=== PATIENT | female | born 1975 | race Two or more races ===

== ENCOUNTER 2020-01-14 18:10 | Outpatient (REF) | payer MEDICARE, MEDICAID, SELFPAY ==
--- NOTE | 2020-01-14 18:15 | MR_ITS ---
EXAMINATION: MR LUMBAR SPINE WITHOUT CONTRAST CLINICAL INFORMATION: Postlaminectomy syndrome. COMPARISON: Lumbar spine radiographs from 03/22/2017. TECHNIQUE: MRI of the lumbar spine was obtained using routine sequences without contrast. FINDINGS: Instrumented posterior fusion of L5-S1 with bilateral paired interpedicular screws and disc spacer in place. Mild degenerative grade 1 anterolisthesis of L5 on S1. Advanced degenerative disc disease at T12-L1 and L1-L2. Mild degenerative disc disease from L2-L5 with partial disc desiccation. Mixed Modic type discogenic endplate changes including mild Modic type I discogenic edema at L3-L4 and L4-L5. Mild marrow edema within the L4-L5 facets suggestive of degenerative stress reaction. Lipid rich hemangiomas are noted within the T11, L1, and L4 vertebral bodies. No additional suspicious marrow edema. There is a Schmorl's node in the superior endplate of L2. Otherwise, the vertebral body heights are well-maintained. The conus medullaris terminates at the level of L1. The distal spinal cord is normal in appearance. Soft tissue changes of the paraspinal musculature related to L5-S1 posterior fusion and laminectomy. No fluid collection demonstrated. Otherwise, no significant abnormalities of the paraspinal musculature. There is a 2.5 cm T2 hyperintense adnexal cyst. Otherwise, limited evaluation of the intra-abdominal structures without significant abnormalities. The abdominal aorta is of normal contour and caliber. AXIAL SPINAL LEVELS: T12-L1: Small central/left subarticular disc extrusion with superior migration. There is mild bilateral facet joint arthropathy. There is no neural foraminal stenosis. There is no spinal canal stenosis. L1-L2: Mild diffuse disc bulge. There is mild to moderate bilateral facet joint arthropathy. There is no neural foraminal stenosis. There is no spinal canal stenosis. L2-L3: Shallow diffuse disc bulge. There is mild bilateral facet joint arthropathy. There is no neural foraminal stenosis. There is no spinal canal stenosis. L3-L4: Shallow diffuse disc bulge. There is moderate facet joint arthropathy. There is mild neural foraminal stenosis. There is mild narrowing of the right lateral recess with no overt spinal canal stenosis centrally. L4-L5: Shallow diffuse disc bulge. There is moderate bilateral facet joint arthropathy. There is no neural foraminal stenosis. There is mild narrowing of the right lateral recess with no overt spinal canal stenosis centrally. L5-S1: Fused at this level. Posterior decompression.. There is mild hypertrophy of the facet. There is no neural foraminal stenosis. There is no spinal canal stenosis. IMPRESSION: Instrumented posterior fusion of L5-S1 with posterior decompression. Mild to moderate multilevel degenerative spondyloarthropathy of the lumbar spine as described in detail above. There are mild neural foraminal stenosis at L3-L4 and mild narrowings of the right lateral recesses at L3-L4 and L4-L5. Mild marrow edema within the L4-L5 facets suggestive of degenerative stress reaction.
== END 2020-01-14 18:11 | disposition home or self-care (01) ==
LOC: HO.MRI 18:10
PROVIDERS: Visit Provider Anesthesiology
DX: M96.1 Postlaminectomy syndrome, not elsewhere classified (principal)
CPT/HCPCS: 72148

== ENCOUNTER 2020-01-29 16:08 | Emergency (ER) | payer MEDICARE, MEDICAID, SELFPAY | END 2020-01-29 18:56 | disposition left against medical advice (07) | PROVIDERS: Emergency Provider Internal Medicine | DX: R50.9 Fever, unspecified (principal); Z20.828 Contact with and (suspected) exposure to other viral communicable diseases | CPT/HCPCS: 99281 ==

== ENCOUNTER 2020-02-01 12:42 | Emergency (ER) | payer MEDICARE, MEDICAID, SELFPAY ==
--- NOTE | 2020-02-01 13:03 | ED.URI ---
HPI - URI/Sore Throat General Chief Complaint: Upper Respiratory Symptoms Stated Complaint: covid swab Time Seen by Provider: 02/01/20 13:03 Source: patient and triage registered nurse Mode of arrival: ambulatory Limitations: no limitations History of Present Illness MD elicited complaint: cough, rhinorrhea and nasal congestion Pertinent past history: other ( and daughters have confirmed COVID) Onset (ago): day(s) (4) Consistency: constant Severity: mild Description of mucous: clear Able to tolerate fluids by mouth: Yes Relieving factors: nothing Context: sick contacts Associated symptoms: fever, chills, myalgias, rhinorrhea and cough Treatments prior to arrival: none Related Data Allergies Allergy/AdvReac Type Severity Reaction Status Date / Time morphine [MORPHINE] Allergy Unknown ITCHY, Verified 02/01/20 13:24 itching, itching tramadol [TRAMADOL] Allergy Unknown SHORTNESS Verified 02/01/20 13:24 OF BREATH Review of Systems Review of Systems: Constitutional : positive Fever, positive Chills, positive fatigue, positive Malaise ENT/Mouth : positive sore throat, positive runny nose Eyes: No Discharge Cardiovascular : No Chest Pain, No SOB Respiratory : No Cough, No Sputum Gastrointestinal : No Nausea, No Vomiting, No Diarrhea Genitourinary : No Dysuria, No Urinary Frequency Musculoskeletal : positive Myalgia Skin : No rash Neuro : No Headache PMFSH Past Medical History Attestation statement: The following information was validated with the patient. Medical History Arthritis Fibromyalgia Sleep apnea Social History Social History (Updated 02/01/20 @ 13:32 by Nirali Steele DO) Smoking Status: Never smoker Use of substances other than those prescribed or required for medical reasons: No Advance Directives: No Advance Directives Information Provided: Yes Physical Exam Vital Signs: Vital Signs: Last Vital Signs Temp 98.3 F 02/01/20 13:25 Pulse 90 02/01/20 13:25 Resp 16 02/01/20 13:25 BP 111/71 02/01/20 13:25 Pulse Ox 99 02/01/20 13:25 Body Mass Index 25.8 Appearance: Alert. Oriented X3. No acute distress. Eyes: Pupils equal, round and reactive to light. Neck: Normal inspection. Neck supple. CVS: Normal heart rate and rhythm. Pulses normal. Respiratory: No respiratory distress. Breath sounds normal. Abdomen: Soft and nontender. Skin: Skin warm and dry. Normal skin color. Normal skin turgor. Extremities: No lower extremity edema. No calf ttp Neuro: Oriented X 3. No motor deficit. No sensory deficit. MDM - URI/Sore Throat MDM Narrative Medical decision making narrative: 44 yo female not toxic, no hypoxia here with URI - and daughters have COVID, wants a test Discharge Plan Discharge Clinical Impression: Viral infection Patient Disposition: Home, Self-Care Instructions: COVID-19 (Coronavirus Disease 2019) (ED) Additional Instructions: return to ED for any worsening symptoms or concerns you were tested for COVID we will call you with results in 2 to 4 days, wear a mask, socially distance
[2020-02-01 13:25] VITALS: BP 111/71; PULSE 90; RESP 16; TEMP 36.8; O2SAT 99; BMI 25.8
[2020-02-01 13:41] VITALS: O2SAT 98
== END 2020-02-01 14:30 | disposition home or self-care (01) ==
PROVIDERS: Emergency Provider Emergency Medicine; PCP Family Medicine
DX: B34.9 Viral infection, unspecified (principal); R05 Cough; Z20.828 Contact with and (suspected) exposure to other viral communicable diseases
CPT/HCPCS: 99283; 99284; U0003

== ENCOUNTER → 2020-02-04 08:37 | Outpatient (BNVA) | payer MEDICARE, MEDICAID, SELFPAY | PROVIDERS: PCP Family Medicine; Referring Provider Family Medicine; Visit Provider Psychiatry & Neurology Neurology | DX: G47.33 Obstructive sleep apnea (adult) (pediatric) (principal); Z99.89 Dependence on other enabling machines and devices | CPT/HCPCS: 99212 ==

== ENCOUNTER 2020-04-27 13:55 | Outpatient (REF) | payer MEDICARE, MEDICAID, SELFPAY ==
[2020-04-28 08:48] LABS: BV Int Neg Control Negative (Negative); BV Int Pos Control Positive (Positive)
[2020-04-30 17:07] LABS: HPV mRNA E6/E7 rflx Not Detected (Not Detected)
== END 2020-04-27 13:56 | disposition home or self-care (01) ==
LOC: HO.LAB 13:55
PROVIDERS: PCP Family Medicine; Visit Provider Advanced Practice Midwife
DX: Z01.419 Encounter for gynecological examination (general) (routine) without abnormal findings (principal); Z11.51 Encounter for screening for human papillomavirus (HPV)
CPT/HCPCS: 36415; 87480; 87510; 87624; 87660; 88142

== ENCOUNTER → 2020-05-01 10:41 | Outpatient (BNVA) | payer MEDICARE, MEDICAID, SELFPAY | PROVIDERS: PCP Family Medicine; Visit Provider Nurse Practitioner Family | DX: M96.1 Postlaminectomy syndrome, not elsewhere classified (principal); M47.819 Spondylosis without myelopathy or radiculopathy, site unspecified; M54.12 Radiculopathy, cervical region | CPT/HCPCS: 99212 ==

== ENCOUNTER 2020-08-09 12:02 | Emergency (ER) | payer MEDICARE, MEDICAID, SELFPAY ==
--- NOTE | ~2020-08-09 | CT_ITS ---
EXAMINATION: CT ANGIOGRAM OF THE CHEST WITH AND WITHOUT CONTRAST (CT PULMONARY ANGIOGRAM FOR PE) CLINICAL INFORMATION: Reason for Exam Elevated D-dimer. PE? COMPARISON: Chest radiograph done earlier today. TECHNIQUE: Prior to contrast administration, noncontrast localization images were obtained. Subsequently, multidetector volumetric imaging was performed from the thoracic inlet to below the diaphragms following the administration of 61 mL Omnipaque 350 intravenous contrast. No contrast reaction reported Sagittal, coronal, and MIP oblique sagittal reformatted images were obtained on the CT workstation, uploaded to PACS, and reviewed. This CT examination was performed using dose optimization techniques as appropriate, variously including the following: *Automated exposure control *Adjustment of mA and/or kV according to patient size (this includes techniques or standardized protocols for targeted exams where dose is matched to indication/reason for exam; i.e. extremities or head) *Use of iterative reconstruction technique Total exam dose-length product 310 mGy-cm FINDINGS: QUALITY OF STUDY/CONTRAST BOLUS: Suboptimal. PULMONARY ARTERIES: Nonopacified due to missed bolus resulting in opacification of the left-sided cardiac chambers and aorta. THORACIC AORTA: No aneurysm or dissection. LUNG: No focal consolidation, nodules or masses. PLEURA: No pleural effusion or pneumothorax. MEDIASTINUM: Normal heart size. No pericardial effusion. No hilar or mediastinal lymphadenopathy. No evidence of septal bowing or right heart strain. CHEST WALL/AXILLA: No axillary or internal mammary lymphadenopathy. OSSEOUS STRUCTURES: No acute or suspicious osseous abnormality. UPPER ABDOMEN: Unremarkable. No reflux of contrast into the hepatic veins to suggest elevated right heart pressures. CT/CT angio chest PE protocol IMPRESSION: 1. Suboptimal evaluation for pulmonary thromboembolism due to missed timing bolus resulting in opacification of the left-sided cardiac chambers and aorta. Alternative imaging modality including lower extremity DVT study, radionuclide scintigraphy and/or repeat imaging with contrast enhanced CT scan as appropriate may be considered for further clarification. VTE: Indeterminate. This critical result was discussed with CHELI Mejia at 5:10 PM on 08/09/2020 and it was ascertained that the content and urgency of the report was understood at the time of direct communication.
--- NOTE | ~2020-08-09 | CT_ITS ---
EXAMINATION: CTA CHEST PE STUDY CLINICAL INFORMATION: Elevated D-dimer. Chest pain. PE? COMPARISON: No pertinent prior studies are available for comparison. TECHNIQUE: Prior to contrast administration, noncontrast localization images were obtained. After the administration of 70 mL of Omnipaque 350 IV contrast, contiguous thin slice helical images were obtained through the thorax. Reformatted MIP images in the coronal and sagittal planes were obtained at the acquisition workstation. This CT examination was performed using dose optimization techniques as appropriate, variously including the following: *Automated exposure control *Adjustment of mA and/or kV according to patient size (this includes techniques or standardized protocols for targeted exams where dose is matched to indication/reason for exam; i.e. extremities or head) *Use of iterative reconstruction technique DLP: 300 mGy-cm. FINDINGS: The bolus timing on this study was acceptable for visualization of the pulmonary arterial tree. There are no intraluminal pulmonary arterial filling defects present to suggest pulmonary embolism. The lungs are clear. No abnormal pulmonary nodules or masses are appreciated. No significant hilar or mediastinal adenopathy. There is no evidence of pleural effusion or pneumothorax. The heart is normal in size. No evidence of ventricular septal bowing or right heart strain. Great vessels are normal. Otherwise the mediastinum is unremarkable. There is no pericardial effusion or pericardial thickening. Limited evaluation of the upper abdominal viscera is unremarkable. CT/CT angio chest PE protocol IMPRESSION: No evidence for pulmonary emboli. No focal airspace disease VTE: Negative
--- NOTE | ~2020-08-09 | XR_ITS ---
EXAMINATION: XR CHEST CLINICAL INFORMATION: Chest pain COMPARISON: 02/22/2018 TECHNIQUE: Frontal view of the chest was obtained. FINDINGS: No significant abnormality is noted involving the heart, lungs, mediastinum, bony thorax or soft tissues. XR/XR chest 1V IMPRESSION: Unremarkable examination.
[2020-08-09 12:13] VITALS: BP 125/59; PULSE 75; RESP 18; TEMP 36.8; O2SAT 98; BMI 26.4
[2020-08-09 13:41] LABS: Glucose Urine UA NEG (NEG); Leukocyte Esterase Urine NEG (NEG); Nitrite Urine NEG (NEG); PH 7.5 (5.0-8.0); Urine Blood NEG (NEG); Urine Ketones NEG (NEG); Urine Protein NEG (NEG-TRACE)
[2020-08-09 13:42] LABS: Appearance Urine CLEAR; Color Urine YELLOW
--- NOTE | 2020-08-09 13:42 | ED.GENADULT ---
HPI - General Adult General Chief complaint: General Medical <CHELI Mejia Last Filed: 08/09/20 18:16> Stated complaint: chest and back pain <CHELI Mejia Last Filed: 08/09/20 18:16> Time Seen by Provider: 08/09/20 13:32 <CHELI Mejia Last Filed: 08/09/20 18:16> Source: patient <CHELI Mejia Last Filed: 08/09/20 18:16> Mode of arrival: ambulatory <CHELI Mejia Last Filed: 08/09/20 18:16> Limitations: no limitations <CHELI Mejia Last Filed: 08/09/20 18:16> History of Present Illness HPI narrative: Patient presents to ED for left chest pain radiating to the back since Monday. Patient states pain is worse on range of motion and on shortness of breath. Patient states maybe she pulled a muscle but was concerned due to pleuritic chest pain. Patient states on Monday was doing cleaning of windows and with repetitive movement with left upper extremity and 2 days later she started having pain. Patient denies any swelling of lower extremities, calf pain, coughing up blood, fever, or chills. Patient denies any recent control use, recent travel, recent surgery, or recent trauma. <CHELI Mejia Last Filed: 08/09/20 18:16> Related Data Home medications: Home Medications Medication Instructions Recorded Confirmed [id number] 2 tab PO Q4H 04/27/20 50 mg-325 mg-40 mg tablet cyclobenzaprine 10 mg tablet 10 mg PO BEDTIME 04/27/20 gabapentin 300 mg capsule 300 mg PO TID 04/27/20 sertraline 50 mg tablet 50 mg PO DAILY 04/27/20 Previous Rx's Medication Instructions Recorded tizanidine 2 mg tablet 2 mg PO BEDTIME #30 tab 07/24/20 <CHELI Mejia Last Filed: 08/09/20 18:16> Allergies/adverse reactions: Allergies Allergy/AdvReac Type Severity Reaction Status Date / Time morphine [MORPHINE] Allergy Unknown ITCHY, Verified 04/27/20 14:21 itching, itching tramadol [TRAMADOL] Allergy Unknown SHORTNESS Verified 04/27/20 14:21 OF BREATH <CHELI Mejia - Last Filed: 08/09/20 18:16> Review of Systems Review of Systems: Yes all other systems are reviewed and are negative <CHELI Mejia - Last Filed: 08/09/20 18:16> Constitutional: Constitutional: Reports as per HPI and Reports no additional constitutional complaints <CHELI Mejia Last Filed: 08/09/20 18:16> Eyes: Eyes: Reports as per HPI and Reports no additional eye complaints <CHELI Mejia - Last Filed: 08/09/20 18:16> ENT: Reports system reviewed and no additional complaints, except as documented and Reports as per HPI <CHELI Mejia Last Filed: 08/09/20 18:16> Cardiovascular: Cardiovascular: Reports as per HPI, Reports no additional cardiovascular complaints and Reports chest pain (Chest wall) <CHELI Mejia Last Filed: 08/09/20 18:16> Respiratory: Respiratory: Reports as per HPI and Reports no additional respiratory complaints <CHELI Mejia - Last Filed: 08/09/20 18:16> Gastrointestinal: Gastrointestinal: Reports as per HPI and Reports no additional gastrointestinal complaints <CHELI Mejia Last Filed: 08/09/20 18:16> Genitourinary: Genitourinary: Reports no additional female genitourinary complaints and Reports as per HPI <CHELI Mejia - Last Filed: 08/09/20 18:16> Musculoskeletal: Musculoskeletal: Reports no additional musculoskeletal complaints and Reports as per HPI <CHELI Mejia Last Filed: 08/09/20 18:16> Neurologic: Reports system reviewed and no additional complaints, except as documented and Reports as per HPI <CHELI Mejia Last Filed: 08/09/20 18:16> Psychiatric: Psychiatric: Reports no additional psychiatric complaints and Reports as per HPI <CHELI Mejia Last Filed: 08/09/20 18:16> PMFSH Past Medical History Medical History: Medical History (Updated 08/09/20 @ 18:14 by CHELI Meija) Arthritis Cervical cancer screening Fibromyalgia Sleep apnea <CHELI Mejia Last Filed: 08/09/20 18:16> Surgical History: Surgical History (Updated 04/27/20 @ 14:25 by CARLEEN Zimmer) Hx of removal of ovary <CHELI Mejia - Last Filed: 08/09/20 18:16> Social History Social History: Social History (Updated 04/27/20 @ 14:25 by CARLEEN Zimmer) Alcohol intake: never Smoking Status: Never smoker Advance Directives: Yes Advance Directives Information Provided: Yes Advance Directives on File: No Patient : No Gender identity: female <CHELI Mejia - Last Filed: 08/09/20 18:16> Physical Exam Vital Signs: Vital Signs: Last Vital Signs Temp 98.2 F 08/09/20 20:22 Pulse 72 08/09/20 20:22 Resp 12 08/09/20 20:22 BP 115/71 08/09/20 20:22 Pulse Ox 98 08/09/20 20:22 Body Mass Index 26.4 <CHELI Mejia - Last Filed: 08/09/20 18:16> Vital Signs: Last Vital Signs Temp 98.2 F 08/09/20 20:22 Pulse 72 08/09/20 20:22 Resp 08/09/20 20:22 BP 115/71 08/09/20 20:22 Pulse Ox 98 08/09/20 20:22 Body Mass Index 26.4 <Janey Stoddard PA-C - Last Filed: 08/09/20 20:24> Const: General: cooperative, healthy appearing, comfortable, no acute distress, well developed, alert and awake <CHELI Mejia - Last Filed: 08/09/20 18:16> Orientation/consciousness: patient oriented x3 <CHELI Mejia - Last Filed: 08/09/20 18:16> HENMT: Head: Yes normal to inspection, Yes No palpable skull fracture present, Yes normocephalic and Yes atraumatic <CHELI Mejia Last Filed: 08/09/20 18:16> Eyes: General: appearance normal, both eyes and all related structures <CHELI Mejia Last Filed: 08/09/20 18:16> Neck: Neck: Yes normal visual inspection, Yes full ROM, Yes no lymphadenopathy, Yes no meningeal signs, Yes trachea midline, Yes supple and No tender <CHELI Mejia Last Filed: 08/09/20 18:16> Chest: Other: Positive for left chest wall tenderness on palpation <CHELI Mejia Last Filed: 08/09/20 18:16> Chest palpation & inspection: normal inspection of the chest <CHELI Mejia Last Filed: 08/09/20 18:16> Resp: Effort & Inspection: normal respiratory effort and able to speak in complete sentences <CHELI Mejia Last Filed: 08/09/20 18:16> Auscultation: clear to auscultation bilaterally <CHELI Mejia Last Filed: 08/09/20 18:16> Cardio: Jugular venous distension: no JVD <CHELI Mejia Last Filed: 08/09/20 18:16> Heart sounds: S1 normal heart sound present and S2 normal heart sound present <CHELI Mejia Last Filed: 08/09/20 18:16> GI: Inspection: Yes normal to inspection and No abdominal wall ecchymosis <CHELI Mejia Last Filed: 08/09/20 18:16> Palpation (GI): Soft to palpation, not firm, nontender, no guarding and not rigid <CHELI Mejia Last Filed: 08/09/20 18:16> : General: No CVA tenderness and Yes no CVA tenderness <CHELI Mejia Last Filed: 08/09/20 18:16> Back/Spine/Pelvis: Back: no CVA tenderness, No CVA tenderness and No back tenderness <CHELI Mejia Last Filed: 08/09/20 18:16> Skin: General skin exam: no rashes or lesions noted and elasticity normal <CHELI Mejia Last Filed: 08/09/20 18:16> Neuro: General: patient oriented x3, no meningeal signs and CN's II-XI intact bilaterally <CHELI Mejia Last Filed: 08/09/20 18:16> Cranial nerves: Yes CN's II-XII intact bilaterally <CHELI Mejia Last Filed: 08/09/20 18:16> Extrem: General: Yes normal to inspection and Yes full ROM <CHELI Mejia - Last Filed: 08/09/20 18:16> Psych: Appearance: grossly normal, well kempt and not disheveled <CHELI Mejia - Last Filed: 08/09/20 18:16> Course Course Course Narrative: Infection may be pulled chest wall strain be due to AH will do EKG and troponin sent for D-dimer due to pleuritic chest pain. <CHELI Mejia - Last Filed: 08/09/20 18:16> Reevaluation(s) Reevaluation #1: D-dimer elevated. Patient will be sent for chest CT rule out PE. Next EKG negative for STEMI. <CHELI Mejia - Last Filed: 08/09/20 18:16> CTA negative for PE, will discharge patient home. Likely costochondritis from the movements she was doing yesterday. [address] Scan ReportSigned Patient: Kathy Alexis AMR#: [id number]: 1975Acct:[id number]/Sex: 44 / FADM Date: 08/09/20Loc: [address]: Ordering Physician: EDER BEAULIEU Date of Service: 08/09/20 Procedure(s): CT angio chest PE protocol Accession Number(s): [id number] cc: EDER BEAULIEU~ EXAMINATION: CTA CHEST PE STUDY CLINICAL INFORMATION: Elevated D-dimer. Chest pain. PE? COMPARISON: No pertinent prior studies are available for comparison. TECHNIQUE: Prior to contrast administration, noncontrast localization images were obtained. After the administration of 70 mL of Omnipaque 350 IV contrast, contiguous thin slice helical images were obtained through the thorax. Reformatted MIP images in the coronal and sagittal planes were obtained at the acquisition workstation. This CT examination was performed using dose optimization techniques as appropriate, variously including the following: *Automated exposure control *Adjustment of mA and/or kV according to patient size (this includes techniques or standardized protocols for targeted exams where dose is matched to indication/reason for exam; i.e. extremities or head) *Use of iterative reconstruction technique DLP: 300 mGy-cm. FINDINGS: The bolus timing on this study was acceptable for visualization of the pulmonary arterial tree. There are no intraluminal pulmonary arterial filling defects present to suggest pulmonary embolism. The lungs are clear. No abnormal pulmonary nodules or masses are appreciated. No significant hilar or mediastinal adenopathy. There is no evidence of pleural effusion or pneumothorax. The heart is normal in size. No evidence of ventricular septal bowing or right heart strain. Great vessels are normal. Otherwise the mediastinum is unremarkable. There is no pericardial effusion or pericardial thickening. Limited evaluation of the upper abdominal viscera is unremarkable. CT/CT angio chest PE protocol IMPRESSION: No evidence for pulmonary emboli. No focal airspace disease VTE: Negative Dictated By:MANAV PATIÑO MDSigned By:<Electronically signed by MANAV PATIÑO MD in OV>08/09/20 1853 DD/ 1723TD/TT: [employer]ic: [place] <Janey Stoddard PA-C - Last Filed: 08/09/20 20:24> Time: 20:23 <Janey Stoddard PA-C - Last Filed: 08/09/20 20:24> Reevaluation #2: Repeat chest CT ordered as recommended by radiologist due to air of timing of bolus on chest CT that was performed. Patient made aware and is agreeable for repeat chest CT 8. Patient presently stable not in any distress. Case signed out to CHELI Toth to follow second Chest CTA. <CHELI Mejia Last Filed: 08/09/20 18:16> Medical Decision Making MDM Narrative Medical decision making narrative: Left muscular chest wall pain <CHELI Mejia Last Filed: 08/09/20 18:16> Lab Data Result diagrams: : 08/09/20 14:20 08/09/20 14:20 <CHELI Mejia Last Filed: 08/09/20 18:16> Labs: Lab Results 08/09/20 08/09/20 08/09/20 Range/Units 13:24 13:24 14:20 WBC 5.8 (4.8-10.8) X10*3/uL RBC 3.72 L (4.20-5.50) X10*6/uL Hgb 11.1 L (12.0-16.0) g/dl Hct 33.5 L (37-47) % MCV 90.1 (80-98) fL MCH 29.8 (27.0-33.0) pg MCHC 33.1 (31.0-35.0) g/dl RDW 13.3 (11.0-16.0) % Plt Count 175 (160-400) X10*3/uL MPV 12.4 H (9.4-12.3) fL Immature Gran % (Auto) 0.0 (0.0-0.4) % Neut % (Auto) 49.6 (45-73) % Lymph % (Auto) 38.2 (20-40) % [place] % (Auto) 9.5 (2-11) % Eos % (Auto) 2.2 (0-4) % Baso % (Auto) 0.5 (0-2) % Lymph # (Auto) 2.2 (1.2-4.9) X10*3/uL [place] # (Auto) 0.6 (0.1-1.2) X10*3/uL Eos # (Auto) 0.1 (0.0-0.4) X10*3/uL Baso # (Auto) 0.0 (0.0-0.2) X10*3/uL Abs Immat Gran (auto) 0.00 (0.00-0.03) X10*3/uL Absolute Neuts (auto) 2.9 (2.0-8.3) X10*3/uL Absolute Nucleated RBC 0.000 (0.0-0.012) X10*3/uL Nucleated RBC % (auto) 0.0 (0.0-0.2) /100WBC PT (10.8-13.0) SEC INR (0.9-1.1) APTT (24.1-38.0) SEC D-Dimer NG/ML Sodium (135-145) mmol/L Potassium (3.3-5.1) mmol/L Chloride (96-108) mmol/L Carbon Dioxide (22-29) mmol/L Anion Gap (12-20) BUN (9-16) mg/dL Creatinine (0.5-1.4) mg/dL Estim Creat Clear Calc Estimated GFR Random Glucose (60-115) mg/dL Calcium (8.4-10.2) mg/dL Total Bilirubin (0.0-1.0) mg/dL AST (5-31) U/L ALT (0-31) U/L Alkaline Phosphatase (39-117) U/L Troponin I High Sens (<3.5-17.0) ng/L Total Protein (6.5-8.0) g/dL Albumin (3.5-5.0) g/dL Urine Color YELLOW Urine Appearance CLEAR Urine pH 7.5 (5.0-8.0) Ur Specific [place] 1.020 (1.005-1.025) Urine Protein NEG (NEG-TRACE) MG/DL Urine Glucose (UA) NEG (NEG) MG/DL Urine Ketones NEG (NEG) MG/DL Urine Blood NEG (NEG) Urine Nitrite NEG (NEG) Ur Leukocyte Esterase NEG (NEG) Urine RBC 0-2 (0) /HPF Urine WBC 0-2 (0-4) /HPF Ur Squamous Epith Cells TRACE /LPF Urine Bacteria NONE /LPF Urine Test NEGATIVE (NEGATIVE) COVID-19 (HARI) (Negative) COVID-19 Clin Com 08/09/20 08/09/20 08/09/20 Range/Units 14:20 14:20 14:20 WBC (4.8-10.8) X10*3/uL RBC (4.20-5.50) X10*6/uL Hgb (12.0-16.0) g/dl Hct (37-47) % MCV (80-98) fL MCH (27.0-33.0) pg MCHC (31.0-35.0) g/dl RDW (11.0-16.0) % Plt Count (160-400) X10*3/uL MPV (9.4-12.3) fL Immature Gran % (Auto) (0.0-0.4) % Neut % (Auto) (45-73) % Lymph % (Auto) (20-40) % [place] % (Auto) (2-11) % Eos % (Auto) (0-4) % Baso % (Auto) (0-2) % Lymph # (Auto) (1.2-4.9) X10*3/uL [place] # (Auto) (0.1-1.2) X10*3/uL Eos # (Auto) (0.0-0.4) X10*3/uL Baso # (Auto) (0.0-0.2) X10*3/uL Abs Immat Gran (auto) (0.00-0.03) X10*3/uL Absolute Neuts (auto) (2.0-8.3) X10*3/uL Absolute Nucleated RBC (0.0-0.012) X10*3/uL Nucleated RBC % (auto) (0.0-0.2) /100WBC PT 12.8 (10.8-13.0) SEC INR 1.1 (0.9-1.1) APTT 33.9 (24.1-38.0) SEC D-Dimer 288 NG/ML Sodium 139 (135-145) mmol/L Potassium 4.0 (3.3-5.1) mmol/L Chloride 109 H (96-108) mmol/L Carbon Dioxide 23 (22-29) mmol/L Anion Gap 11 L (12-20) BUN 14 (9-16) mg/dL Creatinine 0.64 (0.5-1.4) mg/dL Estim Creat Clear Calc 107.7 Estimated GFR > 60 Random Glucose 91 (60-115) mg/dL Calcium 8.9 (8.4-10.2) mg/dL Total Bilirubin 0.2 (0.0-1.0) mg/dL AST 14 (5-31) U/L ALT 12 (0-31) U/L Alkaline Phosphatase 58 (39-117) U/L Troponin I High Sens < 3.5 (<3.5-17.0) ng/L Total Protein 7.1 (6.5-8.0) g/dL Albumin 4.1 (3.5-5.0) g/dL Urine Color Urine Appearance Urine pH (5.0-8.0) Ur Specific [place] (1.005-1.025) Urine Protein (NEG-TRACE) MG/DL Urine Glucose (UA) (NEG) MG/DL Urine Ketones (NEG) MG/DL Urine Blood (NEG) Urine Nitrite (NEG) Ur Leukocyte Esterase (NEG) Urine RBC (0) /HPF Urine WBC (0-4) /HPF Ur Squamous Epith Cells /LPF Urine Bacteria /LPF Urine Test (NEGATIVE) COVID-19 (HARI) (Negative) COVID-19 Clin Com 08/09/20 Range/Units 14:20 WBC (4.8-10.8) X10*3/uL RBC (4.20-5.50) X10*6/uL Hgb (12.0-16.0) g/dl Hct (37-47) % MCV (80-98) fL MCH (27.0-33.0) pg MCHC (31.0-35.0) g/dl RDW (11.0-16.0) % Plt Count (160-400) X10*3/uL MPV (9.4-12.3) fL Immature Gran % (Auto) (0.0-0.4) % Neut % (Auto) (45-73) % Lymph % (Auto) (20-40) % [place] % (Auto) (2-11) % Eos % (Auto) (0-4) % Baso % (Auto) (0-2) % Lymph # (Auto) (1.2-4.9) X10*3/uL [place] # (Auto) (0.1-1.2) X10*3/uL Eos # (Auto) (0.0-0.4) X10*3/uL Baso # (Auto) (0.0-0.2) X10*3/uL Abs Immat Gran (auto) (0.00-0.03) X10*3/uL Absolute Neuts (auto) (2.0-8.3) X10*3/uL Absolute Nucleated RBC (0.0-0.012) X10*3/uL Nucleated RBC % (auto) (0.0-0.2) /100WBC PT (10.8-13.0) SEC INR (0.9-1.1) APTT (24.1-38.0) SEC D-Dimer NG/ML Sodium (135-145) mmol/L Potassium (3.3-5.1) mmol/L Chloride (96-108) mmol/L Carbon Dioxide (22-29) mmol/L Anion Gap (12-20) BUN (9-16) mg/dL Creatinine (0.5-1.4) mg/dL Estim Creat Clear Calc Estimated GFR Random Glucose (60-115) mg/dL Calcium (8.4-10.2) mg/dL Total Bilirubin (0.0-1.0) mg/dL AST (5-31) U/L ALT (0-31) U/L Alkaline Phosphatase (39-117) U/L Troponin I High Sens (<3.5-17.0) ng/L Total Protein (6.5-8.0) g/dL Albumin (3.5-5.0) g/dL Urine Color Urine Appearance Urine pH (5.0-8.0) Ur Specific [place] (1.005-1.025) Urine Protein (NEG-TRACE) MG/DL Urine Glucose (UA) (NEG) MG/DL Urine Ketones (NEG) MG/DL Urine Blood (NEG) Urine Nitrite (NEG) Ur Leukocyte Esterase (NEG) Urine RBC (0) /HPF Urine WBC (0-4) /HPF Ur Squamous Epith Cells /LPF Urine Bacteria /LPF Urine Test (NEGATIVE) COVID-19 (HARI) Negative (Negative) COVID-19 Clin Com See Note <CHELI Mejia - Last Filed: 08/09/20 18:16> Lab Results 08/09/20 08/09/20 08/09/20 Range/Units 13:24 13:24 14:20 WBC 5.8 (4.8-10.8) X10*3/uL RBC 3.72 L (4.20-5.50) X10*6/uL Hgb 11.1 L (12.0-16.0) g/dl Hct 33.5 L (37-47) % MCV 90.1 (80-98) fL MCH 29.8 (27.0-33.0) pg MCHC 33.1 (31.0-35.0) g/dl RDW 13.3 (11.0-16.0) % Plt Count 175 (160-400) X10*3/uL MPV 12.4 H (9.4-12.3) fL Immature Gran % (Auto) 0.0 (0.0-0.4) % Neut % (Auto) 49.6 (45-73) % Lymph % (Auto) 38.2 (20-40) % [place] % (Auto) 9.5 (2-11) % Eos % (Auto) 2.2 (0-4) % Baso % (Auto) 0.5 (0-2) % Lymph # (Auto) 2.2 (1.2-4.9) X10*3/uL [place] # (Auto) 0.6 (0.1-1.2) X10*3/uL Eos # (Auto) 0.1 (0.0-0.4) X10*3/uL Baso # (Auto) 0.0 (0.0-0.2) X10*3/uL Abs Immat Gran (auto) 0.00 (0.00-0.03) X10*3/uL Absolute Neuts (auto) 2.9 (2.0-8.3) X10*3/uL Absolute Nucleated RBC 0.000 (0.0-0.012) X10*3/uL Nucleated RBC % (auto) 0.0 (0.0-0.2) /100WBC PT (10.8-13.0) SEC INR (0.9-1.1) APTT (24.1-38.0) SEC D-Dimer NG/ML Sodium (135-145) mmol/L Potassium (3.3-5.1) mmol/L Chloride (96-108) mmol/L Carbon Dioxide (22-29) mmol/L Anion Gap (12-20) BUN (9-16) mg/dL Creatinine (0.5-1.4) mg/dL Estim Creat Clear Calc Estimated GFR Random Glucose (60-115) mg/dL Calcium (8.4-10.2) mg/dL Total Bilirubin (0.0-1.0) mg/dL AST (5-31) U/L ALT (0-31) U/L Alkaline Phosphatase (39-117) U/L Troponin I High Sens (<3.5-17.0) ng/L Total Protein (6.5-8.0) g/dL Albumin (3.5-5.0) g/dL Urine Color YELLOW Urine Appearance CLEAR Urine pH 7.5 (5.0-8.0) Ur Specific [place] 1.020 (1.005-1.025) Urine Protein NEG (NEG-TRACE) MG/DL Urine Glucose (UA) NEG (NEG) MG/DL Urine Ketones NEG (NEG) MG/DL Urine Blood NEG (NEG) Urine Nitrite NEG (NEG) Ur Leukocyte Esterase NEG (NEG) Urine RBC 0-2 (0) /HPF Urine WBC 0-2 (0-4) /HPF Ur Squamous Epith Cells TRACE /LPF Urine Bacteria NONE /LPF Urine Test NEGATIVE (NEGATIVE) COVID-19 (HARI) (Negative) COVID-19 Clin Com 08/09/20 08/09/20 08/09/20 Range/Units 14:20 14:20 14:20 WBC (4.8-10.8) X10*3/uL RBC (4.20-5.50) X10*6/uL Hgb (12.0-16.0) g/dl Hct (37-47) % MCV (80-98) fL MCH (27.0-33.0) pg MCHC (31.0-35.0) g/dl RDW (11.0-16.0) % Plt Count (160-400) X10*3/uL MPV (9.4-12.3) fL Immature Gran % (Auto) (0.0-0.4) % Neut % (Auto) (45-73) % Lymph % (Auto) (20-40) % [place] % (Auto) (2-11) % Eos % (Auto) (0-4) % Baso % (Auto) (0-2) % Lymph # (Auto) (1.2-4.9) X10*3/uL [place] # (Auto) (0.1-1.2) X10*3/uL Eos # (Auto) (0.0-0.4) X10*3/uL Baso # (Auto) (0.0-0.2) X10*3/uL Abs Immat Gran (auto) (0.00-0.03) X10*3/uL Absolute Neuts (auto) (2.0-8.3) X10*3/uL Absolute Nucleated RBC (0.0-0.012) X10*3/uL Nucleated RBC % (auto) (0.0-0.2) /100WBC PT 12.8 (10.8-13.0) SEC INR 1.1 (0.9-1.1) APTT 33.9 (24.1-38.0) SEC D-Dimer 288 NG/ML Sodium 139 (135-145) mmol/L Potassium 4.0 (3.3-5.1) mmol/L Chloride 109 H (96-108) mmol/L Carbon Dioxide 23 (22-29) mmol/L Anion Gap 11 L (12-20) BUN 14 (9-16) mg/dL Creatinine 0.64 (0.5-1.4) mg/dL Estim Creat Clear Calc 107.7 Estimated GFR > 60 Random Glucose 91 (60-115) mg/dL Calcium 8.9 (8.4-10.2) mg/dL Total Bilirubin 0.2 (0.0-1.0) mg/dL AST 14 (5-31) U/L ALT 12 (0-31) U/L Alkaline Phosphatase 58 (39-117) U/L Troponin I High Sens < 3.5 (<3.5-17.0) ng/L Total Protein 7.1 (6.5-8.0) g/dL Albumin 4.1 (3.5-5.0) g/dL Urine Color Urine Appearance Urine pH (5.0-8.0) Ur Specific [place] (1.005-1.025) Urine Protein (NEG-TRACE) MG/DL Urine Glucose (UA) (NEG) MG/DL Urine Ketones (NEG) MG/DL Urine Blood (NEG) Urine Nitrite (NEG) Ur Leukocyte Esterase (NEG) Urine RBC (0) /HPF Urine WBC (0-4) /HPF Ur Squamous Epith Cells /LPF Urine Bacteria /LPF Urine Test (NEGATIVE) COVID-19 (HARI) (Negative) COVID-19 Clin Com 08/09/20 Range/Units 14:20 WBC (4.8-10.8) X10*3/uL RBC (4.20-5.50) X10*6/uL Hgb (12.0-16.0) g/dl Hct (37-47) % MCV (80-98) fL MCH (27.0-33.0) pg MCHC (31.0-35.0) g/dl RDW (11.0-16.0) % Plt Count (160-400) X10*3/uL MPV (9.4-12.3) fL Immature Gran % (Auto) (0.0-0.4) % Neut % (Auto) (45-73) % Lymph % (Auto) (20-40) % [place] % (Auto) (2-11) % Eos % (Auto) (0-4) % Baso % (Auto) (0-2) % Lymph # (Auto) (1.2-4.9) X10*3/uL [place] # (Auto) (0.1-1.2) X10*3/uL Eos # (Auto) (0.0-0.4) X10*3/uL Baso # (Auto) (0.0-0.2) X10*3/uL Abs Immat Gran (auto) (0.00-0.03) X10*3/uL Absolute Neuts (auto) (2.0-8.3) X10*3/uL Absolute Nucleated RBC (0.0-0.012) X10*3/uL Nucleated RBC % (auto) (0.0-0.2) /100WBC PT (10.8-13.0) SEC INR (0.9-1.1) APTT (24.1-38.0) SEC D-Dimer NG/ML Sodium (135-145) mmol/L Potassium (3.3-5.1) mmol/L Chloride (96-108) mmol/L Carbon Dioxide (22-29) mmol/L Anion Gap (12-20) BUN (9-16) mg/dL Creatinine (0.5-1.4) mg/dL Estim Creat Clear Calc Estimated GFR Random Glucose (60-115) mg/dL Calcium (8.4-10.2) mg/dL Total Bilirubin (0.0-1.0) mg/dL AST (5-31) U/L ALT (0-31) U/L Alkaline Phosphatase (39-117) U/L Troponin I High Sens (<3.5-17.0) ng/L Total Protein (6.5-8.0) g/dL Albumin (3.5-5.0) g/dL Urine Color Urine Appearance Urine pH (5.0-8.0) Ur Specific [place] (1.005-1.025) Urine Protein (NEG-TRACE) MG/DL Urine Glucose (UA) (NEG) MG/DL Urine Ketones (NEG) MG/DL Urine Blood (NEG) Urine Nitrite (NEG) Ur Leukocyte Esterase (NEG) Urine RBC (0) /HPF Urine WBC (0-4) /HPF Ur Squamous Epith Cells /LPF Urine Bacteria /LPF Urine Test (NEGATIVE) COVID-19 (HARI) Negative (Negative) COVID-19 Clin Com See Note <Janey Stoddard PA-C - Last Filed: 08/09/20 20:24> ECG Data Interpretation: Normal sinus rhythm. Normal EKG. Ventricular rate 72. NH interval 150. QRS 80. QTC 431. <CHELI Mejia Last Filed: 08/09/20 18:16> Discharge Plan Discharge Clinical Impression: Chest wall muscle strain <CHELI Mejia Last Filed: 08/09/20 18:16> Patient Disposition: Home, Self-Care <CHELI Mejia Last Filed: 08/09/20 18:16> Instructions: Chest Pain (ED), Chest Wall Pain (ED) <CHELI Mejia Last Filed: 08/09/20 18:16> Additional Instructions: Regrese al servicio de urgencias de inmediato si tiene dolor en el pecho, dificultad para respirar, hinchaz?n de las extremidades inferiores, tos con cass, fiebre, escalofr?os, dolor en el costado, dolor de brenda, mareos, desmayo o cualquier otro s?ntoma preocupante. <CHELI Mejia Last Filed: 08/09/20 18:16> Prescriptions: No Action tizanidine 2 mg tablet 2 mg PO BEDTIME Qty: 30 RF: 2 cyclobenzaprine 10 mg tablet 10 mg PO BEDTIME RF: 0 gabapentin 300 mg capsule 300 mg PO TID RF: 0 sertraline 50 mg tablet 50 mg PO DAILY RF: 0 aazjekoqwt-acfwmurffwiue-osag 50-325-40 mg tablet 2 tab PO Q4H RF: 0 <CHELI Mejia Last Filed: 08/09/20 18:16> Referrals: Nelli Packer MD [Primary Care Provider] - 2 days (Chest pain) <CHELI Mejia - Last Filed: 08/09/20 18:16> Print Language: Divehi <CHELI Mejia - Last Filed: 08/09/20 18:16>
[2020-08-09 13:55] LABS: RBC Urine 0-2 /HPF (0); Squamous Epithelial Cell Urine TRACE /LPF; WBC Urine 0-2 /HPF (0-4)
[2020-08-09 14:25] LABS: MANUAL DIFF FLAG NO
[2020-08-09 14:28] LABS: Basophils Percent Auto 0.5 % (0-2); Eosinophils Absolute Auto 0.1 X10*3/uL (0.0-0.4); Eosinophils Percent Auto 2.2 % (0-4); Hematocrit 33.5 % (37-47); Hemoglobin 11.1 g/dl (12.0-16.0); Lymphocytes Absolute Auto 2.2 X10*3/uL (1.2-4.9); Lymphocytes Percent Auto 38.2 % (20-40); Mean Corpuscular HGB Conc 33.1 g/dl (31.0-35.0); Mean Corpuscular Hemoglobin 29.8 pg (27.0-33.0); Mean Corpuscular Volume 90.1 fL (80-98); Mean Platelet Volume 12.4 fL (9.4-12.3); Monocytes Absolute Auto 0.6 X10*3/uL (0.1-1.2); Monocytes Percent Auto 9.5 % (2-11); Neutrophils Absolute Auto 2.9 X10*3/uL (2.0-8.3); Neutrophils Percent Auto 49.6 % (45-73); Platelet Count 175 X10*3/uL (160-400); Red Blood Count 3.72 X10*6/uL (4.20-5.50); Red Cell Distribution Width 13.3 % (11.0-16.0); White Blood Count 5.8 X10*3/uL (4.8-10.8)
[2020-08-09 14:35] LABS: INTERNATIONAL NORM RATIO 1.1 (0.9-1.1); Prothrombin Time 12.8 SEC (10.8-13.0)
[2020-08-09 14:38] LABS: Partial Thromboplastin Time 33.9 SEC (24.1-38.0)
[2020-08-09 14:59] LABS: COVID-19 Test Negative (Negative); IDNOW Serial# 9DD0AD1C
[2020-08-09 15:05] LABS: Alanine Aminotransferase 12 U/L (0-31); Albumin Level 4.1 g/dL (3.5-5.0); Alkaline Phosphatase 58 U/L (39-117); Anion Gap 11 (12-20); Aspartate Amino Transferase 14 U/L (5-31); Bilirubin Total 0.2 mg/dL (0.0-1.0); Blood Urea Nitrogen 14 mg/dL (9-16); Calcium 8.9 mg/dL (8.4-10.2); Carbon Dioxide 23 mmol/L (22-29); Chloride 109 mmol/L (96-108); Creatinine Clr Calc Pharmacy 107.7; Estimated Glomerular Filt Rate > 60; Glucose Random 91 mg/dL (60-115); Sodium 139 mmol/L (135-145); Total Protein 7.1 g/dL (6.5-8.0)
[2020-08-09 15:09] LABS: Troponin-I High Sensitivity < 3.5 ng/L (<3.5-17.0)
[2020-08-09 15:20] LABS: D Dimer 288 NG/ML
[2020-08-09 16:00] VITALS: RESP 16
[2020-08-09 16:41] VITALS: BP 115/60; PULSE 74; RESP 18; O2SAT 99
--- NOTE | 2020-08-09 16:46 | ECG_ITS ---
Test Reason : CHEST PAIN Blood Pressure : / mmHG Vent. Rate : 072 BPM Atrial Rate : 072 BPM P-R Int : 150 ms QRS Dur : 080 ms QT Int : 394 ms P-R-T Axes : 043 025 042 degrees QTc Int : 431 ms Normal sinus rhythm Normal ECG When compared to the previous EKG of No significant changes seen Referred By: Spenser Duke Electronically Signed By:Juan Pablo Howard
[2020-08-09 16:49] LABS: UPreg QC Valid YES; Urine Pregnancy NEGATIVE (NEGATIVE)
[2020-08-09] MEDS: iohexoL 350 MG/ML 100 ML INFUS..BTL IV ×2 (16:56→18:33)
--- NOTE | 2020-08-09 19:26 | PC.NURSE ---
Report taken from clark Partida RN resuming care. Pt resting in bed, awaiting results of repeat CTA. VSS at this time. Pt reporting 7/10 pain to left flank. Pt also requesting food/drink. Awaiting results, continue to monitor.
[2020-08-09 19:27] VITALS: BP 105/71; PULSE 71; RESP 18; O2SAT 98
--- NOTE | 2020-08-09 19:43 | PC.NURSE ---
Pt ambulating to the bathroom with a steady gait.
[2020-08-09 20:22] VITALS: BP 115/71; PULSE 72; RESP 12; TEMP 36.8; O2SAT 98
[2020-08-09] MEDS: Ketorolac Tromethamine 30 MG/ML VIAL IVPUSH (20:37)
== END 2020-08-09 20:55 | disposition home or self-care (01) ==
PROVIDERS: Physician Assistant; Emergency Provider Emergency Medicine; PCP Family Medicine
DX: R07.9 Chest pain, unspecified (principal); M54.5 Low back pain; Z20.822 Contact with and (suspected) exposure to COVID-19; Z79.899 Other long term (current) drug therapy
CPT/HCPCS: 36415; 71045; 71275; 80053; 81001; 81025; 84484; 85025; 85379; 85610; 85730; 87635; 93005; 96365; 96375; 99284; J1885; Q9967

== ENCOUNTER → 2020-08-18 10:36 | Outpatient (BNVA) | payer MEDICARE, MEDICAID, SELFPAY | PROVIDERS: PCP Family Medicine; Visit Provider Psychiatry & Neurology Neurology | CPT/HCPCS: Q3014 ==

== ENCOUNTER → 2020-10-27 11:40 | Outpatient (BNVA) | payer MEDICARE, MEDICAID, SELFPAY | PROVIDERS: PCP Family Medicine; Visit Provider Psychiatry & Neurology Neurology | DX: G47.33 Obstructive sleep apnea (adult) (pediatric) (principal) | CPT/HCPCS: 99212 ==

== ENCOUNTER → 2020-12-02 13:18 | Outpatient (BNVA) | payer MEDICARE, MEDICAID, SELFPAY | PROVIDERS: PCP Internal Medicine; Visit Provider Dietitian, Registered | DX: E66.3 Overweight (principal); Z68.28 Body mass index [BMI] 28.0-28.9, adult | CPT/HCPCS: 97802 ==

== ENCOUNTER 2020-12-18 07:37 | Outpatient (REF) | payer MEDICARE, MEDICAID, SELFPAY ==
--- NOTE | 2020-12-18 07:46 | ECG_ITS ---
Test Reason : cp Blood Pressure : / mmHG Vent. Rate : 070 BPM Atrial Rate : 070 BPM P-R Int : 154 ms QRS Dur : 078 ms QT Int : 406 ms P-R-T Axes : 181 140 134 degrees QTc Int : 438 ms Suspect limb lead reversal, interpretation assumes no reversal Unusual P axis, possible ectopic atrial rhythm Lateral infarct , age undetermined Abnormal ECG When compared with ECG of 09-AUG-2020 17:14, Ectopic atrial rhythm has replaced Sinus rhythm Lateral infarct is now Present Referred By: Lilia Walsh Electronically Signed By:DESTIN BACH
[2020-12-18 08:53] LABS: MANUAL DIFF FLAG NO
[2020-12-18 08:56] LABS: Basophils Percent Auto 0.5 % (0-2); Eosinophils Absolute Auto 0.2 X10*3/uL (0.0-0.4); Eosinophils Percent Auto 3.4 % (0-4); Hematocrit 36.4 % (37-47); Hemoglobin 11.9 g/dl (12.0-16.0); Lymphocytes Absolute Auto 2.2 X10*3/uL (1.2-4.9); Mean Corpuscular HGB Conc 32.7 g/dl (31.0-35.0); Mean Corpuscular Hemoglobin 29.7 pg (27.0-33.0); Mean Corpuscular Volume 90.8 fL (80-98); Mean Platelet Volume 12.7 fL (9.4-12.3); Monocytes Absolute Auto 0.4 X10*3/uL (0.1-1.2); Monocytes Percent Auto 6.5 % (2-11); Neutrophils Absolute Auto 3.1 X10*3/uL (2.0-8.3); Neutrophils Percent Auto 52.6 % (45-73); Platelet Count 215 X10*3/uL (160-400); Red Blood Count 4.01 X10*6/uL (4.20-5.50); Red Cell Distribution Width 13.1 % (11.0-16.0)
[2020-12-18 09:22] LABS: Alanine Aminotransferase 16 U/L (0-31); Albumin Level 4.3 g/dL (3.5-5.0); Alkaline Phosphatase 57 U/L (39-117); Anion Gap 12 (12-20); Aspartate Amino Transferase 18 U/L (5-31); Bilirubin Total 0.4 mg/dL (0.0-1.0); Blood Urea Nitrogen 9 mg/dL (9-16); Calcium 9.5 mg/dL (8.4-10.2); Carbon Dioxide 28 mmol/L (22-29); Chloride 106 mmol/L (96-108); Cholesterol 223 mg/dL; Estimated Glomerular Filt Rate > 60; Glucose Fasting 94 mg/dL (60-99); HDL Cholesterol 59 mg/dL; Iron 105 mcg/dL (30-160); LDL Cholesterol Calculated 145 mg/dl; Percent Iron Saturation 26 % (15-50); Sodium 142 mmol/L (135-145); Total Iron Binding Capacity 400 mcg/dL (228-428); Total Protein 7.3 g/dL (6.5-8.0); Triglycerides 97 mg/dL; Unsaturated Iron Binding 295 ug/dL
[2020-12-18 09:45] LABS: Thyroid Stimulating Hormone 1.51 uIU/mL (0.32-4.0)
[2020-12-18 10:02] LABS: Folate 18.7 ng/mL (> or = 4.0); Vitamin B12 566 pg/mL (200-900)
[2020-12-24 16:50] LABS: Vitamin D 25-OH, D2 <4 ng/mL; Vitamin D 25-OH, D3 21 ng/mL; Vitamin D 25-OH, Total 21 ng/mL (30-100)
== END 2020-12-18 07:38 | disposition home or self-care (01) ==
LOC: HO.LAB 07:37
PROVIDERS: PCP Internal Medicine; Visit Provider Internal Medicine
DX: R07.9 Chest pain, unspecified (principal); E55.9 Vitamin D deficiency, unspecified; E66.3 Overweight; M79.7 Fibromyalgia; D64.9 Anemia, unspecified
CPT/HCPCS: 36415; 80053; 80061; 82306; 82607; 82746; 83540; 84443; 85025; 93005

== ENCOUNTER → 2021-01-19 10:41 | Outpatient (BNVA) | payer MEDICARE, MEDICAID, SELFPAY | PROVIDERS: PCP Internal Medicine; Visit Provider Nurse Practitioner Family | DX: M96.1 Postlaminectomy syndrome, not elsewhere classified (principal); M47.819 Spondylosis without myelopathy or radiculopathy, site unspecified; M54.12 Radiculopathy, cervical region; M79.7 Fibromyalgia; G43.909 Migraine, unspecified, not intractable, without status migrainosus; F33.1 Major depressive disorder, recurrent, moderate; Z88.6 Allergy status to analgesic agent; Z88.5 Allergy status to narcotic agent | CPT/HCPCS: 99212 ==

== ENCOUNTER → 2021-01-25 12:37 | Outpatient (BNVA) | payer MEDICARE, MEDICAID, SELFPAY | PROVIDERS: PCP Internal Medicine; Visit Provider Dietitian, Registered | DX: E66.3 Overweight (principal); Z68.28 Body mass index [BMI] 28.0-28.9, adult; Z87.891 Personal history of nicotine dependence; Z88.6 Allergy status to analgesic agent; Z71.3 Dietary counseling and surveillance | CPT/HCPCS: 97803 ==

== ENCOUNTER 2021-02-04 09:46 | Outpatient (REF) | payer MEDICARE, MEDICAID, SELFPAY ==
--- NOTE | ~2021-02-04 | MR_ITS ---
EXAMINATION: MR BRAIN WITHOUT CONTRAST CLINICAL INFORMATION: Headaches. COMPARISON: Head CT dated 09/14/2016. TECHNIQUE: Multiplanar, multisequence imaging of the brain was performed without contrast. FINDINGS: No diffusion abnormalities are identified to suggest an acute or subacute infarct. The ventricles are normal in size. No mass effect or midline shift is seen. No brain parenchymal signal abnormality is noted. No extra-axial fluid collections are seen. The brainstem and cerebellum are normal. The gradient refocused acquisition is normal. The craniovertebral junction, marrow signal, and midline structures are normal. The major intracranial flow voids at the level of the [place] are preserved. The dural venous sinus flow voids are maintained. The mastoid air cells and paranasal sinuses are well aerated. MR/MR head/brain wo con IMPRESSION: No acute process. Normal MRI of the brain.
== END 2021-02-04 09:47 | disposition home or self-care (01) ==
LOC: HO.MRI 09:46
PROVIDERS: Visit Provider Internal Medicine
DX: R51.9 Headache, unspecified (principal)
CPT/HCPCS: 70551

== ENCOUNTER 2021-03-03 09:43 | Outpatient (REF) | payer MEDICARE, MEDICAID, SELFPAY ==
--- NOTE | ~2021-03-03 | US_ITS ---
EXAMINATION: US ABDOMEN COMPLETE CLINICAL INFORMATION: Right upper quadrant pain. COMPARISON: X-ray abdomen KUB same date. Limited abdominal ultrasound 12/30/2016. CT abdomen and pelvis 11/08/2016. Ultrasound abdomen 09/06/2016. TECHNIQUE: Real-time imaging of the abdominal viscera. FINDINGS: PANCREAS: Visualized portions unremarkable. A reniform lymph node in the region of the paris hepatis is seen near the pancreatic head measuring 1.0 cm in long axis. ABDOMINAL AORTA: Visualized portions unremarkable. INFERIOR VENA CAVA: Visualized portions unremarkable. LIVER: Mild diffuse increased echotexture without focal abnormality. GALLBLADDER: Unremarkable. COMMON BILE DUCT: Normal in caliber measuring 0.3 cm in diameter. RIGHT KIDNEY: 11.5 cm. Unremarkable. LEFT KIDNEY: 11.9 cm. Unremarkable. SPLEEN: 8.7 cm. Unremarkable. FREE FLUID: None. US/US abdomen complete IMPRESSION: Mild hepatic steatosis without other significant abnormality.
--- NOTE | ~2021-03-03 | XR_ITS ---
EXAMINATION: XR ABDOMEN KUB CLINICAL INDICATION: Abdominal pain COMPARISON: None TECHNIQUE: AP supine view of the abdomen and pelvis. FINDINGS: There is a stool the colon. There is a nonspecific bowel gas pattern with dilated loop of bowel in the left upper quadrant and left mid abdomen. There is no evidence of free air. No calcifications are seen projecting over the kidneys. There is a left pelvic calcification probably representing a calcified phlebolith. There are postoperative changes at L5-S1. XR/XR KUB IMPRESSION: Stool throughout the colon. Nonspecific bowel gas pattern with distended loop of bowel in the left upper quadrant and mid abdomen.
== END 2021-03-03 09:44 | disposition home or self-care (01) ==
LOC: HO.HMGCX 09:43
PROVIDERS: PCP Internal Medicine; Visit Provider Internal Medicine
DX: R10.11 Right upper quadrant pain (principal)
CPT/HCPCS: 74018; 76700

== ENCOUNTER → 2021-03-30 13:05 | Outpatient (BNVA) | payer MEDICARE, MEDICAID, SELFPAY | PROVIDERS: PCP Internal Medicine; Visit Provider Dietitian, Registered | DX: E66.3 Overweight (principal); Z68.28 Body mass index [BMI] 28.0-28.9, adult | CPT/HCPCS: 97803 ==

== ENCOUNTER 2021-04-02 10:26 | Outpatient (REF) | payer MEDICARE, MEDICAID, SELFPAY ==
--- NOTE | ~2021-04-02 | MM_ITS ---
EXAMINATION: MM SCREENING DIGITAL BREAST TOMOSYNTHESIS, BILATERAL CLINICAL INFORMATION: Screening. Asymptomatic. The lifetime risk of breast cancer based on the Tyrer-Cuzick Model is 9%. COMPARISON: Mammography: 12/20/2019, 12/11/2019, 09/21/2018, 02/22/2018 TECHNIQUE: Digital breast tomosynthesis is performed in both the craniocaudal and mediolateral oblique views along with computer-aided detection (CAD). Synthesized 2D images are generated from the tomosynthesis. FINDINGS: There are scattered areas of fibroglandular density (ACR BI-RADS breast composition Category b). There are no significant masses, abnormal calcifications, or other abnormalities. Parenchymal pattern is similar to prior studies. There is no developing density or architectural abnormality. The axilla and skin contours are unremarkable. No significant changes. MM/MM tomosynthesis screening BI IMPRESSION: No mammographic evidence of malignancy. ASSESSMENT: BI-RADS 1: Negative RECOMMENDATION: Routine annual mammography screening. This patient's information was entered into a reminder system with a target due date for their next mammogram.
== END 2021-04-02 10:27 | disposition home or self-care (01) ==
LOC: HO.MAMMO 10:26
PROVIDERS: PCP Internal Medicine; Visit Provider Internal Medicine
DX: Z12.31 Encounter for screening mammogram for malignant neoplasm of breast (principal)
CPT/HCPCS: 77063; 77067

== ENCOUNTER 2021-04-29 14:23 | Outpatient (REF) | payer MEDICARE, MEDICAID, SELFPAY | END 2021-04-29 14:24 | disposition home or self-care (01) | LOC: HO.LAB 14:23 | PROVIDERS: PCP Internal Medicine; Visit Provider Advanced Practice Midwife | DX: Z13.89 Encounter for screening for other disorder (principal) ==

== ENCOUNTER 2021-05-04 13:26 | Outpatient (REF) | payer MEDICARE, MEDICAID, SELFPAY | END 2021-05-04 13:27 | disposition home or self-care (01) | LOC: HO.LNP 13:26 | PROVIDERS: Visit Provider Advanced Practice Midwife | DX: Z13.89 Encounter for screening for other disorder (principal) | CPT/HCPCS: 87480; 87510; 87660 ==

== ENCOUNTER → 2021-06-01 10:39 | Outpatient (BNVA) | payer MEDICARE, MEDICAID, SELFPAY | PROVIDERS: PCP Internal Medicine; Referring Provider Internal Medicine; Visit Provider Psychiatry & Neurology Neurology | DX: E66.3 Overweight (principal); M54.2 Cervicalgia; E78.5 Hyperlipidemia, unspecified; E55.9 Vitamin D deficiency, unspecified; G47.33 Obstructive sleep apnea (adult) (pediatric); F41.9 Anxiety disorder, unspecified; F33.1 Major depressive disorder, recurrent, moderate; Z87.891 Personal history of nicotine dependence; Z68.27 Body mass index [BMI] 27.0-27.9, adult; Z88.6 Allergy status to analgesic agent; Z99.89 Dependence on other enabling machines and devices; Z79.899 Other long term (current) drug therapy | CPT/HCPCS: 97803; 99212 ==

== ENCOUNTER 2021-06-07 12:50 | Outpatient (REF) | payer MEDICARE, MEDICAID, SELFPAY ==
[2021-06-07 14:38] LABS: MANUAL DIFF FLAG NO
[2021-06-07 14:51] LABS: Basophils Percent Auto 0.5 % (0-2); Eosinophils Absolute Auto 0.1 X10*3/uL (0.0-0.4); Eosinophils Percent Auto 1.1 % (0-4); Hematocrit 39.1 % (37.0-47.0); Hemoglobin 12.7 g/dl (12.0-16.0); Imm Gran Abs Auto 0.01 X10*3/uL (0.00-0.03); Imm Gran Pct Auto 0.2 % (0.0-0.4); Lymphocytes Absolute Auto 2.4 X10*3/uL (1.2-4.9); Lymphocytes Percent Auto 37.6 % (20-40); Mean Corpuscular HGB Conc 32.5 g/dl (31.0-35.0); Mean Corpuscular Volume 92.2 fL (80.0-98.0); Mean Platelet Volume 12.5 fL (9.4-12.3); Monocytes Absolute Auto 0.3 X10*3/uL (0.1-1.2); Monocytes Percent Auto 4.8 % (2-11); Neutrophils Absolute Auto 3.6 x10*3/uL (2.0-8.3); Neutrophils Percent Auto 55.8 % (45-73); Platelet Count 228 X10*3/uL (160-400); Red Blood Count 4.24 X10*6/uL (4.20-5.50); Red Cell Distribution Width 13.2 % (11.0-16.0); White Blood Count 6.4 X10*3/uL (4.8-10.8)
[2021-06-07 15:19] LABS: Alanine Aminotransferase 14 U/L (0-31); Albumin Level 4.3 g/dL (3.5-5.0); Alkaline Phosphatase 60 U/L (39-117); Anion Gap 12 (12-20); Aspartate Amino Transferase 18 U/L (5-31); Bilirubin Total 0.2 mg/dL (0.0-1.0); Blood Urea Nitrogen 12 mg/dL (9-16); Calcium 9.6 mg/dL (8.4-10.2); Carbon Dioxide 26 mmol/L (22-29); Chloride 104 mmol/L (96-108); Estimated Glomerular Filt Rate > 60; Glucose Random 120 mg/dL (60-115); Potassium 4.3 mmol/L (3.3-5.1); Sodium 138 mmol/L (135-145); Total Protein 7.9 g/dL (6.5-8.0)
== END 2021-06-07 12:51 | disposition home or self-care (01) ==
LOC: HO.LAB 12:50
PROVIDERS: PCP Internal Medicine; Referring Provider Internal Medicine; Visit Provider Nurse Practitioner
DX: K92.1 Melena (principal); R10.9 Unspecified abdominal pain; K64.9 Unspecified hemorrhoids; Z12.11 Encounter for screening for malignant neoplasm of colon; Z87.891 Personal history of nicotine dependence
CPT/HCPCS: 36415; 80053; 85025; 99202

== ENCOUNTER → 2021-06-29 08:56 | Outpatient (BNVA) | payer MEDICARE, MEDICAID, SELFPAY | PROVIDERS: PCP Internal Medicine; Visit Provider Advanced Practice Midwife | DX: N92.0 Excessive and frequent menstruation with regular cycle (principal); Z87.42 Personal history of other diseases of the female genital tract | CPT/HCPCS: 99212 ==

== ENCOUNTER 2021-07-07 12:41 | Outpatient (REF) | payer MEDICARE, MEDICAID, SELFPAY ==
--- NOTE | ~2021-07-07 | US_ITS ---
EXAMINATION: US PELVIS CLINICAL INFORMATION: Abnormal menses COMPARISON: Previous pelvic ultrasound most recent November 2018 TECHNIQUE: Ultrasound of the pelvis is performed using both transabdominal and transvaginal transducers along with Doppler. Transvaginal imaging is performed due to inadequate visualization transabdominally. FINDINGS: The uterus is anteverted and measures 8.5 x 4.8 x 5.8 cm. No focal uterine lesion is seen. Endometrial thickness is normal measuring 1.4 cm. There are nabothian cysts in the cervix. The ovaries are not identified. There is a small amount of fluid in the pelvis. US/US pelvic and transvaginal IMPRESSION: Normal-appearing uterus. Ovaries not seen.
== END 2021-07-07 12:42 | disposition home or self-care (01) ==
LOC: HO.US 12:41
PROVIDERS: Visit Provider Advanced Practice Midwife
DX: N92.0 Excessive and frequent menstruation with regular cycle (principal); Z87.42 Personal history of other diseases of the female genital tract
CPT/HCPCS: 76830; 76856

== ENCOUNTER → 2021-07-27 11:45 | Outpatient (BNVA) | payer MEDICARE, MEDICAID, SELFPAY | PROVIDERS: PCP Internal Medicine; Visit Provider Psychiatry & Neurology Neurology | DX: G47.33 Obstructive sleep apnea (adult) (pediatric) (principal); G24.3 Spasmodic torticollis | CPT/HCPCS: 99212 ==

== ENCOUNTER 2021-08-09 09:01 | Outpatient (REF) | payer MEDICARE, MEDICAID, SELFPAY ==
[2021-08-09 09:16] LABS: MANUAL DIFF FLAG NO
[2021-08-09 10:14] LABS: Basophils Percent Auto 0.4 % (0-2); Eosinophils Absolute Auto 0.2 X10*3/uL (0.0-0.4); Eosinophils Percent Auto 3.6 % (0-4); Hematocrit 34.9 % (37.0-47.0); Hemoglobin 11.4 g/dl (12.0-16.0); Imm Gran Abs Auto 0.01 X10*3/uL (0.00-0.03); Imm Gran Pct Auto 0.2 % (0.0-0.4); Lymphocytes Absolute Auto 1.9 X10*3/uL (1.2-4.9); Lymphocytes Percent Auto 39.7 % (20-40); Mean Corpuscular HGB Conc 32.7 g/dl (31.0-35.0); Mean Corpuscular Hemoglobin 30.1 pg (27.0-33.0); Mean Corpuscular Volume 92.1 fL (80.0-98.0); Mean Platelet Volume 12.7 fL (9.4-12.3); Monocytes Absolute Auto 0.3 X10*3/uL (0.1-1.2); Monocytes Percent Auto 5.7 % (2-11); Neutrophils Absolute Auto 2.4 x10*3/uL (2.0-8.3); Neutrophils Percent Auto 50.4 % (45-73); Platelet Count 212 X10*3/uL (160-400); Red Blood Count 3.79 X10*6/uL (4.20-5.50); Red Cell Distribution Width 12.7 % (11.0-16.0); White Blood Count 4.7 X10*3/uL (4.8-10.8)
[2021-08-09 10:56] LABS: Alanine Aminotransferase 15 U/L (0-31); Alkaline Phosphatase 62 U/L (39-117); Anion Gap 10 (12-20); Aspartate Amino Transferase 16 U/L (5-31); Bilirubin Total 0.2 mg/dL (0.0-1.0); Blood Urea Nitrogen 11 mg/dL (9-16); Calcium 9.1 mg/dL (8.4-10.2); Carbon Dioxide 25 mmol/L (22-29); Chloride 108 mmol/L (96-108); Cholesterol 206 mg/dL; Estimated Glomerular Filt Rate > 60; Glucose Fasting 93 mg/dL (60-99); HDL Cholesterol 56 mg/dL; LDL Cholesterol Calculated 135 mg/dl; Potassium 4.3 mmol/L (3.3-5.1); Sodium 139 mmol/L (135-145); Total Protein 7.4 g/dL (6.5-8.0); Triglycerides 78 mg/dL
[2021-08-09 10:59] LABS: Vitamin D 25-OH Total 27.6 ng/mL (>30)
== END 2021-08-09 09:02 | disposition home or self-care (01) ==
LOC: HO.LAB 09:01
PROVIDERS: PCP Internal Medicine; Visit Provider Internal Medicine
DX: G43.009 Migraine without aura, not intractable, without status migrainosus (principal); E78.5 Hyperlipidemia, unspecified; E55.9 Vitamin D deficiency, unspecified
CPT/HCPCS: 36415; 80053; 80061; 82306; 85025

== ENCOUNTER → 2021-08-10 12:05 | Outpatient (BNVA) | payer MEDICARE, MEDICAID, SELFPAY | PROVIDERS: Visit Provider Advanced Practice Midwife | DX: N92.0 Excessive and frequent menstruation with regular cycle (principal) ==

== ENCOUNTER 2021-09-29 13:09 | Outpatient (REF) | payer MEDICARE, MEDICAID, SELFPAY ==
[2021-09-29 14:55] LABS: Hematocrit 34.9 % (37.0-47.0); Hemoglobin 11.8 g/dl (12.0-16.0); Mean Corpuscular HGB Conc 33.8 g/dl (31.0-35.0); Mean Corpuscular Hemoglobin 30.1 pg (27.0-33.0); Mean Platelet Volume 12.8 fL (9.4-12.3); Platelet Count 205 X10*3/uL (160-400); Red Blood Count 3.92 X10*6/uL (4.20-5.50); Red Cell Distribution Width 13.3 % (11.0-16.0); White Blood Count 5.8 X10*3/uL (4.8-10.8)
[2021-09-29 17:48] LABS: Vitamin D 25-OH Total 29.9 ng/mL (>30)
[2021-09-29 17:50] LABS: HCG Quantitative < 2 mIU/mL; TSH reflex Free T4 2.83 uIU/mL (0.32-4.0)
[2021-09-30 06:49] LABS: CT PCR NOT DETECTED (Not Detect.); NG PCR NOT DETECTED (Not Detect.)
[2021-09-30 18:31] LABS: Follicle Stimulating Hormone 9.1 mIU/mL; Lutenizing Hormone 5.4 mIU/mL
== END 2021-09-29 13:10 | disposition home or self-care (01) ==
LOC: HO.LAB 13:09
PROVIDERS: Nurse Practitioner Family; PCP Internal Medicine; Visit Provider Obstetrics & Gynecology
DX: N93.9 Abnormal uterine and vaginal bleeding, unspecified (principal); R79.89 Other specified abnormal findings of blood chemistry
CPT/HCPCS: 36415; 82306; 83001; 83002; 84443; 84702; 85027; 87491; 87591; 99212

== ENCOUNTER → 2021-10-08 11:03 | Outpatient (BNVA) | payer MEDICARE, MEDICAID, SELFPAY | PROVIDERS: Visit Provider Dietitian, Registered | DX: E66.3 Overweight (principal); Z68.27 Body mass index [BMI] 27.0-27.9, adult | CPT/HCPCS: 97803 ==

== ENCOUNTER → 2021-10-13 14:46 | Outpatient (BNVA) | payer MEDICARE, MEDICAID, SELFPAY | PROVIDERS: PCP Internal Medicine; Visit Provider Nurse Practitioner Family | DX: M47.22 Other spondylosis with radiculopathy, cervical region (principal); M62.838 Other muscle spasm | CPT/HCPCS: 99212 ==

== ENCOUNTER 2021-10-14 09:39 | Outpatient (REF) | payer MEDICARE, MEDICAID, SELFPAY | END 2021-10-14 09:40 | disposition home or self-care (01) | LOC: HO.LAB 09:39 | PROVIDERS: PCP Internal Medicine; Visit Provider Obstetrics & Gynecology | DX: N93.9 Abnormal uterine and vaginal bleeding, unspecified (principal) | CPT/HCPCS: 58100; 88305 ==

== ENCOUNTER 2021-10-26 16:39 | Outpatient (REF) | payer MEDICARE, MEDICAID, SELFPAY ==
--- NOTE | ~2021-10-26 | MR_ITS ---
EXAMINATION: MR CERVICAL SPINE WITHOUT CONTRAST CLINICAL INFORMATION: Neck pain. COMPARISON: MRI cervical spine 09/05/2018. TECHNIQUE: MRI of the cervical spine was obtained using routine sequences without contrast. FINDINGS: There is slight anterolisthesis of C4 on C5 that appears to be related to asymmetric degenerative arthrosis of the left facet joint. Alignment is otherwise normal. Vertebral heights are preserved. There is a well marginated intraosseous hemangioma of the T2 vertebral body. There is mild bone marrow edema involving the articular pillars of the left C4-C5 facet joint. Otherwise no acute bone marrow signal changes. The slight loss of intervertebral disc height and T2 signal intensity at multiple levels related to disc degeneration. There is no canal compromise or cord compression. No abnormal intramedullary signal changes. The cervicomedullary junction is normal. Limited visualization of the posterior fossa reveals no abnormal finding. The occipital condyles and lateral C1 masses are intact. There is degenerative arthrosis of the atlantodental joint. C1-C2 articular facets are unremarkable. At C2-C3 the annular contour is normal. No canal or neuroforaminal compromise. At C3-C4 there is a slightly bulging disc. No canal stenosis. Minimal uncovertebral joint spurring. No substantial neuroforaminal encroachment. At C4-C5 there is a slightly bulging disc. No canal stenosis. Asymmetric uncovertebral joint spurring and facet degenerative change causes mild left neuroforaminal encroachment. At C5-C6 there is a slightly bulging disc. No canal stenosis. Asymmetric uncovertebral joint spurring and facet degenerative change causes mild right neuroforaminal encroachment. At C6-C7 there is a diffusely bulging disc. Mild canal stenosis. Uncovertebral joint spurring and facet degenerative change causes mild bilateral neuroforaminal encroachment. At C7-T1 the annular contour is normal. No canal or neuroforaminal compromise. Visualized soft tissues of the neck are normal. Vascular flow voids are grossly maintained. MR/MR cervical spine wo con IMPRESSION: There is multilevel degenerative spondylosis of the cervical spine with slight anterolisthesis of C4 on C5 related to facet degenerative changes at this level. There is mild canal stenosis at C6-C7. Otherwise no canal compromise. No cord compression or abnormal intramedullary signal changes. There is no more than mild neuroforaminal encroachment at multiple levels within the cervical spine as described above.
== END 2021-10-26 23:59 | disposition home or self-care (01) ==
LOC: HO.MRI 16:39
PROVIDERS: Visit Provider Nurse Practitioner Family
DX: M54.2 Cervicalgia (principal); M54.12 Radiculopathy, cervical region
CPT/HCPCS: 72141

== ENCOUNTER → 2021-11-02 08:50 | Outpatient (BNVA) | payer MEDICARE, MEDICAID, SELFPAY | PROVIDERS: PCP Internal Medicine; Visit Provider Obstetrics & Gynecology | DX: N93.9 Abnormal uterine and vaginal bleeding, unspecified (principal) | CPT/HCPCS: 99212 ==

== ENCOUNTER 2021-12-07 07:50 | Outpatient (REF) | payer MEDICARE, MEDICAID, SELFPAY ==
[2021-12-07 09:05] LABS: Vitamin D 25-OH Total 29.8 ng/mL (>30)
== END 2021-12-07 07:51 | disposition home or self-care (01) ==
LOC: HO.LAB 07:50
PROVIDERS: Nurse Practitioner Family; PCP Internal Medicine; Visit Provider Internal Medicine
DX: R79.89 Other specified abnormal findings of blood chemistry (principal)
CPT/HCPCS: 36415; 82306

== ENCOUNTER 2022-02-07 09:50 | Outpatient (REF) | payer MEDICARE, MEDICAID, SELFPAY ==
[2022-02-07 11:46] LABS: Hematocrit 36.8 % (37.0-47.0); Hemoglobin 12.1 g/dl (12.0-16.0); Mean Corpuscular HGB Conc 32.9 g/dl (31.0-35.0); Mean Corpuscular Hemoglobin 29.7 pg (27.0-33.0); Mean Corpuscular Volume 90.4 fL (80.0-98.0); Mean Platelet Volume 12.5 fL (9.4-12.3); Platelet Count 208 X10*3/uL (160-400); Red Blood Count 4.07 X10*6/uL (4.20-5.50); Red Cell Distribution Width 13.1 % (11.0-16.0)
== END 2022-02-07 09:51 | disposition home or self-care (01) ==
LOC: HO.LAB 09:50
PROVIDERS: PCP Internal Medicine; Visit Provider Obstetrics & Gynecology
DX: N93.9 Abnormal uterine and vaginal bleeding, unspecified (principal)
CPT/HCPCS: 36415; 85027; 99212

== ENCOUNTER → 2022-02-23 15:30 | Outpatient (BNVA) | payer MEDICARE, MEDICAID, SELFPAY | PROVIDERS: PCP Internal Medicine; Visit Provider Anesthesiology | DX: M54.12 Radiculopathy, cervical region (principal); M47.812 Spondylosis without myelopathy or radiculopathy, cervical region; M47.819 Spondylosis without myelopathy or radiculopathy, site unspecified; M62.838 Other muscle spasm; M76.30 Iliotibial band syndrome, unspecified leg; G56.00 Carpal tunnel syndrome, unspecified upper limb; G89.4 Chronic pain syndrome | CPT/HCPCS: 99212 ==

== ENCOUNTER 2022-04-04 11:19 | Outpatient (REF) | payer MEDICARE, MEDICAID, SELFPAY ==
--- NOTE | ~2022-04-04 | MM_ITS ---
EXAMINATION: MM SCREENING DIGITAL BREAST TOMOSYNTHESIS, BILATERAL CLINICAL INFORMATION: Screening. Asymptomatic. The lifetime risk of breast cancer based on the Tyrer-Cuzick Model is 11.9%. COMPARISON: Mammography: April 02, 2021 and studies dating back to December 08, 2015 TECHNIQUE: Digital breast tomosynthesis is performed in both the craniocaudal and mediolateral oblique views along with computer-aided detection (CAD). Synthesized 2D images are generated from the tomosynthesis. FINDINGS: The breasts are heterogeneously dense, which may obscure small masses (ACR BI-RADS breast composition Category c). There are no significant masses, abnormal calcifications, or other abnormalities. MM/MM tomosynthesis screening BI IMPRESSION: No significant changes from prior exam. ASSESSMENT: BI-RADS 1: Negative RECOMMENDATION: Routine annual mammography screening. This patient's information was entered into a reminder system with a target due date for their next mammogram.
== END 2022-04-04 11:20 | disposition home or self-care (01) ==
LOC: HO.MAMMO 11:19
PROVIDERS: PCP Internal Medicine; Visit Provider Internal Medicine
DX: Z12.31 Encounter for screening mammogram for malignant neoplasm of breast (principal)
CPT/HCPCS: 77063; 77067

== ENCOUNTER 2022-04-21 08:48 | Outpatient (REF) | payer MEDICARE, MEDICAID, SELFPAY ==
[2022-04-21 08:56] LABS: MANUAL DIFF FLAG NO
[2022-04-21 09:30] LABS: Basophils Percent Auto 0.5 % (0-2); Eosinophils Absolute Auto 0.1 X10*3/uL (0.0-0.4); Eosinophils Percent Auto 2.3 % (0-4); Hematocrit 36.1 % (37.0-47.0); Hemoglobin 11.9 g/dl (12.0-16.0); Imm Gran Abs Auto 0.01 X10*3/uL (0.00-0.03); Imm Gran Pct Auto 0.2 % (0.0-0.4); Lymphocytes Absolute Auto 1.9 X10*3/uL (1.2-4.9); Lymphocytes Percent Auto 34.8 % (20-40); Mean Corpuscular Hemoglobin 29.8 pg (27.0-33.0); Mean Corpuscular Volume 90.3 fL (80.0-98.0); Mean Platelet Volume 12.3 fL (9.4-12.3); Monocytes Absolute Auto 0.3 X10*3/uL (0.1-1.2); Monocytes Percent Auto 5.8 % (2-11); Neutrophils Absolute Auto 3.1 x10*3/uL (2.0-8.3); Neutrophils Percent Auto 56.4 % (45-73); Platelet Count 215 X10*3/uL (160-400); Red Cell Distribution Width 12.3 % (11.0-16.0); White Blood Count 5.6 X10*3/uL (4.8-10.8)
[2022-04-21 10:19] LABS: Alanine Aminotransferase 13 U/L (0-31); Albumin Level 4.2 g/dL (3.5-5.0); Alkaline Phosphatase 61 U/L (39-117); Anion Gap 12 (12-20); Aspartate Amino Transferase 17 U/L (5-31); Bilirubin Total 0.4 mg/dL (0.0-1.0); Blood Urea Nitrogen 12 mg/dL (9-16); Calcium 9.4 mg/dL (8.4-10.2); Carbon Dioxide 28 mmol/L (22-29); Chloride 105 mmol/L (96-108); Cholesterol 219 mg/dL; Estimated Glomerular Filt Rate > 60; Glucose Fasting 94 mg/dL (60-99); HDL Cholesterol 51 mg/dL; LDL Cholesterol Calculated 151 mg/dl; Sodium 141 mmol/L (135-145); Total Protein 7.3 g/dL (6.5-8.0); Triglycerides 87 mg/dL
== END 2022-04-21 08:49 | disposition home or self-care (01) ==
LOC: HO.LAB 08:48
PROVIDERS: Nurse Practitioner Family; PCP Internal Medicine; Visit Provider Internal Medicine
DX: Z13.89 Encounter for screening for other disorder (principal)
CPT/HCPCS: 36415; 80053; 80061; 82306; 85025

== ENCOUNTER 2022-04-21 14:18 | Outpatient (REF) | payer MEDICARE, MEDICAID, SELFPAY ==
--- NOTE | 2022-04-21 09:45 | EMG_ITS ---
Bilateral median and ulnar motor and sensory studies were performed. Bilateral radial sensory studies were performed and paraspinal muscles were tested with a needle. IMPRESSION: 1. Mild to moderate right and mild left median neuropathy across carpal tunnel. 2. Mild bilateral ulnar neuropathy across cubital tunnel. MD CONNIE Rizvi/DAVEYL / [id number]
== END 2022-04-21 14:19 | disposition home or self-care (01) ==
LOC: HO.NEURO 14:18
PROVIDERS: PCP Internal Medicine; Visit Provider Anesthesiology
DX: G89.4 Chronic pain syndrome (principal); M54.12 Radiculopathy, cervical region; D64.9 Anemia, unspecified; E78.5 Hyperlipidemia, unspecified; E55.9 Vitamin D deficiency, unspecified
CPT/HCPCS: 36415; 80053; 80061; 82306; 85025; 95886; 95911

== ENCOUNTER 2022-04-28 16:07 | Outpatient (REF) | payer MEDICARE, MEDICAID, SELFPAY ==
--- NOTE | ~2022-04-28 | US_ITS ---
EXAMINATION: US VENOUS ULTRASOUND WITH DOPPLER LOWER EXTREMITY, LEFT CLINICAL INFORMATION: Left leg pain COMPARISON: None TECHNIQUE: Ultrasound of the deep veins is performed from the hip to the calf with compression sonography and color and pulse Doppler assessment. Spectral analysis with color-flow imaging is performed. FINDINGS: There is normal venous compression and respiratory variation and augmented flow. The visualized common femoral vein, superficial femoral vein, profunda femoral vein, popliteal vein, and the trifurcation region shows no evidence of deep venous thrombosis. There is no significant popliteal fossa cyst. If the patient's symptoms persist, followup ultrasound in 5 days 7 days might be of value to exclude proximal propagation from a non-visualized calf vein. US/US venous duplex LE LT IMPRESSION: No DVT demonstrated in the left lower extremity.
== END 2022-04-28 16:08 | disposition home or self-care (01) ==
LOC: HO.US 16:07
PROVIDERS: PCP Internal Medicine; Visit Provider Emergency Medicine
DX: M79.605 Pain in left leg (principal)
CPT/HCPCS: 93971

== ENCOUNTER 2022-05-18 12:57 | Outpatient (REF) | payer MEDICARE, MEDICAID, SELFPAY ==
--- NOTE | ~2022-05-18 | XR_ITS ---
EXAMINATION: XR SINUSES CLINICAL INFORMATION: R51.9 - Headache, unspecified 05/17/2022 COMPARISON: None TECHNIQUE: 4 views of the sinuses were obtained. FINDINGS: CT sinuses appear well-aerated and clear. There is no mucosal thickening or polypoid mass or air-fluid level. No sinus wall thickening or sclerosis or visible destructive process. The nasopharynx is unremarkable on the lateral view. XR/XR sinus min 3V IMPRESSION: Unremarkable examination.
== END 2022-05-18 12:58 | disposition home or self-care (01) ==
LOC: HO.HMGCX 12:57
PROVIDERS: PCP Internal Medicine; Visit Provider Nurse Practitioner Family
DX: J34.89 Other specified disorders of nose and nasal sinuses (principal); R51.9 Headache, unspecified
CPT/HCPCS: 70220

== ENCOUNTER 2022-06-02 09:52 | Day surgery (SDC) | payer MEDICARE, MEDICAID, SELFPAY ==
[2021-12-07 10:11] VITALS: BMI 27.3
[2022-05-30 16:43] VITALS: BMI 28.3
--- NOTE | 2022-06-01 12:44 | P.CONAN_ITS ---
Documented by User: Malia Martin NP 06/01/22 12:51 HPI - Anesthesia Eval Consult details Narrative: 46yo F for Colonoscopy Cardiac optimized Pt also scheduled for pain procedure on 06/03/22 [facility] Active Problems Active Problems: All Active Problems (Updated 05/18/22 @ 12:46 by Livier Mart, [facility]) Sinus pressure (Acute) Headache (Acute) Blurry vision (Acute) Chronic pain syndrome (Acute) Carpal tunnel syndrome (Acute) Spondylosis of cervical region without myelopathy or radiculopathy (Acute) Facet joint disease of cervical region (Acute) Iliotibial band syndrome (Acute) Anxiety (Acute) Muscle spasms of neck (Acute) Abnormal uterine bleeding (AUB) (Acute) Abdominal bloating (Acute) Constipation (Acute) Low vitamin D level (Acute) Spasmodic torticollis (Acute) Menorrhagia (Acute) Hx of removal of ovary (Acute) Hx of ovarian cyst (Acute) Colon cancer screening (Acute) Neck pain (Acute) Vaginal itching (Acute) Obstructive sleep apnea (Acute) Well woman exam with routine gynecological exam (Acute) Facet arthropathy, multilevel (Acute) Postlaminectomy syndrome, lumbar (Acute) Cervical radiculopathy (Acute) Bloody stools (Acute) Physical exam (Acute) Dyslipidemia (Acute) Hypovitaminosis D (Acute) Right flank pain (Acute) RUQ abdominal pain (Acute) Occipital headache (Acute) Tonsil stone (Acute) Overweight (BMI 25.0-29.9) (Acute) Migraines (Acute) Moderate major depression (Acute) Fibromyalgia (Acute) Normocytic anemia (Acute) GERD (gastroesophageal reflux disease) (Acute) Past Medical History Medical History Anxiety Arthritis Bloody stools Cervical cancer screening Chest pain Dyslipidemia Fibromyalgia GERD (gastroesophageal reflux disease) Hypovitaminosis D Migraines Moderate major depression Neck pain Normocytic anemia Occipital headache Overweight (BMI 25.0-29.9) Physical exam Right flank pain RUQ abdominal pain Sleep apnea Tonsil stone Family History Family History Mother Thyroid disease Surgical History Surgical History History of endoscopy Hx of removal of ovary S/P lumbar fusion Social History Social History Housing: House Alcohol intake: current Alcohol intake frequency: holidays/special occasions only Alcohol type: wine Patient Tobacco Use Status: Former Tobacco user Quit Date: 2002 Tobacco use type: Cigarette e-Cigarette/Vaping Use: Never Used Second Hand Smoke Exposure: No Use of substances other than those prescribed or required for medical reasons: No Are you DNR?: No Advance Directives: No Advance Directives Information Provided: Yes Advance Directives on File: No Patient : No FDLMP: 05/10/2022 : No Poor oral hygiene: No service: No Current occupational status: disabled Gender identity: Female Cognitive needs: No Hearing needs: No Vision needs: No Meds Allergies Allergy/AdvReac Type Severity Reaction Status Date / Time morphine [MORPHINE] Allergy Intermediate Itching Verified 05/31/22 11:20 tramadol [TRAMADOL] Allergy Intermediate SHORTNESS Verified 05/31/22 11:20 OF BREATH Home Medications Medication Instructions Recorded Confirmed Last Taken Type omeprazole 40 mg capsule,delayed 40 mg PO DAILY 10/27/20 06/02/22 06/02/22 History release ibuprofen 600 mg tablet 600 mg PO TID 07/27/21 06/02/22 Unknown History cyclobenzaprine 10 mg tablet 10 mg PO BEDTIME 12/08/21 06/02/22 Unknown History bupropion HCl 300 mg 24 hr tablet, 1 tab PO DAILY 05/30/22 06/02/22 06/02/22 History extended release gabapentin 300 mg capsule 300 mg PO DAILY 05/30/22 06/02/22 06/02/22 History gabapentin 600 mg tablet 600 mg PO BEDTIME 05/30/22 06/02/22 Unknown History Exam Exam Date and Time: June 01, 2022 1244 Height,Weight and Vital Signs: Height 5 ft 3 in Weight 72.575 kg Pertinent Lab Results Pertinent Lab Results: Laboratory Tests 04/21/22 04/21/22 08:56 08:56 WBC 5.6 Hgb 11.9 L Hct 36.1 L Plt Count 215 Sodium 141 Potassium 4.0 Chloride 105 Carbon Dioxide 28 BUN 12 Creatinine 0.75 Narrative Narrative: Stress ECHO 01/2022 Negative. All WNL Assessment and Plan Assessment Anesthesia Assessment: Chart Reviewed Documented by User: Astrid Blount MD 06/02/22 12:30 PMFSH Past Medical History Medical History Anxiety Arthritis Bloody stools Cervical cancer screening Chest pain Dyslipidemia Fibromyalgia GERD (gastroesophageal reflux disease) Hypovitaminosis D Migraines Moderate major depression Neck pain Normocytic anemia Occipital headache Overweight (BMI 25.0-29.9) Physical exam Right flank pain RUQ abdominal pain Sleep apnea Tonsil stone Family History Family History Mother Thyroid disease Surgical History Surgical History History of endoscopy Hx of removal of ovary S/P lumbar fusion History of Problems with Anesthesia: No Social History Social History Housing: House Alcohol intake: current Alcohol intake frequency: holidays/special occasions only Alcohol type: wine Patient Tobacco Use Status: Former Tobacco user Quit Date: 2002 Tobacco use type: Cigarette e-Cigarette/Vaping Use: Never Used Second Hand Smoke Exposure: No Use of substances other than those prescribed or required for medical reasons: No Are you DNR?: No Advance Directives: No Advance Directives Information Provided: Yes Advance Directives on File: No Patient : No FDLMP: 05/10/2022 : No Poor oral hygiene: No service: No Current occupational status: disabled Gender identity: Female Cognitive needs: No Hearing needs: No Vision needs: No Meds Allergies Allergy/AdvReac Type Severity Reaction Status Date / Time morphine [MORPHINE] Allergy Intermediate Itching Verified 05/31/22 11:20 tramadol [TRAMADOL] Allergy Intermediate SHORTNESS Verified 05/31/22 11:20 OF BREATH Home Medications Medication Instructions Recorded Confirmed Last Taken Type omeprazole 40 mg capsule,delayed 40 mg PO DAILY 10/27/20 06/02/22 06/02/22 History release ibuprofen 600 mg tablet 600 mg PO TID 07/27/21 06/02/22 Unknown History cyclobenzaprine 10 mg tablet 10 mg PO BEDTIME 12/08/21 06/02/22 Unknown History bupropion HCl 300 mg 24 hr tablet, 1 tab PO DAILY 05/30/22 06/02/22 06/02/22 History extended release gabapentin 300 mg capsule 300 mg PO DAILY 05/30/22 06/02/22 06/02/22 History gabapentin 600 mg tablet 600 mg PO BEDTIME 05/30/22 06/02/22 Unknown History Exam Airway Mallampati Class: II TM Dist: >3cm Neck ROM: Full Loose/Missing/Broken Teeth: No Heart: RRR Lungs: CTA Assessment and Plan Assessment Anesthesia Assessment: Anesthesia Plan Discussed Final Anesthetic Review History of Problems with Anesthesia: No NPO: Yes ASA Class: II Final Preanesthetic Review: Meds/Allgs Chart Reviewed, Consent Obtained/Reviewed and Anes Risks/Benef Reviewed Patient Risk: Low Procedure Risk: Low Anesthetic Plan Anesthetic Plan: MAC: Disposition: Standard PACU
[2022-06-02 11:19] VITALS: BP 140/84; PULSE 88; RESP 18; TEMP 36.8; O2SAT 97
--- NOTE | 2022-06-02 11:19 | MHC.SHP ---
Pre-Procedural Eval Section A Date of Service: 06/02/22 The patient is an INPATIENT: No The History & Physical has been completed within 30 days and I have reviewed it.: No Section B Chief Complaint: screening Details of Present Illness: Colon cancer screening Relevant Family History (Specify if Yes): No Relevant Social History: Tobacco Use (Former smoker) Present Medications: see Short Stay Collaborative assessment Medical History: Significant History (ELLE High cholesterol Occipital headaches/migraines Multilevel facet arthropathy with post-laminectomy syndrome lumbar and cervical radiculopathy History of tonsil stone Fibromyalgia syndrome GERD Depression/anxiety) History of Previous Operations: Relevant previous surgery/procedure and date(s) (History of endoscopy Hx of removal of ovary S/P lumbar fusion) Allergies: Allergies Allergy/AdvReac Type Severity Reaction Status Date / Time morphine [MORPHINE] Allergy Intermediate Itching Verified 05/31/22 11:20 tramadol [TRAMADOL] Allergy Intermediate SHORTNESS Verified 05/31/22 11:20 OF BREATH Review of Systems Sugical H&P ROS: Negative: Constitution, Cardiovascular, Respiratory and Gastrointestinal Exam Surgical H&P Exam: Normal: Heart, Normal: Lungs, Normal: Extremities and Normal: Abdomen Plan Diagnosis/Plan: Unchanged I have reviewed the history and physical and performed a pertinent physical examination on my patient. No changes have occurred unless specified. Time Spent With Patient Time: Total time managing care of this patient today ____ minutes.
[2022-06-02 11:24] VITALS: BMI 28.1
[2022-06-02 11:34] LABS: UPreg QC Valid YES; Urine Pregnancy NEGATIVE (NEGATIVE)
[2022-06-02] MEDS: Lactated Ringers 1,000 ML 100 ML IVCONT (12:00)
--- NOTE | 2022-06-02 12:31 | PM.OP ---
Brief Operative Note Date of Service: 06/02/22 Pre-op diagnosis: Colon cancer screening Post-op diagnosis: other (Colon polyp, diverticulosis, hemorrhoids) Procedure: COLONOSCOPY TILL CECUM WITH BIOPSIES Surgeon: Fannie York MD Anesthesia: MAC Was an Coin Rolling Machine Operator used for this Procedure?: Yes Coin Rolling Machine Operator: Bianca Jordan Estimated blood loss (mL): 0 Pathology: other (A: ascending colon biopsy) Condition: stable Disposition: PACU
--- NOTE | 2022-06-02 12:31 | W.PM.OPN ---
Operative Note Operative Note Date of Service: 06/02/22 Narrative: COLONOSCOPY TILL CECUM WITH BIOPSIES Indication:? Colon cancer screening Endoscopist:? Fannie York MD Anesthesia Provider:?Dr Blount Anesthesia type:?MAC Consent: Indications for the procedure and potential complications of bleeding, perforation, reaction to medications and missed diagnosis were discussed with the patient and informed consent was obtained. Instrument: Olympus PCF H 190 L variable stiffness pediatric colonoscope Monitoring: Vital signs and clinical assessment, intermittent blood pressure monitoring, continuous EKG monitoring, Pulse oximetry and Carbon Dioxide monitoring were done throughout the procedure. Please see anesthesia flowsheet. Colon withdrawl time was 16 minutes. Procedure: The patient was placed in the left lateral decubitis position and pre-procedure medications were administered. After a digital rectal examination of the ano-rectum, the video colonoscope was inserted into the rectum and advanced through the colon to the cecum. The colonoscope was slowly withdrawn in a retrograde panoramic fashion and the colon mucosa was carefully examined including a retroflexed view of the rectum. Findings and interventions are described below. Procedure Difficulty: Colon was long and tortuous and there was some loop formation. No maneuvers were required Findings: Terminal Ileum: Not evaluated Cecum: Normal Ascending Colon: A 2-3 mm diminutive appearing polyp - removed with a cold bx Transverse Colon: Normal Descending Colon: Normal Sigmoid Colon: Moderate diverticulosis Rectum: Normal Ano-rectum: Small internal hemorrhoids Colon preparation: Excellent Impression and Post Procedure Diagnosis: Colonoscopy Findings: One tiny diminutive appearing polyp removed Moderate diverticulosis seen in the sigmoid colon Small hemorrhoids on retroflexed exam. Plan: Await pathology results Patient has an appointment on 06/16/22 in the GI [facility] with Katerina Guerrero NP. Repeat Colonoscopy interval based on path results - in 5 years if polyps are adenomatous and 10 years if polyps are hyperplastic. Above findings were reviewed with the patient and colon polyps and diverticulosis handouts were given in the discharge area
[2022-06-02 13:05] VITALS: BP 85/35; PULSE 94; RESP 20; TEMP 36.8; O2SAT 94
[2022-06-02 13:20] VITALS: BP 111/59; PULSE 87; RESP 18; TEMP 36.9; O2SAT 98
== END 2022-06-02 14:43 | disposition home or self-care (01) ==
PROVIDERS: Nurse Practitioner; PCP Internal Medicine; Visit Provider Internal Medicine Gastroenterology
PROC: 0DJD8ZZ Inspection of Lower Intestinal Tract, Via Natural or Artificial Opening Endoscopic (ICD-10-PCS; CPT 45378; principal; 2022-06-02 12:50)
DX: Z12.11 Encounter for screening for malignant neoplasm of colon (principal); K63.5 Polyp of colon; K92.1 Melena; K57.30 Diverticulosis of large intestine without perforation or abscess without bleeding; K64.8 Other hemorrhoids; K21.9 Gastro-esophageal reflux disease without esophagitis; G47.33 Obstructive sleep apnea (adult) (pediatric); M79.7 Fibromyalgia; G89.4 Chronic pain syndrome; M96.1 Postlaminectomy syndrome, not elsewhere classified; G43.909 Migraine, unspecified, not intractable, without status migrainosus; F41.8 Other specified anxiety disorders; E78.00 Pure hypercholesterolemia, unspecified; Z79.1 Long term (current) use of non-steroidal anti-inflammatories (NSAID); Z79.899 Other long term (current) drug therapy; Z88.8 Allergy status to other drugs, medicaments and biological substances; Z98.1 Arthrodesis status; Z87.891 Personal history of nicotine dependence
CPT/HCPCS: 45380; 81025; 88305

== ENCOUNTER 2022-06-03 07:45 | Day surgery (SDC) | payer MEDICARE, MEDICAID, SELFPAY ==
--- NOTE | 2022-06-02 12:26 | HO.ANESPROP2 ---
Documented by User: Malia Martin NP 06/02/22 12:28 HPI - Anesthesia Eval Consult details Narrative: 46yo F for Bilateral C4-C5-C6-C7 therapeutic medial branch block Colonoscopy 06/02/22 Cardiac optimized PMF Active Problems Active Problems: All Active Problems (Updated 05/18/22 @ 12:46 by Livier Mart, [facility]) Sinus pressure (Acute) Headache (Acute) Blurry vision (Acute) Chronic pain syndrome (Acute) Carpal tunnel syndrome (Acute) Spondylosis of cervical region without myelopathy or radiculopathy (Acute) Facet joint disease of cervical region (Acute) Iliotibial band syndrome (Acute) Anxiety (Acute) Muscle spasms of neck (Acute) Abnormal uterine bleeding (AUB) (Acute) Abdominal bloating (Acute) Constipation (Acute) Low vitamin D level (Acute) Spasmodic torticollis (Acute) Menorrhagia (Acute) Hx of removal of ovary (Acute) Hx of ovarian cyst (Acute) Colon cancer screening (Acute) Neck pain (Acute) Vaginal itching (Acute) Obstructive sleep apnea (Acute) Well woman exam with routine gynecological exam (Acute) Facet arthropathy, multilevel (Acute) Postlaminectomy syndrome, lumbar (Acute) Cervical radiculopathy (Acute) Bloody stools (Acute) Physical exam (Acute) Dyslipidemia (Acute) Hypovitaminosis D (Acute) Right flank pain (Acute) RUQ abdominal pain (Acute) Occipital headache (Acute) Tonsil stone (Acute) Overweight (BMI 25.0-29.9) (Acute) Migraines (Acute) Moderate major depression (Acute) Fibromyalgia (Acute) Normocytic anemia (Acute) GERD (gastroesophageal reflux disease) (Acute) Past Medical History Medical History Anxiety Arthritis Bloody stools Cervical cancer screening Chest pain Dyslipidemia Fibromyalgia GERD (gastroesophageal reflux disease) Hypovitaminosis D Migraines Moderate major depression Neck pain Normocytic anemia Occipital headache Overweight (BMI 25.0-29.9) Physical exam Right flank pain RUQ abdominal pain Sleep apnea Tonsil stone Family History Family History Mother Thyroid disease Surgical History Surgical History History of endoscopy Hx of removal of ovary S/P lumbar fusion Social History Social History Housing: House Alcohol intake: current Alcohol intake frequency: holidays/special occasions only Alcohol type: wine Patient Tobacco Use Status: Former Tobacco user Quit Date: 2002 Tobacco use type: Cigarette e-Cigarette/Vaping Use: Never Used Second Hand Smoke Exposure: No Use of substances other than those prescribed or required for medical reasons: No Are you DNR?: No Advance Directives: No Advance Directives Information Provided: Yes Recently lost weight without trying: No Nutrition Risks: No Nutritional Risk Patient : No service: No Current occupational status: disabled Gender identity: Female Cognitive needs: No Hearing needs: No Vision needs: No Meds Allergies Allergy/AdvReac Type Severity Reaction Status Date / Time morphine [MORPHINE] Allergy Intermediate Itching Verified 05/31/22 11:20 tramadol [TRAMADOL] Allergy Intermediate SHORTNESS Verified 05/31/22 11:20 OF BREATH Home Medications Medication Instructions Recorded Confirmed Last Taken Type omeprazole 40 mg capsule,delayed 40 mg PO DAILY 10/27/20 06/02/22 06/03/22 History release ibuprofen 600 mg tablet 600 mg PO TID 07/27/21 06/02/22 Unknown History cyclobenzaprine 10 mg tablet 10 mg PO BEDTIME 12/08/21 06/02/22 Unknown History bupropion HCl 300 mg 24 hr tablet, 1 tab PO DAILY 05/30/22 06/02/22 06/02/22 History extended release gabapentin 300 mg capsule 300 mg PO DAILY 05/30/22 06/02/22 06/02/22 History gabapentin 600 mg tablet 600 mg PO BEDTIME 05/30/22 06/02/22 Unknown History Exam Exam Date and Time: June 02, 2022 1226 Narrative Narrative: Stress ECHO 01/2022 Negative. All WNL Assessment and Plan Assessment Anesthesia Assessment: Chart Reviewed Documented by User: Abigail Esqueda MD 06/03/22 08:53 COUNT INCLUDES THE [facility] Past Medical History Medical History Anxiety Arthritis Bloody stools Cervical cancer screening Chest pain Dyslipidemia Fibromyalgia GERD (gastroesophageal reflux disease) Hypovitaminosis D Migraines Moderate major depression Neck pain Normocytic anemia Occipital headache Overweight (BMI 25.0-29.9) Physical exam Right flank pain RUQ abdominal pain Sleep apnea Tonsil stone Functional capacity: independent ambulation Patient : No Family History Family History Mother Thyroid disease Surgical History Surgical History History of endoscopy Hx of removal of ovary S/P lumbar fusion History of Problems with Anesthesia: No Social History Social History Housing: House Alcohol intake: current Alcohol intake frequency: holidays/special occasions only Alcohol type: wine Patient Tobacco Use Status: Former Tobacco user Quit Date: 2002 Tobacco use type: Cigarette e-Cigarette/Vaping Use: Never Used Second Hand Smoke Exposure: No Use of substances other than those prescribed or required for medical reasons: No Are you DNR?: No Advance Directives: No Advance Directives Information Provided: Yes Recently lost weight without trying: No Nutrition Risks: No Nutritional Risk Patient : No service: No Current occupational status: disabled Gender identity: Female Cognitive needs: No Hearing needs: No Vision needs: No Meds Allergies Allergy/AdvReac Type Severity Reaction Status Date / Time morphine [MORPHINE] Allergy Intermediate Itching Verified 05/31/22 11:20 tramadol [TRAMADOL] Allergy Intermediate SHORTNESS Verified 05/31/22 11:20 OF BREATH Home Medications Medication Instructions Recorded Confirmed Last Taken Type omeprazole 40 mg capsule,delayed 40 mg PO DAILY 10/27/20 06/02/22 06/03/22 History release ibuprofen 600 mg tablet 600 mg PO TID 07/27/21 06/02/22 Unknown History cyclobenzaprine 10 mg tablet 10 mg PO BEDTIME 12/08/21 06/02/22 Unknown History bupropion HCl 300 mg 24 hr tablet, 1 tab PO DAILY 05/30/22 06/02/22 06/02/22 History extended release gabapentin 300 mg capsule 300 mg PO DAILY 05/30/22 06/02/22 06/02/22 History gabapentin 600 mg tablet 600 mg PO BEDTIME 05/30/22 06/02/22 Unknown History Exam Airway Mallampati Class: III TM Dist: >3cm Neck ROM: Full Heart: RRR Lungs: CTA Assessment and Plan Final Anesthetic Review History of Problems with Anesthesia: No ASA Class: II Final Preanesthetic Review: No Changes in Pt Med Stat, Meds/Allgs Chart Reviewed, Consent Obtained/Reviewed and Anes Risks/Benef Reviewed Patient Risk: Low (I) Procedure Risk: Low Anesthetic Plan Anesthetic Plan: MAC: Disposition: Standard PACU
--- NOTE | ~2022-06-03 | FL_ITS ---
EXAMINATION: XR FLUOROSCOPY WITH IMAGES CLINICAL INFORMATION: Neck pain, pain management cervical MBB. COMPARISON: MR cervical spine 10/26/2021 TECHNIQUE: Fluoroscopy Supervised By: Dr. Vince Sim. Fluoroscopy Time: 1.0 minutes. Cumulative Dose: 5.56 mGy. DAP: 1.50 Gycm2. Images: 2. FINDINGS: There are spinal needles overlying the bilateral lateral masses of the cervical spine approximately level C4. There is contrast in the paraspinal soft tissues and nerve sheaths. No visible vascular communication. FL/FL guidance in OR IMPRESSION: Fluoroscopy for pain management procedure.
[2022-06-03 08:26] VITALS: BMI 27.8
[2022-06-03 08:46] VITALS: BP 118/59; PULSE 83; RESP 16; TEMP 36.8; O2SAT 98
[2022-06-03 08:51] LABS: UPreg QC Valid YES; Urine Pregnancy NEGATIVE (NEGATIVE)
[2022-06-03] MEDS: Lactated Ringers 1,000 ML 100 ML IVCONT (08:52)
--- NOTE | 2022-06-03 09:00 | P.HPSUR_ITS ---
Pre-Procedural Eval Section A Date of Service: 06/03/22 The patient is an INPATIENT: No Changes since office visit: Yes Patient answered all questions The History & Physical has been completed within 30 days and I have reviewed it.: No Section B Chief Complaint: Radiculopathy, cervical region Details of Present Illness: spondylosis cervical spine without radiculopathy or myelopathy Relevant Family History (Specify if Yes): No Relevant Social History: Other (specify) Present Medications: see Short Stay Collaborative assessment Medical History: No relevant PMH History of Previous Operations: No relevant previous surgery Allergies: Allergies Allergy/AdvReac Type Severity Reaction Status Date / Time morphine [MORPHINE] Allergy Intermediate Itching Verified 05/31/22 11:20 tramadol [TRAMADOL] Allergy Intermediate SHORTNESS Verified 05/31/22 11:20 OF BREATH Review of Systems Sugical H&P ROS: Negative: Constitution, Cardiovascular, Respiratory, Neurol ogical, Psychiatric, Hem-Onc, Allergic/Immunologic, Gastrointestinal, Genitourinary, Musculoskeletal, Integumentary, Endocrine and Eyes/Ears/Nose/Throat Exam Surgical H&P Exam: Normal: HEENT, Normal: Heart, Normal: Lungs, Normal: Extremities, Normal: Abdomen, Normal: Skin and Normal: Neurological Plan Diagnosis/Plan: Unchanged I have reviewed the history and physical and performed a pertinent physical examination on my patient. No changes have occurred unless specified. Time Spent With Patient Time: Total time managing care of this patient today ____ minutes.
--- NOTE | 2022-06-03 09:06 | PM.OP ---
Brief Operative Note Date of Service: 06/03/22 Pre-op diagnosis: spondylosis cervical spine without myelopathy or radicolopathy Post-op diagnosis: same Procedure: therapeutic medial branch block C4- C5-C6-C7 bilateral Surgeon: Vince Sim MD Anesthesia: MAC Was an Medical Review Specialist used for this Procedure?: No Estimated blood loss (mL): 0 Condition: stable Disposition: PACU
--- NOTE | 2022-06-03 09:18 | P.OP_ITS ---
Operative Note Operative Note Date of Service: 06/03/22 Narrative: Therapeutic Medial branch block C4- C5- C6- C7 bilateral Informed consent was explained to the patient. All questions were explained and? answered.? The patient was taken inside the operating room where the patient was positioned prone on the operating table.. Time-out was performed delineating correct site, side, the nature of the procedure, patient's allergy, preoperative antibiotic if needed.? All operating room staff was participating in OR time-out procedure. ASA M-rs were applied and the patient was minimally to moderately sedated, The posterior neck was prepped with ChloraPrep and draped with sterile towels .?C-arm was brought over the operating field and square picture of C4- C5-C6 and C7? vertebrae? were delineated on the screen.? Point of interest were delineated as lateral? masses of the above mentioned vertebrae bilaterally. The waste line of the lateral masses was chosen as the final needle target.The projection of the point of interest to the skin were injected with the small amount of local a nesthetic lidocaine 2% 1-1.5 cc.? After that 22 gauge QP 10 cm spinal needles were driven to the point of interest in tunnel vision fashion. After needles gently contacted the bone at the point of interests the lateral view was obtained for each needle and needle? was adjusted to be in the centroid of the lateral mass paralelloid projection. Contrtast was injected into each needle position. No intrathecal spread of the contrast was demonstrated, at C4 position bilaterally intravascular contrast spread was noted and the needle was repositioned, repeat injection of the contrast demonstrated no intravascular uptake. After negative contrast image without intrathecal or intravascular spread the needles were injected with ropivacaine 0.5%-1cc mixed with Kenalog.? Total dose of Kenalog was 80 mg. ? Upon completion of the injections? needles were removed and sterile dressings were applied, patient was- taken outside of the operating room to recovery room where she recovered uneventfully.?
[2022-06-03 10:15] VITALS: BP 122/75; PULSE 77; RESP 16; TEMP 36.1; O2SAT 99
--- NOTE | 2022-06-03 10:25 | P.CONAN_ITS ---
[facility] Active Problems Active Problems: All Active Problems (Updated 05/18/22 @ 12:46 by Livier Mart, [facility]) Sinus pressure (Acute) Headache (Acute) Blurry vision (Acute) Chronic pain syndrome (Acute) Carpal tunnel syndrome (Acute) Spondylosis of cervical region without myelopathy or radiculopathy (Acute) Facet joint disease of cervical region (Acute) Iliotibial band syndrome (Acute) Anxiety (Acute) Muscle spasms of neck (Acute) Abnormal uterine bleeding (AUB) (Acute) Abdominal bloating (Acute) Constipation (Acute) Low vitamin D level (Acute) Spasmodic torticollis (Acute) Menorrhagia (Acute) Hx of removal of ovary (Acute) Hx of ovarian cyst (Acute) Colon cancer screening (Acute) Neck pain (Acute) Vaginal itching (Acute) Obstructive sleep apnea (Acute) Well woman exam with routine gynecological exam (Acute) Facet arthropathy, multilevel (Acute) Postlaminectomy syndrome, lumbar (Acute) Cervical radiculopathy (Acute) Bloody stools (Acute) Physical exam (Acute) Dyslipidemia (Acute) Hypovitaminosis D (Acute) Right flank pain (Acute) RUQ abdominal pain (Acute) Occipital headache (Acute) Tonsil stone (Acute) Overweight (BMI 25.0-29.9) (Acute) Migraines (Acute) Moderate major depression (Acute) Fibromyalgia (Acute) Normocytic anemia (Acute) GERD (gastroesophageal reflux disease) (Acute) Past Medical History Medical History Anxiety Arthritis Bloody stools Cervical cancer screening Chest pain Dyslipidemia Fibromyalgia GERD (gastroesophageal reflux disease) Hypovitaminosis D Migraines Moderate major depression Neck pain Normocytic anemia Occipital headache Overweight (BMI 25.0-29.9) Physical exam Right flank pain RUQ abdominal pain Sleep apnea Tonsil stone Functional capacity: independent ambulation Family History Family History Mother Thyroid disease Family history of problems with anesthesia: No Surgical History Surgical History History of endoscopy Hx of removal of ovary S/P lumbar fusion History of Problems with Anesthesia: No Social History Social History Housing: House Alcohol intake: current Alcohol intake frequency: holidays/special occasions only Alcohol type: wine Patient Tobacco Use Status: Former Tobacco user Quit Date: 2002 Tobacco use type: Cigarette e-Cigarette/Vaping Use: Never Used Second Hand Smoke Exposure: No Use of substances other than those prescribed or required for medical reasons: No Are you DNR?: No Advance Directives: No Advance Directives Information Provided: Yes Recently lost weight without trying: No Nutrition Risks: No Nutritional Risk Patient : No service: No Current occupational status: disabled Gender identity: Female Cognitive needs: No Hearing needs: No Vision needs: No Meds Allergies Allergy/AdvReac Type Severity Reaction Status Date / Time morphine [MORPHINE] Allergy Intermediate Itching Verified 05/31/22 11:20 tramadol [TRAMADOL] Allergy Intermediate SHORTNESS Verified 05/31/22 11:20 OF BREATH Active Medications: Current Medications Lactated Ringer's (Lr) 1,000 mls @ 100 mls/hr IVCONT .Q10H ROMELIA Last Admin: 06/03/22 08:52 Dose: 100 mls/hr Home Medications Medication Instructions Recorded Confirmed Last Taken Type omeprazole 40 mg capsule,delayed 40 mg PO DAILY 10/27/20 06/02/22 06/03/22 History release ibuprofen 600 mg tablet 600 mg PO TID 07/27/21 06/02/22 Unknown History cyclobenzaprine 10 mg tablet 10 mg PO BEDTIME 12/08/21 06/02/22 Unknown History bupropion HCl 300 mg 24 hr tablet, 1 tab PO DAILY 05/30/22 06/02/22 06/02/22 History extended release gabapentin 300 mg capsule 300 mg PO DAILY 05/30/22 06/02/22 06/02/22 History gabapentin 600 mg tablet 600 mg PO BEDTIME 05/30/22 06/02/22 Unknown History Exam Exam Date and Time: June 03, 2022 1025 Height,Weight and Vital Signs: Height 5 ft 3 in Weight 71.214 kg Last Vital Signs Temp 98.2 F 06/03/22 08:46 Pulse 83 06/03/22 08:46 Resp 16 06/03/22 08:46 BP 118/59 L 06/03/22 08:46 Pulse Ox 98 06/03/22 08:46 O2 Del Method 06/03/22 08:46 Pertinent Lab Results Pertinent Lab Results: Laboratory Tests 06/03/22 08:34 Urine Test NEGATIVE Airway Mallampati Class: III TM Dist: >3cm Denture: Upper Heart: RRR Lungs: CTA Assessment and Plan Final Anesthetic Review Family History of Problems with Anesthesia: No History of Problems with Anesthesia: No NPO: Yes ASA Class: III Final Preanesthetic Review: No Changes in Pt Med Stat, Meds/Allgs Chart Reviewed, Consent Obtained/Reviewed and Anes Risks/Benef Reviewed Patient Risk: Low Procedure Risk: Low Anesthetic Plan Anesthetic Plan: MAC: Disposition: Standard PACU
[2022-06-03 10:30] VITALS: BP 117/75; PULSE 84; RESP 16; O2SAT 100
--- NOTE | 2022-06-03 13:10 | HO.POSTANES ---
Post Anesthesia Evaluation Post Anesthesia Evaluation Vital Signs: Vital Signs Temp Pulse Resp BP Pulse Ox O2 Del Method O2 Flow Rate 06/03/22 10:30 84 16 117/75 100 Room Air 06/03/22 10:15 97.0 F 77 16 122/75 99 Simple Mask 4 06/03/22 08:46 98.2 F 83 16 118/59 L 98 Room Air Anesthesia: Monitored Mental Status: Awake Pain Control: Satisfactory Nausea/Vomiting: None Hydration: Adequate Anesthesia-Related Issues: No Anes. Related Issues
== END 2022-06-03 11:35 | disposition home or self-care (01) ==
PROVIDERS: Anesthesiology; PCP Internal Medicine; Visit Provider Anesthesiology
PROC: (CPT 64490; principal; 2022-06-03 09:30)
DX: M54.12 Radiculopathy, cervical region (principal); M62.838 Other muscle spasm; G89.4 Chronic pain syndrome; M47.812 Spondylosis without myelopathy or radiculopathy, cervical region; M47.819 Spondylosis without myelopathy or radiculopathy, site unspecified; M76.30 Iliotibial band syndrome, unspecified leg; M79.7 Fibromyalgia; D64.9 Anemia, unspecified; E55.9 Vitamin D deficiency, unspecified; G47.33 Obstructive sleep apnea (adult) (pediatric); F33.1 Major depressive disorder, recurrent, moderate; Z79.1 Long term (current) use of non-steroidal anti-inflammatories (NSAID); Z79.899 Other long term (current) drug therapy; Z88.8 Allergy status to other drugs, medicaments and biological substances; Z87.891 Personal history of nicotine dependence
CPT/HCPCS: 64490; 64491; 81025; J1100; J2250; J3010; J3301

== ENCOUNTER → 2022-06-16 09:31 | Outpatient (BNVA) | payer MEDICARE, MEDICAID, SELFPAY | PROVIDERS: PCP Internal Medicine; Visit Provider Nurse Practitioner | DX: R13.10 Dysphagia, unspecified (principal); K21.9 Gastro-esophageal reflux disease without esophagitis | CPT/HCPCS: 99212 ==

== ENCOUNTER → 2022-06-22 11:16 | Outpatient (BNVA) | payer MEDICARE, MEDICAID, SELFPAY | PROVIDERS: PCP Internal Medicine; Visit Provider Anesthesiology | DX: M54.12 Radiculopathy, cervical region (principal); M62.838 Other muscle spasm; M47.819 Spondylosis without myelopathy or radiculopathy, site unspecified; M76.30 Iliotibial band syndrome, unspecified leg; M47.812 Spondylosis without myelopathy or radiculopathy, cervical region; G56.00 Carpal tunnel syndrome, unspecified upper limb; G89.4 Chronic pain syndrome | CPT/HCPCS: 99212 ==

== ENCOUNTER → 2022-07-21 11:19 | Outpatient (BNVA) | payer MEDICARE, MEDICAID, SELFPAY | PROVIDERS: PCP Internal Medicine; Visit Provider Obstetrics & Gynecology ==

== ENCOUNTER 2022-08-08 09:13 | Outpatient (REF) | payer MEDICARE, MEDICAID, SELFPAY ==
--- NOTE | ~2022-08-08 | FL_ITS ---
PROCEDURE: FL BARIUM SWALLOW CLINICAL INFORMATION: Dysphagia. COMPARISON: None available. TECHNIQUE: Barium swallow examination is performed using fluoroscopic evaluation in addition to multiple fluoroscopic spot views. The patient is imaged both upright and prone and using both thick and thin sulfate along with effervescent granules. Fluoroscopy time: 1.8 minutes DAP: 7.895 Gy-cm2 Images: 52 FINDINGS: Following oral administration of thick barium and barium-coated turkey there is normal propagation of bolus from the oral cavity through the pharynx, esophagus into stomach without any evidence of obstruction, narrowing or stricture. The mucosal pattern of the esophagus is normal. On placing patient prone lying and oral administration of thin barium there is good distention of the esophagus. There is no hiatal hernia or gastroesophageal reflux. FL/FL barium swallow IMPRESSION: Unremarkable barium swallow exam in upright and lying position.
== END 2022-08-08 09:14 | disposition home or self-care (01) ==
LOC: HO.XRAY 09:13
PROVIDERS: PCP Internal Medicine; Visit Provider Nurse Practitioner
DX: R13.10 Dysphagia, unspecified (principal); K21.9 Gastro-esophageal reflux disease without esophagitis
CPT/HCPCS: 74220

== ENCOUNTER 2022-08-16 11:52 | Outpatient (REF) | payer MEDICARE, MEDICAID, SELFPAY ==
--- NOTE | ~2022-08-16 | XR_ITS ---
EXAMINATION: XR THORACOLUMBAR SPINE CLINICAL INFORMATION: Pain COMPARISON: None available. TECHNIQUE: 3 views of the thoracic spine including a new FINDINGS: Bone alignment is normal. No fracture or dislocation. Mild degenerative spondylosis of the midthoracic spine. Normal disc spaces. Normal prevertebral soft tissues. Degenerative spondylosis and disc space narrowing at C5-C6 and C6-C7. XR/XR thoracic spine 2V IMPRESSION: Mild degenerative changes.
== END 2022-08-16 11:53 | disposition home or self-care (01) ==
LOC: HO.XRAY 11:52
PROVIDERS: PCP Internal Medicine; Visit Provider Nurse Practitioner
DX: M54.6 Pain in thoracic spine (principal); R13.10 Dysphagia, unspecified; K21.9 Gastro-esophageal reflux disease without esophagitis
CPT/HCPCS: 72070; 99212

== ENCOUNTER → 2022-09-28 11:20 | Outpatient (BNVA) | payer MEDICARE, MEDICAID, SELFPAY | PROVIDERS: PCP Internal Medicine; Visit Provider Anesthesiology | DX: K59.00 Constipation, unspecified (principal); K21.9 Gastro-esophageal reflux disease without esophagitis; R13.10 Dysphagia, unspecified; R10.13 Epigastric pain; R14.0 Abdominal distension (gaseous); M54.6 Pain in thoracic spine; G89.4 Chronic pain syndrome | CPT/HCPCS: 99212 ==

== ENCOUNTER 2022-10-05 13:53 | Outpatient (AMB) | payer MEDICARE, MEDICAID, SELFPAY ==
--- NOTE | 2022-10-05 15:00 | A.OFFVIS_ITS ---
Intake Vital Signs 10/05/22 15:13 Height 5 ft 3 in Weight 154 lb BMI 27.3 BP 126/80 Blood Pressure Location Rt brachial Position Sitting Respiration 16 Pulse 97 Pulse Source Pulse Oximeter Pulse Oximetry (%) 97 Oxygen Delivery Method Room Air Intake Visit Reasons: Neck Pain s/p Cervical MMBs on 06/03/22 Intake Note: patient comes in for neck pain. Allergies morphine [MORPHINE] Allergy (Intermediate, Verified 10/05/22 15:12) Itching tramadol [TRAMADOL] Allergy (Intermediate, Verified 10/05/22 15:12) SHORTNESS OF BREATH HPI HPI Comments History of Present Illness Details Kathy is Dominican-speaking 47 years old who is back in my office complaining on severe unbearable pain in the neck. She reports pain in the neck in the range of 8/10. She reported that most of the pain in the back of the head. She reported pain is intermittent but when it comes to her it is unbearable. She reports mild lower neck pain. bilateral cervical medial branch block on 05/26/2022.? She visited me 45 days after the procedure and reported at that time excellent pain relief. She claims that her occipital pain and upper neck pain started 46 days after the procedure. It seem to be that she is suffering mostly from occipital neuralgia. In any way the- bilateral C4-C5- C6 therapeutic medial branch block is not designed to treat occipital neuralgia. I offered this patient to perform occipital nerve block. I will schedule her for lesser and greater occipital nerve block without sedation. If she will have good pain relief from occipital nerve block I will offer her PNS stim wave to treat her pain. The requirements for PNS discussed with the patient. The shaving of the back of her head discussed with the patient. The psychological evaluation is discussed with the patient. The patient is interested and agrees with the plan. Prior: complains on cervicalgia as well as pain in the right hip as well as painful sensation as tingling pins and needles in bilateral hands move the right and less on the left.?.? As of her pain in the right hip it looks like that she is suffering from iliotibial band syndrome she reports pain on the right side of the hip in the lateral area starting from trochanter and the radiating down to the lateral surface of the right knee.? The injections could be performed for this condition in the future however now it is too early after the procedure to do yet another steroid injections PFSH Medical History Anxiety Arthritis Bloody stools Cervical cancer screening Chest pain Dyslipidemia Fibromyalgia GERD (gastroesophageal reflux disease) Hypovitaminosis D Migraines Moderate major depression Neck pain Normocytic anemia Occipital headache Overweight (BMI 25.0-29.9) Physical exam Right flank pain RUQ abdominal pain Sleep apnea Tonsil stone Surgical History History of endoscopy Hx of colonoscopy Hx of removal of ovary S/P lumbar fusion Family History Mother Thyroid disease Maternal Aunt No problems noted. Social History Housing: House Alcohol intake: current Alcohol intake frequency: holidays/special occasions only Alcohol type: wine Patient Tobacco Use Status: Former Tobacco user Quit Date: 2002 Tobacco use type: Cigarette e-Cigarette/Vaping Use: Never Used Second Hand Smoke Exposure: No service: No Current occupational status: disabled Gender identity: Female Cognitive needs: No Hearing needs: No Vision needs: Yes Female Reproductive History Menstrual Age of Menarche: 11 Review of Systems Const All systems reviewed & are unremarkable except as noted in HPI and below ENT Reports Normal hearing present Neuro Reports Normal hearing present, Denies Abnormal speech present and Denies confusion Psych Denies confusion Physical Exam Vital Signs: Last Vital Signs Pulse 97 10/05/22 15:13 Resp 16 10/05/22 15:13 BP 126/80 10/05/22 15:13 Pulse Ox 97 10/05/22 15:13 Oxygen Delivery Method Room Air 10/05/22 15:13 BMI result Body Mass Index 27.3 Const General: No confusion Orientation/consciousness: No confusion HEENT Head: Yes normocephalic and Yes atraumatic Ears: hearing grossly normal bilaterally Eyes General: appearance normal, both eyes and all related structures Eyelids: Yes eyelids normal Pupils: Equal, round and reactive pupils present EOM: EOMs intact bilaterally Neck Neck: Yes normal visual inspection and Yes no JVD Resp Effort & Inspection: normal respiratory effort, able to speak in complete sentences and no audible wheezes Cardio Jugular venous distension: no JVD Back/Spine/Pelvis Other: slight decreased ROM of cervical spine with lateral rotation. significant TTP throughout cervical muscles. 5/5 motor strength of BUE. DTR intact and symmetrical. 2+ radial pulses. Reverse phalens and hand grasps elicits numbness throughout digits on the R>L. Neuro General: No confusion Cranial nerves: Yes Equal, round and reactive pupils present and Yes Normal hearing present Cognition (Neuro): normal cognition Speech: No Abnormal speech present Results Reviewed Results Reviewed: MRI of the cervical spine 10/26/2021. Findings: There is a slight retrolisthesis of C4 on C5 that appears to be related to a symmetric degenerative arthrosis of the left facet joint. Alignment is otherwise normal. Vertebral body heights is preserved. Well marginated intraosseous hemangioma at T2 vertebral body. There is mild bone marrow edema involving articular pillars of the left C4-C5 facet joints. Otherwise no acute job bone marrow signal changes. The slight loss of intervertebral disc height and T2 signal intensity at multiple levels related to disc generator d egeneration. There is no canal compromise or cord compression. No abnormal intramedullary signal changes. The cervical 0 medullary junction is normal. Limited visualization of posterior fossa reveals no abnormal finding. The occipital condyles and lateral C1 masses are intact. There is degenerative arthrosis of the implanted dental joint. C1-C2 articular facets are unremarkable. C2-C3 annular contour is normal no canal or neural foraminal compromise. C3-C4 slight bulging disc no canal stenosis minimal uncovertebral joint spurring no substantial neuroforaminal encroachment. C4-C5 there is a slight bulging disc no canal stenosis is symmetrical intervertebral joint spurring and facet degenerative change causes mild left neural foraminal encroachment. C5-C6 slight bulging disc no canal stenosis a symmetric uncovertebral joint spurring and facet degenerative change causes mild right neural foraminal encroachment. At C6-C7 diffusely bulging disc. Mild canal stenosis uncovertebral joint spurring and facet degenerative change causes mild bilateral neural foraminal encroachment. C7-T1 the annual- contour is normal no canal or neural foraminal compromise. Assessment & Plan Assessment & Plan (1) Cervical radiculopathy: Code(s): M54.12 - Radiculopathy, cervical region (2) Muscle spasms of neck: Code(s): M62.838 - Other muscle spasm (3) Facet arthropathy, multilevel: Code(s): M47.819 - Spondylosis without myelopathy or radiculopathy, site unspecified (4) Iliotibial band syndrome: Code(s): M76.30 - Iliotibial band syndrome, unspecified leg (5) Facet joint disease of cervical region: Code(s): M47.812 - Spondylosis without myelopathy or radiculopathy, cervical region (6) Spondylosis of cervical region without myelopathy or radiculopathy: Code(s): M47.812 - Spondylosis without myelopathy or radiculopathy, cervical region (7) Carpal tunnel syndrome: Code(s): G56.00 - Carpal tunnel syndrome, unspecified upper limb (8) Chronic pain syndrome: Code(s): G89.4 - Chronic pain syndrome (9) Occipital neuralgia of left side: Code(s): M54.81 - Occipital neuralgia (10) Occipital neuralgia of right side: Code(s): M54.81 - Occipital neuralgia Plan MRI is dictated as above and evident of widespread cervical facet joint arthritis and uncovertebral arthritis. Initially- Very good results of the medial branch block C4-C5 C6 at 45 days after the procedure. She claims that on 46 days she started to feel pain in the back of her head. She claims that pain is intermittent however when it comes it is very severe 8 to 910. I offered her occipital nerve block with the plans to perform PNS stim wave. Need to psychological evaluation explained to the patient. Need to shave the back of her head is explained to the patient.. I offered the patient occipital nerve block to diagnose and treat her pain. The injection will be purely diagnostic. With good results we will plan stim wave PNS. However if results are not conclusive or not effective C2-C3 C4 medial branch block bilateral could be considered to help the patient's pain. She did not report any significant complaints on her hip today. Previously iliotibial band syndrome was suspected with the patient. Coding Level of Care Code Est Pt Level 4 (72515) Diagnoses Cervical radiculopathy M54.12 Muscle spasms of neck M62.838 Facet arthropathy, multilevel M47.819 Iliotibial band syndrome M76.30 Facet joint disease of cervical region M47.812 Spondylosis of cervical region without myelopathy or radiculopathy M47.812 Carpal tunnel syndrome G56.00 Chronic pain syndrome G89.4 Occipital neuralgia of left side M54.81 Occipital neuralgia of right side M54.81
[2022-10-05 15:13] VITALS: BP 126/80; PULSE 97; RESP 16; O2SAT 97; BMI 27.3
== END 2022-10-05 15:37 | disposition home or self-care (01) ==
PROVIDERS: PCP Internal Medicine; Visit Provider Anesthesiology
DX: M54.12 Radiculopathy, cervical region (principal); M62.838 Other muscle spasm; M47.819 Spondylosis without myelopathy or radiculopathy, site unspecified; M76.30 Iliotibial band syndrome, unspecified leg; M47.812 Spondylosis without myelopathy or radiculopathy, cervical region; G56.00 Carpal tunnel syndrome, unspecified upper limb; G89.4 Chronic pain syndrome; M54.81 Occipital neuralgia
CPT/HCPCS: 99214

== ENCOUNTER → 2022-10-05 13:53 | Outpatient (BNVA) | payer MEDICARE, MEDICAID, SELFPAY | PROVIDERS: PCP Internal Medicine; Visit Provider Anesthesiology | DX: M54.12 Radiculopathy, cervical region (principal); M62.838 Other muscle spasm; M47.819 Spondylosis without myelopathy or radiculopathy, site unspecified; M76.30 Iliotibial band syndrome, unspecified leg; M47.812 Spondylosis without myelopathy or radiculopathy, cervical region; M54.81 Occipital neuralgia; G56.00 Carpal tunnel syndrome, unspecified upper limb; G89.4 Chronic pain syndrome | CPT/HCPCS: 99212 ==

== ENCOUNTER 2022-10-12 16:13 | Outpatient (AMB) | payer MEDICARE, MEDICAID, SELFPAY ==
--- NOTE | 2022-10-12 16:19 | MHC.PC.OV ---
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 Accompanied by: Daughter Allergies morphine [MORPHINE] Allergy (Intermediate, Verified 10/12/22 16:29) Itching tramadol [TRAMADOL] Allergy (Intermediate, Verified 10/12/22 16:29) SHORTNESS OF BREATH Medication List - Last Reconciled 10/12/22 by Lilia Walsh MD bupropion HCl 1 tab PO DAILY rbibqvisip-uqjminaxhikpj-ynvn 50-325-40 mg 2 tabs PO Q4H PRN 30 days cholecalciferol (vitamin D3) 25 mcg PO DAILY 90 days cyclobenzaprine 5 mg PO TID PRN 30 days esomeprazole magnesium 40 mg PO DAILY famotidine (Pepcid) 40 mg PO BEDTIME gabapentin 600 mg PO BEDTIME gabapentin 300 mg PO DAILY hydroxyzine pamoate (Vistaril) 25 mg PO BEDTIME medroxyprogesterone (Provera) 10 mg PO DAILY 10 days polyethylene glycol 3350 (Miralax) 17 grams PO DAILY 30 days propylene glycol 0.6% (Systane Balance) 1 drp ophthalmic (eye) DAILY PRN 30 days sucralfate 10 mL PO BID Tobacco use date assessed: 06/22/22 Dental Screening Dental Screen Date: 10/12/22 Did you have a dental visit in the last 12 months?: Yes Did you have a dental problem in the last 6 months where you did not have access to dental care?: No Was dental information given to patient?: Patient has dentist HPI HPI Comments History of Present Illness Details This is a 47-year-old female that complains of neck pain and left shoulder pain and left scapular pain that started few weeks ago. Has try xibj-qji-xuwaurl medications with no significant relieved. Has limited left shoulder elevation and abduction. No previous trauma. FOR[facility]LY [facility], [facility] Medical History Anxiety Arthritis Bloody stools Cervical cancer screening Chest pain Dyslipidemia Fibromyalgia GERD (gastroesophageal reflux disease) Hypovitaminosis D Migraines Moderate major depression Neck pain Normocytic anemia Occipital headache Overweight (BMI 25.0-29.9) Physical exam Right flank pain RUQ abdominal pain Sleep apnea Tonsil stone Surgical History History of endoscopy Hx of colonoscopy Hx of removal of ovary S/P lumbar fusion Family History Mother Thyroid disease Maternal Aunt No problems noted. Social History Housing: House Alcohol intake: current Alcohol intake frequency: holidays/special occasions only Alcohol type: wine Patient Tobacco Use Status: Former Tobacco user Quit Date: 2002 Tobacco use type: Cigarette e-Cigarette/Vaping Use: Never Used Second Hand Smoke Exposure: No service: No Current occupational status: disabled Gender identity: Female Cognitive needs: No Hearing needs: No Vision needs: Yes Female Reproductive History Menstrual Age of Menarche: 11 Questionnaire Thrive Questionnaire Date Thrive assessed: 06/22/22 SHERIDAN-7 AMB Questionnaire SHERIDAN-7 Date SHERIDAN - 7 assessed: 06/22/22 Source: Developed by Drs. Alejandro Linton, Omayra King, Deejay Rivas and colleagues, with an educational rene from [employer]. Review of Systems Const All systems reviewed & are unremarkable except as noted in HPI and below Eyes Reports no additional complaints, Denies change in vision and Denies other visual disturbances Card Denies chest pain at rest, Denies chest pain with activity, Denies edema, Denies irregular heart rhythm, Denies claudication, Denies dyspnea, Denies dyspnea on exertion, Denies orthopnea, Denies paroxysmal nocturnal dyspnea and Denies slow heart rate Resp Denies cough, Denies dyspnea and Denies dyspnea on exertion GI Denies abdominal pain, Denies change in bowel habits, Denies excessive flatus, Denies nausea and Denies vomiting Denies urinary incontinence, Denies urinary hesitancy and Denies urinary urgency Musc Denies abnormal gait, Denies atrophy, Denies deformity and Denies limited range of motion Skin/Breast Denies bleeding lesions, Denies changing lesions and Denies rash Neuro Denies abnormal gait and Denies lack of coordination Physical exam (Primary Care) Vital Signs: Last Vital Signs BP 120/76 10/12/22 16:20 BMI result Body Mass Index 27.3 Tobacco/Smoking Status: Tobacco use Status Tobacco use date assessed 06/22/22 10/12/22 16:26 Patient Tobacco Use Status Former Tobacco user 10/12/22 16:26 Tobacco use type Cigarette 10/12/22 16:26 e-Cigarette/Vaping Use Never Used 10/12/22 16:26 Thrive Assessment: Date of Thrive Assessment Date Thrive assessed 06/22/22 10/12/22 16:26 Eyes General: appearance normal, both eyes and all related structures Eyelids: Yes eyelids normal Conjunctivae: conjunctivae normal Neck Neck: Yes normal visual inspection and Yes supple Resp Effort & Inspection: normal respiratory effort Auscultation: clear to auscultation bilaterally Cardio Jugular venous distension: no JVD Rate: regular rate Rhythm: regular rhythm Heart sounds: S1 normal heart sound present and S2 normal heart sound present Extrem General: Yes full ROM Assessment and Plan Assessment & Plan (1) Neck pain: Code(s): M54.2 - Cervicalgia Plan: X-ray ordered. Start physical therapy (2) Left shoulder pain: Code(s): M25.512 - Pain in left shoulder Plan: X-RAY ORDERED. START PHYSICAL THERAPY. (3) Pain of left scapula: Code(s): M89.8X1 - Other specified disorders of bone, shoulder Plan: X-ray ordered. Start physical therapy Orders: Orders XR shoulder LT min 2V Today M25.512 - Pain in left shoulder XR cervical spine 2V Today M54.2 - Cervicalgia XR scapula LT Today M89.8X1 - Other specified disorders of bone, shoulder PT Evaluation and Treatment Today M25.512 - Pain in left shoulder, M89.8X1 - Other specified disorders of bone, shoulder PT Evaluation and Treatment Today M54.2 - Cervicalgia Medications: New sucralfate 1 g PO BID 60 tabs 1RF 30 days diclofenac potassium 50 mg PO TID PRN 21 tabs 0RF pain 7 days Coding Level of Care Code Est Pt Level 3 (88646) Diagnoses Neck pain M54.2 Left shoulder pain M25.512 Pain of left scapula M89.8X1 Time Spent (min) 18
[2022-10-12 16:20] VITALS: BP 120/76; BMI 27.3
== END 2022-10-12 16:40 | disposition home or self-care (01) ==
PROVIDERS: PCP Internal Medicine; Visit Provider Internal Medicine
DX: M54.2 Cervicalgia (principal); M25.512 Pain in left shoulder; M89.8X1 Other specified disorders of bone, shoulder
CPT/HCPCS: 99213

== ENCOUNTER 2022-10-12 16:45 | Outpatient (REF) | payer MEDICARE, MEDICAID, SELFPAY ==
--- NOTE | ~2022-10-12 | XR_ITS ---
EXAMINATION: XR CERVICAL SPINE XR SHOULDER, LEFT XR SCAPULA, LEFT CLINICAL INFORMATION: Pain. COMPARISON: MR cervical spine 10/26/2021, left shoulder 01/30/2018. TECHNIQUE: 4 views of the left shoulder, single view of the left scapula and 4 views of the cervical spine, lateral, AP and 2 odontoid views. FINDINGS: Cervical Spine: Straightening of the normal cervical lordosis. Mild anterolisthesis of C4 on C5. Moderate degenerative changes with loss of disc space height and hypertrophic change at C5-C6 and C6-C7. Left Shoulder/Scapula: Mild osteoarthritic changes acromioclavicular and glenohumeral joints. Multiple abundant amorphous soft tissue calcifications superolateral aspect of the humeral head are characteristic of rotator cuff pathology. No gross displaced fracture of the scapula is identified, although visualization is limited due to overlying structures. Degenerative changes in the imaged upper thoracic spine. XR/XR shoulder LT min 2V IMPRESSION: Mild anterolisthesis of C4 on C5. Moderate degenerative changes at C5-C6 and C6-C7. Mild osteoarthritic changes acromioclavicular and glenohumeral joints. Multiple abundant amorphous soft tissue calcifications superolateral aspect of the humeral head are characteristic of rotator cuff pathology. Additional imaging with CT scan or MRI should be considered for better visualization as these modalities are much more sensitive for detection of fracture or other underlying pathology.
--- NOTE | ~2022-10-12 | XR_ITS ---
EXAMINATION: XR CERVICAL SPINE XR SHOULDER, LEFT XR SCAPULA, LEFT CLINICAL INFORMATION: Pain. COMPARISON: MR cervical spine 10/26/2021, left shoulder 01/30/2018. TECHNIQUE: 4 views of the left shoulder, single view of the left scapula and 4 views of the cervical spine, lateral, AP and 2 odontoid views. FINDINGS: Cervical Spine: Straightening of the normal cervical lordosis. Mild anterolisthesis of C4 on C5. Moderate degenerative changes with loss of disc space height and hypertrophic change at C5-C6 and C6-C7. Left Shoulder/Scapula: Mild osteoarthritic changes acromioclavicular and glenohumeral joints. Multiple abundant amorphous soft tissue calcifications superolateral aspect of the humeral head are characteristic of rotator cuff pathology. No gross displaced fracture of the scapula is identified, although visualization is limited due to overlying structures. Degenerative changes in the imaged upper thoracic spine. XR/XR scapula LT IMPRESSION: Mild anterolisthesis of C4 on C5. Moderate degenerative changes at C5-C6 and C6-C7. Mild osteoarthritic changes acromioclavicular and glenohumeral joints. Multiple abundant amorphous soft tissue calcifications superolateral aspect of the humeral head are characteristic of rotator cuff pathology. Additional imaging with CT scan or MRI should be considered for better visualization as these modalities are much more sensitive for detection of fracture or other underlying pathology.
--- NOTE | ~2022-10-12 | XR_ITS ---
EXAMINATION: XR CERVICAL SPINE XR SHOULDER, LEFT XR SCAPULA, LEFT CLINICAL INFORMATION: Pain. COMPARISON: MR cervical spine 10/26/2021, left shoulder 01/30/2018. TECHNIQUE: 4 views of the left shoulder, single view of the left scapula and 4 views of the cervical spine, lateral, AP and 2 odontoid views. FINDINGS: Cervical Spine: Straightening of the normal cervical lordosis. Mild anterolisthesis of C4 on C5. Moderate degenerative changes with loss of disc space height and hypertrophic change at C5-C6 and C6-C7. Left Shoulder/Scapula: Mild osteoarthritic changes acromioclavicular and glenohumeral joints. Multiple abundant amorphous soft tissue calcifications superolateral aspect of the humeral head are characteristic of rotator cuff pathology. No gross displaced fracture of the scapula is identified, although visualization is limited due to overlying structures. Degenerative changes in the imaged upper thoracic spine. XR/XR cervical spine 2V IMPRESSION: Mild anterolisthesis of C4 on C5. Moderate degenerative changes at C5-C6 and C6-C7. Mild osteoarthritic changes acromioclavicular and glenohumeral joints. Multiple abundant amorphous soft tissue calcifications superolateral aspect of the humeral head are characteristic of rotator cuff pathology. Additional imaging with CT scan or MRI should be considered for better visualization as these modalities are much more sensitive for detection of fracture or other underlying pathology.
== END 2022-10-12 16:46 | disposition home or self-care (01) ==
LOC: HO.XRAY 16:45
PROVIDERS: PCP Internal Medicine; Visit Provider Internal Medicine
DX: M89.8X1 Other specified disorders of bone, shoulder (principal); M25.512 Pain in left shoulder; M54.2 Cervicalgia
CPT/HCPCS: 72040; 73010; 73030

== ENCOUNTER 2022-10-25 08:09 | Day surgery (SDC) | payer MEDICARE, MEDICAID, SELFPAY ==
[2022-10-21 07:24] VITALS: BMI 27.3
[2022-10-25 09:15] VITALS: BMI 27.5
[2022-10-25 09:18] VITALS: BP 112/55; PULSE 80; RESP 18; TEMP 36.3; O2SAT 97
[2022-10-25 09:30] LABS: UPreg QC Valid YES; Urine Pregnancy NEGATIVE (NEGATIVE)
[2022-10-25] MEDS: Lactated Ringers 1,000 ML 100 ML IVCONT (09:36)
--- NOTE | 2022-10-25 09:48 | MHC.SHP ---
Pre-Procedural Eval Section A Date of Service: 10/25/22 The patient is an INPATIENT: No Changes since office visit: Yes Patient answered all questions; No Cold of Flu in the past 2 weeks, No New Medical Problems and No Changes in Medication The History & Physical has been completed within 30 days and I have reviewed it.: Yes Section B Chief Complaint: Dysphagia, unspecified,Epigastric pain Allergies: Allergies Allergy/AdvReac Type Severity Reaction Status Date / Time morphine [MORPHINE] Allergy Intermediate Itching Verified 10/12/22 16:29 tramadol [TRAMADOL] Allergy Intermediate SHORTNESS Verified 10/12/22 16:29 OF BREATH Plan I have reviewed the history and physical and performed a pertinent physical examination on my patient. No changes have occurred unless specified. Time Spent With Patient Time: Total time managing care of this patient today ____ minutes.
--- NOTE | 2022-10-25 10:34 | HO.ANESPROP2 ---
[facility] Active Problems Active Problems: All Active Problems (Updated 10/12/22 @ 16:35 by Lilia Walsh MD) Left shoulder pain (Acute) Pain of left scapula (Acute) Occipital neuralgia of right side (Acute) Occipital neuralgia of left side (Acute) Dry eyes (Acute) Thoracic back pain (Acute) Well woman exam (Acute) Dyspepsia (Acute) Odynophagia (Acute) Sinus pressure (Acute) Headache (Acute) Blurry vision (Acute) Chronic pain syndrome (Acute) Carpal tunnel syndrome (Acute) Spondylosis of cervical region without myelopathy or radiculopathy (Acute) Facet joint disease of cervical region (Acute) Iliotibial band syndrome (Acute) Anxiety (Acute) Muscle spasms of neck (Acute) Abnormal uterine bleeding (AUB) (Acute) Abdominal bloating (Acute) Constipation (Acute) Low vitamin D level (Acute) Spasmodic torticollis (Acute) Menorrhagia (Acute) Hx of removal of ovary (Acute) Hx of ovarian cyst (Acute) Colon cancer screening (Acute) Neck pain (Acute) Vaginal itching (Acute) Obstructive sleep apnea (Acute) Well woman exam with routine gynecological exam (Acute) Facet arthropathy, multilevel (Acute) Postlaminectomy syndrome, lumbar (Acute) Cervical radiculopathy (Acute) Bloody stools (Acute) Physical exam (Acute) Dyslipidemia (Acute) Hypovitaminosis D (Acute) Right flank pain (Acute) RUQ abdominal pain (Acute) Occipital headache (Acute) Tonsil stone (Acute) Overweight (BMI 25.0-29.9) (Acute) Migraines (Acute) Moderate major depression (Acute) Fibromyalgia (Acute) Normocytic anemia (Acute) GERD (gastroesophageal reflux disease) (Acute) Past Medical History Medical History Anxiety Arthritis Bloody stools Cervical cancer screening Chest pain Dyslipidemia Fibromyalgia GERD (gastroesophageal reflux disease) Hypovitaminosis D Migraines Moderate major depression Neck pain Normocytic anemia Occipital headache Overweight (BMI 25.0-29.9) Physical exam Right flank pain RUQ abdominal pain Sleep apnea Tonsil stone Family History Family History Mother Thyroid disease Maternal Aunt No problems noted. Family history of problems with anesthesia: No Surgical History Surgical History History of endoscopy Hx of colonoscopy Hx of removal of ovary S/P lumbar fusion History of Problems with Anesthesia: No Social History Social History Housing: House Alcohol intake: current Alcohol intake frequency: holidays/special occasions only Alcohol type: wine Patient Tobacco Use Status: Former Tobacco user Quit Date: 2002 Tobacco use type: Cigarette e-Cigarette/Vaping Use: Never Used Second Hand Smoke Exposure: No Use of substances other than those prescribed or required for medical reasons: No Are you DNR?: No Advance Directives: No Advance Directives Information Provided: Yes service: No Current occupational status: disabled Gender identity: Female Cognitive needs: No Hearing needs: No Vision needs: Yes Meds Allergies Allergy/AdvReac Type Severity Reaction Status Date / Time morphine [MORPHINE] Allergy Intermediate Itching Verified 10/12/22 16:29 tramadol [TRAMADOL] Allergy Intermediate SHORTNESS Verified 10/12/22 16:29 OF BREATH Active Medications: Current Medications Lactated Ringer's (Lr) 1,000 mls @ 100 mls/hr IVCONT .Q10H ROMELIA Last Admin: 10/25/22 09:36 Dose: 100 mls/hr Ondansetron HCl (Ondansetron Hcl 4 Mg/2 Ml Vial) 4 mg IVPUSH ONCE PRN PRN Reason: Nausea and Vomiting Home Medications Medication Instructions Recorded Confirmed Last Taken Type bupropion HCl 300 mg 24 hr tablet, 1 tab PO DAILY 05/30/22 10/21/22 06/02/22 History extended release gabapentin 300 mg capsule 300 mg PO DAILY 05/30/22 10/21/22 06/02/22 History gabapentin 600 mg tablet 600 mg PO BEDTIME 05/30/22 10/21/22 Unknown History esomeprazole magnesium 40 mg 40 mg PO DAILY 08/17/22 10/21/22 Unknown History capsule,delayed release hydroxyzine pamoate 25 mg capsule 25 mg PO BEDTIME 08/17/22 10/21/22 Unknown History (Vistaril) Exam Exam Date and Time: October 25, 2022 1034 Height,Weight and Vital Signs: Height 5 ft 3 in Weight 70.307 kg Last Vital Signs Temp 97.3 F 10/25/22 09:18 Pulse 80 10/25/22 09:18 Resp 18 10/25/22 09:18 BP 112/55 L 10/25/22 09:18 Pulse Ox 97 10/25/22 09:18 O2 Del Method Room Air 10/25/22 09:18 Pertinent Lab Results Pertinent Lab Results: Laboratory Tests 10/25/22 08:52 Urine Test NEGATIVE Airway Mallampati Class: II TM Dist: >3cm Neck ROM: Full Loose/Missing/Broken Teeth: No Heart: rrr Lungs: clear Assessment and Plan Final Anesthetic Review Family History of Problems with Anesthesia: No History of Problems with Anesthesia: No NPO: Yes ASA Class: II Final Preanesthetic Review: No Changes in Pt Med Stat, Meds/Allgs Chart Reviewed, Consent Obtained/Reviewed and Anes Risks/Benef Reviewed Patient Risk: Low Procedure Risk: Low Anesthetic Plan Anesthetic Plan: MAC: Disposition: Standard PACU
--- NOTE | 2022-10-25 10:37 | W.PM.OPN ---
Operative Note Operative Note Date of Service: 10/25/22 Narrative: FLEXIBLE TRANSORAL UPPER GASTROINTESTINAL ENDOSCOPY WITH BIOPSIES Pre-op diagnosis: GERD, atypical chest pain (pt feels as if there is a fist in her chest) Denies dysphagia, normal barium swallow Post-op diagnosis: GERD, Gastritis Endoscopist:? Fannie York MD Anesthesia:?MAC Consent: Indications for the procedure and potential complications of bleeding, perforation, reaction to medications and missed diagnosis were discussed with the patient and informed consent was obtained. Instrument: Olympus GIF H 190 mid size upper endoscope Monitoring: Vital signs and clinical assessment, continuous EKG monitoring, Pulse oximetry, Carbon Dioxide monitoring and blood pressure monitoring were done throughout the procedure. Procedure: The patient was placed in the left lateral decubitis position and pre-procedure medications were administered and a bite block was placed. The endoscope was inserted into the mouth and advanced under direct vision to the third part of duodenum. A careful inspection was made as the upper endoscope was withdrawn including a retroflexed examination of the proximal stomach; Findings and interventions are described below. Findings: Larynx: Normal Esophagus: GE junction at 36 cms. No esophagitis or Crooks's. Biopsies were obtained from proximal esophagus (to rule out EOE) and from distal esophagus (to rule out esophagitis) Stomach: Mild gastric erythema. Biopsies were obtained. Grade 2 flap valve on retroflexed examination of the cardia. Duodenum: Normal bulb and descending duodenum Intervention: Biopsies as noted above Impression and Post Procedure Diagnosis: Endoscopy Findings: ESOPHAGUS: GE junction at 36 cms. No esophagitis or Crooks's. Biopsies were obtained from proximal esophagus (to rule out EOE) and from distal esophagus (to rule out esophagitis) STOMACH: Mild gastric erythema. Biopsies were obtained. Grade 2 flap valve on retroflexed examination of the cardia. Chest pain is likely from esophageal spasm Plan: Await pathology results Patient has an appointment on 11/09/22 in the GI Clinic with Katerina Guerrero NP. Pt reported feeling better. If she continues to have symptoms, consider trail of dicyclomine and further evaluation with esophageal manometry if biopsies are normal. GERD and Esophageal Spasm handouts were given in the discharge area
[2022-10-25 11:15] VITALS: BP 111/61; PULSE 86; RESP 16; TEMP 36.3; O2SAT 98
[2022-10-25 11:38] VITALS: BP 119/73; PULSE 83; RESP 18; TEMP 36.1; O2SAT 100
== END 2022-10-25 12:25 | disposition home or self-care (01) ==
PROVIDERS: Anesthesiology; PCP Internal Medicine; Visit Provider Internal Medicine Gastroenterology
PROC: 0DJ08ZZ Inspection of Upper Intestinal Tract, Via Natural or Artificial Opening Endoscopic (ICD-10-PCS; CPT 43235; principal; 2022-10-25 10:20)
DX: K21.9 Gastro-esophageal reflux disease without esophagitis (principal); R13.10 Dysphagia, unspecified; K29.70 Gastritis, unspecified, without bleeding; K22.4 Dyskinesia of esophagus; K59.00 Constipation, unspecified; G47.33 Obstructive sleep apnea (adult) (pediatric); Z79.899 Other long term (current) drug therapy; Z88.8 Allergy status to other drugs, medicaments and biological substances; Z87.891 Personal history of nicotine dependence
CPT/HCPCS: 43239; 81025; 88305; 88342

== ENCOUNTER → 2022-10-25 08:09 | Outpatient (BNV) | payer MEDICARE, MEDICAID, SELFPAY | PROVIDERS: PCP Internal Medicine; Visit Provider Internal Medicine Gastroenterology | DX: K21.9 Gastro-esophageal reflux disease without esophagitis (principal); K29.70 Gastritis, unspecified, without bleeding | CPT/HCPCS: 43239 ==

== ENCOUNTER 2022-11-10 09:32 | Outpatient (AMB) | payer MEDICARE, MEDICAID, SELFPAY ==
--- NOTE | 2022-11-10 09:41 | MHC.OFFVIS ---
Intake Vital Signs 11/10/22 09:44 Height 5 ft 3 in Weight 155 lb BMI 27.5 Intake Visit Reasons: New Pt- LT Shoulder Pain Intake Note: Kathy is a 47 year old riught hand dominant female who presents today as a new patient appointment with complaints of left shoulder pain. Patient reports that she has had ongoing pain for about 2 years now. Pain radiates up to the neck as well as down the arm, worse at night. She has tried physical therapy which did not help Allergies morphine [MORPHINE] Allergy (Intermediate, Verified 11/10/22 09:51) Itching tramadol [TRAMADOL] Allergy (Intermediate, Verified 11/10/22 09:51) SHORTNESS OF BREATH HPI New Pt- LT Shoulder Pain HPI Details Kathy Quintero is a 47-year-old [place] speaking female who presents today to the office for a new patient evaluation of left shoulder pain. The patient had C6-C7 epidural steroid injection from Rossi Cunningham. He has a history of lumbar fusion surgery involving rods and pedicular screws in the past. She received therapeutic bilateral C4-C5-C6-C7 medial branch block by Dr. Sim on 06/03/22. These were all helpful but did not help with her shoulder pain. She describes pain at night and radiating down her subdeltoid distribution. She has not done formal therapy for her shoulder nor has she had shoulder injections. Her primary complaint is pain at night and pain with overhead reaching. She also complains of right shoulder pain. The left is worse than the right. We reviewed the x-ray of the left shoulder that revealed calcification of the soft muscles of humeral head. [facility] Medical History Anxiety Arthritis Bloody stools Cervical cancer screening Chest pain Dyslipidemia Fibromyalgia GERD (gastroesophageal reflux disease) Hypovitaminosis D Migraines Moderate major depression Neck pain Normocytic anemia Occipital headache Overweight (BMI 25.0-29.9) Physical exam Right flank pain RUQ abdominal pain Sleep apnea Tonsil stone Surgical History History of endoscopy Hx of colonoscopy Hx of removal of ovary S/P lumbar fusion Family History Mother Thyroid disease Maternal Aunt No problems noted. Social History Housing: House Alcohol intake: current Alcohol intake frequency: holidays/special occasions only Alcohol type: wine Patient Tobacco Use Status: Former Tobacco user Quit Date: 2002 Tobacco use type: Cigarette e-Cigarette/Vaping Use: Never Used Second Hand Smoke Exposure: No service: No Current occupational status: disabled Gender identity: Female Cognitive needs: No Hearing needs: No Vision needs: Yes Female Reproductive History Menstrual Age of Menarche: 11 Physical Exam Vital Signs: BMI result Body Mass Index 27.5 Const General: no acute distress, alert and awake Orientation/consciousness: patient oriented x3 HEENT Head: Yes normocephalic and Yes atraumatic Eyes EOM: EOMs intact bilaterally Resp Effort & Inspection: normal respiratory effort and able to speak in complete sentences Cardio Jugular venous distension: no JVD Skin General skin exam: turgor normal Rashes: no rashes Neuro General: patient oriented x3 Extrem Other: 90/130/40/L5 +H/N - EC Psych Appearance: grossly normal Affect: normal affect Attitude: cooperative Office Procedures Joint Injection/Drain Joint Injection/Drain Details: Injected 1 mL of Decadron and 3 mL 1% lidocaine and 3 mL of 0.25% Marcaine. Site was prepped using aseptic technique. Patient tolerated the procedure well. Primary Site: right shoulder Secondary Site: left shoulder Approach Used: posterolateral Coding - Large joint - Glenohumeral/Tronchanteric Bursa/Intraarticular Procedure code (CPT) selection complete Results Reviewed Results Reviewed: 11/10/22 10:08 BUPivacaine MPF 0.25 % [Sensorcaine-MPF 0.25% 10 ML] 10 ml .ROUTE .STK-MED ONE Lidocaine HCl 2 % MPF [Xylocaine 2 % MPF] 5 ml .ROUTE .STK-MED ONE dexAMETHasone sod phosphate [Decadron] 4 mg .ROUTE .STK-MED ONE 11/10/22 10:09 Lidocaine HCl 1 % [Xylocaine 1 %] 2 ml .ROUTE .STK-MED ONE dexAMETHasone sod phosphate [Decadron] 4 mg .ROUTE .STK-MED ONE I personally reviewed relevant radiographs. 10/12/22: XR CERVICAL SPINE. XR SHOULDER, LEFT. XR SCAPULA, LEFT ? FINDINGS: Cervical Spine: Straightening of the normal cervical lordosis. Mild anterolisthesis of C4 on C5. Moderate degenerative changes with loss of disc space height and hypertrophic change at C5-C6 and C6-C7. Left Shoulder/Scapula: Mild osteoarthritic changes acromioclavicular and glenohumeral joints. Multiple abundant amorphous soft tissue calcifications superolateral aspect of the humeral head are characteristic of rotator cuff pathology. No gross displaced fracture of the scapula is identified, although visualization is limited due to overlying structures. Degenerative changes in the imaged upper thoracic spine. IMPRESSION: Mild anterolisthesis of C4 on C5. Moderate degenerative changes at C5-C6 and C6-C7. Mild osteoarthritic changes acromioclavicular and glenohumeral joints. Multiple abundant amorphous soft tissue calcifications superolateral aspect of the humeral head are characteristic of rotator cuff pathology. Assessment & Plan Assessment & Plan (1) Calcific tendonitis of left shoulder: Code(s): M75.32 - Calcific tendinitis of left shoulder Plan: This is a 47-year-old with symptoms of subacromial impingement syndrome/calcific tendinitis. I injected her left shoulder and recommend NSAIDs. She has done extensive physical therapy but not specifically for her shoulder. At this time work and I will see how the injections work and if they help with her symptoms so we can differentiate her cervical pathology from her shoulder pathology. She will see me back and 4-6 weeks. Plan Scribed for Dr. Ernie Diana by Huber Bates, medical secretary receptionist, on 11/10/2022. I, Dr. Ernie Diana, have personally reviewed and agree with the information entered by the scribe. Coding Level of Care Code New Pt Level 4 (86334) Diagnoses Calcific tendonitis of left shoulder M75.32 CPT Codes Coding - 37911 Large joint: 33814 - Large joint ([id number]) Coding - Joint 7: 66823 - Glenohumeral/Tronchanteric Bursa/Intraarticular ([id number])
[2022-11-10 09:44] VITALS: BMI 27.5
== END 2022-11-10 10:59 | disposition home or self-care (01) ==
PROVIDERS: PCP Internal Medicine; Visit Provider Orthopaedic Surgery
DX: M75.32 Calcific tendinitis of left shoulder (principal)
CPT/HCPCS: 20610; 99204

== ENCOUNTER → 2022-11-10 09:32 | Outpatient (BNVA) | payer MEDICARE, MEDICAID, SELFPAY | PROVIDERS: PCP Internal Medicine; Visit Provider Orthopaedic Surgery | DX: M75.32 Calcific tendinitis of left shoulder (principal) | CPT/HCPCS: 20610; 99202; J1100 ==

== ENCOUNTER 2022-11-15 06:04 | Outpatient (REF) | payer MEDICARE, MEDICAID, SELFPAY | END 2022-11-15 06:05 | disposition home or self-care (01) | LOC: CF 06:04 | PROVIDERS: Visit Provider Anesthesiology | DX: M47.891 Other spondylosis, occipito-atlanto-axial region (principal); M47.812 Spondylosis without myelopathy or radiculopathy, cervical region; M54.81 Occipital neuralgia; K22.4 Dyskinesia of esophagus; K21.9 Gastro-esophageal reflux disease without esophagitis; R14.0 Abdominal distension (gaseous); R13.10 Dysphagia, unspecified | CPT/HCPCS: 99212 ==

== ENCOUNTER 2022-11-15 09:59 | Outpatient (AMB) | payer MEDICARE, MEDICAID, SELFPAY ==
--- NOTE | 2022-11-15 10:09 | A.OFFVIS_ITS ---
Intake Vital Signs 11/15/22 10:13 Height 5 ft 3 in Weight 154 lb 5.177 oz BMI 27.3 BP 111/69 Blood Pressure Location Lt brachial Position Sitting Pulse 88 Intake Visit Reasons: S/p egd- Jaylen Intake Note: Kathy presents in office as a est.patient in EGD follow up. PT CC: Patient c/o occasional constipation, bloating, and hearburn. Denies any other GI Issues. Artists' Booking Representative Required: Yes Artists' Booking Representative Language: Manager Electrical Name: Zahra [id number] Accompanied by: Self / Same As Patient Allergies morphine [MORPHINE] Allergy (Intermediate, Verified 11/15/22 11:01) Itching tramadol [TRAMADOL] Allergy (Intermediate, Verified 11/15/22 11:01) SHORTNESS OF BREATH HPI S/p egd- Jaylen HPI Details Assessment & Plan (1) Odynophagia: ?Code(s): R13.10 - Dysphagia, unspecified ?Plan: [place] #Comfort, live We review the tests, no grave problem seen on barium swallow, no real indication of radicular pain from the thoracic spine. She continues to have a feeling like a fist in her mid sternal area, negative cardiac workup. So, I think we should progress to the EGD. . She says that the colonoscopy was horrible, apparently she was given wrong instructions and started fasting on fabien liquid diet a WEEK BEFORE THE PROCEDURE.!! We correct her understanding for the next time so that she will not dread the next colonoscopy screening. She continues on esomeprazole and famotidine and and Miralax. HOWEVER SHE NEVER RECEIVED THE SUCRALFATE, so I will resend it. She is educated it may constipate her. She has had some help with OTC Mylanta tablets. There are no prior problems with anesthesia or sedation. She denies any cardiac or respiratory problems. No ID problems. Her maternal grandmother had stomach and esophageal cancer. Did return office visit in 6 weeks. (2) Dyspepsia: ?Code(s): R10.13 - Epigastric pain (3) Thoracic back pain: ?Code(s): M54.6 - Pain in thoracic spine (4) Constipation: ?Code(s): K59.00 - Constipation, unspecified (5) Abdominal bloating: ?Code(s): R14.0 - Abdominal distension (gaseous) (6) GERD (gastroesophageal reflux disease): ?Code(s): K21.9 - Gastro-esophageal reflux disease without esophagitis ?Qualifiers: ?Esophagitis presence:?esophagitis presence not specified? Qualified Code(s):?K21.9 - Gastro-esophageal reflux disease without esophagitis (7) Chronic pain syndrome: ?Code(s): G89.4 - Chronic pain syndrome ? ? ? Medications: Refilled sucralfateE 10 mL? PO BID 1,00 0 mL 2RF R13.10 - Dysphagia , unspecified ? COLONOSCOPY 10/25/22 Findings: Larynx:? Normal Esophagus: GE junction at 36 cms. No esophagitis or Crooks's. Biopsies were obtained from proximal esophagus (to rule out EOE) and from distal esophagus (to rule out esophagitis) Stomach: Mild gastric erythema. Biopsies were obtained. Grade 2 flap valve on retroflexed examination of the cardia. Duodenum: Normal bulb and descending duodenum Intervention: Biopsies as noted above Impression and Post Procedure Diagnosis: Endoscopy Findings: ESOPHAGUS: GE junction at 36 cms. No esophagitis or Crooks's. Biopsies were obtained from proximal esophagus (to rule out EOE) and from distal esophagus (to rule out esophagitis) STOMACH: Mild gastric erythema. Biopsies were obtained. Grade 2 flap valve on retroflexed examination of the cardia. Chest pain is likely from esophageal spasm Plan: Await pathology results Patient has an appointment on 11/09/22 in the GI Clinic with Katerina Guerrero NP. Pt reported feeling better. If she continues to have symptoms, consider trail of dicyclomine and further evaluation with esophageal manometry if biopsies are normal. BIOPSY Received: 10/25/22 Diagnosis A.? Stomach, antrum, biopsy:? Antral-type mucosa within normal limits; no Helicobacter organisms seen. B.? Esophagus, distal, biopsy:? Squamous epithelium within normal limits; no inflammation seen; negative for eosinophilic esophagitis. C.? Esophagus, proximal, biopsy:? Squamous epithelium within normal limits; no inflammation seen; negative for eosinophilic esophagitis. TODAY'S VISIT Montenegrin #[id number] She is here today with her who is supportive. She tolerated the procedure well. Her feeling of a fist in my chest is getting better, despite that fact that she just received the sucralfate and has not yet taken it. I don't see any convincing reason this would help, so we will switch to bentyl as it appears that esophageal spasm is at play. I say this because of the negative biopsies and minimal signs of reflux on the endoscopy along with the relatively normal barium swallow. She continues on generic Nexium along with famotidine and MiraLax. She is agreeable to this and a 4 weeks follow up. [facility] Medical History Anxiety Arthritis Bloody stools Cervical cancer screening Chest pain Dyslipidemia Fibromyalgia GERD (gastroesophageal reflux disease) Hypovitaminosis D Migraines Moderate major depression Neck pain Normocytic anemia Occipital headache Overweight (BMI 25.0-29.9) Physical exam Right flank pain RUQ abdominal pain Sleep apnea Tonsil stone Surgical History History of endoscopy Hx of colonoscopy Hx of removal of ovary S/P lumbar fusion Family History Mother Thyroid disease Maternal Aunt No problems noted. Social History Housing: House Alcohol intake: current Alcohol intake frequency: holidays/special occasions only Alcohol type: wine Patient Tobacco Use Status: Former Tobacco user Quit Date: 2002 Tobacco use type: Cigarette e-Cigarette/Vaping Use: Never Used Second Hand Smoke Exposure: No service: No Current occupational status: disabled Gender identity: Female Cognitive needs: No Hearing needs: No Vision needs: Yes Female Reproductive History Menstrual Age of Menarche: 11 Review of Systems Const Denies fatigue, Denies fever(s), Denies night sweats, Denies poor appetite and Denies weight loss ENT Reports Normal hearing present, Denies dental pain, Denies dysphagia, Denies hearing loss, Denies mouth pain, Reports odynophagia, Denies throat swelling, Denies tongue swelling and Reports other (Dentition adequate) Card Reports no additional complaints Resp Reports no additional complaints GI Denies abdominal pain, Denies melena, Denies bloating, Denies hematochezia, Reports constipation, Denies GI cramping, Denies dysphagia, Denies excessive flatus, Denies early satiety, Reports heartburn, Denies diarrhea, Denies nausea, Reports odynophagia, Denies vomiting, Denies hematemesis and Reports other (Globus sensation) Skin/Breast Denies pruritus, Denies lesions, Denies rash and Denies jaundice Neuro Reports Normal hearing present and Denies Abnormal speech present Endo Denies fatigue Aller/Immun Denies throat swelling and Denies tongue swelling Physical Exam Vital Signs: Last Vital Signs Pulse 88 11/15/22 10:13 BP 111/69 11/15/22 10:13 BMI result Body Mass Index 27.3 Const General: cooperative, no acute distress, well developed and well groomed Nutritional Appearance: average body habitus and well nourished Orientation/consciousness: oriented to person, oriented to place and oriented to time Limitations: language barrier HEENT Head: Yes normocephalic and Yes atraumatic Eyes General: appearance normal, both eyes and all related structures Pupils: Equal, round and reactive pupils present Neck Neck: Yes normal visual inspection and Yes no lymphadenopathy Thyroid: Thyroid normal Resp Effort & Inspection: normal respiratory effort and able to speak in complete sentences Auscultation: clear to auscultation bilaterally Cardio Rate: regular rate Rhythm: regular rhythm Heart sounds: Normal, physiologic split S2 sound present Peripheral pulses: radial pulses present and posterior tibial pulses present GI Inspection: No distended and No Abdominal panniculus present Palpation (GI): Soft to palpation, nontender, no guarding, not rigid and No hepatosplenomegaly present Percussion: Yes normal to percussion Auscultation: normal bowel sounds Rectal Exam - Female: deferred Skin General skin exam: no rashes or lesions noted, turgor normal, skin not dry, no jaundice, No spider nevi and no striae Rashes: no rashes Nails: normal Neuro General: oriented to person, oriented to place and oriented to time Cranial nerves: Yes Equal, round and reactive pupils present and Yes Normal hea ring present Speech: No Abnormal speech present Extrem General: Yes normal to inspection, No clubbing, No cyanosis and No edema Psych Appearance: grossly normal and well kempt Mental Status: mental status grossly normal Speech and movement: Normal speech and movement present Affect: normal affect Attitude: cooperative Thought process: Normal thought process present and not confabulating Thought content: Normal thought content present Insight: Limited insight present (Psych) Judgement: Limited judgement present (Psych) Assessment & Plan Assessment & Plan (1) Esophageal spasm: Code(s): K22.4 - Dyskinesia of esophagus Plan: [place] #[id number] She is here today with her who is supportive. She tolerated the procedure well. Her feeling of a fist in my chest is getting better, despite that fact that she just received the sucralfate and has not yet taken it. I don't see any convincing reason this would help, so we will switch to bentyl as it appears that esophageal spasm is at play. I say this because of the negative biopsies and minimal signs of reflux on the endoscopy along with the relatively normal barium swallow. She continues on generic Nexium along with famotidine and MiraLax. She is agreeable to this and a 4 weeks follow up. . (2) GERD (gastroesophageal reflux disease): Code(s): K21.9 - Gastro-esophageal reflux disease without esophagitis Qualifiers: Esophagitis presence: esophagitis presence not specified Qualified Code(s): K21.9 - Gastro-esophageal reflux disease without esophagitis (3) Abdominal bloating: Code(s): R14.0 - Abdominal distension (gaseous) (4) Odynophagia: Code(s): R13.10 - Dysphagia, unspecified Medications: New dicyclomine 20 mg PO QID 30 days 120 tabs 6RF K22.4 - Dyskinesia of esophagus Discontinued sucralfate Discontinued Reason: Doctor's Order 1 g PO BID 30 days 60 tabs 1RF sucralfate Discontinued Reason: Doctor's Order 10 mL PO BID 1,000 mL 2RF R13.10 - Dysphagia, unspecified Coding Level of Care Code Est Pt Level 4 (94876) Diagnoses Esophageal spasm K22.4 GERD (gastroesophageal reflux disease) K21.9 Esophagitis presence: esophagitis presence not specified Abdominal bloating R14.0 Odynophagia R13.10
[2022-11-15 10:13] VITALS: BP 111/69; PULSE 88; BMI 27.3
== END 2022-11-15 10:33 | disposition home or self-care (01) ==
PROVIDERS: PCP Internal Medicine; Visit Provider Nurse Practitioner
DX: K22.4 Dyskinesia of esophagus (principal); K21.9 Gastro-esophageal reflux disease without esophagitis; R14.0 Abdominal distension (gaseous); R13.10 Dysphagia, unspecified
CPT/HCPCS: 99214

== ENCOUNTER 2022-11-15 10:43 | Outpatient (AMB) | payer MEDICARE, MEDICAID, SELFPAY ==
[2022-11-15 10:55] VITALS: BP 102/70; PULSE 62; RESP 16; O2SAT 97; BMI 27.3
--- NOTE | 2022-11-15 10:55 | MHC.OFFVIS ---
Intake Vital Signs 11/15/22 10:55 Height 5 ft 3 in Weight 154 lb BMI 27.3 BP 102/70 Blood Pressure Location Rt brachial Position Sitting Respiration 16 Pulse 62 Pulse Source Pulse Oximeter Pulse Oximetry (%) 97 Oxygen Delivery Method Room Air Comment pre-op Intake Visit Reasons: B/L Dx Greater & Lesser Occipital Nerve Block Allergies morphine [MORPHINE] Allergy (Intermediate, Verified 11/15/22 10:55) Itching tramadol [TRAMADOL] Allergy (Intermediate, Verified 11/15/22 10:55) SHORTNESS OF BREATH PFSH Medical History Anxiety Arthritis Bloody stools Cervical cancer screening Chest pain Dyslipidemia Fibromyalgia GERD (gastroesophageal reflux disease) Hypovitaminosis D Migraines Moderate major depression Neck pain Normocytic anemia Occipital headache Overweight (BMI 25.0-29.9) Physical exam Right flank pain RUQ abdominal pain Sleep apnea Tonsil stone Surgical History History of endoscopy Hx of colonoscopy Hx of removal of ovary S/P lumbar fusion Family History Mother Thyroid disease Maternal Aunt No problems noted. Social History Housing: House Alcohol intake: current Alcohol intake frequency: holidays/special occasions only Alcohol type: wine Patient Tobacco Use Status: Former Tobacco user Quit Date: 2002 Tobacco use type: Cigarette e-Cigarette/Vaping Use: Never Used Second Hand Smoke Exposure: No service: No Current occupational status: disabled Gender identity: Female Cognitive needs: No Hearing needs: No Vision needs: Yes Female Reproductive History Menstrual Age of Menarche: 11 Assessment & Plan Assessment & Plan Orders: Orders [place] guidance in treatment room Today M54.81 - Occipital neuralgia Coding Diagnoses
--- NOTE | 2022-11-15 11:01 | MHC.OFFVIS ---
Intake Vital Signs 11/15/22 10:55 Height 5 ft 3 in Weight 154 lb BMI 27.3 BP 102/70 Blood Pressure Location Rt brachial Position Sitting Respiration 16 Pulse 62 Pulse Source Pulse Oximeter Pulse Oximetry (%) 97 Oxygen Delivery Method Room Air Comment pre-op Intake Visit Reasons: B/L Dx Greater & Lesser Occipital Nerve Block Allergies morphine [MORPHINE] Allergy (Intermediate, Verified 11/15/22 11:01) Itching tramadol [TRAMADOL] Allergy (Intermediate, Verified 11/15/22 11:01) SHORTNESS OF BREATH HPI HPI Comments History of Present Illness Details Kathy is came today to the injections center to receive occipital nerve block. During the conversation she was asking question how occipital nerve block will help the pain at the base of her skull. I told her that I had misunderstood her complaints last time she was in my office. I explained to her that the pain in the base of the skull bilateral in the projection of the atlantooccipital junction most likely results in atlantooccipital arthritis and ankylosis. I explained to her that I am not doing atlantooccipital injections. I will refer this patient to [facility] to perform this procedure. Prior: [place] Citizen-speaking 47 years old who is back in my office complaining on severe unbearable pain in the neck. She reports pain in the neck in the range of 8/10. She reported that most of the pain in the back of the head. She reported pain is intermittent but when it comes to her it is unbearable. She reports mild lower neck pain. bilateral cervical medial branch block on 05/26/2022.? She visited me 45 days after the procedure and reported at that time excellent pain relief. She claims that her occipital pain and upper neck pain started 46 days after the procedure. bilateral C4-C5- C6 therapeutic medial branch block is not designed to treat occipital neuralgia. I offered this patient to perform occipital nerve block. I will schedule her for lesser and greater occipital nerve block without sedation. If she will have good pain relief from occipital nerve block I will offer her PNS stim wave to treat her pain. The requirements for PNS discussed with the patient. The shaving of the back of her head discussed with the patient. The psychological evaluation is discussed with the patient. The patient is interested and agrees with the plan. Prior: complains on cervicalgia as well as pain in the right hip as well as painful sensation as tingling pins and needles in bilateral hands move the right and less on the left.?.? As of her pain in the right hip it looks like that she is suffering from iliotibial band syndrome she reports pain on the right side of the hip in the lateral area starting from trochanter and the radiating down to the lateral surface of the right knee.? The injections could be performed for this condition in the future however now it is too early after the procedure to do yet another steroid injections PFSH Medical History Anxiety Arthritis Bloody stools Cervical cancer screening Chest pain Dyslipidemia Fibromyalgia GERD (gastroesophageal reflux disease) Hypovitaminosis D Migraines Moderate major depression Neck pain Normocytic anemia Occipital headache Overweight (BMI 25.0-29.9) Physical exam Right flank pain RUQ abdominal pain Sleep apnea Tonsil stone Surgical History History of endoscopy Hx of colonoscopy Hx of removal of ovary S/P lumbar fusion Family History Mother Thyroid disease Maternal Aunt No problems noted. Social History Housing: House Alcohol intake: current Alcohol intake frequency: holidays/special occasions only Alcohol type: wine Patient Tobacco Use Status: Former Tobacco user Quit Date: 2002 Tobacco use type: Cigarette e-Cigarette/Vaping Use: Never Used Second Hand Smoke Exposure: No service: No Current occupational status: disabled Gender identity: Female Cognitive needs: No Hearing needs: No Vision needs: Yes Female Reproductive History Menstrual Age of Menarche: 11 Review of Systems Const All systems reviewed & are unremarkable except as noted in HPI and below ENT Reports Normal hearing present Neuro Reports Normal hearing present, Denies Abnormal speech present and Denies confusion Psych Denies confusion Physical Exam Vital Signs: Last Vital Signs Pulse 62 11/15/22 10:55 Resp 16 11/15/22 10:55 BP 102/70 11/15/22 10:55 Pulse Ox 97 11/15/22 10:55 Oxygen Delivery Method Room Air 11/15/22 10:55 BMI result Body Mass Index 27.3 Const General: No confusion Orientation/consciousness: No confusion HEENT Head: Yes normocephalic and Yes atraumatic Ears: hearing grossly normal bilaterally Eyes General: appearance normal, both eyes and all related structures Eyelids: Yes eyelids normal Pupils: Equal, round and reactive pupils present EOM: EOMs intact bilaterally Neck Neck: Yes normal visual inspection and Yes no JVD Resp Effort & Inspection: normal respiratory effort, able to speak in complete sentences and no audible wheezes Cardio Jugular venous distension: no JVD Back/Spine/Pelvis Other: slight decreased ROM of cervical spine with lateral rotation. significant TTP throughout cervical muscles. Tenderness on palpation in projection of the lowest border of the skull in the connection with the cervical spine bilaterally. 5/5 motor strength of BUE. DTR intact and symmetrical. 2+ radial pulses. Reverse phalens and hand grasps elicits numbness throughout digits on the R>L. Neuro General: No confusion Cranial nerves: Yes Equal, round and reactive pupils present and Yes Normal hearing present Cognition (Neuro): normal cognition Speech: No Abnormal speech present Results Reviewed Results Reviewed: MRI of the cervical spine 10/26/2021. Findings: There is a slight retrolisthesis of C4 on C5 that appears to be related to a symmetric degenerative arthrosis of the left facet joint. Alignment is otherwise normal. Vertebral body heights is preserved. Well marginated intraosseous hemangioma at T2 vertebral body. There is mild bone marrow edema involving articular pillars of the left C4-C5 facet joints. Otherwise no acute job bone marrow signal changes. The slight loss of intervertebral disc height and T2 signal intensity at multiple levels related to disc generator degeneration. There is no canal compromise or cord compression. No abnormal intramedullary signal changes. The cervical 0 medullary junction is normal. Limited visualization of posterior fossa reveals no abnormal finding. The occipital condyles and lateral C1 masses are intact. There is degenerative arthrosis of the implanted dental joint. C1-C2 articular facets are unremarkable. C2-C3 annular contour is normal no canal or neural foraminal compromise. C3-C4 slight bulging disc no canal stenosis minimal uncovertebral joint spurring no substantial neuroforaminal encroachment. C4-C5 there is a slight bulging disc no canal stenosis is symmetrical intervertebral joint spurring and facet degenerative change causes mild left neural foraminal encroachment. C5-C6 slight bulging disc no canal stenosis a symmetric uncovertebral joint spurring and facet degenerative change causes mild right neural foraminal encroachment. At C6-C7 diffusely bulging disc. Mild canal stenosis uncovertebral joint spurring and facet degenerative change causes mild bilateral neural foraminal encroachment. C7-T1 the annual- contour is normal no canal or neural foraminal compromise. Assessment & Plan Assessment & Plan (1) Other spondylosis, vbnqhdcb-ozywfgt-ruccw region: Code(s): M47.891 - Other spondylosis, cfvladki-eyzzwir-gyzob region (2) Muscle spasms of neck: Code(s): M62.838 - Other muscle spasm (3) Facet arthropathy, multilevel: Code(s): M47.819 - Spondylosis without myelopathy or radiculopathy, site unspecified (4) Iliotibial band syndrome: Code(s): M76.30 - Iliotibial band syndrome, unspecified leg (5) Facet joint disease of cervical region: Code(s): M47.812 - Spondylosis without myelopathy or radiculopathy, cervical region (6) Spondylosis of cervical region without myelopathy or radiculopathy: Code(s): M47.812 - Spondylosis without myelopathy or radiculopathy, cervical region (7) Carpal tunnel syndrome: Code(s): G56.00 - Carpal tunnel syndrome, unspecified upper limb (8) Chronic pain syndrome: Code(s): G89.4 - Chronic pain syndrome (9) Occipital neuralgia of left side: Code(s): M54.81 - Occipital neuralgia (10) Occipital neuralgia of right side: Code(s): M54.81 - Occipital neuralgia Plan MRI is dictated as above and evident of widespread cervical facet joint arthritis and uncovertebral arthritis. Initially- Very good results of the medial branch block C4-C5 C6 at 45 days after the procedure. She claims that on 46 days she started to feel pain in the back of her head. Originally the pain was apprehended due to the language barrier as the pain in the back of the head. Now it is more clear that she has pain in the projection of the atlantooccipital joints. I thing that her pain is related to atlantooccipital arthritis. I am not performing atlantooccipital injections and I will refer her to [facility] for atlantoaxial epidural joint injections. The pain isintermittent however when it comes it is very severe 8 to 9/10. I offered her occipital nerve block with the plans to perform PNS stim wave. Need to psychological evaluation explained to the patient. Need to shave the back of her head is explained to the patient.. Orders: Orders [place] guidance in treatment room 11/15/22 M54.81 - Occipital neuralgia Mary Romero, MALL PLANT CARETAKER, POOL CLEANER Referrals Pain Management Referral M47.891 - Other spondylosis, egjikoed-dbctrhb-wufnq region Vince Sim MD Coding Level of Care Code Est Pt Level 3 (19771) Diagnoses Other spondylosis, hmxvyyhj-dlirzyg-byxbv region M47.891 Muscle spasms of neck M62.838 Facet arthropathy, multilevel M47.819 Iliotibial band syndrome M76.30 Facet joint disease of cervical region M47.812 Spondylosis of cervical region without myelopathy or radiculopathy M47.812 Carpal tunnel syndrome G56.00 Chronic pain syndrome G89.4 Occipital neuralgia of left side M54.81 Occipital neuralgia of right side M54.81
== END 2022-11-15 11:02 | disposition home or self-care (01) ==
PROVIDERS: PCP Internal Medicine; Visit Provider Anesthesiology
DX: M47.891 Other spondylosis, occipito-atlanto-axial region (principal); M62.838 Other muscle spasm; M47.819 Spondylosis without myelopathy or radiculopathy, site unspecified; M76.30 Iliotibial band syndrome, unspecified leg; M47.812 Spondylosis without myelopathy or radiculopathy, cervical region; G56.00 Carpal tunnel syndrome, unspecified upper limb; G89.4 Chronic pain syndrome; M54.81 Occipital neuralgia
CPT/HCPCS: 99213

== ENCOUNTER 2022-12-05 14:49 | Outpatient (AMB) | payer MEDICARE, MEDICAID, SELFPAY ==
[2022-12-05 14:51] VITALS: PULSE 100; O2SAT 97; BMI 28.1
--- NOTE | 2022-12-05 14:51 | MHC.OFFVIS ---
Intake Vital Signs 12/05/22 14:51 Height 5 ft 3 in Weight 158 lb 8 oz BMI 28.1 Pulse 100 Pulse Source Pulse Oximeter Pulse Oximetry (%) 97 Oxygen Delivery Method Room Air Intake Visit Reasons: f/u appt for sleep former pt of MD Intake Note: Pt presents as a f/u appt. Wildland Fire Operations Specialist Required: Yes Wildland Fire Operations Specialist Name: Jose Francisco Allergies morphine [MORPHINE] Allergy (Intermediate, Verified 12/05/22 14:54) Itching tramadol [TRAMADOL] Allergy (Intermediate, Verified 12/05/22 14:54) SHORTNESS OF BREATH HPI HPI Comments History of Present Illness Details 47 y/o female patient presents for follow up of ELLE on CPAP. Pt's last follow up of visit was 07/2021. asphalt paving machine operator Jose Francisco [id number] utilized. Pt reports she uses her CPAP nightly, but her CPAP stopped transmitting the usage data. She has received the new SD card couple of days ago, did not put it to CPAP yet. Pt states that she does not have another SD card. She uses CPAP nightly, and it helps her sleep better and daytime symptoms has improved. However, she still has chocking feeling sometimes and it wakes her up in the middle of night. She is on CPAP at 9cmH2O. [facility] Medical History Neck pain Anxiety Chest pain Bloody stools Physical exam Dyslipidemia Hypovitaminosis D Right flank pain RUQ abdominal pain Occipital headache Tonsil stone Overweight (BMI 25.0-29.9) Migraines Moderate major depression Normocytic anemia GERD (gastroesophageal reflux disease) Cervical cancer screening Fibromyalgia Arthritis Sleep apnea Surgical History Hx of colonoscopy History of endoscopy S/P lumbar fusion Hx of removal of ovary Family History Mother Thyroid disease Maternal Aunt No problems noted. Social History Housing: House Alcohol intake: current Alcohol intake frequency: holidays/special occasions only Alcohol type: wine Patient Tobacco Use Status: Former Tobacco user Quit Date: 2002 Tobacco use type: Cigarette e-Cigarette/Vaping Use: Never Used Second Hand Smoke Exposure: No service: No Current occupational status: disabled Gender identity: Female Cognitive needs: No Hearing needs: No Vision needs: Yes Female Reproductive History Menstrual Age of Menarche: 11 Review of Systems Const All systems reviewed & are unremarkable except as noted in HPI and below Physical Exam Vital Signs: Last Vital Signs Pulse 100 12/05/22 14:51 Pulse Ox 97 12/05/22 14:51 Oxygen Delivery Method Room Air 12/05/22 14:51 BMI result Body Mass Index 28.1 Alert Awake oriented to time, place and person Mood - stable Speech- normal Cognition- intact Const General: cooperative Nutritional Appearance: average body habitus Orientation/consciousness: patient oriented x3 Limitations: language barrier Neck Neck: Yes full ROM Resp Effort & Inspection: normal respiratory effort and able to speak in complete sentences Neuro General: patient oriented x3, gait normal, tone normal, moves all extremities and no focal motor deficits Psych Appearance: grossly normal Mental Status: mental status grossly normal Speech and movement: Normal speech and movement present Assessment & Plan Assessment & Plan (1) Obstructive sleep apnea: Code(s): G47.33 - Obstructive sleep apnea (adult) (pediatric) Plan Advised patient to continue to use CPAP at 9cmH2O as patient experiences good clinical effects, sleep quality and daytime sleepiness has improved. Advised patient to put the new SD card to her CPAP and return to [facility] after 30 days for record, and also request extra SD card. Stressed compliance, use CPAP nightly and more than 4 hrs. Continue to practice good sleep hygiene. Coding Level of Care Code Est Pt Level 3 (99995) Diagnoses Obstructive sleep apnea G47.33
== END 2022-12-05 15:31 | disposition home or self-care (01) ==
PROVIDERS: PCP Internal Medicine; Visit Provider Nurse Practitioner Family
DX: G47.33 Obstructive sleep apnea (adult) (pediatric) (principal)
CPT/HCPCS: 99213

== ENCOUNTER → 2022-12-05 14:49 | Outpatient (BNVA) | payer MEDICARE, MEDICAID, SELFPAY | PROVIDERS: PCP Internal Medicine; Visit Provider Nurse Practitioner Family | DX: G47.33 Obstructive sleep apnea (adult) (pediatric) (principal); Z99.89 Dependence on other enabling machines and devices | CPT/HCPCS: 99212 ==

== ENCOUNTER 2022-12-13 10:27 | Outpatient (AMB) | payer MEDICARE, MEDICAID, SELFPAY ==
--- NOTE | 2022-12-13 10:30 | A.OFFVIS_ITS ---
Intake Vital Signs 12/13/22 10:31 Height 5 ft 3 in Weight 158 lb 11.725 oz BMI 28.1 BP 113/63 Blood Pressure Location Rt brachial Position Sitting Pulse 90 Intake Visit Reasons: 4 week follow up Intake Note: Patient presents to in office visit today in follow up of GERD. CC: Patient reports she has been taking Pepcid at night and she has been feeling well. She reports bloating happens when she is constipated but when she takes Miralax and a tea she has at home she is able to have a BM. Proof Plate Maker Required: Yes Proof Plate Maker Language: Dominican Accompanied by: Self / Same As Patient Allergies morphine [MORPHINE] Allergy (Intermediate, Verified 12/22/22 13:11) Itching tramadol [TRAMADOL] Allergy (Intermediate, Verified 12/22/22 13:11) SHORTNESS OF BREATH HPI 4 week follow up HPI Details Assessment & Plan (1) Esophageal spasm: Code(s): K22.4 - Dyskinesia of esophagus Plan: Dominican #[id number] She is here today with her who is supportive. She tolerated the procedure well. Her feeling of a fist in my chest is getting better, despite that fact that she just received the sucralfate and has not yet taken it. I don't see any convincing reason this would help, so we will switch to bentyl as it appears that esophageal spasm is at play. I say this because of the negative biopsies and minimal signs of reflux on the endoscopy along with the relatively normal barium swallow. She continues on generic Nexium along with famotidine and MiraLax. She is agreeable to this and a 4 weeks follow up. . (2) GERD (gastroesophageal reflux diseas e): Code(s): K21.9 - Gastro-esophageal reflux disease without esophagitis Qualifiers: Esophagitis presence: esophagitis presence not specified Qualified Code(s): K21.9 - Gastro-esophageal reflux disease without esophagitis (3) Abdominal bloating: Code(s): R14.0 - Abdominal distension (gaseous) (4) Odynophagia: Code(s): R13.10 - Dysphagia, unspecified Medications: New dicyclomine 20 mg PO QID 30 d ays 120 tabs 6RF K22.4 - Dyskinesia of esophagus Discontinued sucralfate Disc ontinued Reason: Doctor's Order 1 g PO BID 30 day s 60 tabs 1RF sucralfate Disc ontinued Reason: Doctor's Order 10 mL PO BID 1,00 0 mL 2RF R13.10 - Dysphagia , unspecified TODAY'S VISIT Dominican [facility] She has been doing and has not been taking the bentyl as she has not had the pain again. SHe is not even taking the nexium anymore, jut the famotidine at bedtime and is fdoing well. SHe is on iron and Vit D so she needs to use the Mirlalx prn and it continues to work well. ROV 6 mos. PFSH Medical History Neck pain Anxiety Chest pain Bloody stools Physical exam Dyslipidemia Hypovitaminosis D Right flank pain RUQ abdominal pain Occipital headache Tonsil stone Overweight (BMI 25.0-29.9) Migraines Moderate major depression Normocytic anemia GERD (gastroesophageal reflux disease) Cervical cancer screening Fibromyalgia Arthritis Sleep apnea Surgical History Hx of colonoscopy History of endoscopy S/P lumbar fusion Hx of removal of ovary Family History Mother Thyroid disease Maternal Aunt No problems noted. Social History Housing: House Alcohol intake: current Alcohol intake frequency: holidays/special occasions only Alcohol type: wine Patient Tobacco Use Status: Former Tobacco user Quit Date: 2002 Tobacco use type: Cigarette e-Cigarette/Vaping Use: Never Used Second Hand Smoke Exposure: No service: No Current occupational status: disabled Gender identity: Female Cognitive needs: No Hearing needs: No Vision needs: Yes Female Reproductive History Menstrual Age of Menarche: 11 Review of Systems Const Denies fatigue, Denies fever(s), Denies night sweats, Denies poor appetite and Denies weight loss Eyes Details: glasses Reports requires corrective lenses ENT Reports Normal hearing present, Denies dental pain, Denies dysphagia, Denies hearing loss, Denies mouth pain, Denies odynophagia, Denies throat swelling, Denies tongue swelling and Reports other (Dentition adequate) Card Reports no additional complaints Resp Reports no additional complaints GI Denies abdominal pain, Denies melena, Denies bloating, Denies hematochezia, Denies constipation, Denies GI cramping, Denies dysphagia, Denies excessive flatus, Denies early satiety, Reports heartburn, Denies diarrhea, Denies nausea, Denies odynophagia, Denies vomiting and Denies hematemesis Skin/Breast Denies pruritus, Denies lesions, Denies rash and Denies jaundice Neuro Reports Normal hearing present and Denies Abnormal speech present Endo Denies fatigue Aller/Immun Denies throat swelling and Denies tongue swelling Physical Exam Vital Signs: Last Vital Signs Pulse 90 12/13/22 10:31 BP 113/63 12/13/22 10:31 BMI result Body Mass Index 28.1 Const General: cooperative, no acute distress, well developed and well groomed Nutritional Appearance: well nourished and overweight Orientation/consciousness: oriented to person, oriented to place and oriented to time Limitations: language barrier HEENT Head: Yes normocephalic and Yes atraumatic Eyes General: appearance normal, both eyes and all related structures Pupils: Equal, round and reactive pupils present Neck Neck: Yes normal visual inspection and Yes no lymphadenopathy Thyroid: Thyroid normal Resp Effort & Inspection: normal respiratory effort and able to speak in complete sentences Auscultation: clear to auscultation bilaterally Cardio Rate: regular rate Rhythm: regular rhythm Heart sounds: Normal, physiologic split S2 sound present Peripheral pulses: radial pulses present and posterior tibial pulses present GI Inspection: No distended, No Abdominal panniculus present and Yes obesity Palpation (GI): Soft to palpation, nontender, no guarding, not rigid and No hepatosplenomegaly present Percussion: Yes normal to percussion Auscultation: normal bowel sounds Rectal Exam - Female: deferred Skin General skin exam: no rashes or lesions noted, turgor normal, skin not dry, no jaundice, No spider nevi and no striae Rashes: no rashes Nails: normal Neuro General: oriented to person, oriented to place and oriented to time Cranial nerves: Yes Equal, round and reactive pupils present and Yes Normal hearing present Speech: No Abnormal speech present Extrem General: Yes normal to inspection, No clubbing, No cyanosis and No edema Psych Appearance: grossly normal and well kempt Mental Status: mental status grossly normal Speech and movement: Normal speech and movement present Affect: normal affect Attitude: cooperative Thought process: Normal thought process present and not confabulating Thought content: Normal thought content present Insight: Limited insight present (Psych) Judgement: Limited judgement present (Psych) Assessment & Plan Assessment & Plan (1) GERD (gastroesophageal reflux disease): Code(s): K21.9 - Gastro-esophageal reflux disease without esophagitis Qualifiers: Esophagitis presence: esophagitis presence not specified Qualified Code(s): K21.9 - Gastro-esophageal reflux disease without esophagitis Plan: [place] #Carol Live She has been doing and has not been taking the bentyl as she has not had the pain again. She is not even taking the nexium anymore, jut the famotidine at bedtime and is doing well. She is on iron and Vit D so she needs to use the Mirlalx prn and it continues to work well. ROV 6 mos. (2) RUQ abdominal pain: Code(s): R10.11 - Right upper quadrant pain (3) Right flank pain: Code(s): R10.9 - Unspecified abdominal pain (4) Constipation: Code(s): K59.00 - Constipation, unspecified (5) Abdominal bloating: Code(s): R14.0 - Abdominal distension (gaseous) Coding Level of Care Code Est Pt Level 3 (22299) Diagnoses Gastroesophageal reflux disease, unspecified whether esophagitis present K21.9 Esophagitis presence: esophagitis presence not specified RUQ abdominal pain R10.11 Right flank pain R10.9 Constipation K59.00 Abdominal bloating R14.0
[2022-12-13 10:31] VITALS: BP 113/63; PULSE 90; BMI 28.1
== END 2022-12-13 10:44 | disposition home or self-care (01) ==
PROVIDERS: PCP Internal Medicine; Visit Provider Nurse Practitioner
DX: K21.9 Gastro-esophageal reflux disease without esophagitis (principal); R10.11 Right upper quadrant pain; R10.9 Unspecified abdominal pain; K59.00 Constipation, unspecified; R14.0 Abdominal distension (gaseous)
CPT/HCPCS: 99213

== ENCOUNTER → 2022-12-13 10:27 | Outpatient (BNVA) | payer MEDICARE, MEDICAID, SELFPAY | PROVIDERS: PCP Internal Medicine; Visit Provider Nurse Practitioner | DX: K21.9 Gastro-esophageal reflux disease without esophagitis (principal); K59.00 Constipation, unspecified; R10.11 Right upper quadrant pain; R10.9 Unspecified abdominal pain; R14.0 Abdominal distension (gaseous) | CPT/HCPCS: 99212 ==

== ENCOUNTER 2022-12-15 08:18 | Outpatient (REF) | payer MEDICARE, MEDICAID, SELFPAY ==
[2022-12-15 09:54] LABS: Alanine Aminotransferase 15 U/L (0-31); Albumin Level 3.8 g/dL (3.5-5.0); Alkaline Phosphatase 58 U/L (39-117); Anion Gap 13 (12-20); Aspartate Amino Transferase 17 U/L (5-31); Bilirubin Total 0.3 mg/dL (0.0-1.0); Blood Urea Nitrogen 8 mg/dL (9-16); Calcium 8.9 mg/dL (8.4-10.2); Carbon Dioxide 26 mmol/L (22-29); Chloride 106 mmol/L (96-108); Cholesterol 186 mg/dL (<200); Estimated Glomerular Filt Rate > 60; Glucose Fasting 95 mg/dL (60-99); HDL Cholesterol 54 mg/dL (>40); LDL Cholesterol Calculated 115 mg/dL (<100); Potassium 3.7 mmol/L (3.3-5.1); Sodium 141 mmol/L (135-145); Total Protein 6.9 g/dL (6.5-8.0); Triglycerides 86 mg/dL (<150)
[2022-12-20 14:13] LABS: Antibody to SS-A Antigen <1.0 NEG AI (<1.0 NEG); Antibody to SS-B Antigen <1.0 NEG AI (<1.0 NEG)
== END 2022-12-15 08:19 | disposition home or self-care (01) ==
LOC: HO.LAB 08:18
PROVIDERS: PCP Internal Medicine; Visit Provider Internal Medicine
DX: K59.00 Constipation, unspecified (principal); H04.123 Dry eye syndrome of bilateral lacrimal glands; E78.5 Hyperlipidemia, unspecified
CPT/HCPCS: 36415; 80053; 80061; 86235

== ENCOUNTER 2022-12-22 13:09 | Outpatient (AMB) | payer MEDICARE, MEDICAID, SELFPAY ==
[2022-12-22 13:10] VITALS: BMI 28.0
--- NOTE | 2022-12-22 13:10 | A.OFFVIS_ITS ---
Intake Vital Signs 12/22/22 13:10 Height 5 ft 3 in Weight 158 lb BMI 28.0 Intake Visit Reasons: ov- LT Shoulder Pain Intake Note: Kathy is a 47 year old right hand dominant female who presents today for a follow up of her left shoulder pain, last inj 11/10/22. Patient reports that her shoulders feel fine today. She states that the injection is helping her with the pain but her pain is more focused in her neck. Allergies morphine [MORPHINE] Allergy (Intermediate, Verified 12/22/22 13:11) Itching tramadol [TRAMADOL] Allergy (Intermediate, Verified 12/22/22 13:11) SHORTNESS OF BREATH HPI ov- LT Shoulder Pain HPI Details 47-year-old right hand dominant female, who is Salvadorean speaking, presents in the office today for an evaluation of left shoulder pain. The pat trip had a cortisone injection on 11/10/2022. She states her left shoulder feels fine today in the office and the injection gave her pain relief. She expresses a complaint about neck pain. However she does report she is seeing a specialist for her neck in [place]. [facility] Medical History Neck pain Anxiety Chest pain Bloody stools Physical exam Dyslipidemia Hypovitaminosis D Right flank pain RUQ abdominal pain Occipital headache Tonsil stone Overweight (BMI 25.0-29.9) Migraines Moderate major depression Normocytic anemia GERD (gastroesophageal reflux disease) Cervical cancer screening Fibromyalgia Arthritis Sleep apnea Surgical History Hx of colonoscopy History of endoscopy S/P lumbar fusion Hx of removal of ovary Family History Mother Thyroid disease Maternal Aunt No problems noted. Social History Housing: House Alcohol intake: current Alcohol intake frequency: holidays/special occasions only Alcohol type: wine Patient Tobacco Use Status: Former Tobacco user Quit Date: 2002 Tobacco use type: Cigarette e-Cigarette/Vaping Use: Never Used Second Hand Smoke Exposure: No service: No Current occupational status: disabled Gender identity: Female Cognitive needs: No Hearing needs: No Vision needs: Yes Female Reproductive History Menstrual Age of Menarche: 11 Review of Systems Const All systems reviewed & are unremarkable except as noted in HPI and below Physical Exam Vital Signs: BMI result Body Mass Index 28.0 Const General: cooperative, healthy appearing and no acute distress Resp Effort & Inspection: normal respiratory effort and able to speak in complete sentences Cardio Rate: regular rate Peripheral pulses: Peripheral pulses 2+ throughout GI Palpation (GI): Soft to palpation Skin Lesions: no lesions Rashes: no rashes Extrem Other: Left shoulder: Normal to inspection. No ecchymosis, erythema, or edema. Full shoulder ROM in all planes. Negative cross-body reach. Negative empty can. Negative drop arm. NVI. Assessment & Plan Assessment & Plan (1) Calcific tendonitis of left shoulder: Code(s): M75.32 - Calcific tendinitis of left shoulder Plan Ms. Quintero is a 47-year-old right hand dominant female, who is Salvadorean speaking, presents in the office today for an evaluation of left shoulder pain. The patient had a cortisone injection on 11/10/2022. She states her left shoulder feels fine today in the office and the injection gave her pain relief. She expresses a complaint about neck pain. However she does report she is seeing a specialist for her neck in [place]. She reported the cortisone injection gave her great relief. However she reports continued numbness and tingling in the bilateral shoulders. She states she is seeing a cervical phlebotomy specialist in [place] for c-spine injections. She will continue to follow up with them for further treatment of the c-spine. Follow with orthopedics will be PRN, or sooner if needed. Patient Instructions: Scribed for Aleida Winston PA-C by katya Gonsalez scribe, on 12/22/2022 at 1:11 pm, EST. Coding Level of Care Code Est Pt Level 3 (41181) Diagnoses Calcific tendonitis of left shoulder M75.32
== END 2022-12-22 13:30 | disposition home or self-care (01) ==
PROVIDERS: PCP Internal Medicine; Visit Provider Physician Assistant
DX: M75.32 Calcific tendinitis of left shoulder (principal)
CPT/HCPCS: 99213

== ENCOUNTER → 2022-12-22 13:09 | Outpatient (BNVA) | payer MEDICARE, MEDICAID, SELFPAY | PROVIDERS: PCP Internal Medicine; Visit Provider Physician Assistant | DX: M75.32 Calcific tendinitis of left shoulder (principal) | CPT/HCPCS: 99212 ==

== ENCOUNTER 2023-01-20 09:07 | Outpatient (AMB) | payer OTHER, SELFPAY ==
[2023-01-20 09:31] VITALS: BMI 29.4
--- NOTE | 2023-01-20 09:31 | AM.OFFWIN_ITS ---
Intake Vital Signs 01/20/23 09:31 Height 5 ft 3 in Weight 166 lb BMI 29.4 Intake Visit Reasons: EP, hand numbness Intake Note: pt is here for c/o of left tingling down her arm starting from right side of neck. Patient Tobacco Use Status: Former Tobacco user Quit Date: 2002 Allergies morphine [MORPHINE] Allergy (Intermediate, Verified 01/20/23 09:32) Itching tramadol [TRAMADOL] Allergy (Intermediate, Verified 01/20/23 09:32) SHORTNESS OF BREATH Do you need a note to return to daycare/school/sports/work: Yes HPI HPI Comments History of Present Illness Details This is a 47-year-old female who presents to the office today for sick visit. Patient complaining of paresthesias down her left arm. Patient has a history of right-sided carpal tunnel and follows with pain management. She has had issues with paresthesias of her right arm and has had x-rays of her cervical spine but no CT or MRI. She woke up this morning with tingling down her left arm. She denies any facial asymmetry, slurred speech, visual disturbances, or other numbness/weakness of her extremities. [facility] Medical History Neck pain Anxiety Chest pain Bloody stools Physical exam Dyslipidemia Hypovitaminosis D Right flank pain RUQ abdominal pain Occipital headache Tonsil stone Overweight (BMI 25.0-29.9) Migraines Moderate major depression Normocytic anemia GERD (gastroesophageal reflux disease) Cervical cancer screening Fibromyalgia Arthritis Sleep apnea Surgical History Hx of colonoscopy History of endoscopy S/P lumbar fusion Hx of removal of ovary Family History Mother Thyroid disease Maternal Aunt No problems noted. Social History Housing: House Alcohol intake: current Alcohol intake frequency: holidays/special occasions only Alcohol type: wine Patient Tobacco Use Status: Former Tobacco user Quit Date: 2002 Tobacco use type: Cigarette e-Cigarette/Vaping Use: Never Used Second Hand Smoke Exposure: No service: No Current occupational status: disabled Gender identity: Female Cognitive needs: No Hearing needs: No Vision needs: Yes Female Reproductive History Menstrual Age of Menarche: 11 Review of Systems Const All systems reviewed & are unremarkable except as noted in HPI and below Reports no additional complaints Eyes Reports no additional complaints ENT Reports no additional complaints Card Reports no additional complaints Resp Reports no additional complaints GI Reports no additional complaints Reports no additional complaints Musc Reports no additional complaints Skin/Breast Reports system reviewed and no additional complaints, except as documented Neuro Reports no additional complaints Psych Reports no additional complaints Endo Reports no additional complaints Kory/Lymph Reports no additional complaints Aller/Immun Reports no additional complaints Physical Exam Vital Signs: BMI result Body Mass Index 29.4 Const Other: Vital signs reviewed. Constitutional: Non-toxic appearing. No acute distress. Well-developed and well-nourished. HEENT: Normocephalic and atraumatic. Moist mucous membranes. No pharyngeal erythema or exudates. Skin: Warm and dry. No rashes or lesions noted. Neck: Full and painless range of motion. No cervical lymphadenopathy. Cardio: Regular rate. No lower extremity edema. No JVD. Pulmonary: No respiratory distress. No accessory muscle usage. Gastrointestinal: Soft, nontender, and nondistended in all 4 quadrants. Musculoskeletal: Normal range of motion in joints throughout the body. No deformity or other signs of injury. Neuro: Alert and oriented x4. Cranial nerves 2-12 grossly intact. Subjectively decreased sensation of the left upper extremity. Psych: Normal mood and affect. Assessment & Plan Assessment & Plan (1) Cervical radiculopathy: Code(s): M54.12 - Radiculopathy, cervical region Plan This is a 47-year-old female with known history of cervical radiculopathy with right upper extremity symptoms who presented to the office complaining of left upper extremity tingling. Patient's physical exam is benign, her vital signs are stable, and she is overall nontoxic appearing. Her history and physical most consistent with cervical radiculopathy. I explained to the patient that this cannot be diagnosed without CT or MRI of the cervical spine, which we can not perform here. I have encouraged her to follow-up with her primary care physician or pain management physician. For now, I will treat presumed cervical radiculopathy with an oral prednisone taper for symptomatic management. Patient verbalizes her understanding and she is in agreement with the plan. Medications: New prednisone Take 6 tablets daily x5 days followed by 4 tablets daily x 3 days followed by 3 tablets daily x 3 days followed by 2 tablets daily x 3 days followed by 1 t ablet daily x 3 days. 10 mg PO DIRECTED 60 tabs 0RF Coding Level of Care Code Est Pt Level 3 (62888) Diagnoses Cervical radiculopathy M54.12
== END 2023-01-20 10:22 | disposition home or self-care (01) ==
PROVIDERS: PCP Internal Medicine; Visit Provider Physician Assistant Medical
DX: M54.12 Radiculopathy, cervical region (principal)
CPT/HCPCS: 99213

== ENCOUNTER 2023-01-31 17:05 | Outpatient (AMB) | payer OTHER, SELFPAY ==
[2023-01-31 17:14] VITALS: BP 118/70; PULSE 93; O2SAT 99; BMI 29.0
--- NOTE | 2023-01-31 17:14 | A.OFFPC_ITS ---
Vital Signs 01/31/23 17:14 Height 5 ft 3 in Weight 164 lb BMI 29.0 BP 118/70 Blood Pressure Location Lt brachial Position Sitting Pulse 93 Pulse Source Pulse Oximeter Pulse Oximetry (%) 99 Oxygen Delivery Method Room Air Intake Visit Reasons: concerns regarding procedure on 02/22 Intake Note: Patient here for concerns before procedure on 02/22, c/o hand itch, foot pain, right leg/hip discomfort Account Support Rep Required: No Accompanied by: Daughter Allergies morphine [MORPHINE] Allergy (Intermediate, Verified 01/31/23 17:26) Itching tramadol [TRAMADOL] Allergy (Intermediate, Verified 01/31/23 17:26) SHORTNESS OF BREATH Medication List - Last Reconciled 01/31/23 by Lilia Walsh MD bupropion HCl 1 tab PO DAILY iwddwedwar-yfzwajerthoan-hnuo 50-325-40 mg 2 tabs PO Q4H PRN 30 days calcium carbonate-vitamin D3 600 mg-25 mcg (1,000 unit) 1 cap PO DAILY cyclobenzaprine 5 mg PO TID PRN 30 days diclofenac potassium 50 mg PO TID PRN 7 days fish oil-dha-epa PO DAILY gabapentin 600 mg PO BEDTIME hydroxyzine pamoate 50 mg PO DAILY PRN multivitamin 1 tab PO DAILY polyethylene glycol 3350 (Miralax) 17 grams PO DAILY PRN prednisone 10 mg PO DIRECTED propylene glycol 0.6% (Systane Balance) 1 drp ophthalmic (eye) DAILY Saccharomyces boulardii (Daily Probiotic (S. boulardii)) PO DAILY Tobacco use date assessed: 06/22/22 Dental Screening Dental Screen Date: 01/31/23 Did you have a dental visit in the last 12 months?: Yes Did you have a dental problem in the last 6 months where you did not have access to dental care?: No Was dental information given to patient?: Patient has dentist HPI HPI Comments History of Present Illness Details This is a 47-year-old female with constipation, moderate major depression, cervical radiculopathy and anemia that comes today complaining of neck pain radiating to both arms and associated with bilateral hand numbness and itchiness. She will have a nerve block soon. Constipation stable with medications. Depression well controlled with bupropion and is follow by Psychiatry. Cervical radiculopathy is following [facility]. Had anemia which was improving but stop taking ferrous sulfate few months ago and CBC will be repeated. Complains of some fatigue and tiredness. [facility] Medical History (Updated 01/31/23 @ 17:35 by Liila Walsh MD) Neck pain Anxiety Chest pain Bloody stools Physical exam Dyslipidemia Hypovitaminosis D Right flank pain RUQ abdominal pain Occipital headache Tonsil stone Overweight (BMI 25.0-29.9) Migraines Moderate major depression Normocytic anemia GERD (gastroesophageal reflux disease) Cervical cancer screening Fibromyalgia Arthritis Sleep apnea Surgical History Hx of colonoscopy History of endoscopy S/P lumbar fusion Hx of removal of ovary Family History Mother Thyroid disease Maternal Aunt No problems noted. Social History Housing: House Alcohol intake: current Alcohol intake frequency: holidays/special occasions only Alcohol type: wine Patient Tobacco Use Status: Former Tobacco user Quit Date: 2002 Tobacco use type: Cigarette e-Cigarette/Vaping Use: Never Used Second Hand Smoke Exposure: No service: No Current occupational status: disabled Gender identity: Female Cognitive needs: No Hearing needs: No Vision needs: Yes Female Reproductive History Menstrual Age of Menarche: 11 Questionnaire Thrive Questionnaire Date Thrive assessed: 06/22/22 SHERIDAN-7 AMB Questionnaire SHERIDAN-7 Date SHERIDAN - 7 assessed: 06/22/22 Source: Developed by Drs. Alejandro Linton, Omayra King, Deejay Rivas and colleagues, with an educational rene from [employer]. Review of Systems Const All systems reviewed & are unremarkable except as noted in HPI and below Eyes Reports no additional complaints, Denies change in vision and Denies other visual disturbances ENT Reports neck pain Card Denies chest pain at rest, Denies chest pain with activity, Denies edema, Denies irregular heart rhythm, Denies claudication, Denies dyspnea, Denies dyspnea on exertion, Denies orthopnea, Denies paroxysmal nocturnal dyspnea and Denies slow heart rate Resp Denies cough, Denies dyspnea and Denies dyspnea on exertion GI Denies abdominal pain, Denies change in bowel habits, Denies excessive flatus, Denies nausea and Denies vomiting Denies urinary incontinence, Denies urinary hesitancy and Denies urinary urgency Musc Denies abnormal gait, Denies atrophy, Denies deformity, Denies limited range of motion and Reports neck pain Skin/Breast Denies bleeding lesions, Denies changing lesions and Denies rash Neuro Denies abnormal gait and Denies lack of coordination Physical exam (Primary Care) Vital Signs: Last Vital Signs Pulse 93 01/31/23 17:14 BP 118/70 01/31/23 17:14 Pulse Ox 99 01/31/23 17:14 Oxygen Delivery Method Room Air 01/31/23 17:14 BMI result Body Mass Index 29.0 Tobacco/Smoking Status: Tobacco use Status Tobacco use date assessed 06/22/22 01/31/23 17:21 Patient Tobacco Use Status Former Tobacco user 01/31/23 17:21 Tobacco use type Cigarette 01/31/23 17:21 e-Cigarette/Vaping Use Never Used 01/31/23 17:21 Thrive Assessment: Date of Thrive Assessment Date Thrive assessed 06/22/22 01/31/23 17:21 Eyes General: appearance normal, both eyes and all related structures Eyelids: Yes eyelids normal Conjunctivae: conjunctivae normal Neck Neck: Yes normal visual inspection and Yes supple Resp Effort & Inspection: normal respiratory effort Auscultation: clear to auscultation bilaterally Cardio Jugular venous distension: no JVD Rate: regular rate Rhythm: regular rhythm Heart sounds: S1 normal heart sound present and S2 normal heart sound present Extrem General: Yes full ROM Office Procedures Flu Questionnaire Does the patient have a severe egg allergy?: No Immunizations flu vacc [id number] 6mos up(PF) 60 mcg(15 mcgx4)/0.5 mL IM syringe Performing Provider: Lilia Walsh MD [facility] Documented (not given) by: CARLEEN Harrell on 01/31/23 17:22 Reason Not Given: Patient Refused Assessment and Plan Assessment & Plan (1) Moderate major depression: Code(s): F32.1 - Major depressive disorder, single episode, moderate Plan: Continue bupropion. Follow-up with psychiatry. (2) Normocytic anemia: Code(s): D64.9 - Anemia, unspecified Plan: Repeat CBC. (3) Cervical radiculopathy: Code(s): M54.12 - Radiculopathy, cervical region Plan: Continue muscle relaxers. (4) Constipation: Code(s): K59.00 - Constipation, unspecified Plan: Continue Linzess. Orders: Orders IRON PROFILE 01/31/23 D64.9 - Anemia, unspecified XR foot RT 2V 01/31/23 M79.671 - Pain in right foot Influenza [id number] Immunization 01/31/23 Z23 - Encounter for immunization Complete Blood Count Auto Diff 01/31/23 D64.9 - Anemia, unspecified XR foot LT 2V 01/31/23 M79.672 - Pain in left foot Coding Level of Care Code Est Pt Level 4 (80391) Diagnoses Moderate major depression F32.1 Normocytic anemia D64.9 Cervical radiculopathy M54.12 Constipation K59.00 Time Spent (min) 24
== END 2023-01-31 17:38 | disposition home or self-care (01) ==
PROVIDERS: PCP Internal Medicine; Visit Provider Internal Medicine
DX: F32.1 Major depressive disorder, single episode, moderate (principal); D64.9 Anemia, unspecified; M54.12 Radiculopathy, cervical region; K59.00 Constipation, unspecified
CPT/HCPCS: 99214

== ENCOUNTER 2023-02-07 11:30 | Outpatient (RCR) | payer OTHER, SELFPAY ==
--- NOTE | 2023-01-20 15:15 | MHC.OT.EP ---
[address] [phone] Occupational Therapy Plan of Care Patient Name: Kathy Quintero Date of Evaluation: 01/20/23 Diagnosis: B/L HAND PAIN Pain Location: R AND L HANDS 3-4/10 AT REST 8-10 WITH USE OR AT NIGHT BURNING/ HEAT SENSATION Pain Score: 3-10/10 Pain Scale Used: Numeric (0 - 10) Aggravating Factors: PROLONGED GRIPPING, SLEEPING Alleviating Factors: WEARING COMPRESSIVE SLEEVE TOLERATED, COLD WATER SOAKS, SOME MILD RELIEF WITH IBUPROFEN, NEWLY STARTED NEURONTIN, MASSAGE Assessment: MS WYATT QUINTERO PRESENTS TO OT WITH INCREASED SYMPTOMS OF NUMBNESS AND TINGLING IN R>L HANDS, OVER THE LAST THREE WEEKS. SHE STATES THAT SHE HAS INCREASED USE OF HER HANDS WITH CRAFTING, PARTICULARLY WITH USING A HOT GLUE GUN IN HER RIGHT HAND. AN EMG WAS DONE IN MARCH OF 2022 AND INDICATES MILD-MODERATE CTS ON RIGHT AND MILD CTS ON LEFT, WELL MILD CUBITAL TUNNEL SYNDROME B/L'LY. AN 84% LIMITATION IS REPORTED PER THE QUICK DASH ASSESSMENT. SHE HAS THE MOST DIFFICULTIES WITH PERFORMING IADLs INCLUDING MOPPING AND SWEEPING, CARRYING HEAVY LAUNDRY BASKETS. PAIN AND PARASTHESIA IS REPORTED WORSE AT NIGHT. ONGOING SKILLED OT IS WARRANTED TO ADDRESS THE AREAS MENTIONED BELOW TO IMPROVE QOL. Frequency and Duration: The patient will be seen 2X/WEEK FOR 4 WEEKS Short Term Goals: IND HEP IND USE OF COLD MODALITIES IND JT PROTECTION AND ACTIVITY MODIFICATION IND ORTHOSIS USE Correction Goals: REPORT <5/10 PAIN WITH LIFTING >10 POUNDS DURING IADLs QUICK DASH <60% TRIAL ALT SLEEPING POSITIONS AND REPORT MILD TO MODERATE DIFFICULTIES Treatment Plan: Therapeutic Exercise Therapeutic Activity Home Exercise Program Splinting Neuro Re-ed Patient Education Desensitization/Sensory Re-ed Edema Control ADL Training Ultrasound NMES Iontophoresis Paraffin Fluidotherapy MHP Cold Packs Joint Mobilization Soft Tissue Mobilization Kinesiotaping Other (see comments) Electronically Signed By: BLAINE DAWN OTR/L Please Sign and return to therapist. Thank you once again for your referral.
== END 2023-08-23 13:20 | disposition home or self-care (01) ==
LOC: HO.OT 11:30
PROVIDERS: PCP Internal Medicine; Visit Provider Internal Medicine
DX: M79.641 Pain in right hand (principal); M79.642 Pain in left hand
CPT/HCPCS: 29125; 97035; 97110; 97166; 97760

== ENCOUNTER 2023-02-14 07:47 | Outpatient (REF) | payer OTHER, SELFPAY ==
--- NOTE | ~2023-02-14 | XR_ITS ---
EXAMINATION: XR FOOT, RIGHT CLINICAL INFORMATION: Pain. COMPARISON: None available. TECHNIQUE: AP, lateral, and oblique views of the right foot. FINDINGS: Bony alignment and mineralization are normal. No fracture, dislocation or right ankle joint effusion is seen. Boehler's angle is normal. There is a large posterior calcaneal spur, and a small plantar calcaneal spur is seen. No abnormal bone erosion is noted. There is mild bunion and bunionette formation. No focal soft tissue swelling, gas or foreign body seen. XR/XR foot RT 2V IMPRESSION: 1. No fracture, dislocation or right ankle joint effusion is seen. 2. There are calcaneal spurs. 3. There is mild bunion and bunionette formation. EXAMINATION: XR FOOT, LEFT CLINICAL INFORMATION: Pain. COMPARISON: None available. TECHNIQUE: AP, lateral, and oblique views of the left foot. FINDINGS: Bony alignment and mineralization are normal. No fracture, dislocation or left ankle joint effusion is seen. Boehler's angle is normal. There are moderate posterior and plantar calcaneal spurs. No abnormal bone erosion is seen. There is mild bunion formation. There is no focal soft tissue swelling, gas or foreign body. IMPRESSION: 1. No fracture, dislocation or left ankle joint effusion is seen. 2. There are calcaneal spurs, as detailed. 3. There is mild bunion and bunionette formation.
--- NOTE | ~2023-02-14 | XR_ITS ---
EXAMINATION: XR FOOT, RIGHT CLINICAL INFORMATION: Pain. COMPARISON: None available. TECHNIQUE: AP, lateral, and oblique views of the right foot. FINDINGS: Bony alignment and mineralization are normal. No fracture, dislocation or right ankle joint effusion is seen. Boehler's angle is normal. There is a large posterior calcaneal spur, and a small plantar calcaneal spur is seen. No abnormal bone erosion is noted. There is mild bunion and bunionette formation. No focal soft tissue swelling, gas or foreign body seen. XR/XR foot LT 2V IMPRESSION: 1. No fracture, dislocation or right ankle joint effusion is seen. 2. There are calcaneal spurs. 3. There is mild bunion and bunionette formation. EXAMINATION: XR FOOT, LEFT CLINICAL INFORMATION: Pain. COMPARISON: None available. TECHNIQUE: AP, lateral, and oblique views of the left foot. FINDINGS: Bony alignment and mineralization are normal. No fracture, dislocation or left ankle joint effusion is seen. Boehler's angle is normal. There are moderate posterior and plantar calcaneal spurs. No abnormal bone erosion is seen. There is mild bunion formation. There is no focal soft tissue swelling, gas or foreign body. IMPRESSION: 1. No fracture, dislocation or left ankle joint effusion is seen. 2. There are calcaneal spurs, as detailed. 3. There is mild bunion and bunionette formation.
[2023-02-14 07:56] LABS: MANUAL DIFF FLAG NO
[2023-02-14 08:01] LABS: Basophils Percent Auto 0.6 % (0-2); Eosinophils Absolute Auto 0.2 X10*3/uL (0.0-0.4); Eosinophils Percent Auto 2.2 % (0-4); Hematocrit 37.3 % (37.0-47.0); Hemoglobin 12.5 g/dl (12.0-16.0); Imm Gran Abs Auto 0.01 X10*3/uL (0.00-0.03); Imm Gran Pct Auto 0.1 % (0.0-0.4); Lymphocytes Absolute Auto 2.3 X10*3/uL (1.2-4.9); Lymphocytes Percent Auto 33.6 % (20-40); Mean Corpuscular HGB Conc 33.5 g/dl (31.0-35.0); Mean Corpuscular Volume 89.7 fL (80.0-98.0); Mean Platelet Volume 11.7 fL (9.4-12.3); Monocytes Absolute Auto 0.4 X10*3/uL (0.1-1.2); Monocytes Percent Auto 5.4 % (2-11); Neutrophils Absolute Auto 3.9 x10*3/uL (2.0-8.3); Neutrophils Percent Auto 58.1 % (45-73); Platelet Count 236 X10*3/uL (160-400); Red Blood Count 4.16 X10*6/uL (4.20-5.50); Red Cell Distribution Width 12.7 % (11.0-16.0); White Blood Count 6.8 X10*3/uL (4.8-10.8)
[2023-02-14 08:26] LABS: Alanine Aminotransferase 15 U/L (0-31); Alkaline Phosphatase 68 U/L (39-117); Anion Gap 8 (12-20); Aspartate Amino Transferase 17 U/L (5-31); Bilirubin Total 0.3 mg/dL (0.0-1.0); Blood Urea Nitrogen 11 mg/dL (9-16); Calcium 8.9 mg/dL (8.4-10.2); Carbon Dioxide 27 mmol/L (22-29); Chloride 107 mmol/L (96-108); Cholesterol 201 mg/dL (<200); Estimated Glomerular Filt Rate > 60; Glucose Fasting 101 mg/dL (60-99); HDL Cholesterol 54 mg/dL (>40); Iron 85 mcg/dL (30-160); LDL Cholesterol Calculated 131 mg/dL (<100); Percent Iron Saturation 24 % (15-50); Potassium 3.9 mmol/L (3.3-5.1); Sodium 138 mmol/L (135-145); Total Iron Binding Capacity 356 mcg/dL (228-428); Total Protein 7.4 g/dL (6.5-8.0); Triglycerides 81 mg/dL (<150); Unsaturated Iron Binding 271 ug/dL
[2023-02-14 08:43] LABS: Vitamin D 25-OH Total 29.6 ng/mL (>30)
[2023-02-14 08:55] LABS: Folate 14.7 ng/mL (> or = 4.0); Vitamin B12 517 pg/mL (200-900)
== END 2023-02-14 07:48 | disposition home or self-care (01) ==
LOC: HO.XRAY 07:47
PROVIDERS: PCP Internal Medicine; Visit Provider Internal Medicine
DX: E53.8 Deficiency of other specified B group vitamins (principal); E78.5 Hyperlipidemia, unspecified; D64.9 Anemia, unspecified; E55.9 Vitamin D deficiency, unspecified; G89.4 Chronic pain syndrome; M79.671 Pain in right foot; M79.672 Pain in left foot
CPT/HCPCS: 36415; 73620; 80053; 80061; 82306; 82607; 82746; 83540; 85025

== ENCOUNTER 2023-04-05 13:22 | Outpatient (AMB) | payer OTHER, SELFPAY ==
--- NOTE | 2023-04-05 13:33 | A.OFFVIS_ITS ---
Intake Vital Signs 04/05/23 13:35 Height 5 ft 3 in Weight 165 lb BMI 29.2 BP 116/64 Intake Visit Reasons: abscess vag area Intake Note: Absence in labial area she states it's gotten bigger and it hurts she also states it's uncomfortable. Merchandising Representative Required: Yes Merchandising Representative Language: Event Coordinator Marketing And Sales Name: Shae Triplett CARLEEN Information Interpreted: non-clinical & clinical Can Reforming Machine Operator: Can Reforming Machine Operator Present (Shae) Allergies morphine [MORPHINE] Allergy (Intermediate, Verified 04/05/23 13:37) Itching tramadol [TRAMADOL] Allergy (Intermediate, Verified 04/05/23 13:37) SHORTNESS OF BREATH Is last menstrual period known: Yes Last menstrual period: 03/25/23 Post menopausal: No HPI HPI Comments History of Present Illness Details Patient presents today with in painful vulvar lump she has had this occur in the past. Is currently not draining. She also reports a lump under her right axillary area over the last there so. [facility] Medical History Neck pain Anxiety Chest pain Bloody stools Physical exam Dyslipidemia Hypovitaminosis D Right flank pain RUQ abdominal pain Occipital headache Tonsil stone Overweight (BMI 25.0-29.9) Migraines Moderate major depression Normocytic anemia GERD (gastroesophageal reflux disease) Cervical cancer screening Fibromyalgia Arthritis Sleep apnea Surgical History Hx of colonoscopy History of endoscopy S/P lumbar fusion Hx of removal of ovary Family History Mother Thyroid disease Maternal Aunt No problems noted. Social History Housing: House Alcohol intake: current Alcohol intake frequency: holidays/special occasions only Alcohol type: wine Patient Tobacco Use Status: Former Tobacco user Quit Date: 2002 Tobacco use type: Cigarette e-Cigarette/Vaping Use: Never Used Second Hand Smoke Exposure: No service: No Current occupational status: disabled Gender identity: Female Cognitive needs: No Hearing needs: No Vision needs: Yes Female Reproductive History Menstrual Age of Menarche: 11 Date of last menstrual period: 03/25/23 control method: none Total pregnancies: 2 Full term: 2 Number of Living Children: 2 Date of last pap smear: 04/28/20 (negative) Review of Systems Const All systems reviewed & are unremarkable except as noted in HPI and below Physical Exam Vital Signs: Last Vital Signs BP 116/64 04/05/23 13:35 BMI result Body Mass Index 29.2 Const General: cooperative, healthy appearing and no acute distress Orientation/consciousness: patient oriented x3 Chest Other: Bilateral axillary exam completed there were no redness, nodules, or masses noted in the right axilla. GI Inspection: Yes normal to inspection Palpation (GI): Soft to palpation and Other GI palpation findings present (Nontender) Rectal Exam - Female: visual inspection normal Other: Vulvar inspection only: Sebaceous gland hyperplasia predominantly on the right with right labia majora, 1 prominent enlarged gland 1 cm, no drainage, no redness, slightly tender. External Female Exam: normal appearance of the urethra Neuro General: patient oriented x3 Assessment & Plan Assessment & Plan (1) Sebaceous gland hyperplasia of vulva: Code(s): L73.8 - Other specified follicular disorders Plan Discussed: Sebaceous gland hyperplasia currently the area is inflamed not infected. Adv ised to apply warm compress 2 to 3 times a day over the next week and return to the office for recheck. If there is any redness increase in swelling, pain to report to the office sooner for immediate eval for consideration if an I and D is needed. Advised no shaving. No axillary findings. All of her questions and concerns were addressed to the best of my ability and shared decision making. She is agreeable to the plan of care. Coding Level of Care Code Est Pt Level 3 (59732) Diagnoses Sebaceous gland hyperplasia of vulva L73.8
[2023-04-05 13:35] VITALS: BP 116/64; BMI 29.2
== END 2023-04-05 13:56 | disposition home or self-care (01) ==
LOC: HO.HWS 13:22
PROVIDERS: PCP Internal Medicine; Visit Provider Advanced Practice Midwife
DX: L73.8 Other specified follicular disorders (principal)
CPT/HCPCS: 99213

== ENCOUNTER → 2023-04-05 13:22 | Outpatient (BNVA) | payer OTHER, SELFPAY | PROVIDERS: PCP Internal Medicine; Visit Provider Advanced Practice Midwife | DX: L73.8 Other specified follicular disorders (principal) | CPT/HCPCS: 99212 ==

== ENCOUNTER 2023-04-06 14:06 | Outpatient (AMB) | payer OTHER, SELFPAY ==
--- NOTE | 2023-04-06 14:17 | A.OFFVIS_ITS ---
Intake Vital Signs 04/06/23 14:19 Height 5 ft 3 in Weight 165 lb 6 oz BMI 29.3 BP 128/72 Blood Pressure Location Lt brachial Position Sitting Pulse 76 Pulse Source Pulse Oximeter Pulse Oximetry (%) 99 Oxygen Delivery Method Room Air Intake Visit Reasons: 4m follow up sleep - LVM Allergies morphine [MORPHINE] Allergy (Intermediate, Verified 04/06/23 14:21) Itching tramadol [TRAMADOL] Allergy (Intermediate, Verified 04/06/23 14:21) SHORTNESS OF BREATH HPI HPI Comments History of Present Illness Details 47 y/o female patient presents for follo w up of ELLE on CPAP. Pt's last follow up of visit was 07/2021. seamark advanced operator maintainer Jose Francisco [id number] utilized. Pt reports she uses her CPAP nightly, but her CPAP stopped transmitting the usage data. She has received the new SD card couple of days ago, did not put it to CPAP yet. Pt states that she does not have another SD card. She uses CPAP nightly, and it helps her sleep better and daytime symptoms has improved. However, she still has chocking feeling sometimes and it wakes her up in the middle of night. She is on CPAP at 9cmH2O. Her CPAP is 5 years old. She sleeps well with CPAP, having rested sleep and daytime sleepiness has improved. COUNTS INCLUDE 234 BEDS AT THE [facility] Medical History Neck pain Anxiety Chest pain Bloody stools Physical exam Dyslipidemia Hypovitaminosis D Right flank pain RUQ abdominal pain Occipital headache Tonsil stone Overweight (BMI 25.0-29.9) Migraines Moderate major depression Normocytic anemia GERD (gastroesophageal reflux disease) Cervical cancer screening Fibromyalgia Arthritis Sleep apnea Surgical History Hx of colonoscopy History of endoscopy S/P lumbar fusion Hx of removal of ovary Family History Mother Thyroid disease Maternal Aunt No problems noted. Social History Housing: House Alcohol intake: current Alcohol intake frequency: holidays/special occasions only Alcohol type: wine Patient Tobacco Use Status: Former Tobacco user Quit Date: 2002 Tobacco use type: Cigarette e-Cigarette/Vaping Use: Never Used Second Hand Smoke Exposure: No service: No Current occupational status: disabled Gender identity: Female Cognitive needs: No Hearing needs: No Vision needs: Yes Female Reproductive History Menstrual Age of Menarche: 11 Review of Systems Const All systems reviewed & are unremarkable except as noted in HPI and below Physical Exam Vital Signs: Last Vital Signs Pulse 76 04/06/23 14:19 BP 128/72 04/06/23 14:19 Pulse Ox 99 04/06/23 14:19 Oxygen Delivery Method Room Air 04/06/23 14:19 BMI result Body Mass Index 29.3 Const General: cooperative Nutritional Appearance: overweight Orientation/consciousness: patient oriented x3 Limitations: language barrier Neck Neck: Yes full ROM Resp Effort & Inspection: normal respiratory effort and able to speak in complete sentences Neuro General: patient oriented x3, gait normal and moves all extremities Cranial nerves: Yes CN's II-XII intact bilaterally Cognition (Neuro): normal cognition Gait exam (Neuro): Normal gait present Motor exam (neuro): 5/5 motor strength present throughout Psych Appearance: grossly normal Mental Status: mental status grossly normal Speech and movement: Normal speech and movement present Affect: normal affect Attitude: cooperative Assessment & Plan Assessment & Plan (1) Obstructive sleep apnea: Code(s): G47.33 - Obstructive sleep apnea (adult) (pediatric) Plan Advised patient to continue to use CPAP at 9cmH2O as patient experiences good clinical effects, sleep quality and daytime sleepiness has improved. Advised patient to put the new SD card to her CPAP and return to [facility] after 30 days for record, and also request extra SD card. Stressed compliance, use CPAP nightly and more than 4 hrs. Continue to practice good sleep hygiene. Will have repeat home sleep study to apply for a new CPAP. Orders: Orders RT home sleep study 04/06/23 G47.33 - Obstructive sleep apnea (adult) (pediatric) Coding Level of Care Code Est Pt Level 3 (93229) Diagnoses Obstructive sleep apnea G47.33
[2023-04-06 14:19] VITALS: BP 128/72; PULSE 76; O2SAT 99; BMI 29.3
== END 2023-04-06 14:34 | disposition home or self-care (01) ==
PROVIDERS: PCP Internal Medicine; Visit Provider Nurse Practitioner Family
DX: G47.33 Obstructive sleep apnea (adult) (pediatric) (principal)
CPT/HCPCS: 99213

== ENCOUNTER → 2023-04-06 14:06 | Outpatient (BNVA) | payer OTHER, SELFPAY | PROVIDERS: PCP Internal Medicine; Visit Provider Nurse Practitioner Family | DX: G47.33 Obstructive sleep apnea (adult) (pediatric) (principal) | CPT/HCPCS: 99212 ==

== ENCOUNTER 2023-04-13 13:29 | Outpatient (AMB) | payer OTHER, SELFPAY ==
--- NOTE | 2023-04-13 13:49 | A.OFFVIS_ITS ---
Intake Vital Signs 04/13/23 13:51 Height 5 ft 3 in Weight 165 lb BMI 29.2 BP 102/56 L Intake Visit Reasons: 1 week vulva re check Supervisor Carton And Can Supply Required: Yes Supervisor Carton And Can Supply Language: Fibrous Wallboard Inspector Name: Shae DURANT Die Maker Trim: Die Maker Trim Present Allergies morphine [MORPHINE] Allergy (Intermediate, Verified 04/13/23 13:49) Itching tramadol [TRAMADOL] Allergy (Intermediate, Verified 04/13/23 13:49) SHORTNESS OF BREATH Is last menstrual period known: Yes HPI HPI Comments History of Present Illness Details Patient is here today for a 1 week recheck on a vulvar sebaceous gland that was inflamed, not infected. She reports that she did use the warm compresses and that the following day the cyst opened up and drained waxy type material. She reports that the discomfort has reduced it has been a bit itchy. She was wondering if the cyst had to be removed today. [facility] Medical History Neck pain Anxiety Chest pain Bloody stools Physical exam Dyslipidemia Hypovitaminosis D Right flank pain RUQ abdominal pain Occipital headache Tonsil stone Overweight (BMI 25.0-29.9) Migraines Moderate major depression Normocytic anemia GERD (gastroesophageal reflux disease) Cervical cancer screening Fibromyalgia Arthritis Sleep apnea Surgical History Hx of colonoscopy History of endoscopy S/P lumbar fusion Hx of removal of ovary Family History Mother Thyroid disease Maternal Aunt No problems noted. Social History Housing: House Alcohol intake: current Alcohol intake frequency: holidays/special occasions only Alcohol type: wine Patient Tobacco Use Status: Former Tobacco user Quit Date: 2002 Tobacco use type: Cigarette e-Cigarette/Vaping Use: Never Used Second Hand Smoke Exposure: No service: No Current occupational status: disabled Gender identity: Female Cognitive needs: No Hearing needs: No Vision needs: Yes Female Reproductive History Menstrual Age of Menarche: 11 Review of Systems Const All systems reviewed & are unremarkable except as noted in HPI and below Endo Reports no additional complaints Physical Exam Vital Signs: Last Vital Signs BP 102/56 L 04/13/23 13:51 BMI result Body Mass Index 29.2 Const General: cooperative, healthy appearing and no acute distress Other: External inspection only. Multiple sebaceous cyst predominantly on the right labia. The large sebaceous cyst has healed up, it is nontender, no pitting or drainage. External Female Exam: normal external appearance and normal appearance of the urethra Psych Appearance: well kempt Attitude: cooperative Thought process: Normal thought process present Assessment & Plan Assessment & Plan (1) Sebaceous gland overactivity: Code(s): L73.8 - Other specified follicular disorders Plan Patient reassured the area seen last week has healed well. There can be reoccurrence, if so initiate warm compresses, and return to the office if there is any concerns or signs of infection. All questions and concerns answered to the best of my ability. Her next visit is in July 2023 for her annual exam. Coding Level of Care Code Est Pt Level 3 (59138) Diagnoses Sebaceous gland overactivity L73.8
[2023-04-13 13:51] VITALS: BP 102/56; BMI 29.2
== END 2023-04-13 15:08 | disposition home or self-care (01) ==
LOC: HO.HWS 13:29
PROVIDERS: PCP Internal Medicine; Visit Provider Advanced Practice Midwife
DX: L73.8 Other specified follicular disorders (principal)
CPT/HCPCS: 99213

== ENCOUNTER → 2023-04-13 13:29 | Outpatient (BNVA) | payer OTHER, SELFPAY | PROVIDERS: PCP Internal Medicine; Visit Provider Advanced Practice Midwife | DX: L73.8 Other specified follicular disorders (principal) | CPT/HCPCS: 99212 ==

== ENCOUNTER → 2023-04-14 10:45 | Outpatient (BNV) | payer OTHER, SELFPAY | PROVIDERS: PCP Internal Medicine; Visit Provider Radiology Diagnostic Radiology | DX: Z12.31 Encounter for screening mammogram for malignant neoplasm of breast (principal) | CPT/HCPCS: 77063; 77067 ==

== ENCOUNTER 2023-04-14 10:51 | Outpatient (REF) | payer OTHER, SELFPAY | END 2023-04-14 10:52 | disposition home or self-care (01) | LOC: HO.MAMMO 10:51 | PROVIDERS: PCP Internal Medicine; Visit Provider Internal Medicine | DX: Z12.31 Encounter for screening mammogram for malignant neoplasm of breast (principal) | CPT/HCPCS: 77063; 77067 ==

== ENCOUNTER 2023-06-12 14:04 | Outpatient (RCR) | payer OTHER, SELFPAY ==
--- NOTE | 2023-06-12 15:19 | MHC.OT.EP ---
[address] [phone] Occupational Therapy Plan of Care Patient Name: Kathy Quintero Date of Evaluation: 06/12/23 Diagnosis: B/L HAND PAIN Pain Location: R HAND > L HAND 2-3/10 R MF AND PALM OF HAND AT REST L HAND: PAINFREE AT REST Pain Score: 2-3 Pain Scale Used: Numeric (0 - 10) Aggravating Factors: NIGHT TIME/ SLEEPING Alleviating Factors: ICE, COLD GLOVES Assessment: MS WYATT QUINTERO RETURNS TO OT WITH ONGOING NUMBNESS AND TINGLING IN B/L HANDS. PER [facility] REPORT IN MARCH 2022, IT WAS IDENTIFIED THAT SHE HAS NEUROPATHY IN B/L WRISTS AND ELBOWS. DURING HER LAST COURSE OF OT, Pt WAS INSTRUCTED ON IMPORTANCE OF COMPLIANCE WITH B/L WRIST SPLINTS, HEP, USE OF ICE AND JOINT PROTECTION. Pt REPORTS SHE IS INCONSISTENT WITH USE OF NIGHT SPLINTS AND THER EX. SHE IS USING ICE MOST NIGHTS FOR SYMPTOM MANAGEMENT. Pt WOULD BENEFIT FROM NEW CUSTOM ORTHOSIS FOR R WRIST AND CONTINUATION OF PREVIOUSLY ISSUED HEP. WILL F/U 1 ADDITIONAL SESSION FOR SPLINT CHECK. WOULD BENEFIT FROM CONSULT WITH HAND SURGEON. Frequency and Duration: The patient will be seen 2X/WEEK FOR 1 WEEK Short Term Goals: Pt WILL PARTICIPATE IN SPLINT CHECK Coffee Roaster Goals: SEE ABOVE Treatment Plan: Splinting Electronically Signed By: BLAINE DAWN OTR/L Please Sign and return to therapist. Thank you once again for your referral.
== END 2023-08-23 13:20 | disposition home or self-care (01) ==
LOC: HO.OT 14:04
PROVIDERS: PCP Internal Medicine; Visit Provider Internal Medicine
DX: M79.641 Pain in right hand (principal); M79.642 Pain in left hand
CPT/HCPCS: 29125; 97166; 97760

== ENCOUNTER 2023-06-13 10:58 | Outpatient (AMB) | payer OTHER, SELFPAY ==
--- NOTE | 2023-06-13 11:02 | MHC.OFFVIS ---
Intake Vital Signs 06/13/23 11:03 Height 5 ft 3 in Weight 167 lb 1.766 oz BMI 29.6 BP 116/61 Blood Pressure Location Lt brachial Position Sitting Pulse 84 Intake Visit Reasons: 6 mnth follow up Intake Note: Patient presents to in office visit today in follow up of GERD. CC: Patient c/o constipation, and heartburn depending on what food she eats. She is not longer taking the Nexium during the day she is only taking Pepcid at night. Plate Glass Installer Helper Required: Yes Plate Glass Installer Helper Language: Fijian Accompanied by: Self / Same As Patient Allergies morphine [MORPHINE] Allergy (Intermediate, Verified 06/13/23 11:06) Itching tramadol [TRAMADOL] Allergy (Intermediate, Verified 06/13/23 11:06) SHORTNESS OF BREATH HPI 6 mnth follow up HPI Details Assessment & Plan (1) GERD (gastroesophageal reflux disease): Code(s): K21.9 - Gastro-esophageal reflux disease without esophagitis Qualifiers: Esophagitis presence: esophagitis presence not specified Qualified Code(s): K21.9 - Gastro-esophageal reflux disease without esophagitis Plan: Fijian #Carol Eric She has been doing and has not been taking the bentyl as she has not had the pain again. She is not even taking the nexium anymore, jut the famotidine at bedtime and is doing well. She is on iron and Vit D so she needs to use the Mirlalx prn and it continues to work well. ROV 6 mos. (2) RUQ abdominal pain: Code(s): R10.11 - Right upper quadrant pain (3) Right flank pain: Code(s): R10.9 - Unspecified abdominal pain (4) Constipation: Code(s): K59.00 - Constipation, unspecified (5) Abdominal bloating: Code(s): R14.0 - Abdominal distension (gaseous) TODAY'S VISIT Naomi Reyes She is having some more trouble with heartburn and this is causing some throbbing sensation in her chest. This is likely esophageal spasm as this has been a problem in the past. She admits that she has not been eating well, she has been eating a lot of sweets and this is causing her to gain weight. She has also not eating a lot of fiber and she even says ?my bothers me to eat better and to eat more healthy things but sometimes I just do not want to. ? She admits to eating a lot of sweets. She is also having more trouble with constipation likely dietary related. Obviously this and the weight gain both will exacerbate her heartburn. We are going to restart her on the low dose of the generic Nexium along with her famotidine as needed and also give her some senna to try. Return office visit in 6 months and sooner if this is not successful in controlling her symptoms. [facility] Medical History Other spondylosis, [id number] region Left shoulder pain Well woman exam Sinus pressure Headache Muscle spasms of neck Abnormal uterine bleeding (AUB) Hx of ovarian cyst Colon cancer screening Neck pain Vaginal itching Bloody stools Physical exam Tonsil stone Well woman exam with routine gynecological exam Anxiety Chest pain Dyslipidemia Hypovitaminosis D Right flank pain RUQ abdominal pain Occipital headache Overweight (BMI 25.0-29.9) Migraines Moderate major depression Normocytic anemia GERD (gastroesophageal reflux disease) Cervical cancer screening Fibromyalgia Arthritis Sleep apnea Surgical History (Updated 06/13/23 @ 11:12 by BECKIE Guido) Hx of colonoscopy History of endoscopy S/P lumbar fusion Hx of removal of ovary Family History Mother Thyroid disease Maternal Aunt No problems noted. Social History Housing: House Alcohol intake: current Alcohol intake frequency: holidays/special occasions only Alcohol type: wine Patient Tobacco Use Status: Former Tobacco user Quit Date: 2002 Tobacco use type: Cigarette e-Cigarette/Vaping Use: Never Used Second Hand Smoke Exposure: No service: No Current occupational status: disabled Gender identity: Female Cognitive needs: No Hearing needs: No Vision needs: Yes Female Reproductive History Menstrual Age of Menarche: 11 Review of Systems Const Denies fatigue, Denies fever(s), Denies night sweats, Denies poor appetite, Reports weight gain and Denies weight loss Eyes Details: glasses Reports requires corrective lenses ENT Reports Normal hearing present, Denies dental pain, Denies dysphagia, Denies hearing loss, Denies mouth pain, Denies odynophagia, Denies throat swelling, Denies tongue swelling and Reports other (Dentition adequate) Card Reports no additional complaints Resp Reports no additional complaints GI Details: Denies abdominal pain, Denies melena, Denies bloating, Denies hematochezia, Reports constipation, Denies GI cramping, Denies dysphagia, Denies excessive flatus, Denies early satiety, Reports heartburn, Denies diarrhea, Denies nausea, Denies odynophagia, Denies vomiting and Denies hematemesis Skin/Breast Denies pruritus, Denies lesions, Denies rash and Denies jaundice Neuro Reports Normal hearing present and Denies Abnormal speech present Endo Denies fatigue Aller/Immun Denies throat swelling and Denies tongue swelling Physical Exam Vital Signs: Last Vital Signs Pulse 84 06/13/23 11:03 BP 116/61 06/13/23 11:03 BMI result Body Mass Index 29.6 Const General: cooperative, no acute distress, well developed and well groomed Nutritional Appearance: well nourished and overweight Orientation/consciousness: oriented to person, oriented to place and oriented to time Limitations: No language barrier HEENT Head: Yes normocephalic and Yes atraumatic Eyes General: appearance normal, both eyes and all related structures Pupils: Equal, round and reactive pupils present Neck Neck: Yes normal visual inspection and Yes no lymphadenopathy Thyroid: Thyroid normal Resp Effort & Inspection: normal respiratory effort and able to speak in complete sentences Auscultation: clear to auscultation bilaterally Cardio Rate: regular rate Rhythm: regular rhythm Heart sounds: Normal, physiologic split S2 sound present Peripheral pulses: radial pulses present and posterior tibial pulses present GI Inspection: No distended, No Abdominal panniculus present and Yes obesity Palpation (GI): Soft to palpation, nontender, no guarding, not rigid and No hepatosplenomegaly present Percussion: Yes normal to percussion Auscultation: normal bowel sounds Rectal Exam - Female: deferred Skin General skin exam: no rashes or lesions noted, turgor normal, skin not dry, no jaundice, No spider nevi and no striae Rashes: no rashes Nails: normal Neuro General: oriented to person, oriented to place and oriented to time Cranial nerves: Yes Equal, round and reactive pupils present and Yes Normal hearing present Speech: No Abnormal speech present Extrem General: Yes normal to inspection, No clubbing, No cyanosis and No edema Psych Appearance: grossly normal and well kempt Mental Status: mental status grossly normal Speech and movement: Normal speech and movement present Affect: normal affect Attitude: cooperative Thought process: Normal thought process present and not confabulating Thought content: Normal thought content present Insight: Limited insight present (Psych) Judgement: Limited judgement present (Psych) Assessment & Plan Assessment & Plan (1) Esophageal spasm: Code(s): K22.4 - Dyskinesia of esophagus (2) Constipation: Code(s): K59.00 - Constipation, unspecified (3) Abdominal bloating: Code(s): R14.0 - Abdominal distension (gaseous) (4) GERD (gastroesophageal reflux disease): Code(s): K21.9 - Gastro-esophageal reflux disease without esophagitis Qualifiers: Esophagitis presence: esophagitis presence not specified Qualified Code(s): K21.9 - Gastro-esophageal reflux disease without esophagitis (5) RUQ abdominal pain: Code(s): R10.11 - Right upper quadrant pain (6) Right flank pain: Code(s): R10.9 - Unspecified abdominal pain Plan Fijian #Baltazar Live She is having some more trouble with heartburn and this is causing some throbbing sensation in her chest. This is likely esophageal spasm as this has been a problem in the past. She admits that she has not been eating well, she has been eating a lot of sweets and this is causing her to gain weight. She has also not eating a lot of fiber and she even says ?my bothers me to eat better and to eat more healthy things but sometimes I just do not want to. ? She admits to eating a lot of sweets. She is also having more trouble with constipation likely dietary related. Obviously this and the weight gain both will exacerbate her heartburn. We are going to restart her on the low dose of the generic Nexium along with her famotidine as needed and also give her some senna to try. Return office visit in 6 months and sooner if this is not successful in controlling her symptoms. Medications: New esomeprazole magnesium 20 mg PO DAILY 30 caps 6RF K21.9 - Gastro-esophageal reflux disease without esophagitis fluoxetine 20 mg PO DAILY 30 caps 6RF K21.9 - Gastro-esophageal reflux disease without esophagitis, K22.4 - Dyskinesia of esophagus sennosides (Senna Laxative) 17.2 mg (2 x 8.6 mg) PO BEDTIME 60 tabs 6RF K59.00 - Constipation, unspecified Coding Level of Care Code Est Pt Level 3 (75971) Diagnoses Esophageal spasm K22.4 Constipation K59.00 Abdominal bloating R14.0 Gastroesophageal reflux disease, unspecified whether esophagitis present K21.9 Esophagitis presence: esophagitis presence not specified RUQ abdominal pain R10.11 Right flank pain R10.9
[2023-06-13 11:03] VITALS: BP 116/61; PULSE 84; BMI 29.6
== END 2023-06-13 11:26 | disposition home or self-care (01) ==
PROVIDERS: PCP Internal Medicine; Visit Provider Nurse Practitioner
DX: K22.4 Dyskinesia of esophagus (principal); K59.00 Constipation, unspecified; R14.0 Abdominal distension (gaseous); K21.9 Gastro-esophageal reflux disease without esophagitis; R10.11 Right upper quadrant pain; R10.9 Unspecified abdominal pain
CPT/HCPCS: 99213

== ENCOUNTER → 2023-06-13 10:58 | Outpatient (BNVA) | payer OTHER, SELFPAY | PROVIDERS: PCP Internal Medicine; Visit Provider Nurse Practitioner | DX: K21.9 Gastro-esophageal reflux disease without esophagitis (principal); R10.11 Right upper quadrant pain; R14.0 Abdominal distension (gaseous); K59.00 Constipation, unspecified; K22.4 Dyskinesia of esophagus | CPT/HCPCS: 99212 ==

== ENCOUNTER 2023-07-28 13:15 | Outpatient (AMB) | payer OTHER, SELFPAY ==
[2023-07-28 13:16] VITALS: BP 120/70; PULSE 104; TEMP 36.5; O2SAT 96; BMI 29.9
--- NOTE | 2023-07-28 13:16 | AM.OFFWIN_ITS ---
Intake Vital Signs 07/28/23 13:16 Height 5 ft 3 in Weight 169 lb BMI 29.9 BP 120/70 Blood Pressure Location Lt brachial Position Sitting Pulse 104 H Pulse Source Pulse Oximeter Temp 97.7 F Temp Source Temporal Artery Scan Pulse Oximetry (%) 96 Oxygen Delivery Method Room Air Intake Visit Reasons: EP tingling in both hands n feet Intake Note: pt is here today for tingling in both hands and feet 2 weeks ago Patient Tobacco Use Status: Former Tobacco user Quit Date: 2002 Allergies morphine [MORPHINE] Allergy (Intermediate, Verified 07/28/23 13:23) Itching tramadol [TRAMADOL] Allergy (Intermediate, Verified 07/28/23 13:23) SHORTNESS OF BREATH Do you need a note to return to daycare/school/sports/work: No HPI EP tingling in both hands n feet HPI Details 47 year old female patient reports a 2 w king salmon history of itchy palms of her hands and soles of her feet. This is very bothersome for her at night. She has noticed at times some very small bubbles between her fingers, however denies any other rashes. Denies any new meds. No diabetes, no alcohol use, no recent illness. [facility] Medical History Other spondylosis, iaqfmjrt-ncaujge-lxohf region Left shoulder pain Well woman exam Sinus pressure Headache Muscle spasms of neck Abnormal uterine bleeding (AUB) Hx of ovarian cyst Colon cancer screening Neck pain Vaginal itching Bloody stools Physical exam Tonsil stone Well woman exam with routine gynecological exam Anxiety Chest pain Dyslipidemia Hypovitaminosis D Right flank pain RUQ abdominal pain Occipital headache Overweight (BMI 25.0-29.9) Migraines Moderate major depression Normocytic anemia GERD (gastroesophageal reflux disease) Cervical cancer screening Fibromyalgia Arthritis Sleep apnea Surgical History Hx of colonoscopy History of endoscopy S/P lumbar fusion Hx of removal of ovary Family History Mother Thyroid disease Maternal Aunt No problems noted. Social History Housing: House Alcohol intake: current Alcohol intake frequency: holidays/special occasions only Alcohol type: wine Patient Tobacco Use Status: Former Tobacco user Quit Date: 2002 Tobacco use type: Cigarette e-Cigarette/Vaping Use: Never Used Second Hand Smoke Exposure: No service: No Current occupational status: disabled Gender identity: Female Cognitive needs: No Hearing needs: No Vision needs: Yes Female Reproductive History Menstrual Age of Menarche: 11 Review of Systems Const All systems reviewed & are unremarkable except as noted in HPI and below Physical Exam Vital Signs: Last Vital Signs Temp 97.7 F 07/28/23 13:16 Pulse 104 H 07/28/23 13:16 BP 120/70 07/28/23 13:16 Pulse Ox 96 07/28/23 13:16 Oxygen Delivery Method Room Air 07/28/23 13:16 BMI result Body Mass Index 29.9 Const General: cooperative, healthy appearing and no acute distress HEENT Head: Yes normal to inspection Neck Neck: Yes no lymphadenopathy Resp Effort & Inspection: normal respiratory effort Auscultation: clear to auscultation bilaterally Cardio Rate: regular rate Rhythm: regular rhythm GI Palpation (GI): Soft to palpation and No hepatosplenomegaly present Skin Other: erythematous palms of the hands and soles of the feet. Small areas between fingers with pinpoint papules consistent with atopic dermatitis. No rashes on feet. No open areas. Extrem General: Yes capillary refill normal and Yes no clubbing, cyanosis or edema Psych Appearance: grossly normal Mental Status: mental status grossly normal Speech and movement: Normal speech and movement present Assessment & Plan Assessment & Plan (1) Pruritus of both hands: Code(s): L29.9 - Pruritus, unspecified Plan: Patient having significant nighttime pruritis of palms of hands and soles of feet. She has some very small areas on her hands which appear consistent with eczema, however this is not widespread over hands, and not evident on her feet. She reports some intermittent pressure in her right upper abdominal quadrant. Assessment was normal in the office today. No tenderness, no hepatomegaly. I am going to obtain a liver panel to r/o intrahepatic cholestasis, and will also prescribe her hydroxyzine to use at HS. We reviewed indications, use, possible s/e of this medication. She can use some mild otc lotion to help with the dryness of hands/possible eczema, such as Eucarin. I will f/u with her regarding labs, and will likely have her follow up with PCP Dr. Rouse for any ongoing or worsening issues. Patient verbalizes understanding and agrees to plan. Orders: Orders Liver Panel 07/28/23 L29.9 - Pruritus, unspecified Medications: New hydroxyzine HCl 25 mg PO BEDTIME PRN 10 tabs 0RF itching 10 days L29.9 - Pruritus, unspecified Coding Level of Care Code Est Pt Level 4 (66465) Diagnoses Pruritus of both hands L29.9
== END 2023-07-28 14:13 | disposition home or self-care (01) ==
PROVIDERS: PCP Internal Medicine; Visit Provider Nurse Practitioner Family
DX: L29.9 Pruritus, unspecified (principal)
CPT/HCPCS: 99214

== ENCOUNTER 2023-07-28 14:02 | Outpatient (REF) | payer OTHER, SELFPAY ==
[2023-07-28 18:52] LABS: Alanine Aminotransferase 23 U/L (0-31); Albumin Level 4.3 g/dL (3.5-5.0); Alkaline Phosphatase 76 U/L (39-117); Aspartate Amino Transferase 22 U/L (5-31); Bilirubin Direct < 0.2 mg/dL (0.0-0.5); Bilirubin Total 0.2 mg/dL (0.0-1.0); Total Protein 7.9 g/dL (6.5-8.0)
== END 2023-07-28 14:03 | disposition home or self-care (01) ==
LOC: HO.HMGCLDS 14:02
PROVIDERS: PCP Internal Medicine; Visit Provider Nurse Practitioner Family
DX: L29.9 Pruritus, unspecified (principal)
CPT/HCPCS: 36415; 80076

== ENCOUNTER 2023-08-07 10:05 | Outpatient (AMB) | payer OTHER, SELFPAY ==
--- NOTE | 2023-08-07 10:12 | A.OFFVIS_ITS ---
Vital Signs 08/07/23 10:18 Height 5 ft 3 in Weight 170 lb BMI 30.1 BP 110/74 Intake Visit Reasons: LEATHER [employer]TER annual exam Allergies morphine [MORPHINE] Allergy (Intermediate, Verified 07/28/23 13:23) Itching tramadol [TRAMADOL] Allergy (Intermediate, Verified 07/28/23 13:23) SHORTNESS OF BREATH HPI Comments Details: Presenting for annual exam. No complaints. Last Pap/HPV was negative in 05/17 Last Mammogram was BI-RADS 1 in 04/19 Last Colonoscopy was in 06/16 [facility] Medical History Other spondylosis, fehzdldn-xrhvlyd-hrhgw region Left shoulder pain Well woman exam Sinus pressure Headache Muscle spasms of neck Abnormal uterine bleeding (AUB) Hx of ovarian cyst Colon cancer screening Neck pain Vaginal itching Bloody stools Physical exam Tonsil stone Well woman exam with routine gynecological exam Anxiety Chest pain Dyslipidemia Hypovitaminosis D Right flank pain RUQ abdominal pain Occipital headache Overweight (BMI 25.0-29.9) Migraines Moderate major depression Normocytic anemia GERD (gastroesophageal reflux disease) Cervical cancer screening Fibromyalgia Arthritis Sleep apnea Surgical History Hx of colonoscopy History of endoscopy S/P lumbar fusion Hx of removal of ovary Family History Mother Thyroid disease Maternal Aunt No problems noted. Social History Housing: House Alcohol intake: current Alcohol intake frequency: holidays/special occasions only Alcohol type: wine Patient Tobacco Use Status: Former Tobacco user Quit Date: 2002 Tobacco use type: Cigarette e-Cigarette/Vaping Use: Never Used Second Hand Smoke Exposure: No service: No Current occupational status: disabled Gender identity: Female Cognitive needs: No Hearing needs: No Vision needs: Yes Female Reproductive History Menstrual Age of Menarche: 11 Menopause type: natural Total pregnancies: 2 Full term: 2 Number of Living Children: 2 Date of last pap smear: 04/28/20 Date of Mammogram: 04/14/23 Review of Systems Const All systems reviewed & are unremarkable except as noted in HPI and below Card Reports as per HPI Resp Reports as per HPI GI Reports as per HPI and Reports no additional complaints Reports as per HPI Physical Exam Vital Signs: Last Vital Signs BP 110/74 08/07/23 10:18 BMI result Body Mass Index 30.1 Const General: cooperative, healthy appearing and comfortable Chest Chest palpation & inspection: normal inspection of the chest and normal palpation of entire chest wall Breast/axilla inspection: normal inspection of the breasts and normal inspection of the axillae Breast/axilla palpation: normal palpation of the breasts, normal palpation of the axillae and no axillary lymphadenopathy Resp Effort & Inspection: normal respiratory effort Auscultation: clear to auscultation bilaterally Percussion: percussion normal Cardio Palpation: normal PMI Rate: regular rate Rhythm: regular rhythm Heart sounds: no murmurs and no rubs Peripheral pulses: Peripheral pulses 2+ throughout GI Inspection: Yes normal to inspection Palpation (GI): Soft to palpation, nontender, no guarding, not rigid and No hepatosplenomegaly present Percussion: Yes normal to percussion Auscultation: normal bowel sounds Rectal Exam - Female: deferred General: Yes bladder normal to palpation External Female Exam: No lesion Speculum Exam - Vagina: normal appearance of the vagina, normal palpation, normal vaginal discharge and not erythematous Speculum Exam - Cervix: normal appearance of the cervix and normal palpation Bimanual exam- vagina & uterus: normal bimanual exam, normal palpation, uterine size normal, bladder normal to palpation, consistency normal and normal palpation Bimanual Exam- Adnexa, other: normal adnexae, no masses and no tenderness Assessment & Plan Assessment & Plan (1) Well woman exam: Code(s): Z01.419 - Encounter for gynecological examination (general) (routine) without abnormal findings Category: Medical Plan: Co testing not indicated this year. Counseled the patient about the recommended dietary allowance of 1200 mg of Calcium & 600 IU of vitamin D. Instructions given the patient to schedule next screening Mammogram in 04/20. The patient was instructed to perform monthly self-breast exams and schedule annual exam in a year. All questions answered and the patient verbalized understanding. Coding Level of Care Code Est Pt Prev Care 40-64y(93479) Diagnoses Well woman exam Z01.419
[2023-08-07 10:18] VITALS: BP 110/74; BMI 30.1
== END 2023-08-07 10:51 | disposition home or self-care (01) ==
PROVIDERS: Visit Provider Obstetrics & Gynecology
DX: Z01.419 Encounter for gynecological examination (general) (routine) without abnormal findings (principal)
CPT/HCPCS: 99396

== ENCOUNTER → 2023-08-07 10:05 | Outpatient (BNVA) | payer OTHER, SELFPAY | PROVIDERS: Visit Provider Obstetrics & Gynecology ==

== ENCOUNTER 2023-08-11 13:27 | Outpatient (AMB) | payer OTHER, SELFPAY ==
--- NOTE | 2023-08-11 13:39 | MHC.OFFVIS ---
Vital Signs 08/11/23 13:41 Height 5 ft 3 in Weight 170 lb BMI 30.1 Handedness Right Intake Visit Reasons: New Pt - B/L hand numbness Intake Note: Kathy is a 47 year old right hand dominant female who presents today for a evaluation of her bilateral hand numbness, EMG done 04/21/22. Patient reports ongoing numbness in her right hand, however she noticed that the left hand started to get worse back in June. Pain is worse when when grabbing items. She expresses that both of her hands are equal to pain and numbness. Allergies morphine [MORPHINE] Allergy (Intermediate, Verified 08/11/23 13:42) Itching tramadol [TRAMADOL] Allergy (Intermediate, Verified 08/11/23 13:42) SHORTNESS OF BREATH HPI HPI New Pt - B/L hand numbness: Details: 47-year-old right hand dominant female, who is French speaking, presents in the office today for an evaluation of bilateral hand numbness. Patient presented to the Walk-in clinic on 07/28/2023 While in the office today the patient reports she has intermittent numbness in the bilateral hands but is the worst in the morning. She states the numbness has been present for 1-2 years but began to increase in 06/2023. She reports an itching/tingling in the hands. Patient states she as custom bracing at home that has failed to relieve her symptoms. Patient has a history of attending occupational therapy for right hand pain. Patient is currently being followed by Pain Management. Patient has an allergy history, as follows: - Morphine; itching -Tramadol; shortness of breath Patient is currently taking, as follows: -Bupropion HCL XL 150 mg PO daily -Steppxhfil-yhhvnvxysuvaj-yejw 50-325-40 mg PO Q4H PRN -Calcium carbonate 600 mg ?25 mcg -Cyclobenzaprine 5 mg PO TID PRN -Famotidine 20 mg PO Bedtime -Fluoxetine 20 mg PO daily -Hydroxyzine HCL 25 mg PO bedtime PRN -Ibuprofen 800 mg PO Q8H -Lorazepam 1 mg PO BID PRN -Sennosides 17.2 mg PO Bedtime Patient has a medical history, as follows: -ELLE on CPAP -Esophageal spasm -Dyspepsia -Odynophagia -Spondylosis of cervical region -Iliotibial band syndrome -Anxitey -Constipation -Spasmodic torticollis -Menorrhagia -Dyslipidemia -Migraines -Moderate major depression -Fibromyalgia -GERD -Normocytic anemia Patient has a surgical history, as follows: -Hx of colonoscopy; 05/2022 -Hx of endoscopy -Hx of lumbar fusion; 2009 -Hx of removal of ovary Patient has a social history, as follows: -Former smoker: Quit in 2002. [facility] Medical History Other spondylosis, skctwhzj-xbdeloz-tesnq region Left shoulder pain Well woman exam Sinus pressure Headache Muscle spasms of neck Abnormal uterine bleeding (AUB) Hx of ovarian cyst Colon cancer screening Neck pain Vaginal itching Bloody stools Physical exam Tonsil stone Well woman exam with routine gynecological exam Anxiety Chest pain Dyslipidemia Hypovitaminosis D Right flank pain RUQ abdominal pain Occipital headache Overweight (BMI 25.0-29.9) Migraines Moderate major depression Normocytic anemia GERD (gastroesophageal reflux disease) Cervical cancer screening Fibromyalgia Arthritis Sleep apnea Surgical History Hx of colonoscopy History of endoscopy S/P lumbar fusion Hx of removal of ovary Family History Mother Thyroid disease Maternal Aunt No problems noted. Social History Housing: House Alcohol intake: current Alcohol intake frequency: holidays/special occasions only Alcohol type: wine Patient Tobacco Use Status: Former Tobacco user Quit Date: 2002 Tobacco use type: Cigarette e-Cigarette/Vaping Use: Never Used Second Hand Smoke Exposure: No service: No Current occupational status: disabled Gender identity: Female Cognitive needs: No Hearing needs: No Vision needs: Yes Female Reproductive History Menstrual Age of Menarche: 11 Review of Systems Const All systems reviewed & are unremarkable except as noted in HPI and below Physical Exam Vital Signs: BMI result Body Mass Index 30.1 Const General: cooperative, healthy appearing and no acute distress Resp Effort & Inspection: normal respiratory effort and able to speak in complete sentences Cardio Rate: regular rate Peripheral pulses: Peripheral pulses 2+ throughout GI Palpation (GI): Soft to palpation Skin Lesions: no lesions Rashes: no rashes Extrem Other: Right hand: Normal to inspection. No ecchymosis, erythema, or edema. Able to perform full finger flexion, extension, abduction, adduction, finger cross, okay sign, and thumbs up without deficit. Able to make a closed fist. Negative Tinel?s at the carpal tunnel and cubital tunnel. Sensation intact. Capillary refill is brisk. Radial pulse intact. Left hand: Normal to inspection. No ecchymosis, erythema, or edema. Able to perform full finger flexion, extension, abduction, adduction, finger cross, okay sign, and thumbs up without deficit. Able to make a closed fist. Positive Tinel?s at the carpal tunnel. Negative Tinel?s cubital tunnel. Sensation intact. Capillary refill is brisk. Radial pulse intact. Assessment & Plan Assessment & Plan (1) Left carpal tunnel syndrome: Code(s): G56.02 - Carpal tunnel syndrome, left upper limb Category: Medical (2) Right carpal tunnel syndrome: Code(s): G56.01 - Carpal tunnel syndrome, right upper limb Category: Medical Plan Ms. Flakito Quintero is a 47-year-old right hand dominant female, who is French speaking, presents in the office today for an evaluation of bilateral hand numbness. Patient presented to the Walk-in clinic on 07/28/2023 While in the office today the patient reports she has intermittent numbness in the bilateral hands but is the worst in the morning. She states the numbness has been present for 1-2 years but began to increase in 06/2023. She reports an itching in the hands. Patient states she as custom bracing at home that has failed to relieve her symptoms. Patient has a history of attending occupational therapy for right hand pain. Patient is currently being followed by Pain Management. Patient has an allergy history, as follows: - Morphine; itching -Tramadol; shortness of breath Patient is currently taking, as follows: -Bupropion HCL XL 150 mg PO daily -Osnobnsuqk-nbpllbgpymkko-skxf 50-325-40 mg PO Q4H PRN -Calcium carbonate 600 mg ?25 mcg -Cyclobenzaprine 5 mg PO TID PRN -Famotidine 20 mg PO Bedtime -Fluoxetine 20 mg PO daily -Hydroxyzine HCL 25 mg PO bedtime PRN -Ibuprofen 800 mg PO Q8H -Lorazepam 1 mg PO BID PRN -Sennosides 17.2 mg PO Bedtime Patient has a medical history, as follows: -ELLE on CPAP -Esophageal spasm -Dyspepsia -Odynophagia -Spondylosis of cervical region -Iliotibial band syndrome -Anxitey -Constipation -Spasmodic torticollis -Menorrhagia -Dyslipidemia -Migraines -Moderate major depression -Fibromyalgia -GERD -Normocytic anemia Patient has a surgical history, as follows: -Hx of colonoscopy; 05/2022 -Hx of endoscopy -Hx of lumbar fusion; 2009 -Hx of removal of ovary Patient has a social history, as follows: -Former smoker: Quit in 2002. I discussed in detail the procedure and what to expect pre and post operatively. We discussed the risks, benefits and alternatives to the surgery and the rehabilitation course. The risks include infection, bleeding, nerve injury, ongoing pain, swelling, and stiffness, perioperative risk of injury to bones and soft tissues, and blood clots. I have answered all questions and with their understanding they have consented to move forward with a left carpal tunnel release to be performed by Dr. Morse. Follow-up will be at the post operative appointment, or sooner if needed. EMG study of the bilateral upper extremities, obtained on 04/21/2023, revealed: 1. Mild to moderate right and mild left median neuropathy across carpal tunnel. 2. Mild bilateral ulnar neuropathy across cubital tunnel. Patient Instructions: Scribed by Micaela Baker, center medical specialist, for Aleida Winston PA-C on 08/11/2023 at 2:05 pm, EST. Coding Level of Care Code Est Pt Level 4 (37568) Diagnoses Left carpal tunnel syndrome G56.02 Right carpal tunnel syndrome G56.01
[2023-08-11 13:41] VITALS: BMI 30.1
== END 2023-08-11 14:02 | disposition home or self-care (01) ==
PROVIDERS: PCP Internal Medicine; Visit Provider Physician Assistant
DX: G56.03 Carpal tunnel syndrome, bilateral upper limbs (principal)
CPT/HCPCS: 99214

== ENCOUNTER → 2023-08-11 13:27 | Outpatient (BNVA) | payer OTHER, SELFPAY | PROVIDERS: PCP Internal Medicine; Visit Provider Physician Assistant | DX: G56.03 Carpal tunnel syndrome, bilateral upper limbs (principal) | CPT/HCPCS: 99212 ==

== ENCOUNTER 2023-08-29 16:35 | Outpatient (AMB) | payer OTHER, SELFPAY ==
[2023-08-29 16:41] VITALS: BP 120/70; BMI 30.5
--- NOTE | 2023-08-29 16:41 | A.OFFPC_ITS ---
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 Accompanied by: Self / Same As Patient Allergies morphine [MORPHINE] Allergy (Intermediate, Verified 08/29/23 16:59) Itching tramadol [TRAMADOL] Allergy (Intermediate, Verified 08/29/23 16:59) SHORTNESS OF BREATH Medication List - Last Reconciled 08/29/23 by Lilia Walsh MD bupropion HCl XL 150 mg PO DAILY erhxnpnmof-sgrimwhhmtvje-bloj 50-325-40 mg 2 tabs PO Q4H PRN calcium carbonate-vitamin D3 600 mg-25 mcg (1,000 unit) 1 cap PO DAILY cyclobenzaprine 5 mg PO TID PRN 30 days famotidine (Pepcid) 20 mg PO BEDTIME fluoxetine 20 mg PO DAILY hydroxyzine HCl 25 mg PO BEDTIME PRN 10 days ibuprofen 800 mg PO Q8H lorazepam 1 mg PO BID PRN sennosides (Senna Laxative) 17.2 mg (2 x 8.6 mg) PO BEDTIME Tobacco use date assessed: 08/29/23 Dental Screening Dental Screen Date: 08/29/23 Did you have a dental visit in the last 12 months?: Yes Did you have a dental problem in the last 6 months where you did not have access to dental care?: No Was dental information given to patient?: Patient has dentist HPI HPI Comments History of Present Illness Details This is a 47-year-old female with moderate recurrent major depression that comes for her physical exam. Depression has been stable with medications and this is follow by Psychiatry. Last mammogram was 04/15/2023 and was normal. Last Pap smear was 2020. Last colonoscopy was 2022. No chest pain or shortness on breath. [facility] Medical History (Updated 08/29/23 @ 17:53 by Lilia Walsh MD) Physical exam Other spondylosis, kawiypdc-kpyynrn-yfyjh region Left shoulder pain Well woman exam Sinus pressure Headache Muscle spasms of neck Abnormal uterine bleeding (AUB) Hx of ovarian cyst Colon cancer screening Neck pain Vaginal itching Bloody stools Tonsil stone Well woman exam with routine gynecological exam Anxiety Chest pain Dyslipidemia Hypovitaminosis D Right flank pain RUQ abdominal pain Occipital headache Overweight (BMI 25.0-29.9) Migraines Moderate major depression Normocytic anemia GERD (gastroesophageal reflux disease) Cervical cancer screening Fibromyalgia Arthritis Sleep apnea Surgical History Hx of colonoscopy History of endoscopy S/P lumbar fusion Hx of removal of ovary Family History (Updated 08/29/23 @ 17:03 by Lilia Walsh MD) Mother Thyroid disease Maternal Aunt No problems noted. Father No problems noted. Social History Housing: House Alcohol intake: current Alcohol intake frequency: holidays/special occasions only Alcohol type: wine Patient Tobacco Use Status: Former Tobacco user Tobacco use type: Cigarette e-Cigarette/Vaping Use: Never Used Second Hand Smoke Exposure: No service: No Current occupational status: disabled Gender identity: Female Cognitive needs: No Hearing needs: No Vision needs: Yes Female Reproductive History Menstrual Age of Menarche: 11 Questionnaire PHQ-9 Over the last 2 weeks, how often have you been bothered by any of the following problems? 1. Little interest or pleasure in doing things: not at all 2. Feeling down, depressed, or hopeless: not at all 3. Trouble falling or staying asleep, or sleeping too much: several days 4. Feeling tired or having little energy: not at all 5. Poor appetite or overeating: several days 6. Feeling bad about yourself - or that you are a failure or have let yourself or your family down: not at all 7. Trouble concentrating on things, such as reading the newspaper or watching television: not at all 8. Moving or speaking so slowly that other people could have noticed. Or the opposite - being so fidgety or restless that you have been moving around a lot more than usual: not at all 9. Thoughts that you would be better off or of hurting yourself in some way: not at all Total score: 2 Depression Screening Interpretation: Positive Depression Screening Follow-up: Existing condition, In treatment and Follow-up Visit Requested Depression Screening Done: Yes 91075 - PHQ-9 Billing: Yes Source: Developed by Drs. Alejandro Linton, Omayra King, Deejay Rivas and colleagues, with an educational rene from [employer]. Thrive Questionnaire Date Thrive assessed: 08/29/23 I am a: Patient What is your living situation today?: I have a steady place to live Within the past 12 months, did the food you bought not last and you didn't have the money to get more?: Never true Within the past 12 months, did you worry whether your food would run out before you got money to buy more?: Never true Do you have trouble paying for medicines?: No Do you have trouble getting transportation to medical appointments?: No Do you have trouble paying your heating and electricity bill?: No Do you have trouble taking care of your child, family member or friend?: No Do you have trouble with day-to-day activities such as bathing, preparing meals, shopping, managing finances, etc.?: No Are you currently unemployed and looking for a job?: No Are you interested in more education?: No Please select the resources that you would like help with: None Currently or been in a relationship where the following occur: no concerns reported THRIVE Score: 0 AUDIT C Alcohol Use Questionnaire (AUDIT-C) 1. How often do you have a drink containing alcohol?: Never Total Score: 0 Score Reviewed/Action Taken: No SHERIDAN-7 AMB Questionnaire SHERIDAN-7 Date SHERIDAN - 7 assessed: 08/29/23 Feeling nervous, anxious, or on edge: 3 = Nearly every day Not being able to stop or control worryin = Not at all Worrying too much about different things: 1 = Several days Trouble relaxin = Not at all Being so restless that it is hard to sit still: 0 = Not at all Becoming easily annoyed or irritable: 0 = Not at all Feeling afraid as if something awful might happen: 0 = Not at all Total SHERIDAN-7 score (0-4 normal; 5-9 mild; 10-14 moderate; 15-21 severe): 4 Source: Developed by Drs. Alejandro Linton, Omayra King, Deejay Rivas and colleagues, with an educational rene from [employer]. SHERIDAN-7 Assessment Billing SHERIDAN-7 Assessment Tool: SHERIDAN-7 Assessment 69192 Review of Systems Const All systems reviewed & are unremarkable except as noted in HPI and below Card Denies chest pain at rest, Denies chest pain with activity, Denies edema, Denies irregular heart rhythm, Denies claudication, Denies dyspnea, Denies dyspnea on exertion, Denies orthopnea, Denies paroxysmal nocturnal dyspnea and Denies slow heart rate Resp Denies cough, Denies dyspnea and Denies dyspnea on exertion GI Denies abdominal pain, Denies change in bowel habits, Denies excessive flatus, Denies nausea and Denies vomiting Physical exam (Primary Care) Vital Signs: Last Vital Signs BP 120/70 08/29/23 16:41 BMI result Body Mass Index 30.5 Tobacco/Smoking Status: Tobacco use Status Tobacco use date assessed 08/29/23 08/29/23 16:50 Patient Tobacco Use Status Former Tobacco user 08/29/23 16:50 Tobacco use type Cigarette 08/29/23 16:50 e-Cigarette/Vaping Use Never Used 08/29/23 16:50 PHQ-9: PHQ-9 Score PHQ-9: Total score 2 08/29/23 17:01 Depression Screening Interpretation: Positive Depression Screening Follow-up: Existing condition, In treatment and Follow-up Visit Requested Thrive Assessment: Date of Thrive Assessment Date Thrive assessed 08/29/23 08/29/23 16:50 Currently or been in a relationship where the following occur: no concerns reported [facility] Head: Yes normal to inspection, Yes normocephalic and Yes atraumatic Ears: external ears normal Eyes General: appearance normal, both eyes and all related structures Eyelids: Yes eyelids normal Conjunctivae: conjunctivae normal Neck Neck: Yes normal visual inspection and Yes supple Resp Effort & Inspection: normal respiratory effort Auscultation: clear to auscultation bilaterally Cardio Jugular venous distension: no JVD Rate: regular rate Rhythm: regular rhythm Heart sounds: S1 normal heart sound present and S2 normal heart sound present GI Inspection: Yes normal to inspection Palpation (GI): Soft to palpation and nontender Auscultation: normal bowel sounds Skin General skin exam: no rashes or lesions noted Neuro General: no focal motor deficits Extrem General: Yes full ROM Psych Appearance: grossly normal Assessment and Plan Assessment & Plan (1) Physical exam: Code(s): Z00.00 - Encounter for general adult medical examination without abnormal findings Plan: Repeat in a year. (2) Moderate major depression: Code(s): F32.1 - Major depressive disorder, single episode, moderate Plan: Continue bupropion. Follow-up with psychiatry. Orders: Orders Vitamin D 25-OH Total Today E55.9 - Vitamin D deficiency, unspecified Lipid Panel Today E78.5 - Hyperlipidemia, unspecified Comprehensive Kite. Panel Fast Today E78.5 - Hyperlipidemia, unspecified XR chest 2V Today R05.9 - Cough, unspecified Referrals Dermatology Referral L98.9 - Disorder of the skin and subcutaneous tissue, unspecified Coding Level of Care Code Est Pt Prev Care 40-64y(58209) Diagnoses Physical exam Z00.00 Moderate major depression F32.1 Additional Codes SHERIADN-7 Assessment Billing - SHERIDAN-7 Assessment Tool: SHERIDAN-7 Assessment [id number] ([id number]) Time Spent (min) 35
== END 2023-08-29 17:16 | disposition home or self-care (01) ==
PROVIDERS: Visit Provider Internal Medicine
DX: Z00.00 Encounter for general adult medical examination without abnormal findings (principal); F32.1 Major depressive disorder, single episode, moderate
CPT/HCPCS: 99396

== ENCOUNTER → 2023-08-31 15:52 | Outpatient (REF) | payer OTHER, SELFPAY | LOC: HO.SL 15:52 | PROVIDERS: PCP Internal Medicine; Visit Provider Nurse Practitioner Family | DX: Z13.89 Encounter for screening for other disorder (principal) ==

== ENCOUNTER 2023-09-11 07:33 | Outpatient (REF) | payer OTHER, SELFPAY ==
--- NOTE | ~2023-09-11 | XR_ITS ---
EXAMINATION: XR CHEST CLINICAL INFORMATION: Nonspecific cough COMPARISON: 08/09/2020 TECHNIQUE: 2 views of the chest were obtained. FINDINGS: No significant abnormality is noted involving the heart, lungs, mediastinum, bony thorax or soft tissues. XR/XR chest 2V IMPRESSION: Unremarkable examination.
[2023-09-11 07:57] LABS: MANUAL DIFF FLAG NO
[2023-09-11 08:22] LABS: Basophils Percent Auto 0.7 % (0-2); Eosinophils Absolute Auto 0.2 X10*3/uL (0.0-0.4); Eosinophils Percent Auto 3.6 % (0-4); Hematocrit 36.9 % (37.0-47.0); Hemoglobin 12.3 g/dl (12.0-16.0); Imm Gran Abs Auto 0.02 X10*3/uL (0.00-0.03); Imm Gran Pct Auto 0.3 % (0.0-0.4); Lymphocytes Percent Auto 32.6 % (20-40); Mean Corpuscular HGB Conc 33.3 g/dl (31.0-35.0); Mean Corpuscular Hemoglobin 30.4 pg (27.0-33.0); Mean Corpuscular Volume 91.3 fL (80.0-98.0); Mean Platelet Volume 11.9 fL (9.4-12.3); Monocytes Absolute Auto 0.4 X10*3/uL (0.1-1.2); Monocytes Percent Auto 7.2 % (2-11); Neutrophils Absolute Auto 3.4 x10*3/uL (2.0-8.3); Neutrophils Percent Auto 55.6 % (45-73); Platelet Count 227 X10*3/uL (160-400); Red Blood Count 4.04 X10*6/uL (4.20-5.50); Red Cell Distribution Width 12.9 % (11.0-16.0); White Blood Count 6.1 X10*3/uL (4.8-10.8)
[2023-09-11 09:01] LABS: Alanine Aminotransferase 18 U/L (0-31); Alkaline Phosphatase 71 U/L (39-117); Anion Gap 10 (12-20); Aspartate Amino Transferase 18 U/L (5-31); Bilirubin Total 0.3 mg/dL (0.0-1.0); Blood Urea Nitrogen 13 mg/dL (9-16); Calcium 9.2 mg/dL (8.4-10.2); Carbon Dioxide 29 mmol/L (22-29); Chloride 106 mmol/L (96-108); Cholesterol 181 mg/dL (<200); Estimated Glomerular Filt Rate > 60; Glucose Fasting 96 mg/dL (60-99); HDL Cholesterol 51 mg/dL (>40); Iron 68 mcg/dL (30-160); LDL Cholesterol Calculated 108 mg/dL (<100); Percent Iron Saturation 19 % (15-50); Potassium 4.1 mmol/L (3.3-5.1); Sodium 141 mmol/L (135-145); Total Iron Binding Capacity 362 mcg/dL (228-428); Total Protein 7.3 g/dL (6.5-8.0); Triglycerides 114 mg/dL (<150); Unsaturated Iron Binding 294 ug/dL
[2023-09-11 09:06] LABS: Vitamin D 25-OH Total 27.2 ng/mL (>30)
== END 2023-09-11 07:34 | disposition home or self-care (01) ==
LOC: HO.LAB 07:33
PROVIDERS: PCP Internal Medicine; Visit Provider Internal Medicine
DX: D64.9 Anemia, unspecified (principal); E78.5 Hyperlipidemia, unspecified; E55.9 Vitamin D deficiency, unspecified; R05.9 Cough, unspecified
CPT/HCPCS: 36415; 71046; 80053; 80061; 82306; 83540; 85025

== ENCOUNTER → 2023-11-07 20:30 | Outpatient (REF) | payer OTHER, SELFPAY | LOC: HO.SL 20:30 | PROVIDERS: PCP Internal Medicine; Visit Provider Psychiatry & Neurology Neurology | DX: Z13.89 Encounter for screening for other disorder (principal) ==

== ENCOUNTER 2023-12-14 13:19 | Outpatient (REF) | payer OTHER, SELFPAY ==
--- NOTE | ~2023-12-14 | XR_ITS ---
EXAMINATION: XR HIP, RIGHT CLINICAL INFORMATION: Right hip pain. COMPARISON: CT abdomen/pelvis dated 11/08/2016. TECHNIQUE: AP view of the pelvis as well as AP and frog-leg lateral views of the right hip. FINDINGS: No acute fracture or dislocation. Mild bilateral hip joint space narrowing small marginal osteophytes. No osseous erosion. No evidence of femoral head avascular necrosis. Partially visualized post surgical change within the lower lumbar spine. XR/XR hip RT w PEL1V IMPRESSION: Mild bilateral hip osteoarthritis. Electronically signed by: Jerome Weniberg MD 12/17/2023 10:23 AM EDT
--- NOTE | ~2023-12-14 | XR_ITS ---
EXAMINATION: XR FOOT, LEFT CLINICAL INFORMATION: Left foot/heel pain. COMPARISON: Left foot radiographs dated 02/14/2023. TECHNIQUE: AP, lateral, and oblique views of the left foot. FINDINGS: Plantar and dorsal calcaneal spurs, unchanged. No acute fracture or dislocation. No joint space narrowing or marginal osteophytes. No osseous erosion. XR/XR foot LT min 3V IMPRESSION: Plantar and dorsal calcaneal spurs, unchanged. Electronically signed by: Jerome Weinberg MD 12/17/2023 10:24 AM EDT
== END 2023-12-14 13:20 | disposition home or self-care (01) ==
LOC: HO.HMGCX 13:19
PROVIDERS: PCP Internal Medicine; Visit Provider Physician Assistant Medical
DX: M25.551 Pain in right hip (principal); M79.672 Pain in left foot
CPT/HCPCS: 73502; 73630

== ENCOUNTER 2023-12-19 10:26 | Outpatient (AMB) | payer OTHER, SELFPAY ==
[2023-12-19 10:38] VITALS: BP 125/71; PULSE 79; BMI 30.8
--- NOTE | 2023-12-19 10:38 | MHC.OFFVIS ---
Vital Signs 12/19/23 10:38 Height 5 ft 3 in Weight 173 lb 11.588 oz BMI 30.8 BP 125/71 Blood Pressure Location Lt brachial Position Sitting Pulse 79 Intake Visit Reasons: 6 month follow up CIC, Gerd Intake Note: Kathy presents to in office 6 months follow up of GERD. CC: Patient reports epigastric pain that she feels it reflects in her mid upper back. She states that when she gets very hungry she gets really bad epigastric pain. Per patient every time she eats anything with garlic or sauce she gets chest pains. She also continues to have constipation. Per patient she d/c the Nexium because she was feeling better but recently she began to experience symptoms again. Grocery Clerk Selling Required: Yes Accompanied by: Self / Same As Patient Allergies morphine [MORPHINE] Allergy (Intermediate, Verified 12/19/23 10:51) Itching tramadol [TRAMADOL] Allergy (Intermediate, Verified 12/19/23 10:51) SHORTNESS OF BREATH HPI HPI 6 month follow up CIC, Gerd: Details: Assessment & Plan (1) GERD (gastroesophageal reflux disease): Code(s): K21.9 - Gastro-esophageal reflux disease without esophagitis Qualifiers: Esophagitis presence: esophagitis presence not specified Qualified Code(s): K21.9 - Gastro-esophageal reflux disease without esophagitis Plan: Persian #Carol Reyes She has been doing and has not been taking the bentyl as she has not had the pain again. She is not even taking the nexium anymore, jut the famotidine at bedtime and is doing well. She is on iron and Vit D so she needs to use the Mirlalx prn and it continues to work well. ROV 6 mos. (2) RUQ abdominal pain: Code(s): R10.11 - Right upper quadrant pain (3) Right flank pain: Code(s): R10.9 - Unspecified abdominal pain (4) Constipation: Code(s): K59.00 - Constipation, unspecified (5) Abdominal bloating: Code(s): R14.0 - Abdominal distension (gaseous) TODAY'S VISIT Persian #Swapna and Mohan Harvey She says I feel like things are coming back again. She is having CP that radiates to her back. The pain is worse when her stomach is empty and at times she even has to get up in the middle of the night to eat to allay the pain. There is a new medication, proazc but she has not changed her diet. She also takes s lot of motrin for her general body pain and this may be why the exacerbation. She has continues on her famotidine and she takes bentyl occasionally. I inquire if this is the same set of symptoms she had when we medicated her in the past. I did explain that women can present with cardiac pain he typically and that always concerns me. She denies any family history of severe cardiac disease and she says that she is familiar with the symptoms because this is the same as what she had in the past. I did tell her that if the Nexium does not resolve the pain she should present to the ER for evaluation. She denies any shortness of breath, palpitations, syncope or near-syncope. I think we need to restart the nexium, and she agrees. She says I try to hold the pain but I don't want her to hold the pain as I don't want to have esophageal damage. ROV 6 weeks to [facility] Medical History (Updated 12/19/23 @ 11:18 by CHASTITY GuidoC) Low vitamin D level Spasmodic torticollis Overweight (BMI 25.0-29.9) Blurry vision Esophageal spasm Hypersomnia Dyspepsia Facet joint disease of cervical region Constipation Facet arthropathy, multilevel RUQ abdominal pain Right flank pain Cervical radiculopathy Abdominal bloating Carpal tunnel syndrome Odynophagia Pain of left scapula Bilateral hand pain Hand pain Cough Snoring Skin lesion Physical exam Other spondylosis, mgymiitx-aczchyi-lzusk region Left shoulder pain Well woman exam Sinus pressure Headache Muscle spasms of neck Abnormal uterine bleeding (AUB) Hx of ovarian cyst Colon cancer screening Neck pain Vaginal itching Bloody stools Tonsil stone Well woman exam with routine gynecological exam Anxiety Chest pain Dyslipidemia Hypovitaminosis D Occipital headache Migraines Moderate major depression Normocytic anemia GERD (gastroesophageal reflux disease) Cervical cancer screening Fibromyalgia Arthritis Sleep apnea Surgical History (Updated 12/19/23 @ 11:18 by BECKIE Guido) Hx of removal of ovary Hx of colonoscopy History of endoscopy S/P lumbar fusion Family History Mother Thyroid disease Maternal Aunt No problems noted. Father No problems noted. Social History Housing: House Alcohol intake: current Alcohol intake frequency: holidays/special occasions only Alcohol type: wine Patient Tobacco Use Status: Former Tobacco user Tobacco use type: Cigarette e-Cigarette/Vaping Use: Never Used Second Hand Smoke Exposure: No service: No Current occupational status: disabled Gender identity: Female Cognitive needs: No Hearing needs: No Vision needs: Yes Female Reproductive History Menstrual Age of Menarche: 11 Review of Systems Const Denies fatigue, Denies fever(s), Reports headache(s), Denies night sweats, Denies poor appetite and Denies weight loss Eyes Details: g,asses Reports requires corrective lenses ENT Reports Normal hearing present, Denies dental pain, Denies dysphagia, Reports headache(s), Denies hearing loss, Denies mouth pain, Reports neck pain, Denies odynophagia, Denies throat swelling, Denies tongue swelling and Reports other (Dentition adequate) Card Reports chest pain Resp Reports no additional complaints GI Details: Denies abdominal pain, Denies melena, Denies bloating, Denies hematochezia, Reports constipation, Denies GI cramping, Denies dysphagia, Denies excessive flatus, Denies early satiety, Reports heartburn, Denies diarrhea, Denies nausea, Denies odynophagia, Denies vomiting and Denies hematemesis Musc Reports back pain, Reports myalgias, Reports neck pain, Reports numbness and Reports stiffness Skin/Breast Denies pruritus, Denies lesions, Denies rash and Denies jaundice Neuro Reports Normal hearing present, Denies Abnormal speech present, Reports headache(s) and Reports numbness Psych Reports anxiety Endo Denies fatigue Aller/Immun Denies throat swelling and Denies tongue swelling Physical Exam Vital Signs: Last Vital Signs Pulse 79 12/19/23 10:38 BP 125/71 12/19/23 10:38 BMI result Body Mass Index 30.8 Const General: cooperative, no acute distress, well developed and well groomed Nutritional Appearance: well nourished and obese Orientation/consciousness: oriented to person, oriented to place and oriented to time Limitations: language barrier HEENT Head: Yes normocephalic and Yes atraumatic Eyes General: appearance normal, both eyes and all related structures Pupils: Equal, round and reactive pupils present Neck Neck: Yes normal visual inspection and Yes no lymphadenopathy Thyroid: Thyroid normal Resp Effort & Inspection: normal respiratory effort and able to speak in complete sentences Auscultation: clear to auscultation bilaterally Cardio Rate: regular rate Rhythm: regular rhythm Heart sounds: Normal, physiologic split S2 sound present Peripheral pulses: radial pulses present and posterior tibial pulses present GI Inspection: No distended, No Abdominal panniculus present and Yes obesity Palpation (GI): Soft to palpation, nontender, no guarding, not rigid and No hepatosplenomegaly present Percussion: Yes normal to percussion Auscultation: normal bowel sounds Rectal Exam - Female: deferred Skin General skin exam: no rashes or lesions noted, turgor normal, skin not dry, no jaundice, No spider nevi and no striae Rashes: no rashes Nails: normal Neuro General: oriented to person, oriented to place and oriented to time Cranial nerves: Yes Equal, round and reactive pupils present and Yes Normal hearing present Speech: No Abnormal speech present Extrem General: Yes normal to inspection, No clubbing, No cyanosis and No edema Psych Appearance: grossly normal and well kempt Mental Status: mental status grossly normal Speech and movement: Normal speech and movement present Affect: normal affect Attitude: cooperative Thought process: Normal thought process present and not confabulating Thought content: Normal thought content present Insight: Fair insight present (Psych) Judgement: Fair judgement present (Psych) Assessment & Plan Assessment & Plan (1) GERD (gastroesophageal reflux disease): Code(s): K21.9 - Gastro-esophageal reflux disease without esophagitis Category: Medical Qualifiers: Esophagitis presence: esophagitis presence not specified Qualified Code(s): K21.9 - Gastro-esophageal reflux disease without esophagitis (2) Abdominal cramping: Code(s): R10.9 - Unspecified abdominal pain Category: Medical Plan Persian #Swapna and Mohan Mayervie She says I feel like things are coming back again. She is having CP that radiates to her back. The pain is worse when her stomach is empty and at times she even has to get up in the middle of the night to eat to allay the pain. There is a new medication, proazc but she has not changed her diet. She also takes s lot of motrin for her general body pain and this may be why the exacerbation. She has continues on her famotidine and she takes bentyl occasionally. I inquire if this is the same set of symptoms she had when we medicated her in the past. I did explain that women can present with cardiac pain he typically and that always concerns me. She denies any family history of severe cardiac disease and she says that she is familiar with the symptoms because this is the same as what she had in the past. I did tell her that if the Nexium does not resolve the pain she should present to the ER for evaluation. She denies any shortness of breath, palpitations, syncope or near-syncope. I think we need to restart the nexium, and she agrees. She says I try to hold the pain but I don't want her to hold the pain as I don't want to have esophageal damage. ROV 6 weeks to eval Medications: New esomeprazole magnesium (Nexium) 40 mg PO DAILY 30 caps 6RF K21.9 - Gastro-esophageal reflux disease without esophagitis dicyclomine 20 mg PO QID 30 days 120 tabs 1RF Refilled famotidine (Pepcid) 20 mg PO BEDTIME 30 tabs 6RF Coding Level of Care Code Est Pt Level 3 (91268) Diagnoses Gastroesophageal reflux disease, unspecified whether esophagitis present K21.9 Esophagitis presence: esophagitis presence not specified Abdominal cramping R10.9
== END 2023-12-19 11:20 | disposition home or self-care (01) ==
PROVIDERS: PCP Internal Medicine; Visit Provider Nurse Practitioner
DX: K21.9 Gastro-esophageal reflux disease without esophagitis (principal); R10.9 Unspecified abdominal pain
CPT/HCPCS: 99213

== ENCOUNTER → 2023-12-19 10:26 | Outpatient (BNVA) | payer OTHER, SELFPAY | PROVIDERS: PCP Internal Medicine; Visit Provider Nurse Practitioner | DX: K21.9 Gastro-esophageal reflux disease without esophagitis (principal); R10.9 Unspecified abdominal pain | CPT/HCPCS: 99212 ==

== ENCOUNTER 2024-01-22 09:03 | Outpatient (AMB) | payer OTHER, SELFPAY ==
--- NOTE | 2024-01-22 09:08 | MHC.PC.OV ---
Vital Signs 01/22/24 09:09 Height 5 ft 3 in Weight 177 lb BMI 31.4 BP 112/78 Blood Pressure Location Lt brachial Position Sitting Intake Visit Reasons: pain in left back quadrant Track Walker Required: No Accompanied by: Self / Same As Patient Allergies morphine [MORPHINE] Allergy (Intermediate, Verified 01/22/24 09:17) Itching tramadol [TRAMADOL] Allergy (Intermediate, Verified 01/22/24 09:17) SHORTNESS OF BREATH Medication List - Last Reconciled 01/22/24 by Lilia Walsh MD bupropion HCl XL 300 mg PO DAILY cifwpwfzfh-eknqnglxeyszs-bwbs 50-325-40 mg 2 tabs PO Q4H PRN cholecalciferol (vitamin D3) 25 mcg PO DAILY cyclobenzaprine 5 mg PO TID PRN 30 days dicyclomine 20 mg PO QID 30 days esomeprazole magnesium (Nexium) 40 mg PO DAILY famotidine (Pepcid) 20 mg PO BEDTIME fluoxetine 20 mg PO DAILY gabapentin 600 mg PO BEDTIME hydroxyzine HCl 25 mg PO BEDTIME PRN 10 days ibuprofen 800 mg PO Q8H lorazepam 1 mg PO BID PRN sennosides (Senna Laxative) 17.2 mg (2 x 8.6 mg) PO BEDTIME Tobacco use date assessed: 08/29/23 Dental Screening Dental Screen Date: 08/29/23 HPI HPI Comments History of Present Illness Details This is a 48-year-old female with fibromyalgia that comes today complaining of sacral pain aggravated by sitting that started few days ago. She also has thoracic spine pain that has been on and off and aggravated by activity for few weeks. No previous trauma. She has chronic neck pain that has been present for over a year. She also has bilateral scapular pain that has been present after local injections that happened few years ago and is a constant pain. She also has bilateral carpal tunnel syndrome and would like to be referred somewhere else besides [facility] for possible surgery. [facility] Medical History Pain of left scapula Neck pain Low vitamin D level Spasmodic torticollis Overweight (BMI 25.0-29.9) Blurry vision Esophageal spasm Hypersomnia Dyspepsia Facet joint disease of cervical region Constipation Facet arthropathy, multilevel RUQ abdominal pain Right flank pain Cervical radiculopathy Abdominal bloating Carpal tunnel syndrome Odynophagia Bilateral hand pain Hand pain Cough Snoring Skin lesion Physical exam Other spondylosis, zakeqccq-onaafkt-rdkzk region Left shoulder pain Well woman exam Sinus pressure Headache Muscle spasms of neck Abnormal uterine bleeding (AUB) Hx of ovarian cyst Colon cancer screening Vaginal itching Bloody stools Tonsil stone Well woman exam with routine gynecological exam Anxiety Chest pain Dyslipidemia Hypovitaminosis D Occipital headache Migraines Moderate major depression Normocytic anemia GERD (gastroesophageal reflux disease) Cervical cancer screening Fibromyalgia Arthritis Sleep apnea Surgical History Hx of removal of ovary Hx of colonoscopy History of endoscopy S/P lumbar fusion Family History Mother Thyroid disease Maternal Aunt No problems noted. Father No problems noted. Social History Housing: House Alcohol intake: current Alcohol intake frequency: holidays/special occasions only Alcohol type: wine Patient Tobacco Use Status: Former Tobacco user Tobacco use type: Cigarette e-Cigarette/Vaping Use: Never Used Second Hand Smoke Exposure: No service: No Current occupational status: disabled Gender identity: Female Cognitive needs: No Hearing needs: No Vision needs: Yes Female Reproductive History Menstrual Age of Menarche: 11 Questionnaire Thrive Questionnaire Date Thrive assessed: 08/29/23 SHERIDAN-7 AMB Questionnaire SHERIDAN-7 Date SHERIDAN - 7 assessed: 08/29/23 Source: Developed by Drs. Alejandro Linton, Omayra King, Deejay Rivas and colleagues, with an educational rene from [employer]. Review of Systems Const All systems reviewed & are unremarkable except as noted in HPI and below ENT Reports neck pain Card Denies chest pain at rest, Denies chest pain with activity, Denies edema, Denies irregular heart rhythm, Denies claudication, Denies dyspnea, Denies dyspnea on exertion, Denies orthopnea, Denies paroxysmal nocturnal dyspnea and Denies slow heart rate Resp Denies cough, Denies dyspnea and Denies dyspnea on exertion GI Denies abdominal pain, Denies change in bowel habits, Denies excessive flatus, Denies nausea and Denies vomiting Musc Reports back pain, Denies atrophy, Denies deformity, Reports arthralgias, Denies limited range of motion and Reports neck pain Physical exam (Primary Care) Vital Signs: Last Vital Signs BP 112/78 01/22/24 09:09 BMI result Body Mass Index 31.4 BMI Assessment/Plan discussion: High BMI High, discussed plan: lifestyle, weight reduction, dietary and physical activity Tobacco/Smoking Status: Tobacco use Status Tobacco use date assessed 08/29/23 01/22/24 09:15 Patient Tobacco Use Status Former Tobacco user 01/22/24 09:15 Tobacco use type Cigarette 01/22/24 09:15 e-Cigarette/Vaping Use Never Used 01/22/24 09:15 Thrive Assessment: Date of Thrive Assessment Date Thrive assessed 08/29/23 01/22/24 09:15 Resp Effort & Inspection: normal respiratory effort Auscultation: clear to auscultation bilaterally Cardio Jugular venous distension: no JVD Rate: regular rate Rhythm: regular rhythm Heart sounds: S1 normal heart sound present and S2 normal heart sound present Extrem General: Yes full ROM Office Procedures Flu Questionnaire Does the patient have a severe egg allergy?: No Immunizations Fluarix Triv [id number] (PF) 45 mcg (15 mcg x 3)/0.5 mL IM syringe Performing Provider: Lilia Walsh MD [facility] [place] [facility] Documented (not given) by: CARLEEN Harrell on 01/22/24 09:16 Reason Not Given: Patient Refused Coding Level of Care Code Est Pt Level 4 (48849) Complex EM visit Add On G2211 Diagnoses Neck pain M54.2 Sacral pain M53.3 Pain of left scapula M89.8X1 Pain of right scapula M89.8X1 Thoracic spine pain M54.6 Right carpal tunnel syndrome G56.01 Left carpal tunnel syndrome G56.02 Time Spent (min) 23 Assessment & Plan Assessment & Plan (1) Neck pain: Code(s): M54.2 - Cervicalgia Category: Medical Plan: Referred to Ortho. (2) Sacral pain: Code(s): M53.3 - Sacrococcygeal disorders, not elsewhere classified Category: Medical Plan: X-ray ordered. (3) Pain of left scapula: Code(s): M89.8X1 - Other specified disorders of bone, shoulder Category: Medical Plan: X-ray ordered. (4) Pain of right scapula: Code(s): M89.8X1 - Other specified disorders of bone, shoulder Category: Medical Plan: X-ray ordered. (5) Thoracic spine pain: Code(s): M54.6 - Pain in thoracic spine Category: Medical Plan: X-ray ordered. (6) Right carpal tunnel syndrome: Code(s): G56.01 - Carpal tunnel syndrome, right upper limb Category: Medical Plan: Referred to hand surgeon. (7) Left carpal tunnel syndrome: Code(s): G56.02 - Carpal tunnel syndrome, left upper limb Category: Medical Plan: Referred to hand surgeon. Orders: Orders XR sacrum coccyx min 2V Today M53.3 - Sacrococcygeal disorders, not elsewhere classified Influenza [id number] Immunization Today Z23 - Encounter for immunization XR thoracic spine 2V Today M54.6 - Pain in thoracic spine XR scapula LT Today M89.8X1 - Other specified disorders of bone, shoulder XR scapula RT Today M89.8X1 - Other specified disorders of bone, shoulder Vitamin D 25-OH Total Today E55.9 - Vitamin D deficiency, unspecified Comprehensive Met. Panel Today M54.6 - Pain in thoracic spine Referrals Orthopedics Referral M54.2 - Cervicalgia Hand Surgery Referral G56.01 - Carpal tunnel syndrome, right upper limb, G56.02 - Carpal tunnel syndrome, left upper limb Medications: Changed From gabapentin 600 mg PO BEDTIME To gabapentin 600 mg PO BEDTIME 90 days 90 tabs 1RF
[2024-01-22 09:09] VITALS: BP 112/78; BMI 31.4
== END 2024-01-22 09:31 | disposition home or self-care (01) ==
PROVIDERS: PCP Internal Medicine; Visit Provider Internal Medicine
DX: M54.2 Cervicalgia (principal); M53.3 Sacrococcygeal disorders, not elsewhere classified; M89.8X1 Other specified disorders of bone, shoulder; M54.6 Pain in thoracic spine; G56.03 Carpal tunnel syndrome, bilateral upper limbs

== ENCOUNTER 2024-01-22 09:03 | Outpatient (REF) | payer OTHER, SELFPAY ==
--- NOTE | ~2024-01-22 | XR_ITS ---
EXAMINATION: XR SCAPULA LEFT 2 VIEWS CLINICAL INFORMATION: Other specified disorders of bone, shoulder M89.8X1. COMPARISON: XR Left scapula 10/12/2022 left shoulder x-ray series September 2022 TECHNIQUE: AP and scapular Y views of the left scapula. FINDINGS: The bones and soft tissues are normal. No scapular fracture. Glenohumeral and acromioclavicular alignment is normal. Previously noted calcium deposition not conspicuous on these views XR/XR scapula LT IMPRESSION: Normal left scapula. Previously noted calcification surrounding the left shoulder region not visualized Electronically signed by: Arpan Leija MD 03/07/2024 04:19 PM EST RP
--- NOTE | ~2024-01-22 | XR_ITS ---
EXAMINATION: XR SCAPULA RIGHT 2 VIEWS CLINICAL INFORMATION: Other specified disorders of bone, shoulder M89.8X1. COMPARISON: XR Right shoulder 01/30/2018 TECHNIQUE: AP and scapular Y views of the right scapula. FINDINGS: A subtle area of calcific density overlying the greater tuberosity similar to that noted previously. Bones joints and soft tissues otherwise normal. XR/XR scapula RT IMPRESSION: Calcific density overlying the greater tuberosity similar to that noted previously. This could reflect calcific tendinitis. Scapula normal Electronically signed by: Arpan Leija MD 03/07/2024 04:16 PM DAVID RP
--- NOTE | ~2024-01-22 | XR_ITS ---
EXAMINATION: XR THORACIC SPINE 3 VIEWS CLINICAL INFORMATION: Pain in thoracic spine M54.6. COMPARISON: XR Thoracic spine 08/16/2022 TECHNIQUE: 3 views of the thoracic spine were obtained. FINDINGS: Tube body height and alignment normal. Mild multilevel spondylosis manifested by endplate osteophytes without disc space narrowing scattered throughout the mid to lower dorsal spine. No change. Surrounding bone and soft tissues unremarkable XR/XR thoracic spine 2V IMPRESSION: Mild spondylosis of the thoracic spine unchanged. Electronically signed by: Arpan Leija MD 03/07/2024 04:14 PM DAVID HO
--- NOTE | ~2024-01-22 | XR_ITS ---
EXAMINATION: XR SACRUM AND COCCYX 3 VIEWS CLINICAL INFORMATION: Sacrococcygeal disorders, not elsewhere classified M53.3. COMPARISON: XR Lumbar spine 03/22/2017 TECHNIQUE: 1 view of the sacrum and 2 views of the coccyx were obtained. FINDINGS: Postoperative changes with the posterior instrumentation at the L5-S1 level and disc spacer unchanged. Suspect persistent grade 1 anterolisthesis Sacrum and coccyx unremarkable. Sacroiliac joints normal. XR/XR sacrum coccyx min 2V IMPRESSION: Sacrum and coccyx normal. Postsurgical changes stable Electronically signed by: Arpan Leija MD 03/07/2024 04:12 PM EST
[2024-01-22 11:59] LABS: Alanine Aminotransferase 24 U/L (0-31); Alkaline Phosphatase 70 U/L (39-117); Anion Gap 13 (12-20); Aspartate Amino Transferase 23 U/L (5-31); Bilirubin Total 0.2 mg/dL (0.0-1.0); Blood Urea Nitrogen 10 mg/dL (9-16); Calcium 9.4 mg/dL (8.4-10.2); Carbon Dioxide 24 mmol/L (22-29); Chloride 105 mmol/L (96-108); Estimated Glomerular Filt Rate > 60; Glucose Random 85 mg/dL (60-115); Potassium 3.9 mmol/L (3.3-5.1); Sodium 138 mmol/L (135-145); Total Protein 7.5 g/dL (6.5-8.0)
[2024-01-22 12:07] LABS: Vitamin D 25-OH Total 28.9 ng/mL (>30)
== END 2024-01-22 09:04 | disposition home or self-care (01) ==
LOC: HO.XRAY 09:03
PROVIDERS: PCP Internal Medicine; Visit Provider Internal Medicine
DX: M53.3 Sacrococcygeal disorders, not elsewhere classified (principal); M54.2 Cervicalgia; M89.8X1 Other specified disorders of bone, shoulder; M54.6 Pain in thoracic spine; G56.03 Carpal tunnel syndrome, bilateral upper limbs; E55.9 Vitamin D deficiency, unspecified; Z28.21 Immunization not carried out because of patient refusal
CPT/HCPCS: 36415; 72070; 72220; 73010; 80053; 82306; 90471; 99212

== ENCOUNTER 2024-02-08 12:03 | Outpatient (AMB) | payer OTHER, SELFPAY ==
[2024-02-08 12:05] VITALS: BP 90/58; PULSE 92; BMI 31.6
--- NOTE | 2024-02-08 12:05 | MHC.OFFVIS ---
Vital Signs 02/08/24 12:05 Height 5 ft 3 in Weight 178 lb 9.191 oz BMI 31.6 BP 90/58 L Blood Pressure Location Rt brachial Position Sitting Pulse 92 Intake Visit Reasons: 6 wks f/u GERD Intake Note: aKthy presents to in office follow up of GERD. CC: Patient reports that she forgets to take the Nexium and has not been able to see any improvement on symptoms. She states that she feels the red sauces, cheeses, and garlic makes her feel worst. She also reports that she would like to be referred to a production shift supervisor. Clinical Fellow Required: Yes Accompanied by: Self / Same As Patient Allergies morphine [MORPHINE] Allergy (Intermediate, Verified 05/30/24 00:08) Itching tramadol [TRAMADOL] Allergy (Intermediate, Verified 05/30/24 00:08) SHORTNESS OF BREATH HPI HPI 6 wks f/u GERD: Details: Assessment & Plan (1) GERD (gastroesophageal reflux disease): Code(s): K21.9 - Gastro-esophageal reflux disease without esophagitis Category: Medical Qualifiers: Esophagitis presence: esophagitis presence not specified Qualified Code(s): K21.9 - Gastro-esophageal reflux disease without esophagitis (2) Abdominal cramping: Code(s): R10.9 - Unspecified abdominal pain Category: Medical Plan [place] #Swapna and Mohan Wes She says I feel like things are coming back again. She is having CP that radiates to her back. The pain is worse when her stomach is empty and at times she even has to get up in the middle of the night to eat to allay the pain. There is a new medication, proazc but she has not changed her diet. She also takes s lot of motrin for her general body pain and this may be why the exacerbation. She has continues on her famotidine and she takes bentyl occasionally. I inquire if this is the same set of symptoms she had when we medicated her in the past. I did explain that women can present with cardiac pain he typically and that always concerns me. She denies any family history of severe cardiac disease and she says that she is familiar with the symptoms because this is the same as what she had in the past. I did tell her that if the Nexium does not resolve the pain she should present to the ER for evaluation. She denies any shortness of breath, palpitations, syncope or near-syncope. I think we need to restart the nexium, and she agrees. She says I try to hold the pain but I don't want her to hold the pain as I don't want to have esophageal damage. ROV 6 weeks to eval Medications: New esomeprazole magnesium (Nexium) 40 mg PO DAILY 30 caps 6RF K21.9 - Gastro-esophageal reflux disease without esophagitis dicyclomine 20 mg PO QID 30 days 120 tabs 1RF Refilled famotidine (Pepcid) 20 mg PO BEDTIME 30 tabs 6RF TODAY'S VISIT Salv[place]orean #[id number] Morgan She had been on just famotidine for a while, but then she had a return of sx with needing to take more frequent motrin so we re started the esomeprazole. BUT she admits that she is forgetting to take it, so her sx have not changed. She dose note that salsa really sets off her sx. She already takes famotidine 20mg qhs with her motrin, and she can continue this and take the nexium at the same time. She tends to have pain under the bilateral breasts/ribs. It feels like a burning sensation that will persist all day or for many hours, but she is unsure what seems to relieve it . She does not have it every day. I express the opinion that if she can take her nexium regularly and the pain goes away, it is probably gastric; but if not it is probably musksile. With further discussion she says the burning feels like my skin is burning. This sounds more neuropathic. She says she had several XR recently, and there IS a t spine, but it is not read yet so I will keep an eye out for these reports. ROV 3 mos XR THORACIC SPINE/SCAPULAS/SACRUM/COCCYX [facility] Medical History Thoracic spine pain Pain of right scapula Abdominal cramping Hypersomnia Snoring Skin lesion Cough Right carpal tunnel syndrome Left carpal tunnel syndrome Hand pain ELLE on CPAP Right foot pain Left foot pain Bilateral hand pain Other spondylosis, sjwhjbif-yectoyu-xjlqw region Esophageal spasm Left shoulder pain Pain of left scapula Occipital neuralgia of right side Occipital neuralgia of left side Well woman exam Dyspepsia Odynophagia Sinus pressure Headache Blurry vision Carpal tunnel syndrome Facet joint disease of cervical region Muscle spasms of neck Abnormal uterine bleeding (AUB) Abdominal bloating Constipation Low vitamin D level Spasmodic torticollis Hx of ovarian cyst Colon cancer screening Neck pain Vaginal itching Anxiety Chest pain Bloody stools Physical exam Dyslipidemia Hypovitaminosis D Right flank pain RUQ abdominal pain Occipital headache Tonsil stone Overweight (BMI 25.0-29.9) Migraines Moderate major depression Normocytic anemia GERD (gastroesophageal reflux disease) Cervical cancer screening Cervical radiculopathy Facet arthropathy, multilevel Well woman exam with routine gynecological exam Fibromyalgia Arthritis Sleep apnea Surgical History History of esophagogastroduodenoscopy (EGD) (10/25/22) Hx of colonoscopy History of endoscopy S/P lumbar fusion Hx of removal of ovary Family History Mother Thyroid disease Maternal Aunt No problems noted. Father No problems noted. Social History Housing: House Alcohol intake: current Alcohol intake frequency: holidays/special occasions only Alcohol type: wine Patient Tobacco Use Status: Former Tobacco user Tobacco use type: Cigarette e-Cigarette/Vaping Use: Never Used Second Hand Smoke Exposure: No Advance Directives: No Advance Directives Information Provided: Yes service: No Current occupational status: disabled Gender identity: Female Cognitive needs: No Hearing needs: No Vision needs: Yes Female Reproductive History Menstrual Age of Menarche: 11 Review of Systems Const Denies fatigue, Denies fever(s), Denies night sweats, Denies poor appetite and Denies weight loss ENT Reports Normal hearing present, Denies dental pain, Denies dysphagia, Denies hearing loss, Denies mouth pain, Denies odynophagia, Denies throat swelling, Denies tongue swelling and Reports other (Dentition adequate) Card Reports no additional complaints Resp Reports no additional complaints GI Details: Reports abdominal pain, Denies melena, Denies bloating, Denies hematochezia, Denies constipation, Denies GI cramping, Denies dysphagia, Denies excessive flatus, Denies early satiety, Reports heartburn, Denies diarrhea, Denies nausea, Denies odynophagia, Denies vomiting and Denies hematemesis Musc Reports back pain Skin/Breast Denies pruritus, Denies lesions, Denies rash and Denies jaundice Neuro Reports Normal hearing present and Denies Abnormal speech present Endo Denies fatigue Aller/Immun Denies throat swelling and Denies tongue swelling Physical Exam Vital Signs: Last Vital Signs Pulse 92 02/08/24 12:05 BP 90/58 L 02/08/24 12:05 BMI result Body Mass Index 31.6 Const General: cooperative, no acute distress, well developed and well groomed Nutritional Appearance: well nourished and obese Orientation/consciousness: oriented to person, oriented to place and oriented to time Limitations: No language barrier HEENT Head: Yes normocephalic and Yes atraumatic Eyes General: appearance normal, both eyes and all related structures Pupils: Equal, round and reactive pupils present Neck Neck: Yes normal visual inspection and Yes no lymphadenopathy Thyroid: Thyroid normal Resp Effort & Inspection: normal respiratory effort and able to speak in complete sentences Auscultation: clear to auscultation bilaterally Cardio Rate: regular rate Rhythm: regular rhythm Heart sounds: Normal, physiologic split S2 sound present Peripheral pulses: radial pulses present and posterior tibial pulses present GI Inspection: No distended, No Abdominal panniculus present and Yes obesity Palpation (GI): Soft to palpation, nontender, no guarding, not rigid and No hepatosplenomegaly present Percussion: Yes normal to percussion Auscultation: normal bowel sounds Rectal Exam - Female: deferred Skin General skin exam: no rashes or lesions noted, turgor normal, skin not dry, no jaundice, No spider nevi and no striae Rashes: no rashes Nails: normal Neuro General: oriented to person, oriented to place and oriented to time Cranial nerves: Yes Equal, round and reactive pupils present and Yes Normal hearing present Speech: No Abnormal speech present Extrem General: Yes normal to inspection, No clubbing, No cyanosis and No edema Psych Thought process: Normal thought process present and not confabulating Thought content: Normal thought content present Insight: Good insight present (Psych) Judgement: Good judgement present (Psych) Assessment & Plan Assessment & Plan (1) GERD (gastroesophageal reflux disease): Code(s): K21.9 - Gastro-esophageal reflux disease without esophagitis Category: Medical Qualifiers: Esophagitis presence: esophagitis presence not specified Qualified Code(s): K21.9 - Gastro-esophageal reflux disease without esophagitis (2) Pain of both scapulas: Code(s): M89.8X1 - Other specified disorders of bone, shoulder Category: Medical (3) Bilateral carpal tunnel syndrome: Code(s): G56.03 - Carpal tunnel syndrome, bilateral upper limbs Category: Medical (4) Bilateral foot pain: Code(s): M79.671 - Pain in right foot; M79.672 - Pain in left foot Category: Medical (5) Bilateral occipital neuralgia: Code(s): M54.81 - Occipital neuralgia Category: Medical Plan [place] #[id number] Morgan She had been on just famotidine for a while, but then she had a return of sx with needing to take more frequent motrin so we re started the esomeprazole. BUT she admits that she is forgetting to take it, so her sx have not changed. She dose note that salsa really sets off her sx. She already takes famotidine 20mg qhs with her motrin, and she can continue this and take the nexium at the same time. She tends to have pain under the bilateral breasts/ribs. It feels like a burning sensation that will persist all day or for many hours, but she is unsure what seems to relieve it . She does not have it every day. I express the opinion that if she can take her nexium regularly and the pain goes away, it is probably gastric; but if not it is probably musksile. With further discussion she says the burning feels like my skin is burning. This sounds more neuropathic. She says she had several XR recently, and there IS a t spine, but it is not read yet so I will keep an eye out for these reports. ROV 3 mos XR THORACIC SPINE/SCAPULAS/SACRUM/COCCYX Coding Level of Care Code Est Pt Level 3 (84532) Diagnoses Gastroesophageal reflux disease, unspecified whether esophagitis present K21.9 Esophagitis presence: esophagitis presence not specified Pain of both scapulas M89.8X1 Bilateral carpal tunnel syndrome G56.03 Bilateral foot pain M79.671; M79.672 Bilateral occipital neuralgia M54.81
== END 2024-02-08 13:05 | disposition home or self-care (01) ==
PROVIDERS: PCP Internal Medicine; Visit Provider Nurse Practitioner
DX: K21.9 Gastro-esophageal reflux disease without esophagitis (principal); M89.8X1 Other specified disorders of bone, shoulder; G56.03 Carpal tunnel syndrome, bilateral upper limbs; M79.671 Pain in right foot; M79.672 Pain in left foot; M54.81 Occipital neuralgia
CPT/HCPCS: 99499

== ENCOUNTER → 2024-02-08 12:03 | Outpatient (BNVA) | payer OTHER, SELFPAY | PROVIDERS: PCP Internal Medicine; Visit Provider Nurse Practitioner ==

== ENCOUNTER 2024-03-04 10:06 | Outpatient (AMB) | payer OTHER, SELFPAY ==
--- NOTE | 2024-03-04 10:08 | A.OFFPC_ITS ---
Vital Signs 03/04/24 10:09 Height 5 ft 3 in Weight 178 lb BMI 31.5 BP 110/70 Blood Pressure Location Lt brachial Position Sitting Intake Visit Reasons: depression Intake Note: Patient here for a follow up Depression Critical Care Physician Assistant Required: No Accompanied by: Self / Same As Patient Allergies morphine [MORPHINE] Allergy (Intermediate, Verified 03/04/24 10:22) Itching tramadol [TRAMADOL] Allergy (Intermediate, Verified 03/04/24 10:22) SHORTNESS OF BREATH Medication List - Last Reconciled 03/04/24 by Lilia Walsh MD bupropion HCl XL 150 mg PO DAILY udkrymxdlg-ncmyjwahmdbxo-szki 50-325-40 mg 2 tabs PO Q4H PRN cholecalciferol (vitamin D3) 25 mcg PO DAILY cyclobenzaprine 5 mg PO TID PRN 30 days dicyclomine 20 mg PO QID 30 days esomeprazole magnesium (Nexium) 40 mg PO DAILY famotidine (Pepcid) 20 mg PO BEDTIME fluoxetine 20 mg PO DAILY gabapentin 600 mg PO BEDTIME 90 days hydroxyzine HCl 25 mg PO BEDTIME PRN 10 days ibuprofen 800 mg PO Q8H lorazepam 1 mg PO BID PRN sennosides (Senna Laxative) 17.2 mg (2 x 8.6 mg) PO BEDTIME Tobacco use date assessed: 08/29/23 Dental Screening Dental Screen Date: 03/04/24 Did you have a dental visit in the last 12 months?: No Did you have a dental problem in the last 6 months where you did not have access to dental care?: No Was dental information given to patient?: Patient has dentist HPI HPI Comments History of Present Illness Details The patient is a 48-year-old female presenting with concerns regarding depression and fibromyalgia, which are the primary reasons for this visit. The patient is currently prescribed bupropion 150 mg for depression. Additionally, she uses gabapentin 600 mg at night for fibromyalgia, which causes sleepiness, and cyclobenzaprine. Fibromyalgia coexists with arthritis and tendonitis, which is part of her chronic musculoskeletal issues. The patient reported having been prescribed fluoxetine 20 mg as well. There was a discussion of perimenopausal symptoms, for which no specific treatment has been mentioned. Associated symptoms were managed with various medications, including lorazepam as needed for anxiety, and ibuprofen as needed for pain relief. The patient has difficulties with a trigger finger, which was treated with a cortisone injection by Dr. Estrada on a recent visit. The patient has a documented allergy to morphine and tramadol. She also experienced pain in both ankles, leading to a plan for referral to a register in [facility]. Additionally, constipation is managed with dicyclomine and other medications when necessary. She has left foot pain and wants a referral for Podiatry. She also has polyarthralgia and would like to see arthritis treatment center. I did the referral 01/22/2024 for her back pain to [facility] and she has not received a call. Will make this referral urgent. No chest pain or shortness on breath. [facility] Medical History (Updated 03/04/24 @ 10:34 by Lilia Walsh MD) Left foot pain Neck pain ELLE on CPAP Thoracic spine pain Occipital neuralgia of left side Occipital neuralgia of right side Right foot pain Abdominal cramping Left carpal tunnel syndrome Right carpal tunnel syndrome Pain of left scapula Pain of right scapula Low vitamin D level Spasmodic torticollis Overweight (BMI 25.0-29.9) Blurry vision Esophageal spasm Hypersomnia Dyspepsia Facet joint disease of cervical region Constipation Facet arthropathy, multilevel RUQ abdominal pain Right flank pain Cervical radiculopathy Abdominal bloating Carpal tunnel syndrome Odynophagia Bilateral hand pain Hand pain Cough Snoring Skin lesion Physical exam Other spondylosis, qstchote-pnksyeb-qjfla region Left shoulder pain Well woman exam Sinus pressure Headache Muscle spasms of neck Abnormal uterine bleeding (AUB) Hx of ovarian cyst Colon cancer screening Vaginal itching Bloody stools Tonsil stone Well woman exam with routine gynecological exam Anxiety Chest pain Dyslipidemia Hypovitaminosis D Occipital headache Migraines Moderate major depression Normocytic anemia GERD (gastroesophageal reflux disease) Cervical cancer screening Fibromyalgia Arthritis Sleep apnea Surgical History Hx of removal of ovary Hx of colonoscopy History of endoscopy S/P lumbar fusion Family History Mother Thyroid disease Maternal Aunt No problems noted. Father No problems noted. Social History Housing: House Alcohol intake: current Alcohol intake frequency: holidays/special occasions only Alcohol type: wine Patient Tobacco Use Status: Former Tobacco user Tobacco use type: Cigarette e-Cigarette/Vaping Use: Never Used Second Hand Smoke Exposure: No service: No Current occupational status: disabled Gender identity: Female Cognitive needs: No Hearing needs: No Vision needs: Yes Female Reproductive History Menstrual Age of Menarche: 11 Questionnaire Thrive Questionnaire Date Thrive assessed: 08/29/23 SHERIDAN-7 AMB Questionnaire SHERIDAN-7 Date SHERIDAN - 7 assessed: 08/29/23 Source: Developed by Drs. Alejandro Linton, Omayra King, Deejay Rivas and colleagues, with an educational rene from [employer] Review of Systems Const All systems reviewed & are unremarkable except as noted in HPI and below Card Denies chest pain at rest, Denies chest pain with activity, Denies edema, Denies irregular heart rhythm, Denies claudication, Denies dyspnea, Denies dyspnea on exertion, Denies orthopnea, Denies paroxysmal nocturnal dyspnea and Denies slow heart rate Resp Denies cough, Denies dyspnea and Denies dyspnea on exertion GI Denies abdominal pain, Denies change in bowel habits, Denies excessive flatus, Denies nausea and Denies vomiting Musc Denies atrophy, Denies deformity and Denies limited range of motion Physical exam (Primary Care) Vital Signs: Last Vital Signs BP 110/70 03/04/24 10:09 BMI result Body Mass Index 31.5 BMI Assessment/Plan discussion: High BMI High, discussed plan: lifestyle, weight reduction, dietary and physical activity Tobacco/Smoking Status: Tobacco use Status Tobacco use date assessed 08/29/23 03/04/24 10:14 Patient Tobacco Use Status Former Tobacco user 03/04/24 10:14 Tobacco use type Cigarette 03/04/24 10:14 e-Cigarette/Vaping Use Never Used 03/04/24 10:14 Thrive Assessment: Date of Thrive Assessment Date Thrive assessed 08/29/23 03/04/24 10:14 Resp Effort & Inspection: normal respiratory effort Auscultation: clear to auscultation bilaterally Cardio Jugular venous distension: no JVD Rate: regular rate Rhythm: regular rhythm Heart sounds: S1 normal heart sound present and S2 normal heart sound present Extrem General: Yes full ROM Office Procedures Flu Questionnaire Does the patient have a severe egg allergy?: No Immunizations Fluarix Triv [id number] (PF) 45 mcg (15 mcg x 3)/0.5 mL IM syringe Performing Provider: Lilia Walsh MD Performing Location: [facility] [place] [facility] Documented (not given) by: CARLEEN Harrell on 03/04/24 10:15 Reason Not Given: Patient Refused Coding Level of Care Code Est Pt Level 4 (98232) Complex EM visit Add On G2211 Diagnoses Moderate major depression F32.1 Fibromyalgia M79.7 Gastroesophageal reflux disease, unspecified whether esophagitis present K21.9 Esophagitis presence: esophagitis presence not specified Polyarthralgia M25.50 Left foot pain M79.672 Spondylosis of cervical region without myelopathy or radiculopathy M47.812 Thoracic back pain M54.6 Time Spent (min) 21 Assessment & Plan Assessment & Plan (1) Moderate major depression: Code(s): F32.1 - Major depressive disorder, single episode, moderate Category: Medical (2) Fibromyalgia: Code(s): M79.7 - Fibromyalgia Category: Medical (3) GERD (gastroesophageal reflux disease): Code(s): K21.9 - Gastro-esophageal reflux disease without esophagitis Category: Medical Qualifiers: Esophagitis presence: esophagitis presence not specified Qualified Code(s): K21.9 - Gastro-esophageal reflux disease without esophagitis (4) Polyarthralgia: Code(s): M25.50 - Pain in unspecified joint Category: Medical (5) Left foot pain: Code(s): M79.672 - Pain in left foot Category: Medical (6) Spondylosis of cervical region without myelopathy or radiculopathy: Code(s): M47.812 - Spondylosis without myelopathy or radiculopathy, cervical region Category: Medical (7) Thoracic back pain: Code(s): M54.6 - Pain in thoracic spine Category: Medical Plan The plan for her fibromyalgia is to increase gabapentin to 600 mg 3 times a day to see if she can handle it. She will also be referred to arthritis treatment center for her polyarthralgia. Referral to podiatry was also done for her left foot pain. Will continue current meds for depression with anxiety and follow by Psychiatry. I discussed with the patient the management plans for depression, fibromyalgia, and associated musculoskeletal issues. We reviewed the role of current medic ations and the need for possible referrals specifically to [facility] and a Digital Coordinator for her ankle pain. The potential necessity of surgical intervention for her trigger finger was also discussed with Dr. Allen already having provided cortisone treatment. The importance of avoiding allergens such as morphine and tramadol was reiterated. I addressed her vitamin B levels and reassured her about monitoring. During the review, I confirmed no additional upcoming endocrinological concerns from the patient's historical sugar levels. We reviewed non-pharmacological management strategies for identified issues and discussed continuing current plans with consideration for further evaluations if no improvement. Orders: Orders Influenza [id number] Immunization Today Z23 - Encounter for immunization Referrals Podiatry Referral M79.672 - Pain in left foot Rheumatology Referral M25.50 - Pain in unspecified joint Medications: Changed From gabapentin 600 mg PO BEDTIME 90 days 90 tabs 1RF To gabapentin 600 mg PO Q8H 90 days 270 tabs 1RF From ejsvorwsmk-vrhiybefgfnbw-dkpk 50-325-40 mg 2 tabs PO Q4H PRN pain To vupsqrhdvx-ryfolclwnwfpp-tgux 50-325-40 mg 2 tabs PO Q4H 30 days PRN 30 tabs 0RF pain Refilled cyclobenzaprine 5 mg PO TID 30 days PRN 90 tabs 8RF for muscle spasm Patient Instructions: - Continue with prescribed medications for depression, fibromyalgia, and other conditions. - Follow up with Dr. Allen for the trigger finger and consider surgical options if necessary. - Contact the register in [place]cery for evaluation of ankle pain. - Monitor vitamin intake and follow up on lab results as needed. - Avoid exposure to known allergens, particularly morphine and tramadol. - Maintain the current management plan for constipation and neuropathy. - Schedule future follow-up appointments to reassess condition management.
[2024-03-04 10:09] VITALS: BP 110/70; BMI 31.5
== END 2024-03-04 10:38 | disposition home or self-care (01) ==
PROVIDERS: PCP Internal Medicine; Visit Provider Internal Medicine
DX: F32.1 Major depressive disorder, single episode, moderate (principal); M79.7 Fibromyalgia; K21.9 Gastro-esophageal reflux disease without esophagitis; M25.50 Pain in unspecified joint; M79.672 Pain in left foot; M47.812 Spondylosis without myelopathy or radiculopathy, cervical region; M54.6 Pain in thoracic spine; Z23 Encounter for immunization

== ENCOUNTER → 2024-03-04 10:06 | Outpatient (BNVA) | payer OTHER, SELFPAY | PROVIDERS: PCP Internal Medicine; Visit Provider Internal Medicine | DX: F32.1 Major depressive disorder, single episode, moderate (principal); M79.7 Fibromyalgia; K21.9 Gastro-esophageal reflux disease without esophagitis; M25.50 Pain in unspecified joint; M79.672 Pain in left foot; M47.812 Spondylosis without myelopathy or radiculopathy, cervical region; M54.6 Pain in thoracic spine | CPT/HCPCS: 90471; 99212 ==

== ENCOUNTER 2024-03-13 11:20 | Outpatient (REF) | payer OTHER, SELFPAY ==
[2024-03-13 12:52] LABS: Hematocrit 35.4 % (37.0-47.0); Mean Corpuscular HGB Conc 33.9 g/dl (31.0-35.0); Mean Corpuscular Hemoglobin 30.2 pg (27.0-33.0); Mean Corpuscular Volume 89.2 fL (80.0-98.0); Mean Platelet Volume 11.2 fL (9.4-12.3); Platelet Count 295 X10*3/uL (160-400); Red Blood Count 3.97 X10*6/uL (4.20-5.50); Red Cell Distribution Width 13.2 % (11.0-16.0); White Blood Count 7.9 X10*3/uL (4.8-10.8)
[2024-03-13 13:33] LABS: HCG Quantitative < 2 mIU/mL
[2024-03-13 18:33] LABS: CT PCR NOT DETECTED (Not Detect.); NG PCR NOT DETECTED (Not Detect.)
[2024-03-14 16:34] LABS: Follicle Stimulating Hormone 16.7 mIU/mL; Lutenizing Hormone 7.5 mIU/mL
== END 2024-03-13 11:21 | disposition home or self-care (01) ==
LOC: HO.LNP 11:20
PROVIDERS: PCP Internal Medicine; Visit Provider Obstetrics & Gynecology
DX: N93.9 Abnormal uterine and vaginal bleeding, unspecified (principal); Z32.02 Encounter for pregnancy test, result negative
CPT/HCPCS: 81025; 83001; 83002; 84702; 85027; 87491; 87591; 99212

== ENCOUNTER 2024-03-13 11:20 | Outpatient (AMB) | payer OTHER, SELFPAY ==
[2024-03-13 11:21] VITALS: BMI 31.5
--- NOTE | 2024-03-13 11:21 | A.OFFVIS_ITS ---
Vital Signs 03/13/24 11:21 Height 5 ft 3 in Weight 178 lb BMI 31.5 Intake Visit Reasons: irregular menses Informatics Physician Liaison Required: Yes Informatics Physician Liaison Language: Recordist Chief Services: Informatics Physician Liaison Present (in person) Informatics Physician Liaison Name: Shae DURANT Information Interpreted: non-clinical & clinical Packing Clerk: Packing Clerk Present (Shae DURANT) Accompanied by: Self / Same As Patient Allergies morphine [MORPHINE] Allergy (Intermediate, Verified 03/13/24 11:33) Itching tramadol [TRAMADOL] Allergy (Intermediate, Verified 03/13/24 11:33) SHORTNESS OF BREATH HPI Comments Details: The patient is presenting c/o irregular bleeding associated with passage of blood clots and abdominal cramping. it started few months ago and is getting worse no other associated symptoms. Last co testing was in 05/17 was negative Last mammogram was in 04/19 was BI-RADS 1 [facility] Medical History (Updated 03/13/24 @ 11:46 by James Sun MD) Abnormal uterine bleeding (AUB) Left foot pain Neck pain ELLE on CPAP Thoracic spine pain Occipital neuralgia of left side Occipital neuralgia of right side Right foot pain Abdominal cramping Left carpal tunnel syndrome Right carpal tunnel syndrome Pain of left scapula Pain of right scapula Low vitamin D level Spasmodic torticollis Overweight (BMI 25.0-29.9) Blurry vision Esophageal spasm Hypersomnia Dyspepsia Facet joint disease of cervical region Constipation Facet arthropathy, multilevel RUQ abdominal pain Right flank pain Cervical radiculopathy Abdominal bloating Carpal tunnel syndrome Odynophagia Bilateral hand pain Hand pain Cough Snoring Skin lesion Physical exam Other spondylosis, jvynuknl-xumrdxy-lgygx region Left shoulder pain Well woman exam Sinus pressure Headache Muscle spasms of neck Hx of ovarian cyst Colon cancer screening Vaginal itching Bloody stools Tonsil stone Well woman exam with routine gynecological exam Anxiety Chest pain Dyslipidemia Hypovitaminosis D Occipital headache Migraines Moderate major depression Normocytic anemia GERD (gastroesophageal reflux disease) Cervical cancer screening Fibromyalgia Arthritis Sleep apnea Surgical History Hx of removal of ovary Hx of colonoscopy History of endoscopy S/P lumbar fusion Family History Mother Thyroid disease Maternal Aunt No problems noted. Father No problems noted. Social History Housing: House Alcohol intake: current Alcohol intake frequency: holidays/special occasions only Alcohol type: wine Patient Tobacco Use Status: Former Tobacco user Tobacco use type: Cigarette e-Cigarette/Vaping Use: Never Used Second Hand Smoke Exposure: No service: No Current occupational status: disabled Gender identity: Female Cognitive needs: No Hearing needs: No Vision needs: Yes Female Reproductive History Menstrual Age of Menarche: 11 Review of Systems Const All systems reviewed & are unremarkable except as noted in HPI and below Physical Exam Vital Signs: BMI result Body Mass Index 31.5 General: Yes no CVA tenderness External Female Exam: normal external appearance and normal appearance of the urethra Speculum Exam - Vagina: normal appearance of the vagina, normal palpation, no lesions and no masses Speculum Exam - Cervix: normal appearance of the cervix, normal palpation, no lesions, no masses and nontender Bimanual exam- vagina & uterus: normal bimanual exam, normal palpation, uterine size normal, normal palpation, uterine shape normal, No Cervical tenderness present and non-tender Bimanual Exam- Adnexa, other: normal adnexae Back/Spine/Pelvis Back: no CVA tenderness Results AMB Test Urine AMB Test Urine Negative Last Edit by Shae Triplett CMA on 11:39 Assessment & Plan Assessment & Plan (1) Abnormal uterine bleeding (AUB): Code(s): N93.9 - Abnormal uterine and vaginal bleeding, unspecified Category: Medical Plan: Screening mammogram ordered. GC and chlamydia taken CBC, TSH, FSH/LH, HCG, and pelvic ultrasound ordered. Discussed with the patient the different causes of abnormal bleeding including thyroid disorders, uterine and ovarian pathology, endometrial hyperplasia, carcinoma and other potential causes. Discussed with the patient the work up including CBC (to r/o anemia), TSH, prolactin, pelvic Ultrasound, endometrial biopsy to r/o endometrial pathology. All questions answered and the patient verbalized understanding. Instructed the patient to schedule an appointment for an endometrial biopsy in 2 weeks. Orders: Orders AMB HCG Urine Test Today Z32.02 - Encounter for test, result negative Lutenizing Hormone Today N93.9 - Abnormal uterine and vaginal bleeding, unspecified Follicle Stimulating Hormone Today N93.9 - Abnormal uterine and vaginal bl eeding, unspecified US pelvic and transvaginal Today N93.9 - Abnormal uterine and vaginal bleeding, unspecified MM screening mammo BI Today Z12.31 - Encounter for screening mammogram for malignant neoplasm of breast Complete Blood Count no Diff Today N93.9 - Abnormal uterine and vaginal bleeding, unspecified HCG Quantitative Today N93.9 - Abnormal uterine and vaginal bleeding, unspecified Coding Level of Care Code Est Pt Level 3 (73869) Diagnoses Abnormal uterine bleeding (AUB) N93.9
== END 2024-03-13 11:46 | disposition home or self-care (01) ==
LOC: HO.HWS 11:20
PROVIDERS: PCP Internal Medicine; Visit Provider Obstetrics & Gynecology
DX: Z32.02 Encounter for pregnancy test, result negative (principal); N93.9 Abnormal uterine and vaginal bleeding, unspecified
CPT/HCPCS: 99213

== ENCOUNTER 2024-03-13 11:56 | Outpatient (REF) | payer OTHER, SELFPAY | END 2024-03-13 11:57 | disposition home or self-care (01) | LOC: HO.LAB 11:56 | PROVIDERS: PCP Internal Medicine; Visit Provider Obstetrics & Gynecology | DX: Z13.89 Encounter for screening for other disorder (principal) ==

== ENCOUNTER 2024-03-29 13:10 | Outpatient (REF) | payer OTHER, SELFPAY ==
--- NOTE | ~2024-03-29 | US_ITS ---
CLINICAL HISTORY: N93.9 - Abnormal uterine and vaginal bleeding, unspecified US pelvis transabdominal and transvaginal Comparison: None Findings: Uterus measures 9.6 x 5.4 x 5.9 cm. Endometrial thickness measures up to 10 m. Approximately 4 x 3 x 5 mm mostly echogenic lesion in the anterior aspect of the proximal endometrium with peripheral vascularity may be due to a polyp or polypoid lesion. Further evaluation with sonohysterogram and/or pelvic MRI recommended. 6 mm hypoechoic subendometrial proximal uterine fibroid. Right ovary not individualized. No evidence of right adnexal mass lesion. Per strain technician notes, the left ovary was questionably identified. The questionable left ovary measures 3.9 x 2.3 x 2.8 cm and demonstrates a few mildly complex small cysts measuring up to 16 mm. These could be further evaluated with a short-term follow-up ultrasound in approximately 6 weeks. No free fluid. IMPRESSION: 5 mm mostly echogenic lesion in the anterior aspect of the proximal endometrium with peripheral vascularity may be due to a polyp or polypoid lesion. Further evaluation with sonohysterogram and/or pelvic MRI recommended. Per strain technician notes, the left ovary was questionably identified. The questionable left ovary measures 3.9 x 2.3 x 2.8 cm and demonstrates a few mildly complex small cysts measuring up to 16 mm. These could be further evaluated with a short-term follow-up ultrasound in approximately 6 weeks. This document has been electronically signed by: Mary Vivar MD on 04/01/2024 11:41:01
== END 2024-03-29 13:11 | disposition home or self-care (01) ==
LOC: HO.US 13:10
PROVIDERS: PCP Internal Medicine; Visit Provider Obstetrics & Gynecology
DX: N93.9 Abnormal uterine and vaginal bleeding, unspecified (principal)
CPT/HCPCS: 76830; 76856

== ENCOUNTER → 2024-03-29 13:16 | Outpatient (BNV) | payer OTHER, SELFPAY | PROVIDERS: PCP Internal Medicine; Visit Provider Radiology Diagnostic Radiology | DX: N93.9 Abnormal uterine and vaginal bleeding, unspecified (principal) | CPT/HCPCS: 76830; 76856 ==

== ENCOUNTER 2024-04-05 10:00 | Outpatient (AMB) | payer OTHER, SELFPAY ==
--- NOTE | 2024-04-05 10:21 | MHC.OFFVIS ---
Intake Visit Reasons: US follow up/EMB Soldering Machine Feeder Required: Yes Soldering Machine Feeder Language: Environmental Services Technician Services: Soldering Machine Feeder Present (in person) Soldering Machine Feeder Name: CARLEEN [place] Information Interpreted: non-clinical & clinical Scientific Research Associate: Scientific Research Associate Present (Shae JUAN F TriplettRj) Accompanied by: Spouse Allergies morphine [MORPHINE] Allergy (Intermediate, Verified 04/05/24 10:21) Itching tramadol [TRAMADOL] Allergy (Intermediate, Verified 04/05/24 10:21) SHORTNESS OF BREATH Is last menstrual period known: Yes Last menstrual period: 01/23/20 Post menopausal: No Patient : No Do you need a note to return to daycare/school/sports/work: Yes (for surgery on monday) HPI Comments Details: Presenting for ultrasound follow-up which showed the following: Findings: Uterus measures 9.6 x 5.4 x 5.9 cm. Endometrial thickness measures up to 10 m. Approximately 4 x 3 x 5 mm mostly echogenic lesion in the anterior aspect of the proximal endometrium with peripheral vascularity may be due to a polyp or polypoid lesion. Further evaluation with sonohysterogram and/or pelvic MRI recommended. 6 mm hypoechoic subendometrial proximal uterine fibroid. Right ovary not individualized. No evidence of right adnexal mass lesion. Per communications technologist notes, the left ovary was questionably identified. The questionable left ovary measures 3.9 x 2.3 x 2.8 cm and demonstrates a few mildly complex small cysts measuring up to 16 mm. These could be further evaluated with a short-term follow-up ultrasound in approximately 6 weeks. No free fluid PFSH Medical History (Updated 04/05/24 @ 10:25 by James Sun MD) Abnormal uterine bleeding (AUB) Left foot pain Neck pain ELLE on CPAP Thoracic spine pain Occipital neuralgia of left side Occipital neuralgia of right side Right foot pain Abdominal cramping Left carpal tunnel syndrome Right carpal tunnel syndrome Pain of left scapula Pain of right scapula Low vitamin D level Spasmodic torticollis Overweight (BMI 25.0-29.9) Blurry vision Esophageal spasm Hypersomnia Dyspepsia Facet joint disease of cervical region Constipation Facet arthropathy, multilevel RUQ abdominal pain Right flank pain Cervical radiculopathy Abdominal bloating Carpal tunnel syndrome Odynophagia Bilateral hand pain Hand pain Cough Snoring Skin lesion Physical exam Other spondylosis, mvqcysoh-zmthxnz-nvdam region Left shoulder pain Well woman exam Sinus pressure Headache Muscle spasms of neck Hx of ovarian cyst Colon cancer screening Vaginal itching Bloody stools Tonsil stone Well woman exam with routine gynecological exam Anxiety Chest pain Dyslipidemia Hypovitaminosis D Occipital headache Migraines Moderate major depression Normocytic anemia GERD (gastroesophageal reflux disease) Cervical cancer screening Fibromyalgia Arthritis Sleep apnea Surgical History Hx of removal of ovary Hx of colonoscopy History of endoscopy S/P lumbar fusion Family History Mother Thyroid disease Maternal Aunt No problems noted. Father No problems noted. Social History Housing: House Alcohol intake: current Alcohol intake frequency: holidays/special occasions only Alcohol type: wine Patient Tobacco Use Status: Former Tobacco user Tobacco use type: Cigarette e-Cigarette/Vaping Use: Never Used Second Hand Smoke Exposure: No service: No Current occupational status: disabled Gender identity: Female Cognitive needs: No Hearing needs: No Vision needs: Yes Female Reproductive History Menstrual Age of Menarche: 11 Date of last menstrual period: 01/23/20 Total pregnancies: 2 Full term: 2 Review of Systems Card Reports as per HPI and Reports no additional complaints Resp Reports as per HPI and Reports no additional complaints GI Reports as per HPI and Reports no additional complaints Reports as per HPI Physical Exam Const General: cooperative, healthy appearing and comfortable Resp Effort & Inspection: normal respiratory effort Auscultation: clear to auscultation bilaterally Percussion: percussion normal Cardio Palpation: normal PMI Rate: regular rate Rhythm: regular rhythm Heart sounds: no murmurs and no rubs Peripheral pulses: Peripheral pulses 2+ throughout GI Inspection: Yes normal to inspection Palpation (GI): Soft to palpation, nontender, no guarding, not rigid and No hepatosplenomegaly present Percussion: Yes normal to percussion Auscultation: normal bowel sounds Rectal Exam - Female: deferred Assessment & Plan Assessment & Plan (1) Abnormal uterine bleeding (AUB): Comment: Endometrial polyp by ultrasound Code(s): N93.9 - Abnormal uterine and vaginal bleeding, unspecified Category: Medical Plan: Discussed with the patient the results of the ultrasound showing endometrial polyp. Recommended hysteroscopy D&C possible polypectomy/myomectomy. Discussed with the patient the procedure , all benefits and risks including but not limited to inability to complete the procedure , insufficient endometrial tissue for a complete evaluation of the endometrial cavity , bleeding, infection, possible need for blood transfusion with all its risk ( HIV,syphilis, Hepatitis, anaphylaxis shock, others..), injury to bladder, rectum, possible need for laparoscopy/laparotomy or hysterectomy. The patient verbalized understanding and signed the consent. Instructions given the patient to stay NPO after midnight the day prior to the procedure and to take only the specific medication (s) discussed the morning of the surgical procedure and to schedule a 2 week postoperative appointment (2) Complex ovarian cyst: Code(s): N83.299 - Other ovarian cyst, unspecified side Category: Medical Plan: Discussed with the patient the complex ovarian cyst by ultrasound. Discussed with the patient the Ultrasound findings, the main limitation of transvaginal ultrasonography alone as a diagnostic tool to distinguish benign from malignant masses relates to its lack of specificity and low positive predictive value for cancer. The differential diagnosis discussed with the patient includes the following but not limited to: benign and malignant gynecological and non-gynecological causes. Discussed with the patient options of treatment including laparoscopy ovarian cystectomy/oophorectomy vs. expectant management with repeat US in repeating pelvic US in 6-12 weeks from previous US. If the ovarian complex cyst is persistent larger and / or more complex looking will refer to gynecologic Oncology. All pros, cons, risks and benefits of each approach were discussed with the patient including but not limited to a delay in the diagnosis and treatment of ovarian cancer affecting the prognosis; The patient decided to go ahead with expectant management. Instructions given the patient to schedule a 3 months follow-up ultrasound appointment. All questions were answered & the patient verbalized understanding and agreed with the plan. Orders: Orders US pelvic complete 6 Weeks N83.299 - Other ovarian cyst, unspecified side Coding Level of Care Code Est Pt Level 3 (29306) Diagnoses Abnormal uterine bleeding (AUB) N93.9 Complex ovarian cyst N83.299
== END 2024-04-05 10:57 | disposition home or self-care (01) ==
PROVIDERS: PCP Internal Medicine; Visit Provider Obstetrics & Gynecology
DX: N93.9 Abnormal uterine and vaginal bleeding, unspecified (principal); N83.299 Other ovarian cyst, unspecified side
CPT/HCPCS: 99213

== ENCOUNTER → 2024-04-05 10:00 | Outpatient (BNVA) | payer OTHER, SELFPAY | PROVIDERS: PCP Internal Medicine; Visit Provider Obstetrics & Gynecology | DX: N93.9 Abnormal uterine and vaginal bleeding, unspecified (principal); N83.299 Other ovarian cyst, unspecified side | CPT/HCPCS: 99212 ==

== ENCOUNTER 2024-04-18 11:54 | Outpatient (REF) | payer OTHER, SELFPAY | END 2024-04-18 11:55 | disposition home or self-care (01) | LOC: HO.MAMMO 11:54 | PROVIDERS: PCP Internal Medicine; Referring Provider Obstetrics & Gynecology; Visit Provider Internal Medicine | DX: Z12.31 Encounter for screening mammogram for malignant neoplasm of breast (principal) | CPT/HCPCS: 77063; 77067 ==

== ENCOUNTER → 2024-04-18 12:15 | Outpatient (BNV) | payer OTHER, SELFPAY | PROVIDERS: PCP Internal Medicine; Referring Provider Obstetrics & Gynecology; Visit Provider Internal Medicine | DX: Z12.31 Encounter for screening mammogram for malignant neoplasm of breast (principal) | CPT/HCPCS: 77063; 77067 ==

== ENCOUNTER 2024-04-22 11:11 | Outpatient (AMB) | payer OTHER, SELFPAY ==
--- NOTE | 2024-04-22 11:14 | A.OFFVIS_ITS ---
Vital Signs 04/22/24 11:15 Height 5 ft 3 in Weight 175 lb BMI 31.0 BP 98/76 Blood Pressure Location Rt brachial Position Sitting Intake Visit Reasons: Follow Up Intake Note: Patient presents for follow up Allergies morphine [MORPHINE] Allergy (Intermediate, Verified 04/22/24 11:16) Itching tramadol [TRAMADOL] Allergy (Intermediate, Verified 04/22/24 11:16) SHORTNESS OF BREATH HPI Comments Details: 48 y/o female patient presents for follow up of ELLE on CPAP. Split Night study 11/2023 AHI 43 O2 guillermina 82%. she has a new CPAP and is using it but feels mask is leaking and she still has residual snoring Compliance data from Mr AIr View 70/70 100% usage Average hrs 7.37 hrs AHI 1.7 She sleeps well with CPAP, having rested sleep and daytime sleepiness has improved. [facility] Medical History Abnormal uterine bleeding (AUB) Left foot pain Neck pain ELLE on CPAP Thoracic spine pain Occipital neuralgia of left side Occipital neuralgia of right side Right foot pain Abdominal cramping Left carpal tunnel syndrome Right carpal tunnel syndrome Pain of left scapula Pain of right scapula Low vitamin D level Spasmodic torticollis Overweight (BMI 25.0-29.9) Blurry vision Esophageal spasm Hypersomnia Dyspepsia Facet joint disease of cervical region Constipation Facet arthropathy, multilevel RUQ abdominal pain Right flank pain Cervical radiculopathy Abdominal bloating Carpal tunnel syndrome Odynophagia Bilateral hand pain Hand pain Cough Snoring Skin lesion Physical exam Other spondylosis, hatpvdqk-cuksned-zfxsp region Left shoulder pain Well woman exam Sinus pressure Headache Muscle spasms of neck Hx of ovarian cyst Colon cancer screening Vaginal itching Bloody stools Tonsil stone Well woman exam with routine gynecological exam Anxiety Chest pain Dyslipidemia Hypovitaminosis D Occipital headache Migraines Moderate major depression Normocytic anemia GERD (gastroesophageal reflux disease) Cervical cancer screening Fibromyalgia Arthritis Sleep apnea Surgical History Hx of removal of ovary Hx of colonoscopy History of endoscopy S/P lumbar fusion Family History Mother Thyroid disease Maternal Aunt No problems noted. Father No problems noted. Social History Housing: House Alcohol intake: current Alcohol intake frequency: holidays/special occasions only Alcohol type: wine Patient Tobacco Use Status: Former Tobacco user Tobacco use type: Cigarette e-Cigarette/Vaping Use: Never Used Second Hand Smoke Exposure: No service: No Current occupational status: disabled Gender identity: Female Cognitive needs: No Hearing needs: No Vision needs: Yes Female Reproductive History Menstrual Age of Menarche: 11 Physical Exam Vital Signs: Last Vital Signs BP 98/76 04/22/24 11:15 BMI result Body Mass Index 31.0 Const General: cooperative Nutritional Appearance: overweight Orientation/consciousness: patient oriented x3 Limitations: language barrier Neck Neck: Yes full ROM Resp Effort & Inspection: normal respiratory effort and able to speak in complete sentences Neuro General: patient oriented x3, gait normal and moves all extremities Cranial nerves: Yes CN's II-XII intact bilaterally Cognition (Neuro): normal cognition Gait exam (Neuro): Normal gait present Motor exam (neuro): 5/5 motor strength present throughout Psych Appearance: grossly normal Mental Status: mental status grossly normal Speech and movement: Normal speech and movement present Affect: normal affect Attitude: cooperative Assessment & Plan Assessment & Plan (1) Obstructive sleep apnea: Comment: 11/2023 AHI 43 O2 guillermina 82% on CPAP 6 Code(s): G47.33 - Obstructive sleep apnea (adult) (pediatric) Category: Medical Plan Continue CPAP at 6 cm Compliance stressed Questions about INSPIRE answered. Coding Level of Care Code Est Pt Level 4 (07088) Diagnoses Obstructive sleep apnea G47.33
[2024-04-22 11:15] VITALS: BP 98/76; BMI 31.0
--- OUTSIDE RECORDS SUMMARY | 2024-04-22 16:07 | XMS_ITS | Clinical Summary ---
Author Organization [address] [place] [address] [address] [place] [address] Phone Care Team Providers Care Psychology Associate Name Role Phone Lilia Walsh MD Primary Care Provider [phone] Allergies Active Allergy Reactions Criticality Noted Date Comments Morphine 03/01/2024 Ants in her body Tramadol Respiratory Issues 03/01/2024 Medications Medication Sig Dispensed Refills Start Date End Date Status buPROPion XL (WELLBUTRIN XL) 150 mg 24 hr tablet Take 1 tablet (150 mg total) by mouth 1 (one) time each day. Do not crush, chew, or split. Active gabapentin (NEURONTIN) 250 mg/5 mL (5 mL) solution Take by mouth. Active cholecalciferol (VITAMIN D-3) 10 mcg (400 unit) tablet Take 1 tablet (400 Units total) by mouth 1 (one) time each day. Active ibuprofen (ADVIL,MOTRIN) 100 mg/5 mL suspension 20 mL (400 mg total). Active cyclobenzaprine (FLEXERIL) 10 mg tablet Take 1 tablet (10 mg total) by mouth 3 (three) times a day if needed for muscle spasms. Active Encounters Date Type Department Care Team Description 03/29/2024 2:30 PM EST Office Visit Orthopedic Surgery [address] [address] Bebe Reyna PA Cubital tunnel syndrome of both upper extremities (Primary Dx); Bilateral carpal tunnel syndrome; Trigger finger, acquired 03/01/2024 1:30 PM EST Consult Orthopedic [address] [address] Bebe Reyna PA Bilateral carpal tunnel syndrome (Primary Dx); Cubital tunnel syndrome of both upper extremities; Trigger finger, acquired from Last 3 Months Social History Tobacco Use Types Packs/Day Years Used Date Smoking Tobacco: Never Assessed Sex and Gender Information Value Date Recorded Sex Assigned at Not on file Gender Identity Not on file Sexual Orientation Not on file Job Start Date Occupation Industry Not on file Not on file Not on file Last Filed Vital Signs Vital Sign Reading Time Taken Comments Blood Pressure - - Pulse - - Temperature - - Respiratory Rate - - Oxygen Saturation - - Inhaled Oxygen Concentration - - Weight 80.7 kg (178 lb) 03/01/2024 2:06 PM EST Height 160 cm (5' 3 ) 03/01/2024 2:06 PM EST Body Mass Index 31.53 03/01/2024 2:06 PM EST Plan of Treatment Health Maintenance Due Date Last Done Comments DTaP,Tdap,and Td Vaccines (1 - Tdap) 10/02/1994 Hepatitis B Vaccines (1 of 3 - 19+ 3-dose series) 10/02/1994 Cervical Cancer Screening: P ap Smear 10/02/1996 Breast Cancer Screening 12/19/2021 12/20/2019 COVID-19 Vaccine (2023-2 5 season) 2023 Influenza Vaccine (#1) 2023 Colorectal Cancer Screening: Colonoscopy 01/29/2024 Depression Screening 01/29/2024 HIV Screening 01/29/2024 Hepatitis C Screening 01/29/2024 Medicare Annual Wellness Visit 01/29/2024 Social Influencers of Health Screening 01/29/2024 HIB Vaccines Aged Out No longer eligi ble based on patient's age to complete this topic HPV Vaccines Aged Out No longer eligi ble based on patient's age to complete this topic Hepatitis A Vaccines Aged Out No long er eligible based on patient's age to complete this topic IPV Vaccines Aged Out No longer eligi ble based on patient's age to complete this topic MMR Vaccines Aged Out No longer eligi ble based on patient's age to complete this topic Meningococcal ACWY Vaccine Aged Out N o longer eligible based on patient's age to complete this topic Pneumococcal Vaccine: Pediat rics (0 to 5 Years) and At-Risk Patients (6 to 64 Years) Aged Out No longer eligi ble based on patient's age to complete this topic RSV Immunization Patients Un bhavani 20 months Aged Out No longer eligible b ased on patient's age to complete this topic Varicella Vaccines Aged Out No longer eligible based on patient's age to complete this topic Procedures Procedure Name Priority Date/Time Associated Diagnosis Comments CA INJECTION SINGLE TENDON SHEATH OR LIGAMENT APONEUROSIS Routine 03/01/2024 1:30 PM EST Trigger finger, acquired CA INJECTION SINGLE TENDON SHEATH OR LIGAMENT APONEUROSIS Routine 03/01/2024 1:30 PM EST Trigger finger, acquired from Last 3 Months Results * CA INJECTION SINGLE TENDON SHEATH OR LIGAMENT APONEUROSIS (03/01/2024 1:30 PM EST) Bebe Lang PA - 03/01/2024 1:30 PM EST CHELI Breen ? 03/01/2024 ??3:27 PM Hand / UE Inj/Asp: R thumb A1 for trigger finger Indications: pain Details: 25 G needle, volar approach Medications: 0.5 mL lidocaine 1 %; 20 mg triamcinolone acetonide 40 mg/mL Informed Consent: ??Relevant images/test results available and reviewed: yes ?Health status cleared: ??Yes ??Procedure/treatment, purpose, treatment alternatives, risks/potential complications and benefits explained: yes ?Risk/complications/benefits details: ??Risks of infection, thinning of the skin and temporary skin discoloration discussed. ??Discussed risks of temporary increased pain after injection and swelling and mild redness at injection site for couple days. ??Explained occasionally cortisone injection can cause facial flushing temporarily. ??Benefits pain management. ??For postop injection pain ice, Tylenol and/or NSAIDs if patient can take ??Patient questions answered: yes ?Patient agrees, verbalizes understanding, and wants to proceed: yes ?Consent given by: ??Patient ??Informed consent discussion completed by Physician/DIANN with patient: ?? Verbal ??Pre-procedure timeout performed: yes ?? Bebe BOWER IN CLINIC/BEDSIDE OR DERABLES * CA INJECTION SINGLE TENDON SHEATH OR LIGAMENT APONEUROSIS (03/01/2024 1:30 PM EST) Bebe Lang PA - 03/01/2024 1:30 PM EST CHELI Breen ? 03/01/2024 ??3:27 PM Hand / UE Inj/Asp: R ring A1 for trigger finger Indications: pain Details: 25 G needle, volar approach Medications: 0.5 mL lidocaine 1 %; 20 mg triamcinolone acetonide 40 mg/mL Informed Consent: ??Relevant images/test results available and reviewed: yes ?Health status cleared: ??Yes ??Procedure/treatment, purpose, treatment alternatives, risks/potential complications and benefits explained: yes ?Risk/complications/benefits details: ??Risks of infection, thinning of the skin and temporary skin discoloration discussed. ??Discussed risks of temporary increased pain after injection and swelling and mild redness at injection site for couple days. ??Explained occasionally cortisone injection can cause facial flushing temporarily. ??Benefits pain management. ??For postop injection pain ice, Tylenol and/or NSAIDs if patient can take ??Patient questions answered: yes ?Patient agrees, verbalizes understanding, and wants to proceed: yes ?Consent given by: ??Patient ??Informed consent discussion completed by Physician/DIANN with patient: ?? Verbal ??Pre-procedure timeout performed: yes ?? Bebe BOWER IN CLINIC/BEDSIDE OR DERABLES from Last 3 Months Care Teams Psychology Associate Relationship Specialty Start Date End Date Lilia Walsh MD [address] [place] [address] PCP - General Internal Medicine 02/29/24
--- OUTSIDE RECORDS SUMMARY | 2024-04-22 16:07 | XMS_ITS | Encounter Summary ---
Author Organization [employer] Address [address] [place] [address] Care Team Providers Care Certified Retinal Angiographer Name Role Phone Lilia Walsh MD Primary Care Provider [phone] Reason for Visit * Reason Comments Pain Pain * Orthopedic (Routine) - Closed Specialty Diagnoses / Procedures Referred By Contact Referred To Contact Orthopaedics / Orthopaedic Surgery Diagnoses Carpal tunnel syndrome, right upper limb Carpal tunnel syndrome, left upper limb Procedures AMB Referral to Hand Surgeon Lilia Walsh MD [address] [place] [address] DrIsi, [address] [facility] D[facility]A: [facility] [place], [place] Bebe Reyna PA [address] [facility] [address] [address] Referral ID Status Reason Start Date Expiration Date V isits Requested Visits Authorized [id number] Closed Consult and Treat 01/29/2024 01/28/2025 1 1 Encounter Details Date Type Department Care Team (Late st Contact Info) Description 03/29/2024 2:30 PM EST Office Visit Orthopedic Surgery - [place] [address] [facility] [address] [place] [address] Bebe Renya PA [address] [facility] [address] Manuel [address] [place] [address] Cubital tunnel syndrome of both upper extremities (Primary Dx); Bilateral carpal tunnel syndrome; Trigger finger, acquired Social History Tobacco Use Types Packs/Day Years Used Date Smoking Tobacco: Never Assessed Sex and Gender Information Value Date Recorded Sex Assigned at Not on file Gender Identity Not on file Sexual Orientation Not on file Job Start Date Occupation Industry Not on file Not on file Not on file documented as of this encounter Progress Notes * CHELI Breen - 03/29/2024 2:30 PM EST Referring MD:Lilia Walsh, MD Fraga Leon is a 48 y.o. year old female who presents for consultation regarding Chief Complaint Patient presents with Left Hand - Pain Right Hand - Pain . HPI: 48-year-old owych-ssjz-cssexjim female here for follow-up of right hand pain thumb and ring finger with some triggering. Also some mild numbness and tingling in her hands. She has some mild triggering of the left long finger but not severe. At initial visit the biggest issue seem to be the trigger thumb and trigger finger, right ring cortisone injections were performed with very good relief. Minimal pain in the right hand better mobility. And she denies any significant numbness tingling or nocturnal symptoms in either hand. Mild pain at left long finger over A1 marcelino but no triggering. Of note patient is Mauritian- speaking but family members interpreting. She did have an EMG nerve conduction test at [facility] March 2022 that showed mild to moderate car She does have carpal tunnel braces. She reports no neck issues currently She does have issues with her neck and has had C-spine injections. I did review notes regarding herC-spine she did have an MRI scan of the cervical spine done July 2023 and I reviewed the images thatdid show some arthritic changes but no severe stenosis. On review of the medical record she had reported some cervical radiculopathy. PAST MEDICAL HISTORY: No past medical history on file. PAST SURGICAL HISTORY: No past surgical history on file. SOCIAL HISTORY: Social History Occupational History Not on file Tobacco Use Smoking status: Not on file Smokeless tobacco: Not on file Substance and Sexual Activity Alcohol use: Not on file Drug use: Not on file Sexual activity: Not on file FAMILY HISTORY: No family history on file. No family status information on file. ACTIVE PROBLEMS LIST: There is no problem list on file for this patient. ACTIVE MEDICATIONS: No outpatient medications have been marked as taking for the 03/29/24 encounter (Office Visit) with CHELI Breen. ALLERGIES: Allergies Allergen Reactions Morphine Ants in her body Tramadol Respiratory Issues PHYSICAL EXAM: There were no vitals taken for this visit. APPEARANCE: Alert and in no acute distress EYES: conjunctivae and sclerae normal NECK:Neck supple EXTREMITIES: Extremities warm and well perfused without clubbing, cyanosis, or edema Bilateral hands mild thenar wasting. She can make a full fist with hypothenar, thenar interosseous musculature intact. Full wrist flexion extension with 5 out of 5 strength. She can abduct and adductthe fingers fully. She had a negative Tinel's, Phalen's and Durkan's test today bilaterally and no tingling reproduced with tapping over cubital tunnel. 5 and 5 pincer strength thumb and index finger bilaterally. On the right she can make a full fist now with no triggering of the fingers. No tenderness over A1 marcelino of the right ring finger or right thumb. No triggering of the left long finger, mild tenderness to palpation over left long finger A1 marcelino. She can make a full fist on the left. VASCULAR:well perfused with normal pulses in the distal extremities and no peripheral edema noted NEURO: Awake, alert and oriented SKIN: Skin color, texture, turgor normal. No rashes or lesions. PSYCH: does not appear depressed or anxious and oriented to time, place and person LABS: None IMAGING: None today ASSESSMENT AND PLAN: 1. Cubital tunnel syndrome of both upper extremities 2. Bilateral carpal tunnel syndrome 3. Trigger finger, acquired The details of the visit were reviewed with the patient. Pertinent history, and objective findings were reviewed, along with the diagnoses: Bilateral carpal tunnel and cubital tunnel syndrome. Currently she is asymptomatic. I discussed bracing and stretching exercises. If numbness and tingling and nighttime symptoms recurred or increased she can call for an appointment. As far as the right hand pain it has improved significantly after the injections to the A1 marcelino of the thumb and right ring finger. No further treatment needed for this. Activities to tolerance. If there is any recurrence ofsymptoms she will call for an appointment. SusanRj Quintero acknowledges understanding of the above plan and agrees to follow recommendations and/or take medications as prescribed. cc: Lilia Walsh MD documented in this encounter Plan of Treatment Not on file documented as of this encounter Visit Diagnoses Diagnosis Cubital tunnel syndrome of both upper extremities- Primary Bilateral carpal tunnel syndrome Carpal tunnel syndrome Trigger finger, acquired Trigger finger (acquired) documented in this encounter Care Teams Certified Retinal Angiographer Relationship Specialty Start Date End Date Lilia Walsh MD [address] [place] [id number] PCP - General Internal Medicine 02/29/24 documented as of this encounter
--- OUTSIDE RECORDS SUMMARY | 2024-04-22 16:07 | XMS_ITS | Encounter Summary ---
Author Organization [facility] Address [address] [place] [address] [place] [address] Care Team Providers Care Barrow Worker Helper Name Role Phone Pebbles Levine Primary Care Provider [phone] Encounter Details Date Type Department Care Team (Latest Contact Info) Description 02/01/2022 Abstract [facility] CONVERSIONS Dental, Provider, DDS Social History Tobacco Use Types Packs/Day Years Used Date Smoking Tobacco: Never Assessed Comments Unknown Sex and Gender Information Value Date Recorded Sex Assigned at Female 01/24/2022 10:30 AM EDT Legal Sex Female 10:30 AM EDT Gender Identity Female 01/24/2022 10:30 AM EDT Sexual Orientation Straight 01/24/2022 10 :30 AM EDT documented as of this encounter Plan of Treatment Not on file documented as of this encounter Visit Diagnoses Not on filedocumented in this encounter Care Teams Barrow Worker Helper Relationship Specialty Start Date End Date Pebbles Levine FNP PCP - General Family Medicine 09/29/21 08/11/22 documented as of this encounter
--- OUTSIDE RECORDS SUMMARY | 2024-04-22 16:07 | XMS_ITS | Encounter Summary ---
Author Organization [employer] Address [address] [place] [address] Care Team Providers Care Color Checker Roving Or Yarn Name Role Phone Pebbles Levien Primary Care Provider [phone] Encounter Details Date Type Department Care Team (Late st Contact Info) Description 05/02/2022 Abstract [facility] [address] [place] [address] Pebbles Levine FNP [address] [place] [address] [place] [address] Social History Tobacco Use Types Packs/Day Years Used Date Smoking Tobacco: Never Smokeless Tobacco: Never Comments Unknown Sex and Gender Information Value Date Recorded Sex Assigned at Female 01/24/2022 10:30 AM EDT Legal Sex Female 10:30 AM EDT Gender Identity Female 01/24/2022 10:30 AM EDT Sexual Orientation Straight 01/24/2022 10 :30 AM EDT COVID-19 Exposure Response Date Recorded In the last 10 days, have yo u been in contact with someone who was confirmed or suspected to have Coronavirus/COVID-19? No / Unsure 04/28/2022 2:24 PM EST documented as of this encounter Plan of Treatment Not on file documented as of this encounter Visit Diagnoses Not on filedocumented in this encounter Care Teams Color Checker Roving Or Yarn Relationship Specialty Start Date End Date Pebbles Levine FNP PCP - General Family Medicine 09/29/21 08/11/22 documented as of this encounter
--- OUTSIDE RECORDS SUMMARY | 2024-04-22 16:07 | XMS_ITS | Encounter Summary ---
Author Organization [employer] Address [address] [place] [address] Care Team Providers Care Pocket Flap Creasing Machine Operator Name Role Phone Pebbles Levine Primary Care Provider [phone] Reason for Visit * Reason Onset Date Comments Prior Authorization 03/08/2022 Patient call ed in to check on status of PA. Chart reads Max reached for benefits. Wouldn't be due until after 03/11/2023. Explained this to argenis. She stated she was told that PA would be submitted and upon denial of service provider would submit documentation as to reason for medical necessity. Encounter Details Date Type Department Care Team (Late st Contact Info) Description 03/08/2022 Telephone [facility] [address] [place] [address] Dental, Provider, DDS Prior Authorization (Patient called in to check on status of PA. Chart reads Max reached for benefits. Wouldn't be due until after 03/11/2023. Explained this to argenis. She stated she was told that PA would be submitted and upon denial of service provider would submit documentation as to reason for medical necessity. ) Social History Tobacco Use Types Packs/Day Years [...] on filedocumented in this encounter Care Teams Pocket Flap Creasing Machine Operator Relationship Specialty Start Date End Date Pebbles Levine FNP PCP - General Family Medicine 09/29/21 08/11/22 documented as of this encounter
--- OUTSIDE RECORDS SUMMARY | 2024-04-22 16:07 | XMS_ITS | Clinical Summary ---
Author Organization [employer] Address [address] [place] [address] [address] [place] [address] Care Team Providers Care Track Inspector Name Role Phone Unavailable Primary Care Provider Unavailabl e Allergies Active Allergy Reactions Criticality Noted Date Comments Morphine 04/28/2022 Tramadol 04/28/2022 Medications omeprazole (PriLOSEC) [address] capsuleIndication s:Gastroesophagea l reflux disease without esophagitis take 1 capsule by oral route every day before a meal 90 capsule 3 Active betamethasone dipropionate 0.05 % cream Apply topically every 12 (twelve) hours. 2 Active buPROPion XL (Wellbutrin XL) 300 MG 24 hr tablet 3 Active butalbital-acetam inophen-caffeine (Fioricet) 50-300-40 MG capsule Take 1-2 capsules by mouth. 9 Active cyclobenzaprine (Flexeril) 10 MG tablet Take 1 tablet by mouth every 12 (twelve) hours. 2 Active Diclofenac Sodium 1 % gel apply (2G) by topical route 3 times every day to the affected area(s) 2 Active fluticasone (Flonase) 50 MCG/ACT nasal spray Administer 1 spray into affected nostril(s) every 12 (twelve) hours. 2 Active gabapentin (Neurontin) 300 MG capsule Take 300 mg by mouth. 9 Active ketoconazole (NIZOral) 2 % shampoo apply by topical route 2 times weekly to the affected area(s), lather, leave in place for 5 minutes, and then rinse off with water 2 Active Loratadine (Claritin) 10 MG capsule Take 1 tablet once a day PO prn 2 Active medroxyPROGESTERo ne (Provera) 10 MG tablet 3 Active LORazepam (Ativan) 1 MG tablet 3 Active buPROPion XL (Wellbutrin XL) 150 MG 24 hr tablet 3 Active Active Problems No known active problems Social History Tobacco Use Types Packs/Day Years Used Date Smoking Tobacco: Former Cigarettes Smokeless Tobacco: Never Tobacco Cessation:Counseling Given: Not Answered Comments Unknown Sex and Gender Information Value Date Recorded Sex Assigned at Female 01/24/2022 10:30 AM EDT Legal Sex Female 10:30 AM EDT Gender Identity Female 01/24/2022 10:30 AM EDT Sexual Orientation Straight 01/24/2022 10 :30 AM EDT Last Filed Vital Signs Vital Sign Reading Time Taken Comments Blood Pressure 127/80 04/28/2022 2:49 PM EST Pulse 98 04/28/2022 3:36 PM EST Temperature 36.7 ??C (98 ??F) 04/28/2022 2:49 PM EST Respiratory Rate 17 04/28/2022 2:49 PM EST Oxygen Saturation 98% 04/28/2022 2:49 PM EST Inhaled Oxygen Concentration - - Weight 72.2 kg (159 lb 3.2 oz) 04/28/2022 2:49 P M EST Height 160 cm (5' 3 ) 12/22/2021 12:09 AM EDT Body Mass Index 28.2 12/22/2021 12:09 AM EDT Plan of Treatment Health Maintenance Due Date Last Done Comments CT Colonography 1975 Colonoscopy 1975 Colorectal Cancer Screening 1975 Depression Screening 1975 FIT DNA/Cologuard 1975 FIT 1975 FOBT 1975 HIV Screening 1975 SDOH Screening 1975 Sigmoidoscopy 1975 Alcohol/Substance Use Screening 1987 Family Planning (PISQ) 10/02/1990 Hepatitis C Screening 10/02/1993 DTaP/Tdap/Td Vaccines (1 - Tdap) 10/02/1994 Hepatitis A Vaccines (1 of 2 - Risk 2-dose series) 10/02/1994 Hepatitis B Vaccines (1 of 3 - 19+ 3-dose series) 10/02/1994 Pap Smear 10/02/1996 Cervical Cancer Screening 10/02/2005 HPV/Cotest 10/02/2005 Mammogram 12/19/2021 12/20/2019, 12/12/2019, 02/23/2018 Tobacco Screening 05/31/2023 05/30/2022 COVID-19 Vaccine (3 - 2023-2 5 season) 2023 08/19/2020, 07/24/2020 Influenza Vaccine (#1) 2023 Zoster Vaccines (1 of 2) 10/02/2025 RSV Patients and Patients Aged 60 years or older (1 - 1-dose 75+ series) 10/02/2050 HIB Vaccines Aged Out No longer eligi ble based on patient's age to complete this topic HPV Vaccines Aged Out No longer eligi ble based on patient's age to complete this topic IPV Vaccines Aged Out No longer eligi ble based on patient's age to complete this topic Meningococcal Vaccine Aged Out No be adriana eligible based on patient's age to complete this topic Pneumococcal Vaccine: Pediatrics (0 to 5 Years) and At-Risk Patients (6 to 64 Years) Aged Out No longer eligible b ased on patient's age to complete this topic RSV under 20 months Aged Out No longe r eligible based on patient's age to complete this topic Rotavirus Vaccines Aged Out No longer eligible based on patient's age to complete this topic Procedures Procedure Name Priority Date/Time Associated Diagnosis Comments MAMMOGRAM GENERIC Routine 12/20/2019 6:3 8 PM EDT from Last 3 Months or Most Recently Relevant to Health Maintenance Results * 3D UNILATERAL ADDED VIEWS 1 (12/20/2019 6:38 PM EDT) Anatomical Region Laterality Modality Breast Bilateral Mammography 12/20/2019 6:38 PM EDT Narrative 12/20/2019 6:39 PM EDT Refer to the Notes tab for result details Legacy Procedure: 3D UNILATERAL ADDED VIEWS 1 Procedure Note Provider, MD Medina - 06/18/2022 Refer to the Notes tab for result details Legacy Procedure: 3D UNILATERAL ADDED VIEWS 1 us Jaehyun Jazzmine MD IMG BI PROCEDURES Final Result from Last 3 Months or Most Recently Relevant to Health Maintenance Insurance [facility] STANDARD [place] [phone]
--- OUTSIDE RECORDS SUMMARY | 2024-04-22 16:07 | XMS_ITS | Continuity of Care Document ---
Author Name [facility] Organization [facility] Care Team Providers Care Environmental Geologist Name Role Phone [facility] Unavailable Unavailable Immunizations Combined list of available immunizations from the Department of Defense and Veterans Affairs facilities. Immunization Series Date Given Administered By Site Reaction Lot Number CVX Code Drug Auditor In Charge Status Comments Source COVID-19 (MODERNA), MRNA, LNP-S, PF, 100 MCG OR 50 MCG DOSE 3 2021 207 complet ed MOD; [id number]; 2 [facility] Social History Combined list of available smoking, tobacco, and other social history from Department of Defense and Veterans Affairs facilities. Social History Type Response Date Comment Sourc e This section is an empty social history section. [facility]
== END 2024-04-22 11:29 | disposition home or self-care (01) ==
PROVIDERS: PCP Internal Medicine; Visit Provider Psychiatry & Neurology Neurology
DX: G47.33 Obstructive sleep apnea (adult) (pediatric) (principal)
CPT/HCPCS: 99214

== ENCOUNTER → 2024-04-22 11:11 | Outpatient (BNVA) | payer OTHER, SELFPAY | PROVIDERS: PCP Internal Medicine; Visit Provider Psychiatry & Neurology Neurology | DX: G47.33 Obstructive sleep apnea (adult) (pediatric) (principal) | CPT/HCPCS: 99212 ==

== ENCOUNTER 2024-05-17 11:02 | Outpatient (REF) | payer OTHER, SELFPAY ==
--- NOTE | ~2024-05-17 | US_ITS ---
EXAMINATION: US PELVIS TRANSABDOMINAL AND TRANSVAGINAL HISTORY: N83.299 - Other ovarian cyst, unspecified side COMPARISON: Comparison is made with the prior examination dated 03/29/2024. TECHNIQUE: Transabdominal and endovaginal real-time 2D fernando-scale ultrasound was performed. Color Doppler was also performed. FINDINGS: Uterus: The uterus is normal in size, measuring 8.6 x 5.1 x 5.5 cm. Myometrium has a normal echotexture. No fibroids are identified. Endometrium: The endometrial stripe measures 18 mm in thickness and is heterogeneous in appearance. A prominent feeding vessel is noted. Right ovary: The right ovary is not identified. Left ovary: The left ovary measures 2.8 x 1.3 x 2.3 cm. The left ovary is normal in size and echotexture. Pelvic fluid: none. US/US pelvic and transvaginal IMPRESSION: 1. The left ovary is unremarkable in appearance. The previously seen complex areas are no longer identified. 2. Thickened heterogeneous endometrial stripe with a prominent feeding vessel. Hysteroscopy or history sonogram is suggested to exclude an underlying lesion. Electronically signed by: Alejandro Pantoja MD 05/20/2024 08:58 AM EST
--- OUTSIDE RECORDS SUMMARY | 2024-05-17 12:10 | XMS_ITS | Encounter Summary ---
Author Organization [employer] Address [address] [place] [address] Care Team Providers Care Shirt Sorter Name Role Phone Pebbles Levine Primary Care Provider [phone]- [phone] Reason for Visit * Reason Onset Date [...] (Late st Contact Info) Description 03/08/2022 Telephone [facility] [address] [place] [address] Dental, Provider, DDS Prior Authorization (Patient called [...] on filedocumented in this encounter Care Teams Shirt Sorter Relationship Specialty Start Date End Date Pebbles Levine FNP PCP - General Family Medicine 09/29/21 08/11/22 documented as of this encounter
--- OUTSIDE RECORDS SUMMARY | 2024-05-17 12:10 | XMS_ITS | Clinical Summary ---
Author Organization [employer] Address [address] [place] [address] [address] [place] [address] Care Team Providers Care Pill Maker Name Role Phone Unavailable Primary Care Provider [...] 5 Years) and At-Risk Patients (6 to 49) Years) Aged Out No longer eligible b [...] Legacy Procedure: 3D UNILATERAL ADDED VIEWS 1 Kennedy Dover MD IMG BI PROCEDURES Final Result from Last 3 Months or Most Recently Relevant to Health Maintenance Insurance [facility] STANDARD [place] [phone]
--- OUTSIDE RECORDS SUMMARY | 2024-05-17 12:10 | XMS_ITS | Encounter Summary ---
Author Organization [employer] [facility] Address [address] [place] [address] [place] [address] Care Team Providers Care Forge Operator Helper Name Role Phone Pebbles Levine Primary Care Provider [phone]- [phone] Encounter Details Date Type Department Care Team (Latest Contact Info) Description 02/01/2022 Abstract [facility] CONVERSIONS Dental, Provider, DDS Social History Tobacco [...] on filedocumented in this encounter Care Teams Forge Operator Helper Relationship Specialty Start Date End Date Pebbles Levine FNP PCP - General Family Medicine 09/29/21 08/11/22 documented as of this encounter
--- OUTSIDE RECORDS SUMMARY | 2024-05-17 12:10 | XMS_ITS | Clinical Summary ---
Author Organization [address] [place] [address] Address [address] [place] [address] Phone Care Team Providers Care Field Contact Person Name Role Phone Lilia Walsh MD Primary Care Provider [phone] Allergies Active Allergy Reactions Criticality Noted Date Comments Morphine 03/01/2024 Ants in her body Tramadol Respiratory Issues 03/01/2024 Medications buPROPion XL (WELLBUTRIN XL) 150 mg 24 [...] 2:30 PM EST Office Visit Orthopedic Surgery [address] [address] Bebe Reyna PA Cubital tunnel syndrome of both upper extremities (Primary Dx); Bilateral carpal tunnel syndrome; Trigger finger, acquired 03/01/2024 1:30 PM EST Consult Orthopedic Surgery [address] [address] Bebe Reyna PA Bilateral carpal tunnel syndrome (Primary Dx); Cubital tunnel syndrome of both upper extremities; Trigger finger, acquired from Last 3 Months Social History Tobacco Use Types Packs/Day Years Used Date Smoking Tobacco: Never Assessed Comments Unknown Sex and Gender Information Value Date Recorded Sex Assigned at Not on file Legal Sex Female 7:23 AM EST Gender Identity Not on file Sexual Orientation Not on file Last Filed Vital Signs [...] 03/01/2024 2:06 PM EST Plan of Treatment Upcoming Encounters Date Type Department Care Team (Late st Contact Info) Description 07/03/2024 2:15 PM EDT Office Visit Orthopedic Surgery - [place] [address] [address] Robby Sue, DPM [address] [address] Health Maintenance Due Date Last Done Comments DTaP,Tdap,and Td Vaccines (1 - Tdap) 10/02/1994 Hepatitis B Vaccines (1 of 3 - 19+ 3-dose series) 10/02/1994 Cervical Cancer Screening: P ap Smear 10/02/1996 Breast Cancer Screening 12/19/2021 12/20/2019 COVID-19 Vaccine ( - 2023-2 5 season) 2023 Influenza Vaccine (#1) 2023 [...] patient's age to complete this topic Meningococcal B Vacine Aged Out No lo nger eligible based on patient's age to complete [...] Procedure Name Priority Date/Time Associated Diagnosis Comments SC INJECTION SINGLE TENDON SHEATH OR LIGAMENT APONEUROSIS Routine 03/01/2024 1:30 PM EST Trigger finger, acquired SC INJECTION SINGLE TENDON SHEATH OR LIGAMENT APONEUROSIS Routine 03/01/2024 1:30 PM EST Trigger finger, acquired from Last 3 Months Results * SC INJECTION SINGLE TENDON SHEATH OR LIGAMENT APONEUROSIS (03/01/2024 1:30 PM EST) Narrative Bebe Reyna PA - 03/01/2024 1:30 PM EST CHELI [...] ?? Verbal ??Pre-procedure timeout performed: yes ?? us Bebe BOWER IN CLINIC/BEDSIDE ORDERABLES Final Result * SC INJECTION SINGLE TENDON SHEATH OR LIGAMENT APONEUROSIS [...] ?? Verbal ??Pre-procedure timeout performed: yes ?? us Bebe BOWER IN CLINIC/BEDSIDE ORDERABLES Final Result from Last 3 Months Insurance [employer] MEDICARE Member Subscriber Plan / Payer (Ef fective 2022-Present) Name:Kathy Alexis Relation to Subscriber:Self Name:Kathy Alexis Payer ID:[id number] Group ID:[id number] Type:Not on file Address: [address] [address] Care Teams Field Contact Person Relationship Specialty Start Date End Date Lilia Walsh MD [address] [place] [address] PCP - General Internal Medicine 02/29/24
--- OUTSIDE RECORDS SUMMARY | 2024-05-17 12:10 | XMS_ITS | Encounter Summary ---
Author Organization [employer] Address [address] [place] [address] Care Team Providers Care Drafter Commercial Name Role Phone Pebbles Levine Primary Care Provider [phone]- [phone] Encounter Details Date Type Department Care Team (Late st Contact Info) Description 05/02/2022 Abstract [facility] [address] [place] [address] Pebbles Levine FNP [address] [place] [address] Dept [place] [address] Social History Tobacco Use Types Packs/Day Years [...] on filedocumented in this encounter Care Teams Drafter Commercial Relationship Specialty Start Date End Date Pebbles Leivne FNP PCP - General Family Medicine 09/29/21 08/11/22 documented as of this encounter
== END 2024-05-17 11:03 | disposition home or self-care (01) ==
LOC: HO.US 11:02
PROVIDERS: PCP Internal Medicine; Visit Provider Obstetrics & Gynecology
DX: Z87.42 Personal history of other diseases of the female genital tract (principal)
CPT/HCPCS: 76830; 76856

== ENCOUNTER → 2024-05-17 11:03 | Outpatient (BNV) | payer OTHER, SELFPAY | PROVIDERS: PCP Internal Medicine; Visit Provider Radiology Diagnostic Radiology | DX: N83.299 Other ovarian cyst, unspecified side (principal) | CPT/HCPCS: 76830; 76856 ==

== ENCOUNTER 2024-05-23 10:05 | Outpatient (AMB) | payer OTHER, SELFPAY ==
--- NOTE | 2024-05-23 10:12 | A.OFFVIS_ITS ---
Vital Signs 05/23/24 10:16 Height 5 ft 3 in Weight 178 lb BMI 31.5 Intake Visit Reasons: post op Automobile Service Station Mechanic Required: Yes Automobile Service Station Mechanic Language: Senior Business Architect Services: Automobile Service Station Mechanic Present (in person) Automobile Service Station Mechanic Name: Shae DURANT Information Interpreted: non-clinical & clinical Allergies morphine [MORPHINE] Allergy (Intermediate, Verified 05/23/24 10:17) Itching tramadol [TRAMADOL] Allergy (Intermediate, Verified 05/23/24 10:17) SHORTNESS OF BREATH HPI Comments Details: The patient is presenting post hysteroscopy D&C no complaints minimal vaginal bleeding no feverishness chills or abdominal pain. The pathology showed the following: A. Endometrium, curettage: Proliferative endometrium; negative for atypia, hyperplasia or malignancy. B. Endometrium, polyp, biopsy: Polypoid fragments of proliferative endometrium and unremarkable smooth muscle; negative for atypia, hyperplasia or malignancy (see comment). COMMENT (B): The presence of smooth muscle may be inside sales representative of the superficial myometrium or leiomyoma. Clinical correlation is advised The following workup was done.: H&H= 12/35.4 TSH, hCG, GC and chlamydia were negative. FSH/LH 16.7/7.5 Co testing was done in 05/17 was negative. Mammogram was BI-RADS 1 in 04/20 Pelvic ultrasound in 05/21 showed the following: Uterus: The uterus is normal in size, measuring 8.6 x 5.1 x 5.5 cm. Myometrium has a normal echotexture. No fibroids are identified. Endometrium: The endometrial stripe measures 18 mm in thickness and is heterogeneous in appearance. A prominent feeding vessel is noted. Right ovary: The right ovary is not identified. Left ovary: The left ovary measures 2.8 x 1.3 x 2.3 cm. The left ovary is normal in size and echotexture. Pelvic fluid: none. [facility] Medical History Thoracic spine pain Pain of right scapula Abdominal cramping Hypersomnia Snoring Skin lesion Cough Right carpal tunnel syndrome Left carpal tunnel syndrome Hand pain ELLE on CPAP Right foot pain Left foot pain Bilateral hand pain Other spondylosis, assntbjv-hpldnsq-rfrrs region Esophageal spasm Left shoulder pain Pain of left scapula Occipital neuralgia of right side Occipital neuralgia of left side Well woman exam Dyspepsia Odynophagia Sinus pressure Headache Blurry vision Carpal tunnel syndrome Facet joint disease of cervical region Muscle spasms of neck Abnormal uterine bleeding (AUB) Abdominal bloating Constipation Low vitamin D level Spasmodic torticollis Hx of ovarian cyst Colon cancer screening Neck pain Vaginal itching Anxiety Chest pain Bloody stools Physical exam Dyslipidemia Hypovitaminosis D Right flank pain RUQ abdominal pain Occipital headache Tonsil stone Overweight (BMI 25.0-29.9) Migraines Moderate major depression Normocytic anemia GERD (gastroesophageal reflux disease) Cervical cancer screening Cervical radiculopathy Facet arthropathy, multilevel Well woman exam with routine gynecological exam Fibromyalgia Arthritis Sleep apnea Surgical History History of esophagogastroduodenoscopy (EGD) (10/25/22) Hx of colonoscopy History of endoscopy S/P lumbar fusion Hx of removal of ovary Family History Mother Thyroid disease Maternal Aunt No problems noted. Father No problems noted. Social History Housing: House Alcohol intake: current Alcohol intake frequency: holidays/special occasions only Alcohol type: wine Patient Tobacco Use Status: Former Tobacco user Tobacco use type: Cigarette e-Cigarette/Vaping Use: Never Used Second Hand Smoke Exposure: No service: No Current occupational status: disabled Gender identity: Female Cognitive needs: No Hearing needs: No Vision needs: Yes Female Reproductive History Menstrual Age of Menarche: 11 Review of Systems Const All systems reviewed & are unremarkable except as noted in HPI and below Reports as per HPI and Reports no additional complaints GI Reports no additional complaints Reports no additional complaints Physical Exam Vital Signs: BMI result Body Mass Index 31.5 Assessment & Plan Assessment & Plan (1) Abnormal uterine bleeding (AUB): Code(s): N93.9 - Abnormal uterine and vaginal bleeding, unspecified Category: Medical Plan: Discussed with the patient the results of the work up done and options of treatment including but not limited to BCP's, cyclic Progesterone, Mirena IUD, endometrial ablation and hysterectomy. All pros, cons, risks and benefits of each option were discussed with the patient and the patient decided to go ahead with cyclic Provera, so a more detailed discussion re: Progesterone treatment including mechanism of action, benefits (regular menses, endometrial protection form unopposed estrogen and reduction in the risk of endometrial hyperplasia and/or cancer ...), risks (Thrombosis, mood changes, weight gain, breast soreness, ? increased breast ca, others). Instructions were given to use a back- up method for contraception since this is not a method control, take the medication 1 tablet daily starting day 15-24 and to schedule a 3 months follow- up appointment; patient verbalized understanding and agreed with the plan. (2) Complex ovarian cyst: Comment: Resolved Code(s): N83.299 - Other ovarian cyst, unspecified side Category: Medical Plan: Discussed with the patient ultrasound findings showing the previously identified complex cyst has resolved. The patient was instructed to call if symptoms recur. All questions were answered the patient verbalized understanding. Medications: New medroxyprogesterone (Provera) start Provera 1 tablet daily from day 15-24 cyclically every months, day 1 being 1st day of menses 10 mg PO DAILY 90 days 30 tabs 0RF Coding Level of Care Code Est Pt Level 3 (47757) Diagnoses Abnormal uterine bleeding (AUB) N93.9 Complex ovarian cyst N83.299
[2024-05-23 10:16] VITALS: BMI 31.5
--- OUTSIDE RECORDS SUMMARY | 2024-05-23 11:38 | XMS_ITS | Encounter Summary ---
Author Organization [employer] [facility] Address [address] [place] [address] [place] [address] Care Team Providers Care Passenger Coach Driver Name Role Phone Pebbles Levine Primary Care Provider [phone]- [phone] Encounter Details Date Type Department Care Team (Latest Contact Info) Description 02/01/2022 Abstract [facility] CONVERSIONS Dental, Provider, DDS Social History Tobacco [...] on filedocumented in this encounter Care Teams Passenger Coach Driver Relationship Specialty Start Date End Date Pebbles Levine FNP PCP - General Family Medicine 09/29/21 08/11/22 documented as of this encounter
--- OUTSIDE RECORDS SUMMARY | 2024-05-23 11:38 | XMS_ITS | Clinical Summary ---
Author Organization [employer] Address [address] [place] [address] 7 [place] [address] Care Team Providers Care Suppository Molding Machine Operator Name Role Phone Unavailable Primary Care Provider [...] Most Recently Relevant to Health Maintenance Insurance [facility] STANDARD [place]IC[place] [phone]
--- OUTSIDE RECORDS SUMMARY | 2024-05-23 11:38 | XMS_ITS | Encounter Summary ---
Author Organization [employer] Address [address] [place] [address] Care Team Providers Care Associate Field Service Engineer Name Role Phone Pebbles Levine Primary Care Provider [phone]- [phone] Encounter Details Date Type Department Care Team (Late st Contact Info) Description 05/02/[address] [facility] MEDICINE [address] [place] [address] Pebbles Levine FNP [address] [place] [address] Dept [place] [address] Social History Tobacco Use Types Packs/Day Years [...] on filedocumented in this encounter Care Teams Associate Field Service Engineer Relationship Specialty Start Date End Date Pebbles Levine FNP PCP - General Family Medicine 09/29/21 08/11/22 documented as of this encounter
--- OUTSIDE RECORDS SUMMARY | 2024-05-23 11:38 | XMS_ITS | Clinical Summary ---
Author Organization [address] [place] [address] Address [address] [place] [address] Phone Care Team Providers Care Coal Equipment Operator Name Role Phone Lilia Walsh MD Primary Care Provider [phone] Allergies Active Allergy Reactions Criticality Noted Date [...] 2:30 PM EST Office Visit Orthopedic Surgery [address] [address] Bebe Reyna PA Cubital tunnel syndrome of both upper extremities (Primary Dx); Bilateral carpal tunnel syndrome; Trigger finger, acquired 03/01/2024 1:30 PM EST Consult Orthopedic Surgery [address] [address] Bebe Reyna PA Bilateral carpal [...] PM EDT Office Visit Orthopedic Surgery - [place] [address] [address] Robby Sue, DPM [address] [address] Health Maintenance Due Date Last Done Comments [...] Procedure Name Priority Date/Time Associated Diagnosis Comments CO INJECTION SINGLE TENDON SHEATH OR LIGAMENT APONEUROSIS Routine 03/01/2024 1:30 PM EST Trigger finger, acquired CO INJECTION SINGLE TENDON SHEATH OR LIGAMENT APONEUROSIS Routine 03/01/2024 1:30 PM EST Trigger finger, acquired from Last 3 Months Results * CO INJECTION SINGLE TENDON SHEATH OR LIGAMENT APONEUROSIS [...] BOWER IN CLINIC/BEDSIDE ORDERABLES Final Result * CO INJECTION SINGLE TENDON SHEATH OR LIGAMENT APONEUROSIS [...] Group ID:ICO Type:Not on file Address: [address] [id number] Care Teams Coal Equipment Operator Relationship Specialty Start Date End Date Lilia Walsh MD [address] [place] [address] PCP - General Internal Medicine 02/29/24
--- OUTSIDE RECORDS SUMMARY | 2024-05-23 11:38 | XMS_ITS | Encounter Summary ---
Author Organization [employer] Address [address] [place] [address] Care Team Providers Care Buyer Tobacco Head Name Role Phone Pebbles Levine Primary Care Provider [phone] Reason for Visit * Reason Onset Date [...] (Late st Contact Info) Description 03/08/2022 Telephone [facility] [address] [place] [address] Dental, Provider, DDS Prior Authorization (Patient called [...] on filedocumented in this encounter Care Teams Buyer Tobacco Head Relationship Specialty Start Date End Date Pebbles Levine FNP PCP - General Family Medicine 09/29/21 08/11/22 documented as of this encounter
== END 2024-05-23 10:55 | disposition home or self-care (01) ==
PROVIDERS: PCP Internal Medicine; Visit Provider Obstetrics & Gynecology
DX: N93.9 Abnormal uterine and vaginal bleeding, unspecified (principal); N83.299 Other ovarian cyst, unspecified side
CPT/HCPCS: 99213

== ENCOUNTER → 2024-05-23 10:05 | Outpatient (BNVA) | payer OTHER, SELFPAY | PROVIDERS: PCP Internal Medicine; Visit Provider Obstetrics & Gynecology | DX: N93.9 Abnormal uterine and vaginal bleeding, unspecified (principal); N83.299 Other ovarian cyst, unspecified side | CPT/HCPCS: 99212 ==

== ENCOUNTER 2024-05-29 23:54 | Emergency (ER) | payer OTHER, SELFPAY ==
[2024-05-30 00:03] VITALS: BP 119/41; PULSE 85; RESP 20; TEMP 36.2; O2SAT 97; BMI 31.0
--- OUTSIDE RECORDS SUMMARY | 2024-05-30 00:53 | XMS_ITS | Encounter Summary ---
Author Organization [employer] Address [address] [place] [address] Care Team Providers Care Manipulator Operator Name Role Phone Pebbles Levine Primary Care Provider [phone] Reason for Visit * Reason Onset Date [...] (Late st Contact Info) Description 03/08/2022 Telephone [facility] ADULT D[facility] [address] [place] [address] Dental, Provider, DDS Prior Authorization (Patient called [...] on filedocumented in this encounter Care Teams Manipulator Operator Relationship Specialty Start Date End Date Pebbles Levine FNP PCP - General Family Medicine 09/29/21 08/11/22 documented as of this encounter
--- OUTSIDE RECORDS SUMMARY | 2024-05-30 00:53 | XMS_ITS | Clinical Summary ---
Author Organization [address] [place] [address] Address [address] [place] [address] Phone Care Team Providers Care Plywood Factory Worker Name Role Phone Lilia Walsh MD Primary Care Provider [phone] Allergies Active Allergy Reactions Criticality Noted Date [...] 2:30 PM EST Office Visit Orthopedic Surgery [address] [address] Bebe Reyna PA Cubital tunnel syndrome of both upper extremities (Primary Dx); Bilateral carpal tunnel syndrome; Trigger finger, acquired 03/01/2024 1:30 PM EST Consult Orthopedic Surgery [address] [address] Bebe Reyna PA Bilateral carpal [...] PM EDT Office Visit Orthopedic Surgery - [place] [facility] [address] [address] Robby Sue, DPM [address] [address] Health Maintenance Due Date Last Done Comments [...] Procedure Name Priority Date/Time Associated Diagnosis Comments OR INJECTION SINGLE TENDON SHEATH OR LIGAMENT APONEUROSIS Routine 03/01/2024 1:30 PM EST Trigger finger, acquired OR INJECTION SINGLE TENDON SHEATH OR LIGAMENT APONEUROSIS Routine 03/01/2024 1:30 PM EST Trigger finger, acquired from Last 3 Months Results * OR INJECTION SINGLE TENDON SHEATH OR LIGAMENT APONEUROSIS [...] BOWER IN CLINIC/BEDSIDE ORDERABLES Final Result * OR INJECTION SINGLE TENDON SHEATH OR LIGAMENT APONEUROSIS [...] Group ID:ICO Type:Not on file Address: [address] [id number] Care Teams Plywood Factory Worker Relationship Specialty Start Date End Date Lilia Walsh MD [address] [place] [address] PCP - General Internal Medicine 02/29/24
--- OUTSIDE RECORDS SUMMARY | 2024-05-30 00:53 | XMS_ITS | Encounter Summary ---
Author Organization [employer] [facility] Address [address] [place] [address] [place] [address] Care Team Providers Care System Safety Manager Name Role Phone Pebbles Levine Primary Care Provider [phone] Encounter Details Date Type Department Care Team (Latest Contact Info) Description 02/01/2022 Abstract [facility] CONVERSIONS Dental, Provider, DDS Social History Tobacco [...] on filedocumented in this encounter Care Teams System Safety Manager Relationship Specialty Start Date End Date Pebbles Levine FNP PCP - General Family Medicine 09/29/21 08/11/22 documented as of this encounter
--- OUTSIDE RECORDS SUMMARY | 2024-05-30 00:53 | XMS_ITS | Encounter Summary ---
Author Organization [employer] Address [address] [place] [address] Care Team Providers Care Linesperson Name Role Phone Pebbles Levine Primary Care Provider [phone] Encounter Details Date Type Department Care Team (Late st Contact Info) Description 05/02/[address] [facility] MEDICINE [address] [place] [address] Pebbles Levine FNP [address] [place] [address] [place] [address] Social History Tobacco Use Types Packs/Day Years [...] on filedocumented in this encounter Care Teams Linesperson Relationship Specialty Start Date End Date Pebbles Levine FNP PCP - General Family Medicine 09/29/21 08/11/22 documented as of this encounter
[2024-05-30 02:39] VITALS: BP 118/66; PULSE 81; RESP 16; TEMP 36.7; O2SAT 96
--- NOTE | 2024-05-30 02:52 | MHC.EDTECH ---
at this time the pt stated that she wears a CPAP at home due to sleep apnea and requested to be placed on oxygen while she is here. This tech placed her on 2L NC. RN aware
--- NOTE | 2024-05-30 03:19 | ED.GENADULT ---
HPI - General Adult General Chief complaint: General Medical Stated complaint: drank wrong medication Time Seen by Provider: 05/30/24 03:15 Source: patient Mode of arrival: ambulatory Limitations: no limitations History of Present Illness ED Provider: Dr. Rossi Jones HPI narrative: patient comes to the emergency room complaining of feeling very relaxed and a bit drowsy. Patient states that earlier today she was supposed to take her estrogen tablet. However, accidentally she took 1 tablet of descent ED. Patient denies nausea vomiting or diarrhea, no abdominal pain, chest pain or shortness of breath. Patient just feels relaxed and drowsy. Denies syncopal or near syncopal episodes Related Data Home Medications ?Medication ?Instructions ?Recorded ?Confirmed ibuprofen 800 mg tablet 800 mg PO Q8H 06/13/23 03/04/24 lorazepam 1 mg tablet 1 mg PO BID PRN 06/13/23 03/04/24 cholecalciferol (vitamin D3) 25 25 mcg PO DAILY 12/19/23 03/04/24 mcg (1,000 unit) capsule bupropion HCl 150 mg 24 hr tablet, 150 mg PO DAILY 02/08/24 03/04/24 extended release Previous Rx's ?Medication ?Instructions ?Recorded fluoxetine 20 mg capsule 20 mg PO DAILY #30 caps 06/13/23 sennosides 8.6 mg tablet (Senna 17.2 mg (2 x 8.6 mg) PO BEDTIME 06/13/23 Laxative) #60 tabs hydroxyzine HCl 25 mg tablet 25 mg PO BEDTIME PRN itching 10 07/28/23 days #10 tabs dicyclomine 20 mg tablet 20 mg PO QID 30 days #120 tabs 12/19/23 esomeprazole magnesium 40 mg 40 mg PO DAILY #30 caps 12/19/23 capsule,delayed release (Nexium) famotidine 20 mg tablet (Pepcid) 20 mg PO BEDTIME #30 tabs 12/19/23 rwbrnbyxre-tewwxjpmsumly-gbjzjsby 2 tab PO Q4H PRN pain 30 days #30 03/04/24 50 mg-325 mg-40 mg tablet tabs cyclobenzaprine 5 mg tablet 5 mg PO TID PRN for muscle spasm 03/04/24 30 days #90 tabs gabapentin 600 mg tablet 600 mg PO Q8H 90 days #270 tabs 03/04/24 medroxyprogesterone 10 mg tablet 10 mg PO DAILY 90 days #30 tabs 05/23/24 (Provera) Allergies Allergy/AdvReac Type Severity Reaction Status Date / Time morphine [MORPHINE] Allergy Intermediate Itching Verified 05/30/24 00:08 tramadol [TRAMADOL] Allergy Intermediate SHORTNESS Verified 05/30/24 00:08 OF BREATH Review of Systems Review of Systems: Constitutional : No Weight loss, No Fever, No Chills, No Night Sweats, No Fatigue, No Malaise, feeling drowsy ENT/Mouth : No Hearing loss, No Ear Pain, No Nasal Congestion, No Sinus Pain, No Hoarseness, No sore throat, No Rhinorrhea, No Swallowing Difficulty Eyes: No Eye Pain, No Swelling, No Redness, No Foreign Body, No Discharge, No Vision Changes Cardiovascular : No Chest Pain, No SOB, No Dyspnea on Exertion, No Orthopnea, No Edema, No Palpitations Respiratory : No Cough, No Sputum, No Wheezing, No Smoke Exposure, No Dyspnea Gastrointestinal : No Nausea, No Vomiting, No Diarrhea, No Constipation, No abdominal Pain, No Hematochezia, No Melena Genitourinary : no irregular bleeding, No Dysuria, No Urinary Frequency, No Hematuria, No Urinary Incontinence, No Urgency, No Flank Pain, No Urinary Flow Changes, No Hesitancy Musculoskeletal : No joint pain, No Myalgias, No Joint Swelling Skin : No Skin Lesions, No rash Neuro : No Weakness, No Numbness, No Paresthesias, No Loss of Consciousness, No Dizziness, No Headache Psych : No Anxiety/Panic, No Depression, No SI/HI/AH/VH, No Social Issues, Heme/Lymph: No Bruising, No Bleeding,No Lymphadenopathy Endocrine : No Polyuria, No Polydipsia, No Temperature Intolerance PMFSH Past Medical History Medical History Thoracic spine pain Pain of right scapula Abdominal cramping Hypersomnia Snoring Skin lesion Cough Right carpal tunnel syndrome Left carpal tunnel syndrome Hand pain ELLE on CPAP Right foot pain Left foot pain Bilateral hand pain Other spondylosis, yewkhseh-yaioofy-wgfcx region Esophageal spasm Left shoulder pain Pain of left scapula Occipital neuralgia of right side Occipital neuralgia of left side Well woman exam Dyspepsia Odynophagia Sinus pressure Headache Blurry vision Carpal tunnel syndrome Facet joint disease of cervical region Muscle spasms of neck Abnormal uterine bleeding (AUB) Abdominal bloating Constipation Low vitamin D level Spasmodic torticollis Hx of ovarian cyst Colon cancer screening Neck pain Vaginal itching Anxiety Chest pain Bloody stools Physical exam Dyslipidemia Hypovitaminosis D Right flank pain RUQ abdominal pain Occipital headache Tonsil stone Overweight (BMI 25.0-29.9) Migraines Moderate major depression Normocytic anemia GERD (gastroesophageal reflux disease) Cervical cancer screening Cervical radiculopathy Facet arthropathy, multilevel Well woman exam with routine gynecological exam Fibromyalgia Arthritis Sleep apnea Surgical History History of esophagogastroduodenoscopy (EGD) (10/25/22) Hx of colonoscopy History of endoscopy S/P lumbar fusion Hx of removal of ovary Family History Family History Mother Thyroid disease Maternal Aunt No problems noted. Father No problems noted. Social History Social History Housing: House Alcohol intake: current Alcohol intake frequency: holidays/special occasions only Alcohol type: wine Patient Tobacco Use Status: Former Tobacco user Tobacco use type: Cigarette e-Cigarette/Vaping Use: Never Used Second Hand Smoke Exposure: No Advance Directives: No Advance Directives Information Provided: Yes service: No Current occupational status: disabled Gender identity: Female Cognitive needs: No Hearing needs: No Vision needs: Yes Physical Exam ED Vital Signs: Vital Signs - 24 hr 05/30/24 00:03 05/30/24 02:39 Temperature 97.2 F 98.1 F Pulse Rate 85 81 Respiratory Rate 20 16 Blood Pressure 119/41 L 118/66 Pulse Oximetry 97 96 Oxygen Delivery Method Room Air Room Air BMI result Body Mass Index 31.0 Const Other: Appearance: Alert. Oriented X3. No acute distress. Eyes: Pupils equal, round and reactive to light. ENT: Pharynx normal. Neck: Normal inspection. Neck supple. No lymph nodes noted. No crepitus CVS: Normal heart rate and rhythm. Pulses normal. Normal S1 and S2 Respiratory: No respiratory distress. Breath sounds normal. No Wheezing. No rales Abdomen: Soft and nontender. No rigidity. No distention. Skin: Skin warm and dry. Normal skin color. Normal skin turgor. Extremities: No lower extremity edema. No Lacerations. No Rash Neuro: Oriented X 3. No motor deficit. No sensory deficit. Moving all extremities. No slurred speech. CN 2 through 12 grossly intact Psych: calm, cooperative, normal affect Medical Decision Making Medical Decision Making MDM Narrative: patient took a single dose Of tizanidine. Other than feeling drowsy, she has no other side effects. No further workup indicated at this time. Patient ready for discharge patient's adult daughter is here who will be driving Discharge Plan Discharge Clinical Impression: Accidental drug ingestion, Medication side effects Patient Disposition: Home, Self-Care Instructions: Adverse Drug Reaction (ED) Additional Instructions: Please follow-up with your primary care physician tomorrow. If you have any worsening or new symptoms, please return to the emergency room or call 911 Prescriptions: No Action hydroxyzine HCl 25 mg tablet 25 mg PO BEDTIME PRN (Reason: itching) 10 Days Qty: 10 0RF ibuprofen 800 mg tablet 800 mg PO Q8H fluoxetine 20 mg capsule 20 mg PO DAILY Qty: 30 6RF sennosides [Senna Laxative] 8.6 mg tablet 17.2 mg PO BEDTIME Qty: 60 6RF lorazepam 1 mg tablet 1 mg PO BID PRN cholecalciferol (vitamin D3) 25 mcg (1,000 unit) capsule 25 mcg PO DAILY esomeprazole magnesium [Nexium] 40 mg capsule,delayed release(DR/EC) 40 mg PO DAILY Qty: 30 6RF famotidine [Pepcid] 20 mg tablet 20 mg PO BEDTIME Qty: 30 6RF dicyclomine 20 mg tablet 20 mg PO QID 30 Days Qty: 120 1RF uiywhkxiel-dcmmehercqumc-xxyw 50-325-40 mg tablet 2 tab PO Q4H PRN (Reason: pain) 30 Days Qty: 30 0RF cyclobenzaprine 5 mg tablet 5 mg PO TID PRN (Reason: for muscle spasm) 30 Days Qty: 90 8RF gabapentin 600 mg tablet 600 mg PO Q8H 90 Days Qty: 270 1RF bupropion HCl 150 mg tablet extended release 24 hr 150 mg PO DAILY medroxyprogesterone [Provera] 10 mg tablet 10 mg PO DAILY 90 Days Qty: 30 0RF Rx Instructions: start Provera 1 tablet daily from day 15-24 cyclically every months, day 1 being 1st day of menses Print Language: [place] Irish
[2024-05-30 04:00] VITALS: BP 118/66; PULSE 81; RESP 16; TEMP 36.7; O2SAT 96
== END 2024-05-30 04:00 | disposition home or self-care (01) ==
PROVIDERS: Emergency Provider Emergency Medicine; PCP Internal Medicine
DX: T50.991A Poisoning by other drugs, medicaments and biological substances, accidental (unintentional), initial encounter (principal); Y92.9 Unspecified place or not applicable; R40.0 Somnolence; Z79.899 Other long term (current) drug therapy
CPT/HCPCS: 99282; 99283

== ENCOUNTER 2024-07-11 14:58 | Outpatient (AMB) | payer OTHER, SELFPAY ==
[2024-07-11 15:12] VITALS: BP 110/57; PULSE 93; BMI 31.3
--- NOTE | 2024-07-11 15:12 | MHC.OFFVIS ---
Vital Signs 07/11/24 15:12 Height 5 ft 3 in Weight 176 lb 12.972 oz BMI 31.3 BP 110/57 L Blood Pressure Location Rt brachial Position Sitting Pulse 93 Intake Visit Reasons: Follow up r/s 05/09/24 Intake Note: Kathy presents to in office follow up of GERD. CC: Patient reports that she has noticed that when she consumes ice cream or milk containing products she gets RUQ abdominal pain. Also she reports getting a pulsating pain from her back when she consumes ground beef and certain meats. Filter Bed Placer Required: Yes Accompanied by: Self / Same As Patient Allergies morphine [MORPHINE] Allergy (Intermediate, Verified 07/11/24 15:27) Itching tramadol [TRAMADOL] Allergy (Intermediate, Verified 07/11/24 15:27) SHORTNESS OF BREATH HPI HPI Follow up r/s 05/09/24: Details: Assessment & Plan (1) GERD (gastroesophageal reflux disease): Code(s): K21.9 - Gastro-esophageal reflux disease without esophagitis Category: Medical Qualifiers: Esophagitis presence: esophagitis presence not specified Qualified Code(s): K21.9 - Gastro-esophageal reflux disease without esophagitis (2) Pain of both scapulas: Code(s): M89.8X1 - Other specified disorders of bone, shoulder Category: Medical (3) Bilateral carpal tunnel syndrome: Code(s): G56.03 - Carpal tunnel syndrome, bilateral upper limbs Category: Medical (4) Bilateral foot pain: Code(s): M79.671 - Pain in right foot; M79.672 - Pain in left foot Category: Medical (5) Bilateral occipital neuralgia: Code(s): M54.81 - Occipital neuralgia Category: Medical Plan [place] #[id number] Wesleyrossy She had been on just famotidine for a while, but then she had a return of sx with needing to take more frequent motrin so we re started the esomeprazole. BUT she admits that she is forgetting to take it, so her sx have not changed. She dose note that salsa really sets off her sx. She already takes famotidine 20mg qhs with her motrin, and she can continue this and take the nexium at the same time. She tends to have pain under the bilateral breasts/ribs. It feels like a burning sensation that will persist all day or for many hours, but she is unsure what seems to relieve it . She does not have it every day. I express the opinion that if she can take her nexium regularly and the pain goes away, it is probably gastric; but if not it is probably musksile. With further discussion she says the burning feels like my skin is burning. This sounds more neuropathic. She says she had several XR recently, and there IS a t spine, but it is not read yet so I will keep an eye out for these reports. ROV 3 mos XR THORACIC SPINE/SCAPULAS/SACRUM/COCCYX 03/07/2024 THORACIC SPINE FINDINGS: Tube body height and alignment normal. Mild multilevel spondylosis manifested by endplate osteophytes without disc space narrowing scattered throughout the mid to lower dorsal spine. No change. Surrounding bone and soft tissues unremarkable XR/XR thoracic spine 2V IMPRESSION: Mild spondylosis of the thoracic spine unchanged. * RIGHT SCAPULA FINDINGS: A subtle area of calcific density overlying the greater tuberosity similar to that noted previously. Bones joints and soft tissues otherwise normal. XR/XR scapula RT IMPRESSION: Calcific density overlying the greater tuberosity similar to that noted previously. This could reflect calcific tendinitis. Scapula normal8 * LEFT SCAPULA FINDINGS: The bones and soft tissues are normal. No scapular fracture. Glenohumeral and acromioclavicular alignment is normal. Previously noted calcium deposition not conspicuous on these views XR/XR scapula LT IMPRESSION: Normal left scapula. * SACRUM AND COCCYX FINDINGS: Postoperative changes with the posterior instrumentation at the L5-S1 level and disc spacer unchanged. Suspect persistent grade 1 anterolisthesis Sacrum and coccyx unremarkable. Sacroiliac joints normal. XR/XR sacrum coccyx min 2V IMPRESSION: Sacrum and coccyx normal. Postsurgical changes stable TODAY'S VISIT [place] #Zoran Reyes SHE IS ONLY endorsing a throbbing that occurs when she eats red meats. But it also happens with salsa and sauces and ice cream on further discussion - which leads me to believe that this is a variant of GERD. She also describes a feeling like food gets stuck mid sternally, further evidence of either GERD or esophageal spasm. In the past we had sent a trail of bentyl but she does not remember geting it - will send again for prn use for spasm. I educate her on trying frozen yogurt or Lactaid Ice cream since she really likes eating ice cream. SHE CONTINUES ON HER OMEPRAZOLE AND FAMOTIDINE ALONG WITH senna as needed for constipation. We are adding the dicyclomine to see if the esophageal spasm is part of her problem. Return office visit in 6 months [facility] Medical History (Updated 07/11/24 @ 17:29 by BECKIE Guido) Esophageal spasm Thoracic spine pain Pain of right scapula Abdominal cramping Hypersomnia Snoring Skin lesion Cough Right carpal tunnel syndrome Left carpal tunnel syndrome Hand pain ELLE on CPAP Right foot pain Left foot pain Bilateral hand pain Other spondylosis, [id number]-[id number] region Left shoulder pain Pain of left scapula Occipital neuralgia of right side Occipital neuralgia of left side Well woman exam Dyspepsia Odynophagia Sinus pressure Headache Blurry vision Carpal tunnel syndrome Facet joint disease of cervical region Muscle spasms of neck Abnormal uterine bleeding (AUB) Abdominal bloating Constipation Low vitamin D level Spasmodic torticollis Hx of ovarian cyst Colon cancer screening Neck pain Vaginal itching Anxiety Chest pain Bloody stools Physical exam Dyslipidemia Hypovitaminosis D Right flank pain RUQ abdominal pain Occipital headache Tonsil stone Overweight (BMI 25.0-29.9) Migraines Moderate major depression Normocytic anemia GERD (gastroesophageal reflux disease) Cervical cancer screening Cervical radiculopathy Facet arthropathy, multilevel Well woman exam with routine gynecological exam Fibromyalgia Arthritis Sleep apnea Surgical History History of esophagogastroduodenoscopy (EGD) (10/25/22) Hx of colonoscopy History of endoscopy S/P lumbar fusion Hx of removal of ovary Family History Mother Thyroid disease Maternal Aunt No problems noted. Father No problems noted. Social History Housing: House Alcohol intake: current Alcohol intake frequency: holidays/special occasions only Alcohol type: wine Patient Tobacco Use Status: Former Tobacco user Tobacco use type: Cigarette e-Cigarette/Vaping Use: Never Used Second Hand Smoke Exposure: No service: No Current occupational status: disabled Gender identity: Female Cognitive needs: No Hearing needs: No Vision needs: Yes Female Reproductive History Menstrual Age of Menarche: 11 Review of Systems Const Denies fatigue, Denies fever(s), Denies night sweats, Denies poor appetite and Denies weight loss Eyes Details: glasses Reports requires corrective lenses ENT Reports Normal hearing present, Denies dental pain, Denies dysphagia, Denies hearing loss, Denies mouth pain, Denies odynophagia, Denies throat swelling, Denies tongue swelling and Reports other (Dentition adequate) Card Reports chest pain Resp Reports no additional complaints GI Details: Denies abdominal pain, Denies melena, Denies bloating, Denies hematochezia, Reports constipation, Denies GI cramping, Denies dysphagia, Denies excessive flatus, Denies early satiety, Reports heartburn, Denies diarrhea, Denies nausea, Denies odynophagia, Denies vomiting and Denies hematemesis Musc Reports back pain Skin/Breast Denies pruritus, Denies lesions, Denies rash and Denies jaundice Neuro Reports Normal hearing present and Denies Abnormal speech present Endo Denies fatigue Aller/Immun Denies throat swelling and Denies tongue swelling Physical Exam Vital Signs: Last Vital Signs Pulse 93 07/11/24 15:12 BP 110/57 L 07/11/24 15:12 BMI result Body Mass Index 31.3 Const General: cooperative, no acute distress, well developed and well groomed Nutritional Appearance: well nourished and obese Orientation/consciousness: oriented to person, oriented to place and oriented to time Limitations: language barrier HEENT Head: Yes normocephalic and Yes atraumatic Eyes General: appearance normal, both eyes and all related structures Pupils: Equal, round and reactive pupils present Neck Neck: Yes normal visual inspection and Yes no lymphadenopathy Thyroid: Thyroid normal Resp Effort & Inspection: normal respiratory effort and able to speak in complete sentences Auscultation: clear to auscultation bilaterally Cardio Rate: regular rate Rhythm: regular rhythm Heart sounds: Normal, physiologic split S2 sound present Peripheral pulses: radial pulses present and posterior tibial pulses present GI Inspection: No distended, Yes Abdominal panniculus present and Yes obesity Palpation (GI): Soft to palpation, nontender, no guarding, not rigid and No hepatosplenomegaly present Percussion: Yes normal to percussion Auscultation: normal bowel sounds Rectal Exam - Female: deferred Skin General skin exam: no rashes or lesions noted, turgor normal, skin not dry, no jaundice, No spider nevi and no striae Rashes: no rashes Nails: normal Neuro General: oriented to person, oriented to place and oriented to time Cranial nerves: Yes Equal, round and reactive pupils present and Yes Normal hearing present Speech: No Abnormal speech present Extrem General: Yes normal to inspection, No clubbing, No cyanosis and No edema Psych Appearance: grossly normal and well kempt Mental Status: mental status grossly normal Speech and movement: Normal speech and movement present Affect: normal affect Attitude: cooperative Thought process: Normal thought process present and not confabulating Thought content: Normal thought content present Insight: Limited insight present (Psych) Judgement: Limited judgement present (Psych) Assessment & Plan Assessment & Plan (1) Esophageal spasm: Code(s): K22.4 - Dyskinesia of esophagus Category: Medical (2) GERD (gastroesophageal reflux disease): Code(s): K21.9 - Gastro-esophageal reflux disease without esophagitis Category: Medical Qualifiers: Esophagitis presence: esophagitis presence not specified Qualified Code(s): K21.9 - Gastro-esophageal reflux disease without esophagitis (3) Chronic pain syndrome: Code(s): G89.4 - Chronic pain syndrome Category: Medical (4) Thoracic back pain: Comment: XR 02/2024 FINDINGS: Tube body height and alignment normal. Mild multilevel spondylosis manifested by endplate osteophytes without disc space narrowing scattered throughout the mid to lower dorsal spine. No change. Code(s): M54.6 - Pain in thoracic spine Category: Medical Plan [place] #Zoran Reyes SHE IS ONLY endorsing a throbbing that occurs when she eats red meats. But it also happens with salsa and sauces and ice cream on further discussion - which leads me to believe that this is a variant of GERD. She also describes a feeling like food gets stuck mid sternally, further evidence of either GERD or esophageal spasm. In the past we had sent a trail of bentyl but she does not remember geting it - will send again for prn use for spasm. I educate her on trying frozen yogurt or Lactaid Ice cream since she really likes eating ice cream. SHE CONTINUES ON HER OMEPRAZOLE AND FAMOTIDINE ALONG WITH senna as needed for constipation. We are adding the dicyclomine to see if the esophageal spasm is part of her problem. Return office visit in 6 month Medications: Changed From dicyclomine 20 mg PO QID 30 days 120 tabs 1RF K22.4 - Dyskinesia of esophagus To dicyclomine 20 mg PO QID PRN 120 tabs 6RF abdominal pain 30 days K22.4 - Dyskinesia of esophagus Refilled esomeprazole magnesium (Nexium) 40 mg PO DAILY 30 caps 6RF K21.9 - Gastro-esophageal reflux disease without esophagitis famotidine 20 mg PO BEDTIME 30 tabs 0RF sennosides (Senna Laxative) 17.2 mg (2 x 8.6 mg) PO BEDTIME 60 tabs 6RF K59.00 - Constipation, unspecified Coding Level of Care Code Est Pt Level 3 (00895) Diagnoses Esophageal spasm K22.4 Gastroesophageal reflux disease, unspecified whether esophagitis present K21.9 Esophagitis presence: esophagitis presence not specified Chronic pain syndrome G89.4 Thoracic back pain M54.6
--- OUTSIDE RECORDS SUMMARY | 2024-07-11 17:49 | XMS_ITS | Encounter Summary ---
Author Organization [employer] Address [address] [place] [address] Care Team Providers Care Lodging House Keeper Name Role Phone Pebbles Levine Primary Care Provider [phone]- [phone] Encounter Details Date Type Department Care Team (Late st Contact Info) Description 05/02/2022 Abstract [facility] [address] [place] [address] Pebbles Levine FNP [address] [place] [address] [place] [address] Social History Tobacco Use Types Packs/Day Years [...] on filedocumented in this encounter Care Teams Lodging House Keeper Relationship Specialty Start Date End Date Pebbles Levine FNP PCP - General Family Medicine 09/29/21 08/11/22 documented as of this encounter
--- OUTSIDE RECORDS SUMMARY | 2024-07-11 17:49 | XMS_ITS | Encounter Summary ---
Author Organization [employer] Address [address] [place] [address] Care Team Providers Care Equipment Tester Name Role Phone Pebbles Levine Primary Care Provider [phone]- [phone] Reason for Visit * Reason Onset Date [...] (Late st Contact Info) Description 03/08/2022 Telephone [facility] [address] [place] [address] Dental, Provider, DDS Prior Authorization (Patient called [...] on filedocumented in this encounter Care Teams Equipment Tester Relationship Specialty Start Date End Date Pebbles Levine FNP PCP - General Family Medicine 09/29/21 08/11/22 documented as of this encounter
--- OUTSIDE RECORDS SUMMARY | 2024-07-11 17:49 | XMS_ITS | Clinical Summary ---
Author Organization [employer] Address [address] [place] [address] [address] [place] [address] Care Team Providers Care Lasting Room Supervisor Name Role Phone Unavailable Primary Care Provider [...] 02/23/2018 Tobacco Screening 05/31/2023 05/30/2022 COVID-19 Vaccine (4 - 2023-2 5 season) 2023 04/03/2021, 08/19/2020, 07/24/2020 Influenza Vaccine (#1) 2023 Zoster [...] Most Recently Relevant to Health Maintenance Insurance [facility] STANDARD MEDICARE
--- OUTSIDE RECORDS SUMMARY | 2024-07-11 17:49 | XMS_ITS | Clinical Summary ---
Author Organization [facility] Address [address] [place] [address] Phone Care Team Providers Care Alpine Guide Name Role Phone Lilia Walsh MD Primary Care Provider [phone] Allergies Active Allergy Reactions Criticality Noted Date [...] Encounters Date Type Department Care Team Description 07/03/2024 2:15 PM EDT Office Visit Orthopedic Surgery - [place] [address] [place] [id number] Robby Sue, DPM Plantar fascial fibromatosis (Primary Dx); Pain in left foot; Equinus contracture of ankle from Last 3 Months Social History Tobacco [...] - - Weight 80.7 kg (178 lb) 07/03/2024 1:44 PM EDT Height 160 cm (5' 2.99 ) 07/03/2024 1:44 PM EDT Body Mass Index 31.54 07/03/2024 1:44 PM EDT Plan of Treatment Upcoming Encounters Date Type Department Care Team (Late st Contact Info) Description 08/05/2024 1:45 PM EDT Office Visit Orthopedic Surgery - [place] [address] [address] Robby Sue, DPM [address] [address] Health Maintenance Due Date Last Done Comments DTaP,Tdap,and Td Vaccines (1 - Tdap) 10/02/1994 Hepatitis B Vaccines (1 of 3 - 19+ 3-dose series) 10/02/1994 Cervical Cancer Screening: P ap Smear 10/02/1996 Breast Cancer Screening 12/19/2021 12/20/2019 COVID-19 Vaccine (3 - 2023-2 5 season) 2023 08/19/2020, 07/24/2020 Colorectal Cancer Screening: Colonoscopy 01/29/2024 Depression Screening 01/29/2024 HIV Screening 01/29/2024 Hepatitis C Screening 01/29/2024 Medicare Annual Wellness Visit 01/29/2024 Social Influencers of Health Screening 01/29/2024 Influenza Vaccine (Season Ended) 2024 HIB Vaccines Aged Out No longer eligi [...] age to complete this topic Meningococcal B Vaccine Aged Out No l onger eligible based on patient's age to complete this topic Pneumococcal Vaccine: Pediatrics (0 to 5 Years) and At-Risk Patients (6 to 64 Years) Aged Out No longer eligible b ased on patient's age to complete this topic RSV Immunization Patients Under 20 months Aged Out No longer eligible b ased on patient's age to complete this topic Varicella Vaccines Aged Out No longer eligible based on patient's age to complete this topic Insurance [employer] MEDICARE Member Subscriber Plan / Payer (Ef fective 2022-Present) Name:Kathy Alexis Relation to Subscriber:Self Name:Kathy Alexis Payer ID:[id number] Group ID:[id number] Type:Not on file Address: [place] [address] [address] [place] [id number] Care Teams Alpine Guide Relationship Specialty Start Date End Date Lilia Walsh MD [address] [place] [address] PCP - General Internal Medicine 02/29/24
--- OUTSIDE RECORDS SUMMARY | 2024-07-11 17:49 | XMS_ITS | Encounter Summary ---
Author Organization [facility] Address [address] [place] [address] [place] [address] Care Team Providers Care Animal Control Licensing Worker Name Role Phone Pebbles Levine Primary Care Provider [phone]- [phone] Encounter Details Date Type Department Care Team (Latest Contact Info) Description 02/01/2022 Abstract [facility] CONVERSIONS Dental, Provider, DDS Social History [...] on filedocumented in this encounter Care Teams Animal Control Licensing Worker Relationship Specialty Start Date End Date Pebbles Levine FNP PCP - General Family Medicine 09/29/21 08/11/22 documented as of this encounter
== END 2024-07-11 16:01 | disposition home or self-care (01) ==
PROVIDERS: PCP Internal Medicine; Visit Provider Nurse Practitioner
DX: K22.4 Dyskinesia of esophagus (principal); K21.9 Gastro-esophageal reflux disease without esophagitis; G89.4 Chronic pain syndrome; M54.6 Pain in thoracic spine
CPT/HCPCS: 99213

== ENCOUNTER → 2024-07-11 14:58 | Outpatient (BNVA) | payer OTHER, SELFPAY | PROVIDERS: PCP Internal Medicine; Visit Provider Nurse Practitioner | DX: K22.4 Dyskinesia of esophagus (principal); K21.9 Gastro-esophageal reflux disease without esophagitis; M54.6 Pain in thoracic spine; G89.4 Chronic pain syndrome | CPT/HCPCS: 99212 ==

== ENCOUNTER 2024-09-03 13:03 | Outpatient (AMB) | payer OTHER, SELFPAY ==
[2024-09-03 13:12] VITALS: BP 120/76; BMI 31.0
--- NOTE | 2024-09-03 13:12 | MHC.PC.OV ---
Vital Signs 09/03/24 13:12 Height 5 ft 3 in Weight 175 lb BMI 31.0 BP 120/76 Blood Pressure Location Lt brachial Position Sitting Intake Visit Reasons: Annual exam Intake Note: Patient here for an annual physical exam [employer] Required: No Accompanied by: Self / Same As Patient Allergies morphine [MORPHINE] Allergy (Intermediate, Verified 09/03/24 13:25) Itching tramadol [TRAMADOL] Allergy (Intermediate, Verified 09/03/24 13:25) SHORTNESS OF BREATH Medication List - Last Reconciled 09/03/24 by Lilia Walsh MD buspirone 5 mg PO TID [id number]-dtdflxrzjpzwb-mzrx 50-325-40 mg 2 tabs PO Q4H PRN 30 days cholecalciferol (vitamin D3) 25 mcg PO DAILY cyclobenzaprine 5 mg PO TID PRN 30 days dicyclomine 20 mg PO QID PRN 30 days duloxetine 20 mg PO BID esomeprazole magnesium (Nexium) 40 mg PO DAILY famotidine 20 mg PO BEDTIME ferrous sulfate (Feosol) 325 mg PO DAILY magnesium citrate 100 mg PO DAILY medroxyprogesterone (Provera) 10 mg PO DAILY 90 days melatonin 5 mg PO BEDTIME PRN Tobacco use date assessed: 09/03/24 Dental Screening Dental Screen Date: 09/03/24 Did you have a dental visit in the last 12 months?: Yes Did you have a dental problem in the last 6 months where you did not have access to dental care?: No Was dental information given to patient?: Patient has dentist HPI HPI Comments History of Present Illness Details The patient is a 48-year-old female presenting for her physical exam. She reports ongoing depression and has been on duloxetine for one month. She cites difficulties in adhering to her prescribed buspirone regimen due to her daily activities. Anxiety symptoms are reported to have improved since starting treatment, although compliance is challenging. Additionally, she has noticed a considerable weight increase over the past year, associating this with changes in her medication regimen. She complains of chest pain and tachycardia. Also had right leg pain an ultrasound will be done to rule out DVT. She also has chronic neck pain but declines local injections. The patient's past medical history is significant for fibromyalgia, which she controls with Flexeril at night. She reports fatigue and dyspnea with minimal exertion, indicating reduced physical distress tolerance. Her surgical history includes endoscopy, colonoscopy, lumbar fusion, and ovarian surgery. Efforts to engage in physical therapy have been interrupted by scheduling conflicts. - Tetanus vaccine not up to date; offered during the visit. - Magnesium supplement discussed for potential benefits on constipation and migraine relief. - Importance of physical activity emphasized, with a plan to resume physical therapy. [facility] Medical History (Updated 09/03/24 @ 14:25 by Lilia Walsh MD) Physical exam Neck pain Esophageal spasm Thoracic spine pain Pain of right scapula Abdominal cramping Hypersomnia Snoring Skin lesion Cough Right carpal tunnel syndrome Left carpal tunnel syndrome Hand pain ELLE on CPAP Right foot pain Left foot pain Bilateral hand pain Other spondylosis, rqzilifq-aqfspgx-wpels region Left shoulder pain Pain of left scapula Occipital neuralgia of right side Occipital neuralgia of left side Well woman exam Dyspepsia Odynophagia Sinus pressure Headache Blurry vision Carpal tunnel syndrome Facet joint disease of cervical region Muscle spasms of neck Abnormal uterine bleeding (AUB) Abdominal bloating Constipation Low vitamin D level Spasmodic torticollis Hx of ovarian cyst Colon cancer screening Vaginal itching Anxiety Chest pain Bloody stools Dyslipidemia Hypovitaminosis D Right flank pain RUQ abdominal pain Occipital headache Tonsil stone Overweight (BMI 25.0-29.9) Migraines Moderate major depression Normocytic anemia GERD (gastroesophageal reflux disease) Cervical cancer screening Cervical radiculopathy Facet arthropathy, multilevel Well woman exam with routine gynecological exam Fibromyalgia Arthritis Sleep apnea Surgical History History of esophagogastroduodenoscopy (EGD) (10/25/22) Hx of colonoscopy History of endoscopy S/P lumbar fusion Hx of removal of ovary Family History Mother Thyroid disease Maternal Aunt No problems noted. Father No problems noted. Social History Housing: House Alcohol intake: current Alcohol intake frequency: holidays/special occasions only Alcohol type: wine Patient Tobacco Use Status: Former Tobacco user Tobacco use type: Cigarette e-Cigarette/Vaping Use: Never Used Second Hand Smoke Exposure: No service: No Current occupational status: disabled Gender identity: Female Cognitive needs: No Hearing needs: No Vision needs: Yes Female Reproductive History Menstrual Age of Menarche: 11 Questionnaire PHQ-9 Over the last 2 weeks, how often have you been bothered by any of the following problems? 1. Little interest or pleasure in doing things: several days 2. Feeling down, depressed, or hopeless: several days 3. Trouble falling or staying asleep, or sleeping too much: nearly every day 4. Feeling tired or having little energy: nearly every day 5. Poor appetite or overeating: nearly every day 6. Feeling bad about yourself - or that you are a failure or have let yourself or your family down: nearly every day 7. Trouble concentrating on things, such as reading the newspaper or watching television: nearly every day 8. Moving or speaking so slowly that other people could have noticed. Or the opposite - being so fidgety or restless that you have been moving around a lot more than usual: not at all 9. Thoughts that you would be better off or of hurting yourself in some way: not at all Total score: 17 Depression Screening Interpretation: Positive (no suicidal thoughts) Depression Screening Follow-up: Existing condition, In treatment, Community Mental Health Worker F/U and Follow-up Visit Requested Depression Screening Done: Yes 58283 - PHQ-9 Billing: Yes Source: Developed by Drs. Alejandro Linton, Omayra King, Deejay Rivas and colleagues, with an educational rene from [employer]. Thrive Questionnaire Date Thrive assessed: 09/03/24 I am a: Patient What is your living situation today?: I have a steady place to live Within the past 12 months, did the food you bought not last and you didn't have the money to get more?: I choose not to answer this question Within the past 12 months, did you worry whether your food would run out before you got money to buy more?: I choose not to answer this question Do you have trouble paying for medicines?: I choose not to answer this question Do you have trouble getting transportation to medical appointments?: I choose not to answer this question Do you have trouble paying your heating and electricity bill?: I choose not to answer this question Do you have trouble taking care of your child, family member or friend?: I choose not to answer this question Do you have trouble with day-to-day activities such as bathing, preparing meals, shopping, managing finances, etc.?: I choose not to answer this question Are you currently unemployed and looking for a job?: I choose not to answer this question Are you interested in more education?: I choose not to answer this question Please select the resources that you would like help with: None Currently or been in a relationship where the following occur: No concerns reported THRIVE Score: 0 AUDIT C Alcohol Use Questionnaire (AUDIT-C) 1. How often do you have a drink containing alcohol?: Never Total Score: 0 Score Reviewed/Action Taken: No SHERIDAN-7 AMB Questionnaire SHERIDAN-7 Date SHERIDAN - 7 assessed: 09/03/24 Feeling nervous, anxious, or on edge: 3 = Nearly every day Not being able to stop or control worryin = Nearly every day Worrying too much about different things: 3 = Nearly every day Trouble relaxin = Nearly every day Being so restless that it is hard to sit still: 3 = Nearly every day Becoming easily annoyed or irritable: 3 = Nearly every day Feeling afraid as if something awful might happen: 3 = Nearly every day Total SHERIDAN-7 score (0-4 normal; 5-9 mild; 10-14 moderate; 15-21 severe): 21 Source: Developed by Drs. Alejandro Linton, Omayra King, Deejay Rivas and colleagues, with an educational rene from [employer]. SHERIDAN-7 Assessment Billing SHERIDAN-7 Assessment Tool: SHERIDAN-7 Assessment 60340 Review of Systems Const All systems reviewed & are unremarkable except as noted in HPI and below Card Denies chest pain at rest, Denies chest pain with activity, Denies edema, Denies irregular heart rhythm, Denies claudication, Denies dyspnea, Denies dyspnea on exertion, Denies orthopnea, Denies paroxysmal nocturnal dyspnea and Denies slow heart rate Resp Denies cough, Denies dyspnea and Denies dyspnea on exertion GI Denies abdominal pain, Denies change in bowel habits, Denies excessive flatus, Denies nausea and Denies vomiting Denies urinary incontinence, Denies urinary hesitancy and Denies urinary urgency Neuro Denies behavioral changes and Denies lack of coordination Psych Denies behavioral changes Physical exam (Primary Care) Vital Signs: Last Vital Signs BP 120/76 09/03/24 13:12 BMI result Body Mass Index 31.0 BMI Assessment/Plan discussion: High BMI High, discussed plan: lifestyle, weight reduction, dietary and physical activity Tobacco/Smoking Status: Tobacco use Status Tobacco use date assessed 09/03/24 09/03/24 13:19 Patient Tobacco Use Status Former Tobacco user 09/03/24 13:19 Tobacco use type Cigarette 09/03/24 13:19 e-Cigarette/Vaping Use Never Used 09/03/24 13:19 PHQ-9: PHQ-9 Score PHQ-9: Total score 17 09/03/24 13:26 Depression Screening Interpretation: Positive (no suicidal thoughts) Depression Screening Follow-up: Existing condition, In treatment, Community Mental Health Worker F/U and Follow-up Visit Requested Thrive Assessment: Date of Thrive Assessment Date Thrive assessed 09/03/24 09/03/24 13:19 Currently or been in a relationship where the following occur: No concerns reported HENMT Head: Yes normal to inspection, Yes normocephalic and Yes atraumatic Ears: external ears normal Eyes General: appearance normal, both eyes and all related structures Eyelids: Yes eyelids normal Conjunctivae: conjunctivae normal Neck Neck: Yes normal visual inspection and Yes supple Resp Effort & Inspection: normal respiratory effort Auscultation: clear to auscultation bilaterally Cardio Jugular venous distension: no JVD Rate: regular rate Rhythm: regular rhythm Heart sounds: S1 normal heart sound present and S2 normal heart sound present GI Inspection: Yes normal to inspection Palpation (GI): Soft to palpation and nontender Auscultation: normal bowel sounds Skin General skin exam: no rashes or lesions noted Neuro General: no focal motor deficits Extrem General: Yes full ROM Psych Appearance: grossly normal Immunizations Boostrix Tdap 2.5 Lf unit-8 mcg-5 Lf/0.5 mL intramuscular syringe Performing Provider: Lilia Walsh MD [facility] Administered by: CARLEEN Harrell on 09/03/24 13:50 Dose Route Admin Location Dispensed Lot Number Expiration Date [facility] [employer] 0.5 mL IM Right Deltoid 0.5 mL [id number] 11/23/26 90103-214-03 Needle HR VIS Given Date VIS Provided VIS Publication Date 09/03/24 Single Vaccine 24 Eligibility Eligibility Date Funding Source Not [facility] Eligible 09/03/24 Private Coding Level of Care Code Est Pt Level 3 (41276) Est Pt Prev Care 40-64y(99335) Diagnoses Physical exam Z00.00 Moderate major depression F32.1 Neck pain M54.2 Tachycardia R00.0 Chest pain R07.9 Right leg pain M79.604 Additional Codes PHQ-9 - 33799 - PHQ-9 Billing: Yes ([id number]) SHERIDAN-7 Assessment Billing - SHERIDAN-7 Assessment Tool: SHERIDAN-7 Assessment 88004 ([id number]) Time Spent (min) 39 Assessment & Plan Assessment & Plan (1) Physical exam: Code(s): Z00.00 - Encounter for general adult medical examination without abnormal findings Category: Medical (2) Moderate major depression: Code(s): F32.1 - Major depressive disorder, single episode, moderate Category: Medical (3) Neck pain: Code(s): M54.2 - Cervicalgia Category: Medical (4) Tachycardia: Code(s): R00.0 - Tachycardia, unspecified Category: Medical (5) Chest pain: Comment: sees Dr Tavarez last visit 03/24/2021, currently wearing 30 day loop recorder Code(s): R07.9 - Chest pain, unspecified Category: Medical (6) Right leg pain: Code(s): M79.604 - Pain in right leg Category: Medical Plan During the visit, we concentrated on addressing the patient?s depressive disorder and highlighted the significance of strict adherence to her medications. We discussed practical methods to improve compliance with her buspirone regimen and recommended lifestyle changes, especially in diet and physical activity, to address weight gain and overall well-being. We offered a tetanus vaccination to update her immunization status. We discussed supplementing magnesium to aid in managing her gastrointestinal symptoms and to assist with her fibromyalgia. Psychiatric follow-ups were emphasized as crucial for ongoing monitoring and support. Additionally, revisiting her physical therapy plan will be essential to improve her physical health and manage her fibromyalgia symptoms effectively. Patient was informed and verbally consented to the use of an ambient scribe for clinic note documentation during this visit. I explained to the patient the importance of medication adherence, particularly for her anxiety treatment with buspirone, and we discussed ways to incorporate the midday dose into her daily activities. We talked about the potential benefits and minor risks of magnesium supplementation for her gastrointestinal and musculoskeletal complaints. The importance of resuming physical therapy to address her weight gain and physical fitness was underscored, with a plan to reinitiate therapy sessions with a new provider. We discussed updating her tetanus vaccine for preventive care and highlighted the significance of psychiatric follow-ups to optimize treatment for her depressive disorder. Informed consent for the tetanus immunization was obtained. Orders: Orders PT Evaluation and Treatment Today M54.2 - Cervicalgia Lipid Panel Today E78.5 - Hyperlipidemia, unspecified, R07.9 - Chest pain, unspecified Comprehensive [place]. Panel Fast Today R07.9 - Chest pain, unspecified Complete Blood Count Auto Diff Today D64.9 - Anemia, unspecified IRON PROFILE Today D64.9 - Anemia, unspecified Vitamin D 25-OH Total Today E55.9 - Vitamin D deficiency, unspecified TDaP Immunization Today Z23 - Encounter for immunization ECG 12 lead EKG Today R07.9 - Chest pain, unspecified ECG holter monitor 48 hour Today R00.0 - Tachycardia, unspecified Vitamin B12 and Folate Today E53.8 - Deficiency of other specified B group vitamins US venous duplex LE RT Today M79.604 - Pain in right leg Medications: Refilled cyclobenzaprine 5 mg PO TID 30 days PRN 90 tabs 8RF for muscle spasm Patient Instructions: - Take duloxetine as prescribed for depression. - Adhere to buspirone dosage schedule and incorporate the midday dose into daily routine. - Start magnesium supplement as discussed. - Avoid high sugar foods. - Resume physical therapy; contact for a new referral. - Schedule and attend psychiatric follow-ups. - Update tetanus vaccination. - Report any new or worsening symptoms.
--- OUTSIDE RECORDS SUMMARY | 2024-09-03 15:21 | XMS_ITS | Clinical Summary ---
Author Organization [employer] Address [address] [place] [address] [address] [place] [address] Care Team Providers Care Cytopathology Technologist Name Role Phone Unavailable Primary Care Provider [...] Screening 1975 SDOH Screening 1975 Sigmoidoscopy 1975 Disability Screening 1975 Alcohol/Substance Use Screening 1987 Family Planning [...] season) 2023 04/03/2021, 08/19/2020, 07/24/2020 Influenza Vaccine (Season Ended) 2024 Zoster Vaccines (1 of 2) 10/02/2025 RSV [...] Most Recently Relevant to Health Maintenance Insurance [address] [address] [place] [address] STANDARD MEDICARE
== END 2024-09-03 13:51 | disposition home or self-care (01) ==
LOC: HO.HMCH 13:04
PROVIDERS: PCP Internal Medicine; Visit Provider Internal Medicine
DX: Z00.00 Encounter for general adult medical examination without abnormal findings (principal); F32.1 Major depressive disorder, single episode, moderate; M54.2 Cervicalgia; R00.0 Tachycardia, unspecified; R07.9 Chest pain, unspecified; M79.604 Pain in right leg; Z23 Encounter for immunization

== ENCOUNTER → 2024-09-03 13:03 | Outpatient (BNVA) | payer OTHER, SELFPAY | PROVIDERS: PCP Internal Medicine; Visit Provider Internal Medicine | DX: Z13.89 Encounter for screening for other disorder (principal) | CPT/HCPCS: 90471; 90715; 96127; 99212; 99396 ==

== ENCOUNTER 2024-09-03 14:09 | Outpatient (REF) | payer OTHER, SELFPAY ==
--- NOTE | ~2024-09-03 | US_ITS ---
EXAMINATION: US TRIPLEX LOWER EXTREMITY, RIGHT CLINICAL INFORMATION: Right leg pain, mid and lateral calf region COMPARISON: None available. TECHNIQUE: Color-flow triplex imaging with spectral analysis and compression Doppler were performed on the right lower extremity. FINDINGS: Respiratory variation, normal compression and augmented flow are noted throughout the right lower extremity. The visualized common femoral vein, superficial femoral vein, profunda femoral vein, popliteal vein and midcalf peroneal and posterior tibial venous segments show no evidence of deep venous thrombosis. US/US venous duplex LE RT IMPRESSION: No evidence of deep venous thrombosis involving the right lower extremity. Electronically signed by: Francois Ospina MD 09/03/2024 03:03 PM EDT
== END 2024-09-03 14:10 | disposition home or self-care (01) ==
LOC: HO.US 14:09
PROVIDERS: PCP Internal Medicine; Visit Provider Internal Medicine
DX: M79.604 Pain in right leg (principal); Z23 Encounter for immunization
CPT/HCPCS: 90471; 90715; 93971; 96127; 99212; 99396

== ENCOUNTER → 2024-09-03 14:16 | Outpatient (BNV) | payer OTHER, SELFPAY | PROVIDERS: PCP Internal Medicine; Visit Provider Radiology Diagnostic Radiology | DX: M79.604 Pain in right leg (principal) | CPT/HCPCS: 93971 ==

== ENCOUNTER → 2024-09-16 09:02 | Outpatient (REF) | payer OTHER, SELFPAY ==
--- NOTE | 2024-09-16 09:05 | HM_ITS ---
Conclusion: 1. Patient was monitored for total period of 2 days 2. Baseline was normal sinus rhythm with average heart rate of 88 beats per minute 3. No significant pauses or arrhythmias noted 4. No patient reported events MTDD
--- NOTE | 2024-09-16 09:05 | ECG_ITS ---
Test Reason : R07.9 - Chest pain, unspecified Blood Pressure : */* mmHG Vent. Rate : 85 BPM Atrial Rate : 85 BPM P-R Int : 138 ms QRS Dur : 76 ms QT Int : 376 ms P-R-T Axes : 69 36 62 degrees QTcB Int : 447 ms Normal sinus rhythm Normal ECG When compared with ECG of 18-Dec-2020 07:53, QRS axis Shifted left Referred By: Lilia Walsh Electronically Signed By: NATE NASCIMENTO
--- OUTSIDE RECORDS SUMMARY | 2024-09-16 09:41 | XMS_ITS | Clinical Summary ---
Author Organization [employer] Address [address] [place] [address] [address] [place] [address] Care Team Providers Care Auto Bench Mechanic Name Role Phone Unavailable Primary Care Provider [...] 98 04/28/2022 3:36 PM EST Temperature 36.7 C (98 F) 04/28/2022 2:49 PM EST Respiratory Rate 17 [...] Years) and At-Risk Patients (6 to 49) Years Aged Out No longer eligible b ased [...] Most Recently Relevant to Health Maintenance [place] [address] [place] [address] [address] [place] [phone]
== END ==
LOC: HO.CARD 09:02
PROVIDERS: PCP Internal Medicine; Visit Provider Internal Medicine
DX: R07.9 Chest pain, unspecified (principal); R00.0 Tachycardia, unspecified
CPT/HCPCS: 93005; 93225

== ENCOUNTER → 2024-09-16 09:05 | Outpatient (BNV) | payer OTHER, SELFPAY | PROVIDERS: PCP Internal Medicine; Visit Provider Internal Medicine | DX: R07.9 Chest pain, unspecified (principal) | CPT/HCPCS: 93010; 93227 ==

== ENCOUNTER 2024-09-23 11:47 | Emergency (ER) | payer OTHER, SELFPAY ==
--- NOTE | 2024-09-23 12:38 | ED_ITS ---
HPI - General Adult General Chief complaint: Back Pain/Injury Stated complaint: upper abd pain Time Seen by Provider: 09/23/24 14:12 Source: patient, RN notes reviewed, old records reviewed and business management manager Mode of arrival: ambulatory Limitations: language barrier History of Present Illness ED Provider: Vivien HPI narrative: Patient is a 48-year-old Ugandan-speaking female with history of chronic pain syndrome, polyarthralgia, fibromyalgia, GERD, migraines, depression and anxiety presenting to the emergency department with complaint of mid back pain for 1 week. Denies fall or other trauma. Denies any strenuous activities or heavy lifting. States that she is not currently working. Denies any chest pain, shortness of breath, palpitations. Not on OCPs. Denies recent calf pain or swelling, denies recent travel. Worse with movement and palpation and radiates up her back bilaterally. Denies any dysuria, frequency, hematuria or other urinary symptoms. Has tried ibuprofen, Tylenol and flexeril without relief. MD complaint: back pain Onset (ago): week(s) Related Data Home Medications ?Medication ?Instructions ?Recorded ?Confirmed cholecalciferol (vitamin D3) 25 25 mcg PO DAILY 09/03/24 mcg (1,000 unit) capsule duloxetine 20 mg capsule,delayed 20 mg PO BID 07/11/24 09/03/24 release ferrous sulfate 325 mg (65 mg 325 mg PO DAILY 07/11/24 09/03/24 iron) tablet (Feosol) buspirone 5 mg tablet 5 mg PO TID 09/03/24 5 magnesium citrate 100 mg capsule 100 mg PO DAILY 09/0309/03/24 melatonin 5 mg tablet 5 mg PO BEDTIME PRN 09/03/24 09/03/24 Previous Rx's ?Medication ?Instructions ?Recorded [id number] 2 tab PO Q4H PRN uri n 30 days #30 03/04/24 50 mg-325 mg-40 mg tablet tabs dicyclomine 20 mg tablet 20 mg PO QID PRN abdominal p ain 30 07/11/24 days #120 tabs esomeprazole magnesium 40 mg 40 mg PO DAILY #30 caps 0 07/11/24 capsule,delayed release (Nexium) famotidine 20 mg tablet 20 mg PO BEDTIME #30 tabs medroxyprogesterone 10 mg tablet 10 mg PO DAILY 90 day s #30 tabs 08/10/24 (Provera) cyclobenzaprine 5 mg tablet 5 mg PO TID PRN for muscle spasm 09/09/24 30 days #90 tabs diclofenac sodium 75 mg 75 mg PO BID PRN pain 30 day s #60 09/09/24 tablet,delayed release tabs lidocaine 5 % topical patch 1 patch topical DAILY #15 ea 09/23/24 naproxen 500 mg tablet 500 mg PO BID #14 tabs 09/23 tizanidine 2 mg tablet 2 mg PO Q8H PRN muscle spast icity 09/23/24 #10 tabs Allergies Allergy/AdvReac Type Severity Reaction Status Date / Time morphine (MORPHINE) Allergy Intermediate Itching Verified 09/23/24 12:55 tramadol (TRAMADOL) Allergy Intermediate SHORTNESS Verified 09/23/24 12:55 OF BREATH Review of Systems 2 Review of Systems: Yes all other systems are reviewed and are negative Constitutional: Constitutional: Reports as per [facility] Past Medical History Medical History (Updated 09/23/24 @ 18:22 by Gunjan Puga NP) Physical exam Neck pain Esophageal spasm Thoracic spine pain Pain of right scapula Abdominal cramping Hypersomnia Snoring Skin lesion Cough Right carpal tunnel syndrome Left carpal tunnel syndrome Hand pain ELLE on CPAP Right foot pain Left foot pain Bilateral hand pain Other spondylosis, ffczxknf-qdouenl-dfbtz region Left shoulder pain Pain of left scapula Occipital neuralgia of right side Occipital neuralgia of left side Well woman exam Dyspepsia Odynophagia Sinus pressure Headache Blurry vision Carpal tunnel syndrome Facet joint disease of cervical region Muscle spasms of neck Abnormal uterine bleeding (AUB) Abdominal bloating Constipation Low vitamin D level Spasmodic torticollis Hx of ovarian cyst Colon cancer screening Vaginal itching Anxiety Chest pain Bloody stools Dyslipidemia Hypovitaminosis D Right flank pain RUQ abdominal pain Occipital headache Tonsil stone Overweight (BMI 25.0-29.9) Migraines Moderate major depression Normocytic anemia GERD (gastroesophageal reflux disease) Cervical cancer screening Cervical radiculopathy Facet arthropathy, multilevel Well woman exam with routine gynecological exam Fibromyalgia Arthritis Sleep apnea Surgical History History of esophagogastroduodenoscopy (EGD) (10/25/22) Hx of colonoscopy History of endoscopy S/P lumbar fusion Hx of removal of ovary Family History Family History Mother Thyroid disease Maternal Aunt No problems noted. Father No problems noted. Social History Social History Housing: House Alcohol intake: current Alcohol intake frequency: does not drink Alcohol type: wine Patient Tobacco Use Status: Former Tobacco user Tobacco use type: Cigarette Smoked in Last 30 Days: No e-Cigarette/Vaping Use: Never Used Second Hand Smoke Exposure: No Use of substances other than those prescribed or required for medical reasons: No Advance Directives: No Advance Directives Information Provided: Yes Do you have a plan to hurt others: No Plan Patient : No service: No Current occupational status: disabled Gender identity: Female Cognitive needs: No Hearing needs: No Vision needs: Yes Physical Exam ED Vital Signs: Vital Signs - 24 hr 09/23/24 12:50 09/23/24 15:11 Temperature 98.9 F 98.8 F Pulse Rate 85 79 Respiratory Rate 16 16 Blood Pressure 120/77 124/66 Pulse Oximetry 97 98 Oxygen Delivery Method Room Air Room Air BMI result Body Mass Index 31.6 Vital signs have been reviewed and appear to be correct. Blood pressure normal. Heart rate normal. Respiratory rate normal. Temperature normal. Oxygen saturation normal. Const General: cooperative, healthy appearing and no acute distress Orientation/consciousness: oriented to person, oriented to place, oriented to time and patient oriented x3 Limitations: no limitations HENMT Head: Yes normocephalic and Yes atraumatic Ears: external ears normal General nose exam: Normal external nose present Face and sinus: Yes face symmetric Mouth: oropharynx normal and moist mucous membranes Throat: Yes uvula midline Eyes Pupils: Equal, round and reactive pupils present Neck Neck: Yes normal visual inspection and Yes supple Resp Effort & Inspection: normal respiratory effort and able to speak in complete sentences Auscultation: clear to auscultation bilaterally Cardio Rate: regular rate Rhythm: regular rhythm Heart sounds: S1 normal heart sound present and S2 normal heart sound present GI Palpation (GI): Soft to palpation and nontender Auscultation: normoactive bowel sounds General: Yes no CVA tenderness Back/Spine/Pelvis Back: no CVA tenderness Thoracic/Lumbar Spine: thoracic and lumbar spine normal to inspection, thoraco- lumbar ROM normal, pain with thoraco-lumbar ROM, paraspinal muscle tenderness bilaterally in the mid thoracic, No thoracic spinal tenderness and No lumbar spinal tenderness Skin General skin exam: elasticity normal and turgor normal Neuro General: oriented to person, oriented to place, oriented to time, patient oriented x3, gait normal, tone normal, moves all extremities, Normal light touch and pain sensation, no focal motor deficits, CN's II-XI intact bilaterally and deep tendon reflexes 2+ bilaterally Cranial nerves: Yes Equal, round and reactive pupils present Cognition (Neuro): normal cognition Motor exam (neuro): 5/5 motor strength present throughout, Normal motor muscle tone present throughout and Motor abnormalities not present Extrem General: Yes full ROM, Yes no pedal edema and Yes no calf tenderness Psych Mental Status: mental status grossly normal Affect: normal affect Thought process: Normal thought process present Course Course Course Narrative: RME performed by Leeann Washington PA-C. Patient is a 48 year old assigned female at presenting to the emergency department with mid back pain and dizziness. Patient states that she has been having mid back pain that radiates upwards and is having intermittent dizziness. Detailed physical exam and review of systems are deferred to the spray cementer. EKG, labs ordered. Patient placed back in the waiting room pending room availability and results. Medications Administered Discontinued Medications Generic Name Dose Route Start Last Admin Trade Name Randy PRN Reason Stop Dose Admin Diazepam 2 mg 09/23/24 15:16 09/23/24 15:51 Diazepam 2 Mg Tablet PO 09/23/24 15:17 2 mg ONCE ONE Administration Ketorolac Tromethamine 30 mg 09/23/24 15:16 09/23/24 15:51 Ketorolac Tromethamine 30 Mg/Ml Vial IM 09/23/24 15:17 30 mg ONCE ONE Administration Medical Decision Making Medical Decision Making MDM Narrative: Patient is a 48-year-old [place]an-speaking female with history of chronic pain syndrome, polyarthralgia, fibromyalgia, GERD, migraines, depression and anxiety presenting to the emergency department with complaint of mid back pain for 1 week. On exam patient is awake, A+Ox3, VS WNL, afebrile, normal neurological exam without focal deficits, physical exam findings as above. Given reported symptoms and physical exam findings, initial differential includes but is not limited to muscle strain, UTI/pyelonephritis. Unlikely PE. Labs unremarkable, d-dimer negative, troponin negative. EKG shows normal sinus rhythm. Symptoms improved with medications given in the ED. discussed with patient results, feel symptoms likely due to muscle strain. Will discharge patient on tizanidine as Flexeril was not helpful for her symptoms, discussed with patient that she can not take these medications in combination. Will also send prescription for naproxen and topical lidocaine patches. Follow up with PCP as needed. Return precautions discussed. Patient verbalized understanding of and agreement with plan. In-person tower climber was utilized for all interactions, assessments, and discussions. Differential Diagnosis Differential Diagnoses: The differential diagnosis associated with the presentation includes As per [facility] Admission/Observation Consideration of admission/observation: Escalation of care including admission/observation considered Patient would have been admitted to the hospital had their work up had any findings where hospital admission was appropriate and their clinical presentation warranted hospital admission. Lab Data [facility] Lab Attestation statement: I reviewed the patient's lab results. [facility] 09/23/24 13:13 09/23/24 13:13 Labs: Lab Results 09/23/24 09/23/24 Range/Units 13:13 15:17 WBC 6.1 (4.8-10.8) X10*3/uL RBC 4.21 (4.20-5.50) X10*6/uL Hgb 12.5 (12.0-16.0) g/dl Hct 37.5 (37.0-47.0) % MCV 89.1 (80.0-98.0) fL MCH 29.7 (27.0-33.0) pg MCHC 33.3 (31.0-35.0) g/dl RDW 13.3 (11.0-16.0) % Plt Count 225 (160-400) X10*3/uL MPV 11.4 (9.4-12.3) fL Immature Gran % (Auto) 0.3 (0.0-0.4) % Neut % (Auto) 53.0 (45-73) % Lymph % (Auto) 37.8 (20-40) % [place] % (Auto) 5.3 (2-11) % Eos % (Auto) 3.1 (0-4) % Baso % (Auto) 0.5 (0-2) % Lymph # (Auto) 2.3 (1.2-4.9) X10*3/uL [place] # (Auto) 0.3 (0.1-1.2) X10*3/uL Eos # (Auto) 0.2 (0.0-0.4) X10*3/uL Baso # (Auto) 0.0 (0.0-0.2) X10*3/uL Abs Immat Gran (auto) 0.02 (0.00-0.03) X10*3/uL Absolute Neuts (auto) 3.2 (2.0-8.3) x10*3/uL Absolute Nucleated RBC 0.000 (0.0-0.012) X10*3/uL Nucleated RBC % (auto) 0.0 (0.0-0.2) /100WBC PT 11.5 (10.9-12.4) SEC INR 1.0 (0.9-1.1) D-Dimer High Sensitivty 167 NG/ML Sodium 142 (135-145) mmol/L Potassium 3.9 (3.3-5.1) mmol/L Chloride 109 H (96-108) mmol/L Carbon Dioxide 27 (22-29) mmol/L Anion Gap 10 L (12-20) BUN 10 (9-16) mg/dL Creatinine 0.64 (0.5-1.4) mg/dL Estim Creat Clear Calc 108.1 Estimated GFR > 60 Random Glucose 119 H (60-115) mg/dL Calcium 9.0 (8.4-10.2) mg/dL Total Bilirubin 0.2 (0.0-1.0) mg/dL AST 23 (5-31) U/L ALT 25 (0-31) U/L Alkaline Phosphatase 73 (39-117) U/L Troponin I High Sens < 2.7 (<3.5-17.0) ng/L Total Protein 7.3 (6.5-8.0) g/dL Albumin 4.2 (3.5-5.0) g/dL Urine Color Yellow Urine Appearance Clear Urine pH 7.0 (5.0-9.0) Ur Specific [place] 1.010 (1.005-1.025) Urine Protein Negative (Neg-Trace) mg/dL Urine Glucose (UA) Negative (Negative) mg/dL Urine Ketones Negative (Negative) mg/dL Urine Blood Negative (Negative) Urine Nitrite Negative (Negative) Ur Leukocyte Esterase Negative (Negative) Urine RBC 0-2 (0-2) /HPF Urine WBC 0-5 (0-5) /HPF Ur Squamous Epith Cells 0-2 (0-2) /HPF Urine Bacteria None Seen (None Seen) Hyaline Casts 0-2 (0-2) /LPF Independent Interpretation I performed an independent interpretation of an: EKG (normal sinus rhythm, rate 81bpm. normal NE interval and QTc) External Record Review External record reviewed: Inpatient record, Office record and Outpatient record Prescription Management I considered prescription management with: Pain Medication and Other Discharge Plan Discharge Clinical Impression: Strain of mid-back Qualifiers: Encounter type: initial encounter Qualified Code(s): S29.012A - Strain of muscle and tendon of back wall of thorax, initial encounter Patient Disposition: Home, Self-Care Instructions: Muscle Strain (DC), Thoracic Back Strain (ED) Additional Instructions: You were evaluated in the emergency department today for back pain. Your evaluation did not show signs of medical conditions requiring emergent intervention at this time. You have been prescribed a muscle relaxer called tizanidine which you may take every 8 hours as needed for spasms. DO NOT TAKE THIS MEDICATION IN COMBINATION WITH FLEXERIL (CYCLOBENZAPRINE). Do not drive, drink alcohol, or operate heavy machinery while taking this as it can cause drowsiness. You have been prescribed 5% topical lidocaine patches which you can wear for up to 12 hours in a 24 hour period. Do not apply heat directly over the patches. You are being prescribed naproxen to decrease inflammation, take this as prescribed. Please schedule an appointment for follow-up with your primary care physician this week for further evaluation of your symptoms. Return to the emergency department if you experience worsening back pain, difficulty walking, fevers, numbness, tingling, incontinence, groin numbness or tingling, or any other concerning symptoms. Prescriptions: New naproxen 500 mg tablet 500 mg PO BID Qty: 14 0RF tizanidine 2 mg tablet 2 mg PO Q8H PRN (Reason: muscle spasticity) Qty: 10 0RF lidocaine 5 % adhesive patch,medicated 1 patch topical DAILY Qty: 15 0RF Rx Instructions: leave on most painful area for up to 12 hrs No Action medroxyprogesterone [Provera] 10 mg tablet 10 mg PO DAILY 90 Days Qty: 30 0RF Rx Instructions: start Provera 1 tablet daily from day 15-24 cyclically every months, day 1 being 1st day of menses cyclobenzaprine 5 mg tablet 5 mg PO TID PRN (Reason: for muscle spasm) 30 Days Qty: 90 8RF diclofenac sodium 75 mg tablet,delayed release (DR/EC) 75 mg PO BID PRN (Reason: pain) 30 Days Qty: 60 1RF cholecalciferol (vitamin D3) 25 mcg (1,000 unit) capsule 25 mcg PO DAILY cwgsioeowr-ptqdmuhawvsvk-foed 50-325-40 mg tablet 2 tab PO Q4H PRN (Reason: pain) 30 Days Qty: 30 0RF buspirone 5 mg tablet 5 mg PO TID melatonin 5 mg tablet 5 mg PO BEDTIME PRN magnesium citrate 100 mg capsule 100 mg PO DAILY duloxetine 20 mg capsule,delayed release(DR/EC) 20 mg PO BID ferrous sulfate [Feosol] 325 mg (65 mg iron) tablet 325 mg PO DAILY dicyclomine 20 mg tablet 20 mg PO QID PRN (Reason: abdominal pain) 30 Days Qty: 120 6RF esomeprazole magnesium [Nexium] 40 mg capsule,delayed release(DR/EC) 40 mg PO DAILY Qty: 30 6RF famotidine 20 mg tablet 20 mg PO BEDTIME Qty: 30 0RF Print Language: Ugandan
[2024-09-23 12:50] VITALS: BP 120/77; PULSE 85; RESP 16; TEMP 37.2; O2SAT 97; BMI 31.6
--- NOTE | 2024-09-23 12:52 | ECG_ITS ---
Test Reason : BACK PAIN Blood Pressure : */* mmHG Vent. Rate : 81 BPM Atrial Rate : 81 BPM P-R Int : 134 ms QRS Dur : 74 ms QT Int : 374 ms P-R-T Axes : 31 25 40 degrees QTcB Int : 434 ms Normal sinus rhythm Normal ECG When compared with ECG of 16-Sep-2024 09:14, No significant change was found Referred By: Leeann Washington Electronically Signed By: JOSUE SAGASTUME MD
[2024-09-23 13:22] LABS: MANUAL DIFF FLAG NO
[2024-09-23 13:28] LABS: Basophils Percent Auto 0.5 % (0-2); Eosinophils Absolute Auto 0.2 X10*3/uL (0.0-0.4); Eosinophils Percent Auto 3.1 % (0-4); Hematocrit 37.5 % (37.0-47.0); Hemoglobin 12.5 g/dl (12.0-16.0); Imm Gran Abs Auto 0.02 X10*3/uL (0.00-0.03); Imm Gran Pct Auto 0.3 % (0.0-0.4); Lymphocytes Absolute Auto 2.3 X10*3/uL (1.2-4.9); Lymphocytes Percent Auto 37.8 % (20-40); Mean Corpuscular HGB Conc 33.3 g/dl (31.0-35.0); Mean Corpuscular Hemoglobin 29.7 pg (27.0-33.0); Mean Corpuscular Volume 89.1 fL (80.0-98.0); Mean Platelet Volume 11.4 fL (9.4-12.3); Monocytes Absolute Auto 0.3 X10*3/uL (0.1-1.2); Monocytes Percent Auto 5.3 % (2-11); Neutrophils Absolute Auto 3.2 x10*3/uL (2.0-8.3); Platelet Count 225 X10*3/uL (160-400); Red Blood Count 4.21 X10*6/uL (4.20-5.50); Red Cell Distribution Width 13.3 % (11.0-16.0); White Blood Count 6.1 X10*3/uL (4.8-10.8)
[2024-09-23 13:30] LABS: Prothrombin Time 11.5 SEC (10.9-12.4)
[2024-09-23 13:41] LABS: Alanine Aminotransferase 25 U/L (0-31); Albumin Level 4.2 g/dL (3.5-5.0); Alkaline Phosphatase 73 U/L (39-117); Anion Gap 10 (12-20); Aspartate Amino Transferase 23 U/L (5-31); Bilirubin Total 0.2 mg/dL (0.0-1.0); Blood Urea Nitrogen 10 mg/dL (9-16); Carbon Dioxide 27 mmol/L (22-29); Chloride 109 mmol/L (96-108); Creatinine Clr Calc Pharmacy 108.1; Estimated Glomerular Filt Rate > 60; Glucose Random 119 mg/dL (60-115); Potassium 3.9 mmol/L (3.3-5.1); Sodium 142 mmol/L (135-145); Total Protein 7.3 g/dL (6.5-8.0)
[2024-09-23 13:46] LABS: Troponin-I High Sensitivity < 2.7 ng/L (<3.5-17.0)
[2024-09-23 14:33] LABS: D Dimer High Sensitivity 167 NG/ML
[2024-09-23 15:11] VITALS: BP 124/66; PULSE 79; RESP 16; TEMP 37.1; O2SAT 98
--- OUTSIDE RECORDS SUMMARY | 2024-09-23 15:13 | XMS_ITS | Clinical Summary ---
Author Organization [address] [facility] [address] Address [address] [place] [address] Phone Care Team Providers Care Men'S Leather Dress Belt Maker Name Role Phone Lilia Walsh MD Primary Care Provider [phone] Allergies Active Allergy Reactions Criticality Noted Date Comments Morphine 03/01/2024 Ants in her body Tramadol Respiratory Issues 03/01/2024 Medications buPROPion XL (WELLBUTRIN XL) 150 mg 24 hr tablet Take 1 tablet (150 mg total) by mouth 1 (one) time each day. Do not crush, chew, or split. Active gabapentin (NEURONTIN) 250 mg/5 mL (5 mL) solution Take by mouth. Activ e cholecalciferol (VITAMIN D-3) 10 mcg (400 unit) tablet Take 1 tablet (400 Units total) by mouth 1 (one) time each day. Active ibuprofen (ADVIL,MOTRIN) 100 mg/5 mL suspension 20 mL (400 mg total). Active cyclobenzaprine (FLEXERIL) 10 mg tablet Take 1 tablet (10 mg total) by mouth 3 (three) times a day if needed for muscle spasms. Active diclofenac (Voltaren Arthritis Pain) 1 % topical gel Apply 4 g topically 2 (two) times a day. 240 g 1 5 10/05/19 25 Active Encounters Date Type Department Care Team Description 08/05/2024 1:45 PM EDT Office Visit Orthopedic Surgery [facility] [address] [phone] Robby Sue DPM Tendinitis of right ankle (Primary Dx); Plantar fascial fibromatosis 07/03/2024 2:15 PM EDT Office Visit Orthopedic Surgery [facility] [address] [address] Robby Sue DPM Plantar fascial fibromatosis (Primary Dx); Pain [...] Care Team (Late st Contact Info) Description 11/05/2024 1:15 PM EDT Office Visit Orthopedic Surgery - [place] [id number] [phone] Robby Sue DPM [address] [address] Health Maintenance Due Date Last Done Comments DTaP,Tdap,and Td Vaccines (1 - Tdap) 10/02/1994 Hepatitis B Vaccines (1 of 3 - 19+ 3-dose series) 10/02/1994 Cervical Cancer Screening: P ap Smear 10/02/1996 Breast Cancer Screening 12/19/2021 12/20/2019 COVID-19 Vaccine ( - 2023-2 5 season) 2023 08/19/2020, 07/24/2020 [...] ID:[id number] Group ID:[id number] Type:Not on file Address: [place] [id number] [address] [phone] Care Teams Men'S Leather Dress Belt Maker Relationship Specialty Start Date End Date Lilia Walsh MD [address] [place] [phone] PCP - General Internal Medicine 02/29/24
--- OUTSIDE RECORDS SUMMARY | 2024-09-23 15:13 | XMS_ITS | Clinical Summary ---
Author Organization [employer] Address [address] [place] [address] [address] [place] [address] Care Team Providers Care Air Conditioning Coil Assembler Name Role Phone Unavailable Primary Care Provider [...] Most Recently Relevant to Health Maintenance Insurance [place] [address] [place] [phone]
[2024-09-23 15:26] LABS: Appearance Urine Clear; Color Urine Yellow; Glucose Urine UA Negative (Negative); Leukocyte Esterase Urine Negative (Negative); Nitrite Urine Negative (Negative); Urine Blood Negative (Negative); Urine Ketones Negative (Negative); Urine Protein Negative (Neg-Trace)
[2024-09-23 15:29] LABS: Bacteria Urine None Seen (None Seen); Hyaline Casts Urine 0-2 /LPF (0-2); RBC Urine 0-2 /HPF (0-2); Squamous Epithelial Cell Urine 0-2 /HPF (0-2); WBC Urine 0-5 /HPF (0-5)
[2024-09-23] MEDS: diazePAM 2 MG TABLET PO (15:51)
[2024-09-23] MEDS: Ketorolac Tromethamine 30 MG/ML VIAL IM (15:51)
[2024-09-23 18:47] VITALS: BP 97/62; PULSE 79; RESP 16; TEMP 36.8; O2SAT 97
[2024-09-23 18:49] VITALS: BP 97/62; PULSE 79; RESP 16; TEMP 36.8; O2SAT 97
== END 2024-09-23 18:50 | disposition home or self-care (01) ==
PROVIDERS: Physician Assistant Medical; Registered Nurse Emergency; Emergency Provider Emergency Medicine; PCP Internal Medicine
DX: S29.012A Strain of muscle and tendon of back wall of thorax, initial encounter (principal); X58.XXXA Exposure to other specified factors, initial encounter; R42 Dizziness and giddiness; Y93.9 Activity, unspecified; Y92.9 Unspecified place or not applicable; Y99.9 Unspecified external cause status; G89.4 Chronic pain syndrome; D64.9 Anemia, unspecified; E55.9 Vitamin D deficiency, unspecified; M79.604 Pain in right leg; Z79.899 Other long term (current) drug therapy
CPT/HCPCS: 36415; 80053; 81001; 84484; 85025; 85379; 85610; 93005; 96372; 99284; 99285; J1885

== ENCOUNTER → 2024-09-23 12:52 | Outpatient (BNV) | payer OTHER, SELFPAY | PROVIDERS: Emergency Provider Emergency Medicine; PCP Internal Medicine; Visit Provider Internal Medicine Cardiovascular Disease | DX: M54.9 Dorsalgia, unspecified (principal) | CPT/HCPCS: 93010 ==

== ENCOUNTER 2024-10-23 11:13 | Outpatient (REF) | payer OTHER, SELFPAY | END 2024-10-23 11:14 | disposition home or self-care (01) | LOC: HO.LNP 11:13 | PROVIDERS: PCP Internal Medicine; Visit Provider Obstetrics & Gynecology | DX: Z01.419 Encounter for gynecological examination (general) (routine) without abnormal findings (principal); N91.2 Amenorrhea, unspecified; R93.5 Abnormal findings on diagnostic imaging of other abdominal regions, including retroperitoneum | CPT/HCPCS: 87626; 88175; 99212; 99396 ==

== ENCOUNTER 2024-10-23 11:13 | Outpatient (AMB) | payer OTHER, SELFPAY ==
[2024-10-23 11:41] VITALS: BP 122/74; BMI 31.2
--- NOTE | 2024-10-23 11:41 | MHC.OFFVIS ---
Vital Signs 10/23/24 11:41 Height 5 ft 3 in Weight 176 lb BMI 31.2 BP 122/74 Intake Visit Reasons: PERSONAL INSURANCE ADVISOR annual exam/medication follow up End Finder Forming Department Required: Yes End Finder Forming Department Language: Credit Processor Services: End Finder Forming Department Present (in person) End Finder Forming Department Name: Shae DURANT Information Interpreted: non-clinical & clinical Sheetmetal Worker: Sheetmetal Worker Present (Agustin DURANT) Accompanied by: Self / Same As Patient Allergies morphine (MORPHINE) Allergy (Intermediate, Verified 10/23/24 11:46) Itching tramadol (TRAMADOL) Allergy (Intermediate, Verified 10/23/24 11:46) SHORTNESS OF BREATH HPI Comments Details: Presenting for annual exam. No complaints. Last Pap/HPV was negative in 05/17 Last Mammogram was BI-RADS 1 in 04/20 Last colonoscopy within 06/16, the recommendation was to repeat in 5 years Last ultrasound in 05/17/24 showed thickened and abnormal endometrium this was preceded by hysteroscopy D&C in , the pathology showed proliferative endometrium, since then the patient was prescribed Provera 10 mg p.o. q.d. day 15-24 which she took for the 1st month and had a menstrual cycles as expectant this was followed by amenorrhea since then associated with hot flashes PFSH Medical History Well woman exam Physical exam Neck pain Esophageal spasm Thoracic spine pain Pain of right scapula Abdominal cramping Hypersomnia Snoring Skin lesion Cough Right carpal tunnel syndrome Left carpal tunnel syndrome Hand pain ELLE on CPAP Right foot pain Left foot pain Bilateral hand pain Other spondylosis, pqqeyxzf-nciwsyy-pfdjw region Left shoulder pain Pain of left scapula Occipital neuralgia of right side Occipital neuralgia of left side Dyspepsia Odynophagia Sinus pressure Headache Blurry vision Carpal tunnel syndrome Facet joint disease of cervical region Muscle spasms of neck Abnormal uterine bleeding (AUB) Abdominal bloating Constipation Low vitamin D level Spasmodic torticollis Hx of ovarian cyst Colon cancer screening Vaginal itching Anxiety Chest pain Bloody stools Dyslipidemia Hypovitaminosis D Right flank pain RUQ abdominal pain Occipital headache Tonsil stone Overweight (BMI 25.0-29.9) Migraines Moderate major depression Normocytic anemia GERD (gastroesophageal reflux disease) Cervical cancer screening Cervical radiculopathy Facet arthropathy, multilevel Well woman exam with routine gynecological exam Fibromyalgia Arthritis Sleep apnea Surgical History History of esophagogastroduodenoscopy (EGD) (10/25/22) Hx of colonoscopy History of endoscopy S/P lumbar fusion Hx of removal of ovary Family History Mother Thyroid disease Maternal Aunt No problems noted. Father No problems noted. Social History Housing: House Alcohol intake: current Alcohol intake frequency: does not drink Alcohol type: wine Patient Tobacco Use Status: Former Tobacco user Tobacco use type: Cigarette e-Cigarette/Vaping Use: Never Used Second Hand Smoke Exposure: No service: No Current occupational status: disabled Gender identity: Female Cognitive needs: No Hearing needs: No Vision needs: Yes Female Reproductive History Menstrual Age of Menarche: 11 Date of last pap smear: 04/28/20 Date of Mammogram: 04/18/24 Review of Systems Const All systems reviewed & are unremarkable except as noted in HPI and below Card Reports as per HPI Resp Reports as per HPI GI Reports as per HPI and Reports no additional complaints Reports as per HPI Physical Exam Vital Signs: Last Vital Signs BP 122/74 10/23/24 11:41 BMI result Body Mass Index 31.2 Const General: cooperative, healthy appearing and comfortable Chest Chest palpation & inspection: normal inspection of the chest and normal palpation of entire chest wall Breast/axilla inspection: normal inspection of the breasts and normal inspection of the axillae Breast/axilla palpation: normal palpation of the breasts, normal palpation of the axillae and no axillary lymphadenopathy Resp Effort & Inspection: normal respiratory effort Auscultation: clear to auscultation bilaterally Percussion: percussion normal Cardio Palpation: normal PMI Rate: regular rate Rhythm: regular rhythm Heart sounds: no murmurs and no rubs Peripheral pulses: Peripheral pulses 2+ throughout GI Inspection: Yes normal to inspection Palpation (GI): Soft to palpation, nontender, no guarding, not rigid and No hepatosplenomegaly present Percussion: Yes normal to percussion Auscultation: normal bowel sounds Rectal Exam - Female: deferred General: Yes bladder normal to palpation External Female Exam: No lesion Speculum Exam - Vagina: normal appearance of the vagina, normal palpation, normal vaginal discharge and not erythematous Speculum Exam - Cervix: normal appearance of the cervix and normal palpation Bimanual exam- vagina & uterus: normal bimanual exam, normal palpation, uterine size normal, bladder normal to palpation, consistency normal and normal palpation Bimanual Exam- Adnexa, other: normal adnexae, no masses and no tenderness Assessment & Plan Assessment & Plan (1) Well woman exam: Code(s): Z01.419 - Encounter for gynecological examination (general) (routine) without abnormal findings Category: Medical Plan: Cotesting done. Instructions given the patient to schedule next screening Mammogram in 04/21. Counseled the patient about the recommended dietary allowance of 1000 mg of Calcium & 600 IU of vitamin D. The patient was instructed to perform monthly self-breast exams and to schedule an annual exam in a year; All questions answered and the patient verbalized understanding. Instructed the patient to schedule annual exam in a year (2) Abnormal ultrasound of endometrium: Code(s): R93.5 - Abnormal findings on diagnostic imaging of other abdominal regions, including retroperitoneum Category: Medical Plan: Will repeat pelvic ultrasound to follow-up on the abnormal endometrium seen in 05/17/2024. Ultrasound ordered, instructions given the patient to schedule an ultrasound and a follow-up appointment within 2 weeks (3) Amenorrhea: Comment: With hot flash Code(s): N91.2 - Amenorrhea, unspecified Category: Medical Plan: UPT done in the office was negative, will repeat FSH/LH. Instructions given the patient to schedule a follow-up appointment within 2 weeks Orders: Orders Pap Smear Today Z01.419 - Encounter for gynecological examination (general) (routine) without abnormal findings HPV High risk Today Z01.419 - Encounter for gynecological examination (general) (routine) without abnormal findings US pelvic and transvaginal Today R93.5 - Abnormal findings on diagnostic imaging of other abdominal regions, including retroperitoneum Follicle Stimulating Hormone Today N91.2 - Amenorrhea, unspecified Lutenizing Hormone Today N91.2 - Amenorrhea, unspecified Coding Level of Care Code Est Pt Level 3 (96142) Est Pt Prev Care 40-64y(90665) Diagnoses Well woman exam Z01.419 Abnormal ultrasound of endometrium R93.5 Amenorrhea N91.2
--- OUTSIDE RECORDS SUMMARY | 2024-10-23 12:15 | XMS_ITS | Clinical Summary ---
Author Organization [employer] Address [address] [place] [address] [address] [place] [address] Care Team Providers Care Data Analytics Developer Name Role Phone Unavailable Primary Care Provider [...] 2023 04/03/2021, 08/19/2020, 07/24/2020 Influenza Vaccine (#1) 2024 Zoster Vaccines (1 of 2) 10/02/2025 [...] Most Recently Relevant to Health Maintenance Insurance * Guarantor: Kathy Fraga A Account Type Relation to Patient Date of Phone Billing Address Personal/Family Self [address] [place] [phone] [place] [address] [place] [phone] * Guarantor: FlakitoKathy hargrove A Account Type Relation to Patient Date of Phone Billing Address Personal/Family Self [address] [place] [phone] * Guarantor: Falkito Kathy De La Rosa Account Type Relation to Patient Date of Phone Billing Address Personal/Family Self [address] [place] [phone] * Guarantor: Kathy Fraga Account Type Relation to Patient Date of Phone Billing Address Personal/Family Self [address] [place] [phone]
--- OUTSIDE RECORDS SUMMARY | 2024-10-23 12:15 | XMS_ITS | Clinical Summary ---
Author Organization [facility] Address [address] [place] [address] Phone Care Team Providers Care Boom Boss Name Role Phone Lilia Walsh MD Primary Care Provider [phone] Allergies Active Allergy Reactions Criticality Noted Date [...] day. 240 g 1 5 10/05/19 25 Encounters Date Type Department Care Team Description 08/05/2024 1:45 PM EDT Office Visit [facility] - [place] [address] [facility] [address] [place] [phone] Robby Sue, DPM Tendinitis of right ankle (Primary Dx); Plantar fascial fibromatosis from Last 3 Months Social History Tobacco [...] PM EDT Office Visit [facility] - [place] [address] [phone] Robby Sue, DPM [address] [address] Health Maintenance Due Date Last Done Comments DTaP,Tdap,and Td Vaccines (1 - Tdap) 10/02/1994 Hepatitis B Vaccines (1 of 3 - 19+ 3-dose series) 10/02/1994 Cervical Cancer Screening: P ap Smear 10/02/1996 Breast Cancer Screening 12/19/2021 12/20/2019 COVID-19 Vaccine ( - 2023-2 5 season) 2023 08/19/2020, 07/24/2020 Colorectal Cancer Screening: Colonoscopy 01/29/2024 HIV Screening 01/29/2024 Hepatitis C Screening 01/29/2024 Medicare Annual Wellness Visit 01/29/2024 Social Influencers of Health Screening 01/29/2024 Depression Screening 03/27/2024 Influenza Vaccine (#1) 2024 HIB Vaccines Aged Out No longer [...] 5 Years) and At-Risk Patients (6 to 49 Years) Aged Out No longer eligible b [...] ID:[id number] Group ID:[id number] Type:Not on file Address: [place] [address] [place] [address] Care Teams Boom Boss Relationship Specialty Start Date End Date Lilia Walsh MD [address] [place] [address] PCP - General Internal Medicine 02/29/24
--- OUTSIDE RECORDS SUMMARY | 2024-10-23 12:15 | XMS_ITS | Clinical Summary ---
Author Organization [facility] Address [address] [place] [address] Phone Care Team Providers Care Patient Care Technician Name Role Phone Lilia Laws MD Primary Care Provid er Allergies No known active allergies Medications betamethasone dipropionate 0.05 % cream Apply topically every 12 (twelve) hours. 2 Active buPROPion (WELLBUTRIN XL) 150 MG ER 24 hr tablet 3 Active buPROPion (WELLBUTRIN XL) 150 MG ER 24 hr tablet 3 Active buPROPion (WELLBUTRIN XL) 300 MG ER 24 hr tablet 3 Active buPROPion (WELLBUTRIN XL) 300 MG ER 24 hr tablet 3 Active cyclobenzaprine (FLEXERIL) 5 MG tablet 3 Active cyclobenzaprine (FLEXERIL) 10 MG tablet Take 1 tablet by mouth every 12 (twelve) hours. 2 Active diclofenac potassium (CATAFLAM) 50 MG tablet 3 Active famotidine (PEPCID) 40 MG tablet 3 Active hydrOXYzine (VISTARIL) 25 MG capsule 3 Active hydrOXYzine (VISTARIL) 50 MG capsule 3 Active loratadine 10 mg Cap Take 1 tablet once a day PO prn 2 Active sucralfate (CARAFATE) 1 gram tablet 3 Active Active Problems No known active problems Social History Tobacco Use Types Packs/Day Years Used Date Smoking Tobacco: Never Assessed Education Answer Date Recorded Are you interested in more education? Not on kala e 12/01/2022 Are you concerned about learning? Not on file 12/01/2022 No 12/01/2022 No 12/01/2022 Digital Access Answer Date Recorded No 12/01/2022 No 12/01/2022 Reliable internet access at home? Not on file 12/01/2022 Device with a working camera? Not on file Intimate Partner Violence Answer Date R ecorded Are you denied basic needs s uch as food, clothing, or medical care? No 12/07/2022 In the past 12 months have y ou been in a relationship with a person who hurts, threatens, or tries to control you? No 12/07/2022 Are you denied basic needs s uch as food, clothing, or medical care? No 12/07/2022 In the past 12 months have y ou been in a relationship with a person who hurts, threatens, or tries to control you? No 12/07/2022 Comments Unknown Sex and Gender Information Value Date Recorded Sex Assigned at Female 12/01/2022 2:34 PM EDT Legal Sex Female 2:29 PM EDT Gender Identity Female 12/01/2022 2:34 PM EDT Sexual Orientation Straight 12/01/2022 2: 34 PM EDT Last Filed Vital Signs Vital Sign Reading Time Taken Comments Blood Pressure 131/72 03/07/2023 3:20 PM EST Pulse 91 03/07/2023 3:20 PM EST Temperature 36.8 C (98.3 F) 03/07/2023 3:20 PM EST Respiratory Rate - - Oxygen Saturation 98% 03/07/2023 3:20 PM EST Inhaled Oxygen Concentration - - Weight - - Height - - Body Mass Index - - Plan of Treatment Health Maintenance Due Date Last Done Comments Adult Td,Tdap Booster 1975 LIPID PANEL 1975 DEPRESSION SCREENING 1987 SMOKING Hx and SMOKELESS TOBACCO SCREENING 10/02/1988 HEPATITIS C SCREENING 10/02/1993 HIV ONE-TIME SCREENING (18-6 5 YEARS) 10/02/1993 PAP SMEAR 10/02/1996 COLOGUARD 10/02/2020 COLONOSCOPY 10/02/2020 COLORECTAL CANCER SCREENING 10/02/2020 FIT TEST 10/02/2020 FOBT 10/02/2020 SIGMOIDOSCOPY 10/02/2020 VIRTUAL COLONOSCOPY 10/02/2020 MAMMOGRAM 12/19/2021 12/20/2019, 12/12/2019, 02/23/2018 COVID-19 VACCINE (2023-2 5 season) 2023 HEPATITIS A VACCINES Aged Out No long er eligible based on patient's age to complete this topic HIB VACCINES Aged Out No longer eligi ble based on patient's age to complete this topic MENINGOCOCCAL VACCINES (ACWY) Aged Out No longer eligible based on patient's age to complete this topic MENINGOCOCCAL VACCINES (B) Aged Out N o longer eligible based on patient's age to complete this topic PNEUMOCOCCAL VACCINES (0-49 years) Aged Out No longer eligible b ased on patient's age to complete this topic Medical Devices Not on file Insurance MEDICARE PART A & B [facility] ONE CARE MEDICARE REPLACEMENT MEDICARE PART A & [place] [address] [place] [address] ONE CARE MEDICARE REPLACEMENT MEDICARE PART A & B [facility] ONE CARE MEDICARE REPLACEMENT MEDICARE PART A & B [employer] [facility] CARE MEDICARE REPLACEMENT [place] [id number] MEDICARE PART A & B [employer] [facility] ONE CARE MEDICARE REPLACEMENT MEDICARE PART A & B [facility] ONE CARE MEDICARE REPLACEMENT Care Teams Patient Care Technician Relationship Specialty Start Date End Date Lilia Laws MD [address] [place] [address] PCP - General Internal Medicine 01/03/23 Additional Source Comments The information contained in this document represents components of the legal health record. It is not the complete legal health record.[facility]
== END 2024-10-23 12:57 | disposition home or self-care (01) ==
LOC: HO.HWS 11:13
PROVIDERS: PCP Internal Medicine; Visit Provider Obstetrics & Gynecology
DX: Z01.419 Encounter for gynecological examination (general) (routine) without abnormal findings (principal); R93.5 Abnormal findings on diagnostic imaging of other abdominal regions, including retroperitoneum; N91.2 Amenorrhea, unspecified
CPT/HCPCS: 99213; 99396; 99459

== ENCOUNTER 2024-11-06 14:05 | Outpatient (RCR) | payer OTHER, SELFPAY ==
--- NOTE | 2024-10-23 18:08 | MHC.PT.EP ---
[facility] [place] [facility] [place] Office [address] Teresa Carranza [address] [phone] F: [phone] F: [phone] F: [phone] F: [phone] Physical Therapy Plan of Care Date of Evaluation: 10/09/24 Date of Surgery: Diagnosis: neck pain, cervicalgia. Assessment: Pt is a 49 y/o female with PMHx of chronic pain syndrome, polyarthralgia, fibromyalgia, GERD, migraines, depression and anxiety who presented to the ED with worsening upper back / neck pain without fall on injury who is referred to PT for eval and treat of cervicalgia which is resulting in decreased tolerance for lifting objects of weight, disturbed sleep, ability to read and concentrate, turning her head to end ranges, as well as frequent BASURTO secondary to decreased cervical ROM and strength, increased UT and cervical accessory tissue tension, decreased scapular strength and pain. Pt is deemed an appropriate candidate to receive skilled PT services to address their physical impairments in order to improve their functional ability. Frequency and Duration: The patient will be seen 2 x/ wk x 3 wks. Short Term Goals: Initiate home program. Improve baseline pain to at most 1-4/10, initial: 3-7/10. Petroleum Production Engineer Goals: I with home program. Pt will improve NDI outcome measure by at least 9 points. Pt will report at most 1/2 disturbed night's sleep; initial: fully disturbed. Pt will no longer be painful with end range cervical rotation. Treatment Plan: Modalities to reduce pain, spasms and effusion. Manual therapy to restore motion and function. Therapeutic exercise to improve strength and flexibility. Neuromuscular re-education for posture and balance. Therapeutic activities to return to functional activities of daily living. Electronically signed by: Sohan May PT. Please sign and return to therapist. Thank you for your referral.
== END 2025-03-17 10:30 | disposition home or self-care (01) ==
LOC: HO.PT 14:05
PROVIDERS: PCP Internal Medicine; Visit Provider Internal Medicine
DX: M54.2 Cervicalgia (principal)
CPT/HCPCS: 97110; 97140; 97161

== ENCOUNTER 2024-11-06 15:06 | Outpatient (REF) | payer OTHER, SELFPAY ==
--- OUTSIDE RECORDS SUMMARY | 2024-11-06 15:09 | XMS_ITS | Clinical Summary ---
Author Organization [employer] Address [address] [place] [address] [address] [place] [address] Care Team Providers Care Can Carrier Name Role Phone Unavailable Primary Care Provider [...] Most Recently Relevant to Health Maintenance [place] [address] [place] [address] [place] [phone]
--- OUTSIDE RECORDS SUMMARY | 2024-11-06 15:09 | XMS_ITS | Clinical Summary ---
Author Organization [facility] Address [address] [place] [address] Phone Care Team Providers Care Lead Front End Developer Name Role Phone Lilia Walsh MD Primary Care Provider [phone] Allergies Active Allergy Reactions Criticality Noted Date [...] day if needed for muscle spasms. Active Social History Tobacco Use Types Packs/Day Years [...] 07/03/2024 1:44 PM EDT Plan of Treatment Health Maintenance Due [...] patient's age to complete this topic Insurance [facility] MEDICARE Member Subscriber Plan / Payer (Ef fective 2022-Present) Name:ARTHUR SCHNEIDER Relation to Subscriber:Self Name:Arthur Alexis Payer ID:[id number] Group ID:[id number] Type:Not on file Address: [address] [place] [address] Care Teams Lead Front End Developer Relationship Specialty Start Date End Date Lilia Walsh MD [address] [place] [address] PCP - General Internal Medicine 02/29/24
--- OUTSIDE RECORDS SUMMARY | 2024-11-06 15:09 | XMS_ITS | Clinical Summary ---
Author Organization [facility] Address [address] [place] [address] Phone Care Team Providers Care Prison Librarian Name Role Phone Lilia Laws MD Primary [...] file Insurance MEDICARE PART A & B [facility] ONE CARE MEDICARE REPLACEMENT MEDICARE PART A & [place] [address] [address] ONE CARE MEDICARE REPLACEMENT MEDICARE PART A & B [facility] ONE CARE MEDICARE REPLACEMENT MEDICARE PART A & B [employer] [facility] CARE MEDICARE REPLACEMENT [place] [id number] MEDICARE PART A & B [employer] [facility] ONE CARE MEDICARE REPLACEMENT MEDICARE PART A & B [facility] ONE CARE MEDICARE REPLACEMENT Care Teams Prison Librarian Relationship Specialty Start Date End Date Lilia Laws MD [address] [place] [address] PCP - General Internal Medicine 01/03/23 Additional Source Comments The information contained in this document represents components of the legal health record. It is not the complete legal health record.[facility]
[2024-11-06 15:19] LABS: MANUAL DIFF FLAG NO
[2024-11-06 15:42] LABS: Hematocrit 35.8 % (37.0-47.0); Hemoglobin 12.2 g/dl (12.0-16.0); Imm Gran Abs Auto 0.03 X10*3/uL (0.00-0.03); Imm Gran Pct Auto 0.4 % (0.0-0.4); Lymphocytes Absolute Auto 2.2 X10*3/uL (1.2-4.9); Mean Corpuscular HGB Conc 34.1 g/dl (31.0-35.0); Mean Corpuscular Hemoglobin 30.1 pg (27.0-33.0); Mean Corpuscular Volume 88.4 fL (80.0-98.0); NRBC Abs Auto 0.000 X10*3/uL (0.0-0.012); NRBC Pct Auto 0.0 /100WBC (0.0-0.2); Platelet Count 263 X10*3/uL (160-400); Red Blood Count 4.05 X10*6/uL (4.20-5.50); White Blood Count 7.3 X10*3/uL (4.8-10.8)
[2024-11-06 16:23] LABS: Alanine Aminotransferase 28 U/L (0-31); Albumin Level 4.4 g/dL (3.5-5.0); Alkaline Phosphatase 78 U/L (39-117); Anion Gap 13 (12-20); Aspartate Amino Transferase 26 U/L (5-31); Blood Urea Nitrogen 12 mg/dL (9-16); Calcium 9.2 mg/dL (8.4-10.2); Carbon Dioxide 29 mmol/L (22-29); Chloride 104 mmol/L (96-108); Cholesterol 217 mg/dL (<200); Estimated Glomerular Filt Rate > 60; HDL Cholesterol 50 mg/dL (>40); Iron 85 mcg/dL (30-160); Percent Iron Saturation 25 % (15-50); Potassium 3.6 mmol/L (3.3-5.1); Sodium 142 mmol/L (135-145); Total Iron Binding Capacity 338 mcg/dL (228-428); Total Protein 7.6 g/dL (6.5-8.0); Triglycerides 123 mg/dL (<150); Unsaturated Iron Binding 253 ug/dL
[2024-11-06 16:54] LABS: Folate 12.1 ng/mL (> or = 4.0); Vitamin B12 382 pg/mL (200-900)
[2024-11-07 05:23] LABS: Follicle Stimulating Hormone 15.1 mIU/mL
== END 2024-11-06 15:07 | disposition home or self-care (01) ==
LOC: HO.LAB 15:06
PROVIDERS: PCP Internal Medicine; Visit Provider Obstetrics & Gynecology
DX: E53.8 Deficiency of other specified B group vitamins (principal); R07.9 Chest pain, unspecified; N91.2 Amenorrhea, unspecified; E78.5 Hyperlipidemia, unspecified; E55.9 Vitamin D deficiency, unspecified; D64.9 Anemia, unspecified
CPT/HCPCS: 36415; 80053; 80061; 82306; 82607; 82746; 83001; 83002; 83540; 85025

== ENCOUNTER 2024-12-03 14:04 | Outpatient (REF) | payer OTHER, SELFPAY ==
--- NOTE | ~2024-12-03 | US_ITS ---
EXAMINATION: US PELVIS TRANSABDOMINAL AND TRANSVAGINAL HISTORY: R93.5 - abnormal US of endo COMPARISON: Comparison is made with the prior examination dated 05/17/2024. TECHNIQUE: Transabdominal and endovaginal real-time 2D fernando-scale ultrasound was performed. FINDINGS: Uterus: The uterus is normal in size, measuring 8.1 x 4.6 x 5.2 cm. Myometrium has a normal echotexture. No fibroids are identified. Endometrium: The endometrial stripe measures 13 mm in thickness. There is a 5 x 4 x 5 mm echogenic focus within the endometrium which could represent a small polyp. Right ovary: The right ovary is surgically absent. Left ovary: The left ovary measures 2.0 x 1.1 x 1.9 cm. The left ovary is normal in size and echotexture. Pelvic fluid: none. US/US pelvic and transvaginal IMPRESSION: 5 mm echogenic focus in the endometrial cavity which could represent a polyp. Electronically signed by: Alejandro Pantoja MD 12/03/2024 02:48 PM EDT
--- OUTSIDE RECORDS SUMMARY | 2024-12-03 16:43 | XMS_ITS | Clinical Summary ---
Author Organization [facility] Address [address] [place] [address] Phone Care Team Providers Care Trailer Body Assembler Name Role Phone Lilia Walsh MD Primary Care Provider [phone] Allergies Active Allergy Reactions Criticality Noted Date [...] Smear 10/02/1996 Breast Cancer Screening 12/19/2021 12/20/2019 Colorectal Cancer Screening: Colonoscopy 01/29/2024 HIV Screening 01/29/2024 Hepatitis C Screening 01/29/2024 Medicare Annual Wellness Visit 01/29/2024 Social Influencers of Health Screening 01/29/2024 Depression Screening 03/27/2024 COVID-19 Vaccine (3 - 2024-2 6 season) 2024 08/19/2020, 07/24/2020 Influenza Vaccine (#1) 2024 HIB Vaccines Aged [...] patient's age to complete this topic Insurance [facility] MEDICARE Member Subscriber Plan / Payer (Ef fective 2022-Present) Name:ARTHUR SCHNEIDER Relation to Subscriber:Self Name:Arthur Alexis Payer ID:[id number] Group ID:[id number] Type:Not on file Address: [address] [place] [address] Care Teams Trailer Body Assembler Relationship Specialty Start Date End Date Lilia Walsh MD [address] [place] [address] PCP - General Internal Medicine 02/29/24
--- OUTSIDE RECORDS SUMMARY | 2024-12-03 16:43 | XMS_ITS | Clinical Summary ---
Author Organization [employer] Address [address] [place] [address] [address] [place] [address] Care Team Providers Care Lock And Dam Operator Name Role Phone Unavailable Primary Care [...] Screening 05/31/2023 05/30/2022 COVID-19 Vaccine (4 - 2024-2 6 season) 2024 04/03/2021, 08/19/2020, 07/24/2020 Influenza Vaccine (#1) 2024 [...] Most Recently Relevant to Health Maintenance Insurance [address] [address] [address] [place] [phone]
--- OUTSIDE RECORDS SUMMARY | 2024-12-03 16:43 | XMS_ITS | Clinical Summary ---
Author Organization [facility] Address [address] [place] [address] Phone Care Team Providers Care Erosion Control Specialist Name Role Phone Lilia Laws MD Primary [...] COLONOSCOPY 10/02/2020 MAMMOGRAM 12/19/2021 12/20/2019, 12/12/2019, 02/23/2018 INFLUENZA VACCINE (#1) 2024 COVID-19 VACCINE (2023-2 5 season) 2024 HEPATITIS A VACCINES Aged Out No long [...] file Insurance MEDICARE PART A & B [facility] ONE CARE MEDICARE REPLACEMENT MEDICARE PART A & B [employer] [facility] [employer] [facility] CARE MEDICARE REPLACEMENT [place] [id number] MEDICARE PART A & B [facility] ONE CARE MEDICARE REPLACEMENT MEDICARE PART A & B [employer] [facility] CARE MEDICARE REPLACEMENT [place] [id number] MEDICARE PART A & B ONE CARE MEDICARE REPLACEMENT MEDICARE PART A & B [facility] ONE CARE MEDICARE REPLACEMENT Care Teams Erosion Control Specialist Relationship Specialty Start Date End Date Lilia Laws MD [address] [place] [address] PCP - General Internal Medicine 01/03/23 Additional Source Comments The information contained in this document represents components of the legal health record. It is not the complete legal health record.[facility]
--- OUTSIDE RECORDS SUMMARY | 2024-12-03 16:43 | XMS_ITS | Encounter Summary ---
Author Organization [facility] Address [address] [facility] [address] [place] [address] Phone Care Team Providers Care Inspector And Adjuster Golf Club Head Name Role Phone Lilia Laws MD Primary Care Provid er Encounter Details Date Type Department Care Team (Late st Contact Info) Description 06/06/2023 Procedure Pass [facility], [address] [address] Social History Tobacco Use Types Packs/Day Years [...] Orientation Straight 12/01/2022 2: 34 PM EDT documented as of this encounter Plan of Treatment Not on file documented as of this encounter Visit Diagnoses Not on filedocumented in this encounter Care Teams Inspector And Adjuster Golf Club Head Relationship Specialty Start Date End Date Lilia Laws MD [address] [place] [address] PCP - General Internal Medicine 01/03/23 documented as of this encounter Additional Source Comments The information contained in this document represents components of the legal health record. It is not the complete legal health record[facility]
--- OUTSIDE RECORDS SUMMARY | 2024-12-03 16:43 | XMS_ITS | Encounter Summary ---
Author Organization [email or web address] Address [address] [place] [address] [address] [place] [address] Care Team Providers Care Water Project Manager Name Role Phone Pebbles Levine Primary Care Provider Jeane vailable Encounter Details Date Type Department Care Team (Late st Contact Info) Description 05/02/2022 Abstract [facility] MEDICINE [address] [place] [address] Pebbles Levine FNP Social History Tobacco Use Types Packs/Day Years [...] on filedocumented in this encounter Care Teams Water Project Manager Relationship Specialty Start Date End Date Pebbles Levine FNP PCP - General Family Medicine 09/29/21 08/11/22 documented as of this encounter
--- OUTSIDE RECORDS SUMMARY | 2024-12-03 16:43 | XMS_ITS | Encounter Summary ---
Author Organization [employer] Address [address] [place] [address] [address] [address] Care Team Providers Care Turn Laster Name Role Phone Pebbles LevineP Primary Care Provider Jeane vailable Encounter Details Date Type Department Care Team (Latest Contact Info) Description 02/01/2022 Abstract [facility]VERSION[facility] Dental, Provider, DDS Social History [...] on filedocumented in this encounter Care Teams Turn Laster Relationship Specialty Start Date End Date Pebbles Levine FNP PCP - General Family Medicine 09/29/21 08/11/22 documented as of this encounter
--- OUTSIDE RECORDS SUMMARY | 2024-12-03 16:43 | XMS_ITS | Encounter Summary ---
Author Organization [employer] Address [address] [place] [address] [address] [place] [address] Care Team Providers Care Rubber Extrusion Machine Operator Name Role Phone Pebbles Levine GLOBAL POSITION SYSTEM TECHNICIAN Primary Care Provider Jeane vailable Reason for Visit * Reason Onset Date [...] (Late st Contact Info) Description 03/08/2022 Telephone [facility] ADULT D[facility]AL [address] [place] [address] Dental, Provider, DDS Prior Authorization (Patient called [...] on filedocumented in this encounter Care Teams Rubber Extrusion Machine Operator Relationship Specialty Start Date End Date Pebbles Levine FNP PCP - General Family Medicine 09/29/21 08/11/22 documented as of this encounter
== END 2024-12-03 14:05 | disposition home or self-care (01) ==
LOC: HO.US 14:04
PROVIDERS: PCP Internal Medicine; Visit Provider Obstetrics & Gynecology
DX: R93.5 Abnormal findings on diagnostic imaging of other abdominal regions, including retroperitoneum (principal)
CPT/HCPCS: 76830; 76856

== ENCOUNTER → 2024-12-03 14:07 | Outpatient (BNV) | payer OTHER, SELFPAY | PROVIDERS: PCP Internal Medicine; Visit Provider Radiology Diagnostic Radiology | DX: N84.0 Polyp of corpus uteri (principal) | CPT/HCPCS: 76830; 76856 ==

== ENCOUNTER 2024-12-17 11:15 | Outpatient (AMB) | payer OTHER, SELFPAY ==
--- NOTE | 2024-12-17 11:40 | MHC.OFFVIS ---
Vital Signs 12/17/24 11:49 Height 5 ft 3 in Weight 176 lb BMI 31.2 BP 118/74 Intake Visit Reasons: ultrasound follow up Microsoft Solutions Architect Required: Yes Microsoft Solutions Architect Language: Bee Robber Services: Microsoft Solutions Architect Present (in person) Microsoft Solutions Architect Name: Shae DURANT Information Interpreted: non-clinical & clinical Cisco Network Engineer: Cisco Network Engineer Present Accompanied by: Self / Same As Patient Allergies morphine (MORPHINE) Allergy (Intermediate, Verified 12/17/24 11:50) Itching tramadol (TRAMADOL) Allergy (Intermediate, Verified 12/17/24 11:50) SHORTNESS OF BREATH Is last menstrual period known: Yes Last menstrual period: 11/22/24 Post menopausal: No Patient : No Do you need a note to return to daycare/school/sports/work: Yes (for surgery on monday) HPI Comments Details: Presenting for ultrasound follow-up done on 12/03/2024 showed the following: Uterus: The uterus is normal in size, measuring 8.1 x 4.6 x 5.2 cm. Myometrium has a normal echotexture. No fibroids are identified. Endometrium: The endometrial stripe measures 13 mm in thickness. There is a 5 x 4 x 5 mm echogenic focus within the endometrium which could represent a small polyp. Right ovary: The right ovary is surgically absent. Left ovary: The left ovary measures 2.0 x 1.1 x 1.9 cm. The left ovary is normal in size and echotexture. Pelvic fluid: none. 05/20/2024 pelvic ultrasound showed the following: IMPRESSION: 1. The left ovary is unremarkable in appearance. The previously seen complex areas are no longer identified. 2. Thickened heterogeneous endometrial stripe with a prominent feeding vessel. Hysteroscopy or history sonogram is suggested to exclude an underlying lesion. 04/20 hysteroscopy D&C was done pathology showed the following: A. Endometrium, curettage: Proliferative endometrium; negative for atypia, hyperplasia or malignancy. B. Endometrium, polyp, biopsy: Polypoid fragments of proliferative endometrium and unremarkable smooth muscle; negative for atypia, hyperplasia or malignancy (see comment). COMMENT (B): The presence of smooth muscle may be billing customer service representative of the superficial myometrium or leiomyoma. Clinical correlation is advised [facility] Medical History Well woman exam Physical exam Neck pain Esophageal spasm Thoracic spine pain Pain of right scapula Abdominal cramping Hypersomnia Snoring Skin lesion Cough Right carpal tunnel syndrome Left carpal tunnel syndrome Hand pain ELLE on CPAP Right foot pain Left foot pain Bilateral hand pain Other spondylosis, iimhkvps-rqoyebg-emnwt region Left shoulder pain Pain of left scapula Occipital neuralgia of right side Occipital neuralgia of left side Dyspepsia Odynophagia Sinus pressure Headache Blurry vision Carpal tunnel syndrome Facet joint disease of cervical region Muscle spasms of neck Abnormal uterine bleeding (AUB) Abdominal bloating Constipation Low vitamin D level Spasmodic torticollis Hx of ovarian cyst Colon cancer screening Vaginal itching Anxiety Chest pain Bloody stools Dyslipidemia Hypovitaminosis D Right flank pain RUQ abdominal pain Occipital headache Tonsil stone Overweight (BMI 25.0-29.9) Migraines Moderate major depression Normocytic anemia GERD (gastroesophageal reflux disease) Cervical cancer screening Cervical radiculopathy Facet arthropathy, multilevel Well woman exam with routine gynecological exam Fibromyalgia Arthritis Sleep apnea Surgical History History of esophagogastroduodenoscopy (EGD) (10/25/22) Hx of colonoscopy History of endoscopy S/P lumbar fusion Hx of removal of ovary Family History Mother Thyroid disease Maternal Aunt No problems noted. Father No problems noted. Social History Housing: House Alcohol intake: current Alcohol intake frequency: does not drink Alcohol type: wine Patient Tobacco Use Status: Former Tobacco user Tobacco use type: Cigarette e-Cigarette/Vaping Use: Never Used Second Hand Smoke Exposure: No service: No Current occupational status: disabled Gender identity: Female Cognitive needs: No Hearing needs: No Vision needs: Yes Female Reproductive History Menstrual Age of Menarche: 11 Date of last menstrual period: 11/22/24 Total pregnancies: 2 Full term: 2 Review of Systems Card Reports as per HPI and Reports no additional complaints Resp Reports as per HPI and Reports no additional complaints GI Reports as per HPI and Reports no additional complaints Reports as per HPI Physical Exam Vital Signs: Last Vital Signs BP 118/74 12/17/24 11:49 BMI result Body Mass Index 31.2 Const General: cooperative, healthy appearing and comfortable Resp Effort & Inspection: normal respiratory effort Auscultation: clear to auscultation bilaterally Percussion: percussion normal Cardio Palpation: normal PMI Rate: regular rate Rhythm: regular rhythm Heart sounds: no murmurs and no rubs Peripheral pulses: Peripheral pulses 2+ throughout GI Inspection: Yes normal to inspection Palpation (GI): Soft to palpation, nontender, no guarding, not rigid and No hepatosplenomegaly present Percussion: Yes normal to percussion Auscultation: normal bowel sounds Rectal Exam - Female: deferred Assessment & Plan Assessment & Plan (1) Abnormal ultrasound of endometrium: Code(s): R93.5 - Abnormal findings on diagnostic imaging of other abdominal regions, including retroperitoneum Category: Medical Plan: Discussed with the patient the finding on pelvic ultrasound possible endometrial polyp, recommended hysteroscopy D&C possible polypectomy/myomectomy. Discussed with the patient the procedure , all benefits and risks including but not limited to inability to complete the procedure , insufficient endometrial tissue for a complete evaluation of the endometrial cavity , bleeding, infection, possible need for blood transfusion with all its risk ( HIV,syphilis, Hepatitis, anaphylaxis shock, others..), injury to bladder, rectum, possible need for laparoscopy/laparotomy or hysterectomy. The patient verbalized understanding and signed the consent. Instructions given the patient to stay NPO after midnight the day prior to the procedure and to take only the specific medication (s) discussed the morning of the surgical procedure and to schedule a 2 week postoperative appointment Coding Level of Care Code Est Pt Level 3 (79898) Diagnoses Abnormal ultrasound of endometrium R93.5
[2024-12-17 11:49] VITALS: BP 118/74; BMI 31.2
--- OUTSIDE RECORDS SUMMARY | 2024-12-17 14:05 | XMS_ITS | Encounter Summary ---
Author Organization [employer] Address [address] [place] [address] [address] [place] [address] Care Team Providers Care Trimming Assembler Name Role Phone Pebbles Levine ELEMENTARY ASSISTANT PRINCIPAL Primary Care Provider Jeane vailable Reason for [...] (Late st Contact Info) Description 03/08/2022 Telephone [facility] ADULT D[facility]AL [address] [place] [address] Dental, Provider, DDS Prior Authorization (Patient called [...] on filedocumented in this encounter Care Teams Trimming Assembler Relationship Specialty Start Date End Date Pebbles Levine FNP PCP - General Family Medicine 09/29/21 08/11/22 documented as of this encounter
--- OUTSIDE RECORDS SUMMARY | 2024-12-17 14:05 | XMS_ITS | Encounter Summary ---
Author Organization [facility] Address [address] [facility] [address] [place] [address] Phone Care Team Providers Care Furniture Inspector Name Role Phone Lilia Laws MD Primary Care Provid er Encounter Details Date Type Department Care Team (Late st Contact Info) Description 06/06/2023 Procedure Pass [facility], [address] [address] Social History Tobacco Use Types Packs/Day Years [...] on filedocumented in this encounter Care Teams Furniture Inspector Relationship Specialty Start Date End Date Lilia Laws MD [address] [place] [address] PCP - General Internal Medicine 01/03/23 documented as of this encounter Additional Source Comments The information contained in this document represents components of the legal health record. It is not the complete legal health record.[facility]
--- OUTSIDE RECORDS SUMMARY | 2024-12-17 14:05 | XMS_ITS | Clinical Summary ---
Author Organization [employer] Address [address] [place] [address] [address] [place] [address] Care Team Providers Care Search Strategist Name Role Phone Unavailable Primary Care Provider [...] Most Recently Relevant to Health Maintenance [place] [address] [place] [address] [place] [place] [phone]
--- OUTSIDE RECORDS SUMMARY | 2024-12-17 14:05 | XMS_ITS | Clinical Summary ---
Author Organization [facility] Address [address] [place] [address] Phone Care Team Providers Care Adjunct Professor Of Law Name Role Phone Lilia Laws MD Primary [...] file Insurance MEDICARE PART A & B [facility] ONE CARE MEDICARE REPLACEMENT MEDICARE PART A & B [employer] [facility] [employer] [facility] CARE MEDICARE REPLACEMENT [place] [id number] MEDICARE PART A & B [facility] ONE CARE MEDICARE REPLACEMENT MEDICARE PART A & B [employer]ocracy [facility] CARE MEDICARE REPLACEMENT [place] [id number] MEDICARE PART A & B ONE CARE MEDICARE REPLACEMENT MEDICARE PART A & B [facility] ONE CARE MEDICARE REPLACEMENT Care Teams Adjunct Professor Of Law Relationship Specialty Start Date End Date Lilia Laws MD [address] [place] [address] PCP - General Internal Medicine 01/03/23 Additional Source Comments The information contained in this document represents components of the legal health record. It is not the complete legal health record.[facility]
--- OUTSIDE RECORDS SUMMARY | 2024-12-17 14:05 | XMS_ITS | Clinical Summary ---
Author Organization [address] [facility] Address [address] [place] [address] Phone Care Team Providers Care Hr Assistant Name Role Phone Lilia Walsh MD Primary Care Provider [phone] Allergies Active Allergy Reactions Criticality Noted Date [...] patient's age to complete this topic Insurance [facility] MEDICARE Member Subscriber Plan / Payer (Ef fective 2022-Present) Name:ARTHUR SCHNEIDER Relation to Subscriber:Self Name:Arthur Alexis Payer ID:[id number] Group ID:[id number] Type:Not on file Address: [address] [place] [phone] Care Teams Hr Assistant Relationship Specialty Start Date End Date Lilia Walsh MD [address] [place] [address] PCP - General Internal Medicine 02/29/24
--- OUTSIDE RECORDS SUMMARY | 2024-12-17 14:05 | XMS_ITS | Encounter Summary ---
Author Organization [employer] Address [address] [place] [address] [address] [place] [address] Care Team Providers Care Shoe Lacer Name Role Phone Pebbles Levine Primary Care Provider Jeane vailable Encounter Details Date Type Department Care Team (Late st Contact Info) Description 05/02/2022 Abstract [facility] MEDICINE [address] [place] [address] Pebbles Levine FNP Social History Tobacco Use [...] on filedocumented in this encounter Care Teams Shoe Lacer Relationship Specialty Start Date End Date Pebbles Levine FNP PCP - General Family Medicine 09/29/21 08/11/22 documented as of this encounter
--- OUTSIDE RECORDS SUMMARY | 2024-12-17 14:05 | XMS_ITS | Encounter Summary ---
Author Organization [employer] Address [address] [place] [address] [address] [address] Care Team Providers Care Plant Production Manager Name Role Phone Pebbles LevineP Primary Care Provider Jeane vailable Encounter Details Date Type Department Care Team (Latest Contact Info) Description 02/01/2022 Abstract [facility] CONVERSIONS Dental, Provider, DDS Social History [...] on filedocumented in this encounter Care Teams Plant Production Manager Relationship Specialty Start Date End Date Pebbles Levine FNP PCP - General Family Medicine 09/29/21 08/11/22 documented as of this encounter
== END 2024-12-17 12:18 | disposition home or self-care (01) ==
LOC: HO.HWS 11:15
PROVIDERS: PCP Internal Medicine; Visit Provider Obstetrics & Gynecology
DX: R93.5 Abnormal findings on diagnostic imaging of other abdominal regions, including retroperitoneum (principal)
CPT/HCPCS: 99213

== ENCOUNTER → 2024-12-17 11:15 | Outpatient (BNVA) | payer OTHER, SELFPAY | PROVIDERS: PCP Internal Medicine; Visit Provider Obstetrics & Gynecology | DX: R93.5 Abnormal findings on diagnostic imaging of other abdominal regions, including retroperitoneum (principal) | CPT/HCPCS: 99212 ==

== ENCOUNTER 2024-12-30 12:36 | Day surgery (SDC) | payer OTHER, SELFPAY ==
--- OUTSIDE RECORDS SUMMARY | 2024-12-19 10:33 | XMS_ITS | Encounter Summary ---
Author Organization [facility] Address [address] [facility] [address] [place] [address] Phone Care Team Providers Care Turkey Egg Gatherer Name Role Phone Lilia Laws MD Primary Care Provid er Encounter Details Date Type Department Care Team (Late st Contact Info) Description 06/06/2023 Procedure Pass [facility], [address] [address] Social History Tobacco Use Types Packs/Day Years [...] on filedocumented in this encounter Care Teams Turkey Egg Gatherer Relationship Specialty Start Date End Date Lilia Laws MD [address] [place] [address] PCP - General Internal Medicine 01/03/23 documented as of this encounter Additional Source Comments The information contained in this document represents components of the legal health record. It is not the complete legal health record.[facility]
--- OUTSIDE RECORDS SUMMARY | 2024-12-19 10:33 | XMS_ITS | Clinical Summary ---
Author Organization [facility] Address [address] [place] [address] Phone Care Team Providers Care Manager Engagement Name Role Phone Lilia Laws MD Primary [...] MEDICARE REPLACEMENT MEDICARE PART A & B [employer] [facility] [employer] [facility] CARE MEDICARE REPLACEMENT [place] [id number] MEDICARE PART A & B [facility] ONE CARE MEDICARE REPLACEMENT MEDICARE PART A & B [employer] [facility] CARE MEDICARE REPLACEMENT [place] [id number] MEDICARE PART A & B ONE CARE MEDICARE REPLACEMENT MEDICARE PART A & B [facility] ONE CARE MEDICARE REPLACEMENT Care Teams Manager Engagement Relationship Specialty Start Date End Date Lilia Laws MD [address] [place] [address] PCP - General Internal Medicine 01/03/23 Additional Source Comments The information contained in this document represents components of the legal health record. It is not the complete legal health record.[facility]
--- OUTSIDE RECORDS SUMMARY | 2024-12-19 10:34 | XMS_ITS | Clinical Summary ---
Author Organization [address] [facility] Address [address] [place] [address] Phone Care Team Providers Care Returner Name Role Phone Lilia Walsh MD Primary Care Provider Allergies Active Allergy Reactions Criticality Noted Date [...] 2024 08/19/2020, 07/24/2020 Influenza Vaccine (#1) 2024 RSV Immunization Adult Patients (1 - 1-dose 75+ series) 10/02/2050 HIB [...] patient's age to complete this topic Insurance [facility] MEDICARE Member Subscriber Plan / Payer (Ef fective 2022-Present) Name:ARTHUR SCHNEIDER Relation to Subscriber:Self Name:Arthur Alexis Payer ID:[id number] Group ID:[id number] Type:Not on file Address: [address] [place] [phone] Care Teams Returner Relationship Specialty Start Date End Date Lilia Walsh MD [address] [place] [address] PCP - General Internal Medicine 02/29/24
[2024-12-26 08:37] VITALS: BMI 31.2
--- NOTE | 2024-12-26 13:31 | HO.ANESPROP2 ---
Documented by User: Malia Martin NP 12/26/24 13:31 HPI - Anesthesia Eval Consult details Narrative: 49yo F for D&C Hysteroscopy,possible myomectomy,possible polypectomy PMFSH Active Problems Active Problems: All Active Problems Amenorrhea (Acute) Abnormal ultrasound of endometrium (Acute) Well woman exam (Acute) Physical exam (Acute) Right leg pain (Acute) Neck pain (Acute) Tachycardia (Acute) Chest pain (Acute) Esophageal spasm (Acute) Complex ovarian cyst (Acute) Right shoulder tendinitis (Acute) Polyarthralgia (Acute) Bilateral occipital neuralgia (Acute) Bilateral foot pain (Acute) Bilateral carpal tunnel syndrome (Acute) Pain of both scapulas (Acute) Sacral pain (Acute) Calcific tendonitis of left shoulder (Acute) Dry eyes (Acute) Thoracic back pain (Acute) Chronic pain syndrome (Acute) Spondylosis of cervical region without myelopathy or radiculopathy (Acute) Iliotibial band syndrome (Acute) Menorrhagia (Acute) Postlaminectomy syndrome, lumbar (Acute) Obstructive sleep apnea (Acute) Abnormal uterine bleeding (AUB) (Acute) Left foot pain (Acute) Anxiety (Acute) Dyslipidemia (Acute) Hypovitaminosis D (Acute) Occipital headache (Acute) Migraines (Acute) Moderate major depression (Acute) Fibromyalgia (Acute) Normocytic anemia (Acute) GERD (gastroesophageal reflux disease) (Acute) Past Medical History Medical History Well woman exam Physical exam Neck pain Esophageal spasm Thoracic spine pain Pain of right scapula Abdominal cramping Hypersomnia Snoring Skin lesion Cough Right carpal tunnel syndrome Left carpal tunnel syndrome Hand pain ELLE on CPAP Right foot pain Left foot pain Bilateral hand pain Other spondylosis, nbhebshb-vfvhbcj-ntsiq region Left shoulder pain Pain of left scapula Occipital neuralgia of right side Occipital neuralgia of left side Dyspepsia Odynophagia Sinus pressure Headache Blurry vision Carpal tunnel syndrome Facet joint disease of cervical region Muscle spasms of neck Abnormal uterine bleeding (AUB) Abdominal bloating Constipation Low vitamin D level Spasmodic torticollis Hx of ovarian cyst Colon cancer screening Vaginal itching Anxiety Chest pain Bloody stools Dyslipidemia Hypovitaminosis D Right flank pain RUQ abdominal pain Occipital headache Tonsil stone Overweight (BMI 25.0-29.9) Migraines Moderate major depression Normocytic anemia GERD (gastroesophageal reflux disease) Cervical cancer screening Cervical radiculopathy Facet arthropathy, multilevel Well woman exam with routine gynecological exam Fibromyalgia Arthritis Sleep apnea Family History Family History Mother Thyroid disease Maternal Aunt No problems noted. Father No problems noted. Family history of problems with anesthesia: No Surgical History Surgical History History of esophagogastroduodenoscopy (EGD) (10/25/22) Hx of colonoscopy History of endoscopy S/P lumbar fusion Hx of removal of ovary History of Problems with Anesthesia: No Social History Social History Housing: House Alcohol intake: current Alcohol intake frequency: holidays/special occasions only Alcohol type: wine Patient Tobacco Use Status: Former Tobacco user Tobacco use type: Cigarette e-Cigarette/Vaping Use: Never Used Second Hand Smoke Exposure: No Use of substances other than those prescribed or required for medical reasons: No Are you DNR?: No Advance Directives: No Advance Directives Information Provided: Yes service: No Current occupational status: disabled Gender identity: Female Cognitive needs: No Hearing needs: No Vision needs: Yes Meds Allergies Allergy/AdvReac Type Severity Reaction Status Date / Time morphine (MORPHINE) Allergy Intermediate Itching Verified 12/30/24 13:40 tramadol (TRAMADOL) Allergy Intermediate SHORTNESS Verified 12/30/24 13:40 OF BREATH Home Medications ?Medication ?Instructions ?Recorded ?Confirmed ?Last Taken ?Type cholecalciferol (vitamin D3) 25 25 mcg PO DAILY 12/19/23 12/30/24 Unknown History mcg (1,000 unit) capsule ferrous sulfate 325 mg (65 mg 325 mg PO DAILY 07/11/24 12/30/24 Unknown History iron) tablet (Feosol) buspirone 5 mg tablet 5 mg PO TID 09/03/24 12/30/24 Unknown History melatonin 5 mg tablet 5 mg PO BEDTIME PRN Insomnia 09/03/24 12/30/24 Unknown History Exam Height,Weight and Vital Signs: Height 5 ft 3 in Weight 79.832 kg Assessment and Plan Assessment Anesthesia Assessment: Chart Reviewed Final Anesthetic Review Family History of Problems with Anesthesia: No History of Problems with Anesthesia: No Documented by User: Susan Corrales MD 12/30/24 13:58 PMFSH Past Medical History Medical History Well woman exam Physical exam Neck pain Esophageal spasm Thoracic spine pain Pain of right scapula Abdominal cramping Hypersomnia Snoring Skin lesion Cough Right carpal tunnel syndrome Left carpal tunnel syndrome Hand pain ELLE on CPAP Right foot pain Left foot pain Bilateral hand pain Other spondylosis, iuaeleoz-pbadcev-wvqsi region Left shoulder pain Pain of left scapula Occipital neuralgia of right side Occipital neuralgia of left side Dyspepsia Odynophagia Sinus pressure Headache Blurry vision Carpal tunnel syndrome Facet joint disease of cervical region Muscle spasms of neck Abnormal uterine bleeding (AUB) Abdominal bloating Constipation Low vitamin D level Spasmodic torticollis Hx of ovarian cyst Colon cancer screening Vaginal itching Anxiety Chest pain Bloody stools Dyslipidemia Hypovitaminosis D Right flank pain RUQ abdominal pain Occipital headache Tonsil stone Overweight (BMI 25.0-29.9) Migraines Moderate major depression Normocytic anemia GERD (gastroesophageal reflux disease) Cervical cancer screening Cervical radiculopathy Facet arthropathy, multilevel Well woman exam with routine gynecological exam Fibromyalgia Arthritis Sleep apnea Family History Family History Mother Thyroid disease Maternal Aunt No problems noted. Father No problems noted. Surgical History Surgical History History of esophagogastroduodenoscopy (EGD) (10/25/22) Hx of colonoscopy History of endoscopy S/P lumbar fusion Hx of removal of ovary Social History Social History Housing: House Alcohol intake: current Alcohol intake frequency: holidays/special occasions only Alcohol type: wine Patient Tobacco Use Status: Former Tobacco user Tobacco use type: Cigarette e-Cigarette/Vaping Use: Never Used Second Hand Smoke Exposure: No Use of substances other than those prescribed or required for medical reasons: No Are you DNR?: No Advance Directives: No Advance Directives Information Provided: Yes service: No Current occupational status: disabled Gender identity: Female Cognitive needs: No Hearing needs: No Vision needs: Yes Meds Allergies Allergy/AdvReac Type Severity Reaction Status Date / Time morphine (MORPHINE) Allergy Intermediate Itching Verified 12/30/24 13:40 tramadol (TRAMADOL) Allergy Intermediate SHORTNESS Verified 12/30/24 13:40 OF BREATH Home Medications ?Medication ?Instructions ?Recorded ?Confirmed ?Last Taken ?Type cholecalciferol (vitamin D3) 25 25 mcg PO DAILY 12/19/23 12/30/24 Unknown History mcg (1,000 unit) capsule ferrous sulfate 325 mg (65 mg 325 mg PO DAILY 07/11/24 12/30/24 Unknown History iron) tablet (Feosol) buspirone 5 mg tablet 5 mg PO TID 09/03/24 12/30/24 Unknown History melatonin 5 mg tablet 5 mg PO BEDTIME PRN Insomnia 09/03/24 12/30/24 Unknown History Exam Airway Mallampati Class: II TM Dist: >3cm Neck ROM: Full Heart: rrr Lungs: cta Assessment and Plan Final Anesthetic Review NPO: Yes ASA Class: II Final Preanesthetic Review: No Changes in Pt Med Stat, Meds/Allgs Chart Reviewed, Consent Obtained/Reviewed and Anes Risks/Benef Reviewed Patient Risk: Intermediate Procedure Risk: Low Anesthetic Plan Anesthetic Plan: GA and Agree w/ Assess. and Plan Disposition: Standard PACU
--- NOTE | 2024-12-30 13:25 | MHC.SHP ---
Pre-Procedural Eval Section A - 24 Hr Update-Section A only Date of Service: 12/30/24 The patient is an INPATIENT: No Changes since office visit: No Cold of Flu in the past 2 weeks, No New Medical Problems, No Changes in Medication and No Patient answered all questions The patient has been examined within 24 hours of the surgical procedure. The History & Physical has been completed within 30 days and I have reviewed it.: Yes Section B - Complete if H&P > 30 days Chief Complaint: Abnormal findings on diagnostic imaging of other Allergies: Allergies Allergy/AdvReac Type Severity Reaction Status Date / Time morphine (MORPHINE) Allergy Intermediate Itching Verified 12/17/24 11:50 tramadol (TRAMADOL) Allergy Intermediate SHORTNESS Verified 12/17/24 11:50 OF BREATH Plan Diagnosis/Plan: Unchanged I have reviewed the history and physical and performed a pertinent physical examination on my patient. No changes have occurred unless specified. Time Spent With Patient Time: Total time managing care of this patient today ____ minutes.
[2024-12-30 13:28] VITALS: BMI 29.8
[2024-12-30 13:31] VITALS: BP 129/53; PULSE 82; RESP 15; TEMP 36.4; O2SAT 96
[2024-12-30 13:32] LABS: UPreg QC Valid YES
[2024-12-30] MEDS: Lactated Ringers 1,000 ML 100 ML IVCONT (13:39)
--- NOTE | 2024-12-30 15:22 | PM.OP ---
Brief Operative Note Date of Service: 12/30/24 Pre-op diagnosis: Endometrial polyp by ultrasound Post-op diagnosis: same (Normal endometrial cavity) Procedure: Hysteroscopy D&C Surgeon: James Sun MD Anesthesia: GLMA Was an Customer Support Manager used for this Procedure?: No Estimated blood loss (mL): 0 Pathology: other (Endometrial Scrapping. ) Condition: stable Disposition: PACU
--- NOTE | 2024-12-30 15:23 | P.OP_ITS ---
Operative Note Operative Note Date of Service: 12/30/24 Narrative: Preop Diagnosis: Endometrial polyp by ultrasound Operation: Diagnostic Hysteroscopy, Dilataion & Curettage Post Op Diagnosis: Normal endometrial and endocervical cavity, no evidence of pathology QBL: Minimal Anesthesia: GLMA Surgeon: James Sun MD Hedge Fund Principal: None Complication: None Pathology: Endometrial Scrapings Procedure: The patient was put in the dorsal lithotomy position, scrubbed, and draped in the usual manner. A sterile speculum was inserted in the patient's vagina. The anterior lip of the cervix was grasped with a single tooth tenaculum. The cervix was dilated up to 5 mm, then the scope was inserted in the patient's uterus. Inspection revealed normal endocervical & endometrial cavity with no evidence of pathology. The scope was taken out of the uterine cavity , then sharp curetting was carried on with no complications. At the end of the procedure, all instruments were taken out of the patient uterine and vaginal cavity. The single tooth tenaculum was removed and homeostasis was assured using pressure. The patient tolerated the procedure well and was transferred to the PACU in a stable condition.
[2024-12-30 15:27] VITALS: BP 124/81; PULSE 70; RESP 12; TEMP 36.1; O2SAT 97
[2024-12-30 15:30] VITALS: BP 123/78; PULSE 76; RESP 14; O2SAT 98
[2024-12-30 15:35] VITALS: BP 123/75; PULSE 76; RESP 13; O2SAT 99
[2024-12-30 15:40] VITALS: BP 126/82; PULSE 82; RESP 13; O2SAT 99
[2024-12-30 15:55] VITALS: BP 141/85; PULSE 83; RESP 11; TEMP 36.5; O2SAT 98
== END 2024-12-30 16:20 | disposition home or self-care (01) ==
PROVIDERS: PCP Internal Medicine; Visit Provider Obstetrics & Gynecology
PROC: 0UDB8ZZ Extraction of Endometrium, Via Natural or Artificial Opening Endoscopic (ICD-10-PCS; CPT 58558; principal; 2024-12-30 14:30)
DX: N88.8 Other specified noninflammatory disorders of cervix uteri (principal); Z90.721 Acquired absence of ovaries, unilateral; M54.81 Occipital neuralgia; M79.7 Fibromyalgia; G47.33 Obstructive sleep apnea (adult) (pediatric); Z99.89 Dependence on other enabling machines and devices; Z88.5 Allergy status to narcotic agent; Z98.1 Arthrodesis status; Z87.891 Personal history of nicotine dependence
CPT/HCPCS: 58558; 81025; 88305; J1100; J1885; J2003; J2250; J2405; J2704; J3010

== ENCOUNTER → 2024-12-30 12:36 | Outpatient (BNV) | payer OTHER, SELFPAY | PROVIDERS: PCP Internal Medicine; Visit Provider Obstetrics & Gynecology | DX: N84.0 Polyp of corpus uteri (principal) | CPT/HCPCS: 58558 ==

== ENCOUNTER 2025-01-07 13:45 | Outpatient (AMB) | payer OTHER, SELFPAY ==
--- NOTE | 2025-01-07 13:52 | A.OFFVIS_ITS ---
Vital Signs 01/07/25 13:53 Height 5 ft 3 in Weight 164 lb BMI 29.0 BP 136/92 H Blood Pressure Location Rt brachial Position Sitting Pulse 85 Intake Visit Reasons: 6 mo f/u GERD, Esopha spasm, CIC Intake Note: Kathy presents to in office follow up of GERD and CIC. CC: Patient reports doing well and denies having any new GI symptoms. Air Pollution Compliance Inspector Required: No Accompanied by: Self / Same As Patient Allergies morphine (MORPHINE) Allergy (Intermediate, Verified 01/07/25 14:11) Itching tramadol (TRAMADOL) Allergy (Intermediate, Verified 01/07/25 14:11) SHORTNESS OF BREATH Medication List - Last Reconciled 01/07/25 by BECKIE Guido buspirone 15 mg PO TID haigxztiee-husixivqvwltt-tqkr 50-325-40 mg 2 tabs PO Q4H PRN 30 days cholecalciferol (vitamin D3) 25 mcg PO DAILY cyclobenzaprine 5 mg PO TID PRN 30 days diclofenac sodium 75 mg PO BID PRN 30 days dicyclomine 20 mg PO QID PRN 30 days duloxetine 60 mg PO BID esomeprazole magnesium (Nexium) 40 mg PO DAILY famotidine 20 mg PO BEDTIME ferrous sulfate (Feosol) 325 mg PO DAILY lidocaine 5% 1 patch topical DAILY medroxyprogesterone (Provera) 10 mg PO DAILY 90 days melatonin 5 mg PO BEDTIME PRN methylphenidate HCl (Ritalin) 10 mg PO DAILY naproxen 500 mg PO BID sennosides (senna) 8.6 mg PO BEDTIME PRN tizanidine 2 mg PO Q8H PRN HPI HPI 6 mo f/u GERD, Esopha spasm, CIC: Details: Assessment & Plan (1) Esophageal spasm: Code(s): K22.4 - Dyskinesia of esophagus Category: Medical (2) GERD (gastroesophageal reflux disease): Code(s): K21.9 - Gastro-esophageal reflux disease without esophagitis Category: Medical Qualifiers: Esophagitis presence: esophagitis presence not specified Qualified Code(s): K21.9 - Gastro-esophageal reflux disease without esophagitis (3) Chronic pain syndrome: Code(s): G89.4 - Chronic pain syndrome Category: Medical (4) Thoracic back pain: Comment: XR 02/2024 FINDINGS: Tube body height and alignment normal. Mild multilevel spondylosis manifested by endplate osteophytes without disc space narrowing scattered throughout the mid to lower dorsal spine. No change. Code(s): M54.6 - Pain in thoracic spine Category: Medical Plan Burmese #Zoran Reyes SHE IS ONLY endorsing a throbbing that occurs when she eats red meats. But it also happens with salsa and sauces and ice cream on further discussion - which leads me to believe that this is a variant of GERD. She also describes a feeling like food gets stuck mid sternally, further evidence of either GERD or esophageal spasm. In the past we had sent a trail of bentyl but she does not remember geting it - will send again for prn use for spasm. I educate her on try ing frozen yogurt or Lactaid Ice cream since she really likes eating ice cream. SHE CONTINUES ON HER OMEPRAZOLE AND FAMOTIDINE ALONG WITH senna as needed for constipation. We are adding the dicyclomine to see if the esophageal spasm is part of her problem. Return office visit in 6 month Medications: Changed From dicyclomine 20 mg PO QID 30 days 120 tabs 1RF K22.4 - Dyskinesia of esophagus To dicyclomine 20 mg PO QID PRN 120 tabs 6RF abdominal pain 30 days K22.4 - Dyskinesia of esophagus Refilled esomeprazole magnesium (Nexium) 40 mg PO DAILY 30 caps 6RF K21.9 - Gastro- esophageal reflux disease without esophagitis famotidine 20 mg PO BEDTIME 30 tabs 0RF sennosides (Senna Laxative) 17.2 mg (2 x 8.6 mg) PO BEDTIME 60 tabs 6RF K59.00 - Constipation, unspecified TODAY'S VISIT Burmese Alejandro Reyes PENDING SALE TO [facility] Medical History (Updated 01/07/25 @ 14:27 by BECKIE Guido) Well woman exam Physical exam Neck pain Esophageal spasm Thoracic spine pain Pain of right scapula Abdominal cramping Hypersomnia Snoring Skin lesion Cough Right carpal tunnel syndrome Left carpal tunnel syndrome Hand pain ELLE on CPAP Right foot pain Left foot pain Bilateral hand pain Other spondylosis, qbordewd-rjlenmr-yqmti region Left shoulder pain Pain of left scapula Occipital neuralgia of right side Occipital neuralgia of left side Dyspepsia Odynophagia Sinus pressure Headache Blurry vision Carpal tunnel syndrome Facet joint disease of cervical region Muscle spasms of neck Abnormal uterine bleeding (AUB) Abdominal bloating Constipation Low vitamin D level Spasmodic torticollis Hx of ovarian cyst Colon cancer screening Vaginal itching Anxiety Chest pain Bloody stools Dyslipidemia Hypovitaminosis D Right flank pain RUQ abdominal pain Occipital headache Tonsil stone Overweight (BMI 25.0-29.9) Migraines Moderate major depression Normocytic anemia GERD (gastroesophageal reflux disease) Cervical cancer screening Cervical radiculopathy Facet arthropathy, multilevel Well woman exam with routine gynecological exam Fibromyalgia Arthritis Sleep apnea Surgical History History of esophagogastroduodenoscopy (EGD) (10/25/22) Hx of colonoscopy History of endoscopy S/P lumbar fusion Hx of removal of ovary Family History Mother Thyroid disease Maternal Aunt No problems noted. Father No problems noted. Social History Housing: House Alcohol intake: current Alcohol intake frequency: holidays/special occasions only Alcohol type: wine Patient Tobacco Use Status: Former Tobacco user Tobacco use type: Cigarette e-Cigarette/Vaping Use: Never Used Second Hand Smoke Exposure: No service: No Current occupational status: disabled Gender identity: Female Cognitive needs: No Hearing needs: No Vision needs: Yes Female Reproductive History Menstrual Age of Menarche: 11 Review of Systems Const Denies fatigue, Denies fever(s), Denies night sweats, Denies poor appetite and Denies weight loss Eyes Details: glasses Reports requires corrective lenses ENT Reports Normal hearing present, Denies dental pain, Denies dysphagia, Denies hearing loss, Denies mouth pain, Reports odynophagia, Denies throat swelling, De nies tongue swelling and Reports other (Dentition adequate) Card Reports no additional complaints Resp Reports no additional complaints GI Details: Denies abdominal pain, Denies melena, Denies bloating, Denies hematochezia, Denies constipation, Denies GI cramping, Denies dysphagia, Denies excessive flatus, Denies early satiety, Reports heartburn, Denies diarrhea, Denies nausea, Reports odynophagia, Denies vomiting and Denies hematemesis Skin/Breast Denies pruritus, Denies lesions, Denies rash and Denies jaundice Neuro Reports Normal hearing present and Denies Abnormal speech present Endo Denies fatigue Aller/Immun Denies throat swelling and Denies tongue swelling Physical Exam Vital Signs: Last Vital Signs Pulse 85 01/07/25 13:53 BP 136/92 H 01/07/25 13:53 BMI result Body Mass Index 29.0 Const General: cooperative, no acute distress, well developed and well groomed Nutritional Appearance: well nourished and overweight Orientation/consciousness: oriented to person, oriented to place and oriented to time Limitations: language barrier HEENT Head: Yes normocephalic and Yes atraumatic Eyes General: appearance normal, both eyes and all related structures Pupils: Equal, round and reactive pupils present Neck Neck: Yes normal visual inspection and Yes no lymphadenopathy Thyroid: Thyroid normal Resp Effort & Inspection: normal respiratory effort and able to speak in complete sentences Auscultation: clear to auscultation bilaterally Cardio Rate: regular rate Rhythm: regular rhythm Heart sounds: Normal, physiologic split S2 sound present Peripheral pulses: radial pulses present and posterior tibial pulses present GI Inspection: No distended, No Abdominal panniculus present and Yes obesity Palpation (GI): Soft to palpation, nontender, no guarding, not rigid and No hepatosplenomegaly present Percussion: Yes normal to percussion Auscultation: normal bowel sounds Rectal Exam - Female: deferred Skin General skin exam: no rashes or lesions noted, turgor normal, skin not dry, no jaundice, No spider nevi and no striae Rashes: no rashes Nails: normal Neuro General: oriented to person, oriented to place and oriented to time Cranial nerves: Yes Equal, round and reactive pupils present and Yes Normal hearing present Speech: No Abnormal speech present Extrem General: Yes normal to inspection, No clubbing, No cyanosis and No edema Psych Appearance: grossly normal and well kempt Mental Status: mental status grossly normal Speech and movement: Normal speech and movement present Affect: normal affect Attitude: cooperative Thought process: Normal thought process present and not confabulating Thought content: Normal thought content present Insight: Good insight present (Psych) Judgement: Good judgement present (Psych) Assessment & Plan Assessment & Plan (1) GERD (gastroesophageal reflux disease): Code(s): K21.9 - Gastro-esophageal reflux disease without esophagitis Category: Medical Qualifiers: Esophagitis presence: esophagitis presence not specified Qualified Code(s): K21.9 - Gastro-esophageal reflux disease without esophagitis (2) Esophageal spasm: Code(s): K22.4 - Dyskinesia of esophagus Category: Medical Plan SHE CONTINUES ON HER OMEPRAZOLE AND FAMOTIDINE ALONG WITH senna as needed for constipation. She also has dicyclomine that was intended to be used for her esophageal spasm. Fortunately none of these problems have been an issue for her recently and she is utilizing all of her medications only on a PRN basis. She is satisfied with this however. Return office visit in 6 months Medications: Refilled esomeprazole magnesium (Nexium) 40 mg PO DAILY 30 caps 6RF K21.9 - Gastro- esophageal reflux disease without esophagitis famotidine 20 mg PO BEDTIME 30 tabs 3RF Coding Level of Care Code Est Pt Level 3 (21211) Diagnoses Gastroesophageal reflux disease, unspecified whether esophagitis present K21.9 Esophagitis presence: esophagitis presence not specified Esophageal spasm K22.4
[2025-01-07 13:53] VITALS: BP 136/92; PULSE 85; BMI 29.0
--- OUTSIDE RECORDS SUMMARY | 2025-01-07 16:42 | XMS_ITS | Encounter Summary ---
Author Organization [employer] Address [address] [place] [address] [address] [place] [address] Care Team Providers Care Research Support Specialist Name Role Phone Pebbles Levine Primary Care Provider Jeane vailable Encounter Details Date Type Department Care Team (Late st Contact Info) Description 05/02/2022 Abstract [facility] [address] [place] [address] Pebbles Levine FNP Social History Tobacco Use [...] on filedocumented in this encounter Care Teams Research Support Specialist Relationship Specialty Start Date End Date Pebbles Levine FNP PCP - General Family Medicine 09/29/21 08/11/22 documented as of this encounter
--- OUTSIDE RECORDS SUMMARY | 2025-01-07 16:42 | XMS_ITS | Encounter Summary ---
Author Organization [employer] Address [address] [place] [address] [address] [place] [address] Care Team Providers Care Eyeglass Lens Cutter Name Role Phone Pebbles LevineP Primary Care Provider Jeane vailable Encounter Details Date Type Department Care Team (Latest Contact Info) Description 02/01/2022 Abstract [facility] CONVERSIONS Dental, Provider, DDS Social History [...] on filedocumented in this encounter Care Teams Eyeglass Lens Cutter Relationship Specialty Start Date End Date Pebbles Levine FNP PCP - General Family Medicine 09/29/21 08/11/22 documented as of this encounter
--- OUTSIDE RECORDS SUMMARY | 2025-01-07 16:42 | XMS_ITS | Encounter Summary ---
Author Organization [facility] Address [address] [facility] [address] [place] [phone] Phone Care Team Providers Care Winding Lathe Operator Name Role Phone Lilia Laws MD Primary Care Provid er Encounter Details Date Type Department Care Team (Late st Contact Info) Description 06/06/2023 Procedure Pass [facility], [address] [address] Social History Tobacco Use Types Packs/Day Years [...] on filedocumented in this encounter Care Teams Winding Lathe Operator Relationship Specialty Start Date End Date Lilia Laws MD [address] [place] [address] PCP - General Internal Medicine 01/03/23 documented as of this encounter Additional Source Comments The information contained in this document represents components of the legal health record. It is not the complete legal health record.[facility]
--- OUTSIDE RECORDS SUMMARY | 2025-01-07 16:42 | XMS_ITS | Encounter Summary ---
Author Organization [employer] Address [address] [place] [address] [address] [place] [address] Care Team Providers Care Computer Tape Librarian Name Role Phone Pebbles Levine SHIRRING MACHINE OPERATOR AUTOMATIC Primary Care Provider Jeane vailable Reason for [...] (Late st Contact Info) Description 03/08/2022 Telephone [facility] [address] [place] [address] Dental, Provider, DDS Prior Authorization (Patient called [...] on filedocumented in this encounter Care Teams Computer Tape Librarian Relationship Specialty Start Date End Date Pebbles Levine FNP PCP - General Family Medicine 09/29/21 08/11/22 documented as of this encounter
--- OUTSIDE RECORDS SUMMARY | 2025-01-07 16:42 | XMS_ITS | Clinical Summary ---
Author Organization [employer] Address [address] [place] [address] [address] [place] [address] Care Team Providers Care Penetration Tester Name Role Phone Unavailable Primary Care Provider [...] Most Recently Relevant to Health Maintenance [place] [address] [place] [address] [place] [phone]
--- OUTSIDE RECORDS SUMMARY | 2025-01-07 16:42 | XMS_ITS | Clinical Summary ---
Author Organization [facility] Address [address] [place] [phone] Phone Care Team Providers Care Relocation Commissioner Name Role Phone Lilia aLws MD Primary Care Provid er Allergies No [...] 02/23/2018 INFLUENZA VACCINE (#1) 2024 COVID-19 VACCINE ( - 2024-2 6 season) 2024 HEPATITIS A VACCINES Aged Out [...] file Insurance MEDICARE PART A & B [facility] ONE CARE MEDICARE REPLACEMENT MEDICARE PART A & B [facility] [employer] [facility] CARE MEDICARE REPLACEMENT [place] [id number] MEDICARE PART A & B [facility] ONE CARE MEDICARE REPLACEMENT MEDICARE PART A & B [facility] CARE MEDICARE REPLACEMENT [place] [id number] MEDICARE PART A & B ONE CARE MEDICARE REPLACEMENT MEDICARE PART A & B [facility] ONE CARE MEDICARE REPLACEMENT Care Teams Relocation Commissioner Relationship Specialty Start Date End Date Lilia Laws MD [address] [place] [address] PCP - General Internal Medicine 01/03/23 Additional Source Comments The information contained in this document represents components of the legal health record. It is not the complete legal health record.[facility]
== END 2025-01-07 14:30 | disposition home or self-care (01) ==
LOC: HO.HGI 13:46
PROVIDERS: PCP Internal Medicine; Visit Provider Nurse Practitioner
DX: K21.9 Gastro-esophageal reflux disease without esophagitis (principal); K22.4 Dyskinesia of esophagus
CPT/HCPCS: 99213

== ENCOUNTER → 2025-01-07 13:45 | Outpatient (BNVA) | payer OTHER, SELFPAY | PROVIDERS: PCP Internal Medicine; Visit Provider Nurse Practitioner | DX: K21.9 Gastro-esophageal reflux disease without esophagitis (principal); K22.4 Dyskinesia of esophagus; G89.4 Chronic pain syndrome; M54.6 Pain in thoracic spine | CPT/HCPCS: 99212 ==

== ENCOUNTER 2025-01-09 13:00 | Outpatient (AMB) | payer OTHER, SELFPAY ==
--- NOTE | 2025-01-09 13:04 | A.OFFPC_ITS ---
Vital Signs 3 01/09/25 13:05 Height 5 ft 3 in Weight 165 lb 6 oz BMI 29.3 BP 120/72 Blood Pressure Location Lt brachial Position Sitting Pulse 94 Pulse Source Pulse Oximeter Pulse Oximetry (%) 97 Oxygen Delivery Method Room Air Intake Visit Reasons: SRIDHAR from [facility] Supplier Development Manager Required: No Accompanied by: Self / Same As Patient Allergies morphine (MORPHINE) Allergy (Intermediate, Verified 01/09/25 13:18) Itching tramadol (TRAMADOL) Allergy (Intermediate, Verified 01/09/25 13:18) SHORTNESS OF BREATH Medication List - Last Reconciled 01/09/25 by Edson Ramirez PA-C buspirone 15 mg PO TID obcvtzrznb-wverflbpjorio-zmkm 50-325-40 mg 2 tabs PO Q4H PRN 30 days cholecalciferol (vitamin D3) 25 mcg PO DAILY cyclobenzaprine 5 mg PO TID PRN 30 days diclofenac sodium 75 mg PO BID PRN 30 days dicyclomine 20 mg PO QID PRN 30 days duloxetine 60 mg PO BID esomeprazole magnesium (Nexium) 40 mg PO DAILY famotidine 20 mg PO BEDTIME ferrous sulfate (Feosol) 325 mg PO DAILY lidocaine 5% 1 patch topical DAILY medroxyprogesterone (Provera) 10 mg PO DAILY 90 days melatonin 5 mg PO BEDTIME PRN methylphenidate HCl (Ritalin) 10 mg PO DAILY naproxen 500 mg PO BID sennosides (senna) 8.6 mg PO BEDTIME PRN tizanidine 2 mg PO Q8H PRN 10 days Tobacco use date assessed: 01/09/25 Dental Screening Dental Screen Date: 01/09/25 Did you have a dental visit in the last 12 months?: Yes Did you have a dental problem in the last 6 months where you did not have access to dental care?: No Was dental information given to patient?: Patient has dentist HPI SRIDHAR from [facility] 2 HPI0 Details Patient is a 49-year-old female here today for a transfer of care visit. Previous PCP P was Dr. Rouse. Patient has a past medical history significant for anxiety, depression, migraines, fibromyalgia and anemia. Recent labs do indicate slightly elevated fasting blood sugar and a borderline high cholesterol Though patient report she was not fasting Concerns--> cervical spine has been a chronic issue for her and she is followed by a pain management whom will be doing injections in her neck. .. Right greater trochanteric bursitis: Also report having right lateral hip pain that radiates down lateral aspect of her right for the past several days. She reports the pain was so bad she is unable to get up from her bed. PLAN: Will try physical therapy to help with the lateral hip and thigh pain most consistent with a greater trochanteric bursitis .. Dyslipidemia: Most recent labs showing elevations in her total cholesterol though was not completely fasting for the labs and is willing to recheck these labs before next office visit .. ADHD : followed by Psychiatry who manages her ADHD and mental health medications. Laboratory Tests 09/11/23 11/06/24 12/30/24 07:55 15:17 13:10 RBC 4.05 L Hgb 12.2 Fasting Glucose 96 109 H Iron 85 Cholesterol 181 217 H Vitamin B12 [address] NEGATIVE [facility] Medical History (Updated 01/09/25 @ 13:42 by Edson Ramirez PA-C) Well woman exam Physical exam Neck pain Esophageal spasm Thoracic spine pain Pain of right scapula Abdominal cramping Hypersomnia Snoring Skin lesion Cough Right carpal tunnel syndrome Left carpal tunnel syndrome Hand pain ELLE on CPAP Right foot pain Left foot pain Bilateral hand pain Other spondylosis, rgulbegn-bsculcx-rpbbf region Left shoulder pain Pain of left scapula Occipital neuralgia of right side Occipital neuralgia of left side Dyspepsia Odynophagia Sinus pressure Headache Blurry vision Carpal tunnel syndrome Facet joint disease of cervical region Muscle spasms of neck Abnormal uterine bleeding (AUB) Abdominal bloating Constipation Low vitamin D level Spasmodic torticollis Hx of ovarian cyst Colon cancer screening Vaginal itching Anxiety Chest pain Bloody stools Dyslipidemia Hypovitaminosis D Right flank pain RUQ abdominal pain Occipital headache Tonsil stone Overweight (BMI 25.0-29.9) Migraines Moderate major depression Normocytic anemia GERD (gastroesophageal reflux disease) Cervical cancer screening Cervical radiculopathy Facet arthropathy, multilevel Well woman exam with routine gynecological exam Fibromyalgia Arthritis Sleep apnea Surgical History History of esophagogastroduodenoscopy (EGD) (10/25/22) Hx of colonoscopy History of endoscopy S/P lumbar fusion Hx of removal of ovary Family History Mother Thyroid disease Maternal Aunt No problems noted. Father No problems noted. Social History Housing: House Alcohol intake: current Alcohol intake frequency: holidays/special occasions only Alcohol type: wine Patient Tobacco Use Status: Former Tobacco user Tobacco use type: Cigarette e-Cigarette/Vaping Use: Never Used Second Hand Smoke Exposure: No service: No Current occupational status: disabled Gender identity: Female Cognitive needs: No Hearing needs: No Vision needs: Yes Female Reproductive History Menstrual Age of Menarche: 11 Questionnaire Thrive Questionnaire Date Thrive assessed: 09/03/24 I am a: Patient What is your living situation today?: I have a steady place to live Within the past 12 months, did the food you bought not last and you didn't have the money to get more?: I choose not to answer this question Within the past 12 months, did you worry whether your food would run out before you got money to buy more?: I choose not to answer this question Do you have trouble paying for medicines?: I choose not to answer this question Do you have trouble getting transportation to medical appointments?: I choose not to answer this question Do you have trouble paying your heating and electricity bill?: I choose not to answer this question Do you have trouble taking care of your child, family member or friend?: I choose not to answer this question Do you have trouble with day-to-day activities such as bathing, preparing meals, shopping, managing finances, etc.?: I choose not to answer this question Are you currently unemployed and looking for a job?: I choose not to answer this question Are you interested in more education?: I choose not to answer this question Please select the resources that you would like help with: None Currently or been in a relationship where the following occur: No concerns reported THRIVE Score: 0 AUDIT C Alcohol Use Questionnaire (AUDIT-C) 1. How often do you have a drink containing alcohol?: Never 3. How often do you have six or more drinks on one occasion?: Never Total Score: 0 Score Reviewed/Action Taken: No SHERIDAN-7 AMB Questionnaire SHERIDAN-7 Date SHERIDAN - 7 assessed: 09/03/24 Source: Developed by Drs. Alejandro Linton, Omayra King, Deejay Rivas and colleagues, with an educational rene from [employer]. Review of Systems Const Denies headache(s) Eyes Denies loss of vision ENT Denies vertigo, Denies dizziness, Denies headache(s) and Denies sore throat Card Denies chest pain, Denies leg edema and Denies lightheadedness Resp Denies cough, Denies hemoptysis and Denies wheezing GI Denies abdominal pain, Denies melena, Denies constipation, Denies diarrhea and Denies vomiting Denies urinary frequency, Denies dysuria and Denies urinary urgency Musc Denies arthralgias, Denies joint swelling, Denies numbness and Denies tingling Neuro Denies Abnormal speech present, Denies behavioral changes, Denies vertigo, Denies dizziness, Denies headache(s), Denies loss of vision, Denies memory loss, Denies numbness and Denies tingling Psych Denies anxiety, Denies behavioral changes, Denies depression, Denies memory loss and Denies panic attacks Kory/Lymph Denies easy bleeding and Denies easy bruising Aller/Immun Denies wheezing Physical exam (Primary Care) Vital Signs: Last Vital Signs Pulse 94 01/09/25 13:05 BP 120/72 01/09/25 13:05 Pulse Ox 97 01/09/25 13:05 Oxygen Delivery Method Room Air 01/09/25 13:05 BMI result Body Mass Index 29.3 Tobacco/Smoking Status: Tobacco use Status Tobacco use date assessed 01/09/25 01/09/25 13:06 Patient Tobacco Use Status Former Tobacco user 01/09/25 13:06 Tobacco use type Cigarette 01/09/25 13:06 e-Cigarette/Vaping Use Never Used 01/09/25 13:06 Thrive Assessment: Date of Thrive Assessment Date Thrive assessed 09/03/24 01/09/25 13:06 Currently or been in a relationship where the following occur: No concerns reported Const General: healthy appearing, no acute distress, alert and awake Nutritional Appearance: well nourished Orientation/consciousness: oriented to person, oriented to place and oriented to time HENMT Ears: TM's normal bilaterally General nose exam: Normal nasal mucous membranes and turbinates present Eyes Conjunctivae: conjunctivae normal Sclerae: sclerae normal Pupils: Equal, round and reactive pupils present Neck Neck: Yes no lymphadenopathy and Yes no JVD Thyroid: Thyroid normal Carotids: no bruits Resp Effort & Inspection: normal respiratory effort and not tachypneic Auscultation: no crackles, no rales, no rhonchi and no wheezes Cardio Rate: regular rate Rhythm: regular rhythm Heart sounds: no murmurs and normal S1 and S2 GI Palpation (GI): Soft to palpation, nontender, no hepatomegaly and no splenomegaly Auscultation: normal bowel sounds Skin General skin exam: no rashes or lesions noted and dry skin Neuro General: oriented to person, oriented to place and oriented to time Cranial nerves: Yes Equal, round and reactive pupils present Speech: No Abnormal speech present Gait exam (Neuro): Normal gait present Motor exam (neuro): no tremor noted Extrem Right upper extremity: full ROM Left upper extremity: full ROM Right lower extremity: full ROM; no edema Left lower extremity: full ROM; no edema Upper/lower leg/hip images: 2 1. PAIN LOCATED IN THE AREA OUTLINED Psych Mental Status: mental status grossly normal Speech and movement: Normal speech and movement present Affect: normal affect Attitude: cooperative Thought process: Normal thought process present Coding Level of Care Code Est Pt Level 4 (14404) Diagnoses Greater trochanteric bursitis of right hip M70.61 Dyslipidemia E78.5 Anxiety F41.9 Cervical spine pain M54.2 Assessment & Plan Assessment & Plan (1) Greater trochanteric bursitis of right hip: Code(s): M70.61 - Trochanteric bursitis, right hip Category: Medical Plan: Physical therapy and icing are recommended for her right hip pain, suspected to be greater trochanteric bursitis. She is encouraged to maintain physical activity, such as walking, to aid in managing fibromyalgia symptoms. (2) Dyslipidemia: Code(s): E78.5 - Hyperlipidemia, unspecified Category: Medical Plan: Will recheck true fasting lipid panel to ensure stable total cholesterol and LDL. (3) Anxiety: Code(s): F41.9 - Anxiety disorder, unspecified Category: Medical Plan: Patient's anxiety is fairly well controlled with current medication, does follow a mental health therapist and a psychiatrist. (4) Cervical spine pain: Code(s): M54.2 - Cervicalgia Category: Medical Plan: For cervical spine arthritis, she will continue with pain management, including a potential injection as advised by her specialist. Patient interested in starting a 10s unit to help her with her myopathy pain Orders: Orders 2 PT Evaluation and Treatment Today M70.61 - Trochanteric bursitis, right hip Complete Blood Count no Diff Today E78.5 - Hyperlipidemia, unspecified Vitamin D 25-OH Total Today E55.9 - Vitamin D deficiency, unspecified Lipid Panel Today E78.5 - Hyperlipidemia, unspecified Comprehensive [place]. Panel Fast Today E78.5 - Hyperlipidemia, unspecified Vitamin B12 and Folate Today D64.9 - Anemia, unspecified, E53.8 - Deficiency of other specified B group vitamins Medications: New 2 [TENS unit - with 4 electrodes and wires] As directed 1 ea 0RF M54.2 - Cervicalgia Changed 2 From tizanidine 2 mg PO Q8H PRN 10 tabs 0RF muscle spasticity To tizanidine 2 mg PO Q8H PRN 30 tabs 0RF muscle spasticity 10 days Refilled 2 naproxen 500 mg PO BID 14 tabs 0RF
[2025-01-09 13:05] VITALS: BP 120/72; PULSE 94; O2SAT 97; BMI 29.3
--- OUTSIDE RECORDS SUMMARY | 2025-01-09 16:14 | XMS_ITS | Encounter Summary ---
Author Organization [facility] Address [address] [facility] [address] [facility] [address] [place] [phone] Phone Care Team Providers Care Furnace Liner Name Role Phone Lilia Laws MD Primary Care Provid er Encounter Details Date Type Department Care Team (Late st Contact Info) Description 06/06/2023 Procedure Pass [facility], [address] [address] Social History Tobacco Use Types Packs/Day Years [...] on filedocumented in this encounter Care Teams Furnace Liner Relationship Specialty Start Date End Date Lilia Laws MD [address] [place] [address] PCP - General Internal Medicine 01/03/23 documented as of this encounter Additional Source Comments The information contained in this document represents components of the legal health record. It is not the complete legal health record.[facility]
--- OUTSIDE RECORDS SUMMARY | 2025-01-09 16:14 | XMS_ITS | Encounter Summary ---
Author Organization [employer] Address [address] [place] [address] [address] [place] [address] Care Team Providers Care Rn Corrections Name Role Phone Pebbles LevineP Primary Care Provider Jeane vailable Encounter Details Date Type Department Care Team (Latest Contact Info) Description 02/01/2022 Abstract [facility] CONVERSIONS Dental, Provider, DDS Social History Tobacco [...] on filedocumented in this encounter Care Teams Rn Corrections Relationship Specialty Start Date End Date Pebbles Levine FNP PCP - General Family Medicine 09/29/21 08/11/22 documented as of this encounter
--- OUTSIDE RECORDS SUMMARY | 2025-01-09 16:14 | XMS_ITS | Clinical Summary ---
Author Organization [employer] Address [address] [place] [address] [address] [place] [address] Care Team Providers Care Mold Worker Name Role Phone Unavailable Primary Care Provider [...] Most Recently Relevant to Health Maintenance [place] [address] [place] [address] [address] [place] [phone]
--- OUTSIDE RECORDS SUMMARY | 2025-01-09 16:14 | XMS_ITS | Encounter Summary ---
Author Organization [employer] Address [address] [place] [address] [address] [place] [address] Care Team Providers Care Real Estate Professional Name Role Phone Pebbles Levine ACADEMIC ADMINISTRATOR Primary Care Provider Jeane vailable Reason for [...] (Late st Contact Info) Description 03/08/2022 Telephone [facility] [address] [place] [address] Dental, Provider, DDS Prior Authorization (Patient called [...] on filedocumented in this encounter Care Teams Real Estate Professional Relationship Specialty Start Date End Date Pebbles Levine FNP PCP - General Family Medicine 09/29/21 08/11/22 documented as of this encounter
--- OUTSIDE RECORDS SUMMARY | 2025-01-09 16:14 | XMS_ITS | Clinical Summary ---
Author Organization [facility] Address [address] [place] [address] Phone Care Team Providers Care Chiropractic Care Name Role Phone Lilia Laws MD Primary [...] file Insurance MEDICARE PART A & B [facility] ONE CARE MEDICARE REPLACEMENT MEDICARE PART A & B [employer] [facility] [employer] [facility] CARE MEDICARE REPLACEMENT [place] [id number] MEDICARE PART A & B [facility] ONE CARE MEDICARE REPLACEMENT MEDICARE PART A & B [employer] [facility] CARE MEDICARE REPLACEMENT [place] [id number] MEDICARE PART A & B ONE CARE MEDICARE REPLACEMENT MEDICARE PART A & B [facility] ONE CARE MEDICARE REPLACEMENT Care Teams Chiropractic Care Relationship Specialty Start Date End Date Lilia Laws MD [address] [place] [address] PCP - General Internal Medicine 01/03/23 Additional Source Comments The information contained in this document represents components of the legal health record. It is not the complete legal health record.[facility]
--- OUTSIDE RECORDS SUMMARY | 2025-01-09 16:14 | XMS_ITS | Encounter Summary ---
Author Organization [employer] Address [address] [place] [address] [address] [address] Care Team Providers Care Cabinetmaker Helper Name Role Phone Pebbles Levine Primary Care Provider Jeane vailable Encounter Details Date Type Department Care Team (Late st Contact Info) Description 05/02/[address] [facility] [address] [place] [address] Pebbles Levine FNP Social History Tobacco Use [...] on filedocumented in this encounter Care Teams Cabinetmaker Helper Relationship Specialty Start Date End Date Pebbles Levine FNP PCP - General Family Medicine 09/29/21 08/11/22 documented as of this encounter
--- OUTSIDE RECORDS SUMMARY | 2025-01-09 16:14 | XMS_ITS | Clinical Summary ---
Author Organization [facility] Address [address] [place] [address] Phone Care Team Providers Care Corn Breeder Name Role Phone Lilia Walsh MD Primary Care Provider [phone] Allergies Active Allergy Reactions Criticality Noted Date [...] Care Team (Late st Contact Info) Description 01/23/2025 10:00 AM EDT Office Visit Orthopedic Surgery - [place] [address] [facility] [address] [place] [address] Bebe Reyna PA [address] [place] [phone] Health Maintenance Due Date Last Done Comments Colorectal Cancer Screening: Colonoscopy 1975 DTaP,Tdap,and Td Vaccines (1 - Tdap) 10/02/1994 Hepatitis B Vaccines (1 of 3 - 19+ 3-dose series) 10/02/1994 Cervical Cancer Screening: P ap Smear 10/02/1996 Breast Cancer Screening 12/19/2021 12/20/2019 HIV Screening 01/29/2024 Hepatitis C Screening 01/29/2024 [...] fective 2022-Present) Name:ARTHUR SCHNEIDER Relation to Subscriber:Self Name:Flakito Quintero Arthur De La Rosa Payer ID:[id number] Group ID:[id number] Type:Not on file Address: [place] [address] [place] [phone] Care Teams Corn Breeder Relationship Specialty Start Date End Date Lilia Walsh MD [address] [place] [address] PCP - General Internal Medicine 02/29/24
== END 2025-01-09 13:58 | disposition home or self-care (01) ==
LOC: HO.HMCH 13:01
PROVIDERS: PCP Physician Assistant; Visit Provider Physician Assistant
DX: M70.61 Trochanteric bursitis, right hip (principal); E78.5 Hyperlipidemia, unspecified; F41.9 Anxiety disorder, unspecified; M54.2 Cervicalgia

== ENCOUNTER → 2025-01-09 13:00 | Outpatient (BNVA) | payer OTHER, SELFPAY | PROVIDERS: PCP Internal Medicine; Visit Provider Physician Assistant | DX: M70.61 Trochanteric bursitis, right hip (principal); F41.9 Anxiety disorder, unspecified; F32.A Depression, unspecified; G43.909 Migraine, unspecified, not intractable, without status migrainosus; M79.7 Fibromyalgia; D64.9 Anemia, unspecified; E78.5 Hyperlipidemia, unspecified; F90.9 Attention-deficit hyperactivity disorder, unspecified type; M54.2 Cervicalgia | CPT/HCPCS: 99212 ==

== ENCOUNTER 2025-01-20 12:10 | Outpatient (AMB) | payer OTHER, SELFPAY ==
--- NOTE | 2025-01-20 12:13 | MHC.OFFVIS ---
Vital Signs 01/20/25 12:14 Height 5 ft 3 in Weight 160 lb BMI 28.3 Intake Visit Reasons: post op Catcher Helper Required: Yes Catcher Helper Language: Abrasive Mixer Helper Services: Catcher Helper Present (in person) Catcher Helper Name: Shae DURANT Information Interpreted: non-clinical & clinical Accompanied by: Self / Same As Patient Allergies morphine (MORPHINE) Allergy (Intermediate, Verified 01/20/25 12:17) Itching tramadol (TRAMADOL) Allergy (Intermediate, Verified 01/20/25 12:17) SHORTNESS OF BREATH HPI Comments Details: The patient is presenting post hysteroscopy D&C no complaints minimal vaginal bleeding no feverishness chills or abdominal pain. Intraoperative finding no evidence of endometrial pathology The pathology showed the following: Endometrium, curettage: Benign inactive endometrium with focal breakdown, and benign endocervical glandular and scant squamous epithelium; no atypia or carcinoma PFSH Medical History Well woman exam Physical exam Neck pain Esophageal spasm Thoracic spine pain Pain of right scapula Abdominal cramping Hypersomnia Snoring Skin lesion Cough Right carpal tunnel syndrome Left carpal tunnel syndrome Hand pain ELLE on CPAP Right foot pain Left foot pain Bilateral hand pain Other spondylosis, kyejasbu-icsobuw-gvlie region Left shoulder pain Pain of left scapula Occipital neuralgia of right side Occipital neuralgia of left side Dyspepsia Odynophagia Sinus pressure Headache Blurry vision Carpal tunnel syndrome Facet joint disease of cervical region Muscle spasms of neck Abnormal uterine bleeding (AUB) Abdominal bloating Constipation Low vitamin D level Spasmodic torticollis Hx of ovarian cyst Colon cancer screening Vaginal itching Anxiety Chest pain Bloody stools Dyslipidemia Hypovitaminosis D Right flank pain RUQ abdominal pain Occipital headache Tonsil stone Overweight (BMI 25.0-29.9) Migraines Moderate major depression Normocytic anemia GERD (gastroesophageal reflux disease) Cervical cancer screening Cervical radiculopathy Facet arthropathy, multilevel Well woman exam with routine gynecological exam Fibromyalgia Arthritis Sleep apnea Surgical History History of esophagogastroduodenoscopy (EGD) (10/25/22) Hx of colonoscopy History of endoscopy S/P lumbar fusion Hx of removal of ovary Family History Mother Thyroid disease Maternal Aunt No problems noted. Father No problems noted. Social History Housing: House Alcohol intake: current Alcohol intake frequency: holidays/special occasions only Alcohol type: wine Patient Tobacco Use Status: Former Tobacco user Tobacco use type: Cigarette e-Cigarette/Vaping Use: Never Used Second Hand Smoke Exposure: No service: No Current occupational status: disabled Gender identity: Female Cognitive needs: No Hearing needs: No Vision needs: Yes Female Reproductive History Menstrual Age of Menarche: 11 Review of Systems Const All systems reviewed & are unremarkable except as noted in HPI and below Reports as per HPI and Reports no additional complaints GI Reports no additional complaints Reports no additional complaints Assessment & Plan Assessment & Plan (1) Abnormal ultrasound of endometrium: Code(s): R93.5 - Abnormal findings on diagnostic imaging of other abdominal regions, including retroperitoneum Category: Medical Plan: Discussed with the patient the intraoperative finding and the pathology results, all questions answered, the patient verbalized understanding Coding Level of Care Code Est Pt Level 3 (37495) Diagnoses Abnormal ultrasound of endometrium R93.5
[2025-01-20 12:14] VITALS: BMI 28.3
--- OUTSIDE RECORDS SUMMARY | 2025-01-20 15:38 | XMS_ITS | Encounter Summary ---
Author Organization [employer] Address [address] [place] [address] [address] [place] [address] Care Team Providers Care Security Program Manager Name Role Phone Pebbles LevineP Primary Care Provider Jeane vailable Encounter Details Date Type Department Care Team (Latest Contact Info) Description 02/01/2022 Abstract [facility] CONVERSIONS Dental, Provider, DDS Social History [...] on filedocumented in this encounter Care Teams Security Program Manager Relationship Specialty Start Date End Date Pebbles Levine FNP PCP - General Family Medicine 09/29/21 08/11/22 documented as of this encounter
--- OUTSIDE RECORDS SUMMARY | 2025-01-20 15:38 | XMS_ITS | Encounter Summary ---
Author Organization [facility] Address [address] [facility] [address] [place] [phone] Phone Care Team Providers Care Guyline Operator Name Role Phone Lilia Laws MD Primary Care Provid er Encounter Details Date Type Department Care Team (Late st Contact Info) Description 06/06/2023 Procedure Pass [facility], [address] [address] Social History Tobacco Use Types Packs/Day Years [...] on filedocumented in this encounter Care Teams Guyline Operator Relationship Specialty Start Date End Date Lilia Laws MD [address] [place] [address] PCP - General Internal Medicine 01/03/23 documented as of this encounter Additional Source Comments The information contained in this document represents components of the legal health record. It is not the complete legal health record.[facility]
--- OUTSIDE RECORDS SUMMARY | 2025-01-20 15:38 | XMS_ITS | Clinical Summary ---
Author Organization [address] [facility] Address [address] [place] [address] Phone Care Team Providers Care Lift Supervisor Name Role Phone Lilia Walsh MD Primary Care Provider [phone] Allergies Active Allergy Reactions Criticality Noted Date [...] AM EDT Office Visit Orthopedic Surgery - [place] [address] [facility] [address] [place] [address] Bebe Reyna PA [address] [place] [phone] Health Maintenance Due Date Last Done [...] ID:[id number] Group ID:[id number] Type:Not on file Address: [place] [address] [place] [id number] Care Teams Lift Supervisor Relationship Specialty Start Date End Date Lilia Walsh MD [address] [place] [address] PCP - General Internal Medicine 02/29/24
--- OUTSIDE RECORDS SUMMARY | 2025-01-20 15:38 | XMS_ITS | Encounter Summary ---
Author Organization [employer] Address [address] [place] [address] [address] [place] [address] Care Team Providers Care Vehicle Upholsterer Name Role Phone Pebbles Levine PERCH MENDER Primary Care Provider Jeane vailable Reason for [...] 03/08/2022 Telephone [facility] [address] [place] [address] Dental, Provider, DDS Prior Authorization (Patient called [...] on filedocumented in this encounter Care Teams Vehicle Upholsterer Relationship Specialty Start Date End Date Pebbles Levine FNP PCP - General Family Medicine 09/29/21 08/11/22 documented as of this encounter
--- OUTSIDE RECORDS SUMMARY | 2025-01-20 15:38 | XMS_ITS | Clinical Summary ---
Author Organization [employer] Address [address] [place] [address] [address] [place] [address] Care Team Providers Care Reliability Engineer Name Role Phone Unavailable Primary Care Provider [...] Most Recently Relevant to Health Maintenance [place] [address] [place] [address] [address] [place] [phone]
--- OUTSIDE RECORDS SUMMARY | 2025-01-20 15:38 | XMS_ITS | Encounter Summary ---
Author Organization [employer] Address [address] [place] [address] [address] [place] [address] Care Team Providers Care Rod Mill Operator Name Role Phone Pebbles Levine Primary Care Provider Jeane vailable Encounter Details Date Type Department Care Team (Late st Contact Info) Description 05/02/2022 Abstract [facility] [address] [place] [address] Pebbles Levine FNP Social History Tobacco Use [...] on filedocumented in this encounter Care Teams Rod Mill Operator Relationship Specialty Start Date End Date Pebbles Levine FNP PCP - General Family Medicine 09/29/21 08/11/22 documented as of this encounter
--- OUTSIDE RECORDS SUMMARY | 2025-01-20 15:38 | XMS_ITS | Clinical Summary ---
Author Organization [facility] Address [address] [place] [phone] Phone Care Team Providers Care Spool Winder Name Role Phone Lilia Laws MD Primary [...] file Insurance MEDICARE PART A & B [facility] ONE CARE MEDICARE REPLACEMENT MEDICARE PART A & B [employer] [facility] [employer] [facility] CARE MEDICARE REPLACEMENT [place] [id number] MEDICARE PART A & B [facility] ONE CARE MEDICARE REPLACEMENT MEDICARE PART A & B [employer] [facility] CARE MEDICARE REPLACEMENT [place] [id number] MEDICARE PART A & B ONE CARE MEDICARE REPLACEMENT MEDICARE PART A & B [facility] ONE CARE MEDICARE REPLACEMENT Care Teams Spool Winder Relationship Specialty Start Date End Date Lilia Laws MD [address] [place] [address] PCP - General Internal Medicine 01/03/23 Additional Source Comments The information contained in this document represents components of the legal health record. It is not the complete legal health record.[facility]
== END 2025-01-20 12:46 | disposition home or self-care (01) ==
LOC: HO.HWS 12:11
PROVIDERS: PCP Internal Medicine; Visit Provider Obstetrics & Gynecology
DX: R93.5 Abnormal findings on diagnostic imaging of other abdominal regions, including retroperitoneum (principal)
CPT/HCPCS: 99213

== ENCOUNTER → 2025-01-20 12:10 | Outpatient (BNVA) | payer OTHER, SELFPAY | PROVIDERS: PCP Internal Medicine; Visit Provider Obstetrics & Gynecology | DX: Z48.816 Encounter for surgical aftercare following surgery on the genitourinary system (principal); R93.5 Abnormal findings on diagnostic imaging of other abdominal regions, including retroperitoneum | CPT/HCPCS: 99212 ==

== ENCOUNTER 2025-03-03 08:19 | Outpatient (REF) | payer OTHER, SELFPAY ==
[2025-03-03 08:50] LABS: Hematocrit 38.6 % (37.0-47.0); Hemoglobin 12.6 g/dl (12.0-16.0); Mean Corpuscular HGB Conc 32.6 g/dl (31.0-35.0); Mean Corpuscular Hemoglobin 29.8 pg (27.0-33.0); Mean Corpuscular Volume 91.3 fL (80.0-98.0); NRBC Abs Auto 0.000 X10*3/uL (0.0-0.012); NRBC Pct Auto 0.0 /100WBC (0.0-0.2); Platelet Count 232 X10*3/uL (160-400); Red Blood Count 4.23 X10*6/uL (4.20-5.50); White Blood Count 6.8 X10*3/uL (4.8-10.8)
[2025-03-03 09:26] LABS: Alanine Aminotransferase 15 U/L (0-31); Albumin Level 4.1 g/dL (3.5-5.0); Alkaline Phosphatase 69 U/L (39-117); Anion Gap 10 (12-20); Aspartate Amino Transferase 20 U/L (5-31); Blood Urea Nitrogen 8 mg/dL (9-16); Calcium 9.1 mg/dL (8.4-10.2); Carbon Dioxide 26 mmol/L (22-29); Chloride 107 mmol/L (96-108); Cholesterol 179 mg/dL (<200); Estimated Glomerular Filt Rate > 60; HDL Cholesterol 55 mg/dL (>40); Potassium 4.0 mmol/L (3.3-5.1); Sodium 139 mmol/L (135-145); Total Protein 7.1 g/dL (6.5-8.0); Triglycerides 63 mg/dL (<150)
[2025-03-03 09:49] LABS: Folate 10.5 ng/mL (> or = 4.0); Vitamin B12 277 pg/mL (200-900)
== END 2025-03-03 08:20 | disposition home or self-care (01) ==
LOC: HO.LAB 08:19
PROVIDERS: PCP Physician Assistant; Visit Provider Physician Assistant
DX: E55.9 Vitamin D deficiency, unspecified (principal); E53.8 Deficiency of other specified B group vitamins; D64.9 Anemia, unspecified; E78.5 Hyperlipidemia, unspecified
CPT/HCPCS: 36415; 80053; 80061; 82306; 82607; 82746; 85027